=== PATIENT | female | born 1945 | race Caucasian/White ===

== ENCOUNTER 2019-12-20 17:26 | Emergency (ER) | payer MEDICARE, SELFPAY ==
[2019-12-20 17:35] VITALS: BP 153/95; PULSE 106; RESP 20; TEMP 37.2; O2SAT 97
--- NOTE | 2019-12-20 17:47 | ED.GENADULT ---
HPI - General Adult General Chief complaint: Urogenital-Female Stated complaint: POS UTI Time Seen by Provider: 12/20/19 17:47 Source: patient and RN notes reviewed Mode of arrival: ambulatory Limitations: no limitations History of Present Illness HPI narrative: 74-year-old female presents with urinary complaints for 1 day. Dysuria hematuria, consist of burning, frequency, and urgency.? No treatment.? Denies fever or chills. No significant pelvic pain. No vaginal discharge.? No concerns for STDs. Exacerbating factors urinating.? Alison says she inserted a q-tip in her vaginal area and blood was on it, no other vaginal bleeding (has a hyperion essbase developer appointment scheduled). Denies being , Hysterectomy in 1987.? No flank pain. Denies nausea, vomiting, and abdominal pain.? Tolerating liquids well.? Remains active. The patient reports she have not been diagnosed with COVID-19. The patient reports she is not waiting for the results of a COVID-19 lab test. The patient reports she do not have fever, chills, weakness, or fatigue. The patient reports she do not have a new or worsening cough or shortness of breath. Denies chest pain. The patient reports she do not have any rhinorrhea, congestion, sore throat, and diarrhea. Denies recent traveling. Denies concerns for COVID-19 or exposures been home with limited outdoor exposure except for essential household needs, work, and return home. At this time, patient is not suspected of having COVID-19. Some parts of this dictation were generated by voice recognition software and may contain typographical and/or grammatical inaccuracies. Related Data Home Medications Medication Instructions Recorded Confirmed aspirin [Adult Low Dose Aspirin] 81 mg PO DAILY 05/10/19 12/20/19 [id number]-ast 1 cap PO DAILY 05/10/19 12/20/19 [MegaRed [place]-3 Krill Oil] Allergies Allergy/AdvReac Type Severity Reaction Status Date / Time prednisone Allergy Intermediate increased Verified 04/29/19 10:58 heart rate amoxicillin Allergy Mild Nausea Verified 04/29/19 10:58 codeine Allergy Mild Vomiting Verified 04/29/19 10:58 Sulfa (Sulfonamide Allergy Mild Nausea and Verified 04/29/19 10:58 Antibiotics) Vomiting ibuprofen AdvReac Severe Other Verified 04/29/19 10:58 NSAIDS (Non-Steroidal AdvReac Severe Other Verified 04/29/19 10:58 Anti-Inflamma Review of Systems Review of Systems: Narrative: CONSTITUTIONAL: Denies fever, chills, sweats. EYES: Denies visual changes, redness, discharge. ENT: Denies rhinorrhea, congestion, sore throat, otalgia. CARDIOVASCULAR: Denies chest pain, palpitations, edema. RESPIRATORY: Denies dyspnea, wheezing, cough. GASTROINTESTINAL: Denies abdominal pain, nausea, vomiting, diarrhea. GENITOURINARY: Complains of dysuria (hematuria, burning, frequency, and urgency). Denies abnormal discharge. SKIN: Denies rash or itching. MUSCULOSKELETAL: Denies acute back pain, joint pain, or myalgia. NEUROLOGIC: Denies numbness or focal weakness. PSYCHIATRIC: Denies anxiety or depression. All systems reviewed & are unremarkable except as noted in HPI and below. [facility] Past Medical History Medical History (Updated 12/22/19 @ 00:00 by Background Dakisha) Anemia Asthma Bronchitis Diabetes mellitus Endometriosis Hyperlipidemia Hypertension Renal disease Surgical History Surgical History History of total hysterectomy with bilateral salpingo-oophorectomy (BSO) Family History Family History Mother Hypertension CHF (congestive heart failure) Father Patient's father is in good health Brain aneurysm Social History Social History Smoking status: Never smoker Second hand tobacco smoke exposure: No Alcohol intake: never Substance use: never Gender identity (if verbalized by the pat
== END 2019-12-20 18:02 | disposition home or self-care (01) ==
PROVIDERS: Emergency Provider Nurse Practitioner Family; PCP Physician Assistant
DX: R30.0 Dysuria (principal); R31.9 Hematuria, unspecified; E11.9 Type 2 diabetes mellitus without complications; E78.5 Hyperlipidemia, unspecified; I10 Essential (primary) hypertension; J45.909 Unspecified asthma, uncomplicated; N80.9 Endometriosis, unspecified
CPT/HCPCS: 81003; 87077; 87086; 87088; 87186; 99213; G0463

== ENCOUNTER 2020-01-26 16:50 | Emergency (ER) | payer MEDICARE, SELFPAY ==
--- NOTE | 2020-01-26 16:54 | ED.FEMALEGU ---
HPI - Female Genitourinary General Chief complaint: Urogenital-Female Stated complaint: pos uti Time Seen by Provider: 01/26/20 16:54 Source: patient and RN notes reviewed History of Present Illness HPI Narrative: Patient is a 74-year-old female who presents the urgent care with complaints of possible UTI. Patient was seen on December 19 for E. coli in the urine. Patient states that her symptoms started Thursday and she has been taking an old prescription of ciprofloxacin since then . Patient states that she has had urinary frequency and some suprapubic pressure. States that it has not changed since she has been on the ciprofloxacin. Denies of any blood in the urine, nausea, fever, back pain, abdominal pain. No other acute complaints. No acute distress noted. Patient read the plan of care. Some parts of this dictation were generated by voice recognition software and may contain typographical and/or grammatical inaccuracies. Related Data Home Medications Medication Instructions Recorded Confirmed aspirin [Adult Low Dose Aspirin] 81 mg PO DAILY 05/10/19 12/20/19 [id number]-apv-[id number]-gafvmel-ast 1 cap PO DAILY 05/10/19 12/20/19 [MegaRed [place]-3 Krill Oil] Allergies Allergy/AdvReac Type Severity Reaction Status Date / Time prednisone Allergy Intermediate increased Verified 01/26/20 16:59 heart rate amoxicillin Allergy Mild Nausea Verified 01/26/20 16:59 codeine Allergy Mild Vomiting Verified 01/26/20 16:59 Sulfa (Sulfonamide Allergy Mild Nausea and Verified 01/26/20 16:59 Antibiotics) Vomiting ibuprofen AdvReac Severe Other Verified 01/26/20 16:59 NSAIDS (Non-Steroidal AdvReac Severe Other Verified 01/26/20 16:59 Anti-Inflamma Review of Systems Review of Systems: Narrative: CONSTITUTIONAL: Denies fever, chills, or sweats. EYES: Denies visual changes, redness, or discharge. ENT: Denies rhinorrhea, congestion, sore throat, or otalgia. CARDIOVASCULAR: Denies chest pain, palpitations, or edema. RESPIRATORY: Denies cough or dyspnea. GASTROINTESTINAL: Denies abdominal pain, nausea, vomiting, or diarrhea. GENITOURINARY: Reports of suprapubic pressure and urinary frequency SKIN: Denies rash or itching. MUSCULOSKELETAL: Denies back pain, joint pain, or myalgia. NEUROLOGIC: Denies headache, numbness, or weakness. All other systems reviewed are negative, except as documented in HPI. [facility] Past Medical History Medical History (Updated 01/26/20 @ 17:15 by ADAL Waggoner) Anemia Asthma Bronchitis Diabetes mellitus Endometriosis Hyperlipidemia Hypertension Renal disease Surgical History Surgical History History of total hysterectomy with bilateral salpingo-oophorectomy (BSO) Social History Social History Smoking status: Never smoker Second hand tobacco smoke exposure: No Alcohol intake: never Substance use: never Gender identity (if verbalized by the patient): Female Agree to blood products: Yes Comments At the time of my signature, I reviewed and agree with the nursing past medical, surgical, social, and family history. There is no relevant family history pertinent to the patient complaint. Exam Narrative: Exam Narrative: GENERAL: This is a well-nourished, well-developed patient, in no apparent distress. HEAD: normocephalic, atraumatic. EYES: PERRL. Sclera clear/white. Vision is grossly intact. EARS: External ears normal NOSE: External nose normal with no obvious nasal discharge, nares without redness, no rhinorrhea. THROAT: Mucous membranes moist NECK: Neck supple GASTROINTESTINAL: Abdomen soft, non-tender, nondistended. Bowel sounds are active. SKIN: warm, intact with no suspicious lesions or rash, good texture and turgor. NEURO: awake, alert, and oriented to person, place and time. There were no obvious focal neurologic abnormalities. EXTREMITIES: No clubbing, cyano
[2020-01-26 17:01] VITALS: BP 160/83; PULSE 100; RESP 16; TEMP 36.6; O2SAT 98
== END 2020-01-26 17:18 | disposition home or self-care (01) ==
PROVIDERS: Emergency Provider Nurse Practitioner Family; PCP Physician Assistant
DX: R35.0 Frequency of micturition (principal); I10 Essential (primary) hypertension; E11.9 Type 2 diabetes mellitus without complications
CPT/HCPCS: 81003; 99212; G0463

== ENCOUNTER 2020-02-03 09:47 | Outpatient (CLI) | payer MEDICARE, SELFPAY ==
[2020-02-03 10:31] LABS: Add Urine Microscopic? NO; Appearance Urine Clear (Clear); Bilirubin Urine Negative (Negative); Blood Urine Negative (Negative); Color Urine Straw (Yellow); Glucose Urine UA Negative (Negative); Ketones Urine Negative (Negative); Leukocyte Esterase Ur Negative LEU/UL (NEGATIVE); Nitrate Urine Negative (Negative); Protein Urine Negative (Negative); Specific Grav Ur 1.011 (1.001-1.035); Urobilinogen Urine Negative mg/dL (<2.0)
== END 2020-02-03 09:48 | disposition home or self-care (01) ==
LOC: ANHLAB 09:49
PROVIDERS: PCP Physician Assistant; Visit Provider Physician Assistant
DX: R30.0 Dysuria (principal)
CPT/HCPCS: 81003; 87086

== ENCOUNTER 2020-02-15 04:17 | Emergency (ER) | payer MEDICARE, SELFPAY ==
--- NOTE | ~2020-02-15 | XR_ITS ---
XR chest 2V DATE: 02/15/2020 04:57 INDICATION: Chest tightness, shortness of breath TECHNIQUE: PA and lateral views COMPARISON: 05/10/2019 CT pulmonary scan 05/10/2019 2 view chest FINDINGS: Heart size is within normal range. Is mild aortic unfolding. No hilar or mediastinal enlarg ement. No pulmonary infiltrate or consolidation, pleural effusion or pulmonary vascular congestion or pneumo thorax. Diffuse osteopenia. IMPRESSION: No active cardiopulmonary disease Reviewed, dictated and finalized at location A.
[2020-02-15 04:20] VITALS: BP 165/84; PULSE 84; RESP 18; TEMP 36.6; O2SAT 97
[2020-02-15 04:24] VITALS: PULSE 84
--- NOTE | 2020-02-15 04:26 | ECG_ITS ---
Measurements Intervals [place] Rate: 85 P: 52 RI: 148 QRS: 12 QRSD: 94 T: 12 QT: 358 QTc: 426 Interpretive Statements SINUS RHYTHM BORDERLINE ST ABNORMALITY- ANT/INF LEADS BASELINE WANDER- I, II, III, AVF, V3 BORDERLINE ECG Electronically Signed On 02-15-2020 6:52:21 CDT by Cong Lanier D.O.
--- NOTE | 2020-02-15 04:34 | PC.NURSE ---
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
[2020-02-15 04:35] LABS: Basophils Absolute Auto 0.1 K/mm3 (0.0-0.1); Basophils Percent Auto 0.8 % (0.2-1.2); Eosinophils Absolute Auto 0.2 K/mm3 (0-0.3); Eosinophils Percent Auto 1.9 % (0-4.4); Hematocrit 39.9 % (37.0-47.0); Hemoglobin 12.7 g/dL (12.0-15.0); Immature Granulocyte Absolute 0.03 K/mm3 (0.00-0.031); Immature Granulocyte Percent A 0.3 % (0-0.5); Lymphocytes Absolute Auto 2.29 K/mm3 (0.9-3.2); Lymphocytes Percent Auto 21.7 % (18.3-44.2); Mean Corpuscular HGB Conc 31.8 g/dl (32-36); Mean Corpuscular Hemoglobin 26.5 pg (26-34); Mean Corpuscular Volume 83.1 fl (80-100); Monocytes Absolute Auto 0.7 K/mm3 (0.1-0.6); Monocytes Percent Auto 6.1 % (2.6-8.5); Neutrophils Absolute Auto 7.3 K/mm3 (1.3-6.7); Neutrophils Percent Auto 69.2 % (45.5-73.1); Platelet Count Result 266 k/mm3 (150-375); Red Cell Distribution Width 15.2 % (11.5-14.5); White Blood Count 10.6 K/mm3 (4.5-10.0)
[2020-02-15 04:47] LABS: Anion Gap 13 mmol/L (8-16); Blood Urea Nitrogen 22 mg/dL (7-17); Carbon Dioxide 25 mmol/L (22-30); Chloride 99 mmol/L (98-107); Estimated CRCL calculation 40 ml/min; Estimated Glomerular Filt Rate 54; Glucose 184 mg/dL (65-105); Potassium 3.5 mmol/L (3.4-5.0); Prothrombin Time 13.3 Seconds (11.1-14.7); Sodium 137 mmol/L (137-145)
[2020-02-15 04:48] LABS: Partial Thromboplastin Time 37.1 SECONDS (22.3-36.8)
[2020-02-15 04:58] LABS: Troponin I < 0.012 ng/mL (0.000-0.034)
[2020-02-15] MEDS: BELLADONNA ALK/PHENOB ELIX 10 ML, MAG HYDROX/ALUMINUM HYD/SIMETH 30 ML, LIDOCAINE HCL 2... PO (05:05)
[2020-02-15 05:26] VITALS: BP 136/74; PULSE 74; RESP 18; O2SAT 95
--- NOTE | 2020-02-15 05:40 | ED.CHESTPAIN ---
HPI - Chest Pain General Chief Complaint: Chest Pain Stated Complaint: sob Time Seen by Provider: 02/15/20 04:40 History of Present Illness HPI narrative: Patient is a 74-year-old female who presents ER with central chest pressure. Occurred last night as well as tonight. She is been unable to sleep due to this. She reports mild relief previously when using her inhaler but not this evening. No nausea/vomiting/shortness of breath. No exertional component. Unsure if it is related to eating or drinking. Related Data Home Medications Medication Instructions Recorded Confirmed aspirin [Adult Low Dose Aspirin] 81 mg PO DAILY 05/10/19 02/11/20 [id number]-eps-ezgpksx-ast 1 cap PO DAILY 05/10/19 02/11/20 [MegaRed [place]-3 Krill Oil] Allergies Allergy/AdvReac Type Severity Reaction Status Date / Time prednisone Allergy Intermediate increased Verified 02/15/20 04:24 heart rate amoxicillin Allergy Mild Nausea Verified 02/15/20 04:24 codeine Allergy Mild Vomiting Verified 02/15/20 04:24 Sulfa (Sulfonamide Allergy Mild Nausea and Verified 02/15/20 04:24 Antibiotics) Vomiting ibuprofen AdvReac Severe Other Verified 02/15/20 04:24 NSAIDS (Non-Steroidal AdvReac Severe Other Verified 02/15/20 04:24 Anti-Inflamma Review of Systems Review of Systems: All systems reviewed & are unremarkable except as noted in HPI and below Constitutional: Constitutional: Denies chills, Denies fever(s) and Denies weakness ENT: Denies nasal congestion and Denies sore throat Cardiovascular: Cardiovascular: Reports chest pain and Denies radiating jaw, neck or arm pain Respiratory: Respiratory: Denies cough and Denies dyspnea Gastrointestinal: Gastrointestinal: Denies abdominal pain, Denies nausea and Denies vomiting PMFSH Social History Social History Smoking status: Never smoker Second hand tobacco smoke exposure: No Alcohol intake: never Substance use: never Gender identity (if verbalized by the patient): Female Agree to blood products: Yes Exam Narrative: Exam Narrative: GENERAL: Well-appearing, well-nourished, and in no acute distress. HEAD: Normocephalic, atraumatic. ENT: Mucous membranes moist. CHEST: Clear to auscultation. No respiratory distress. HEART: Regular rate and rhythm. Normal peripheral pulses. ABDOMEN: Soft, nontender, nondistended. EXTREMITIES: Normal range of motion. No edema. SKIN: Warm, dry, no rash. NEURO: Alert and oriented x3. Course Course Emergency Course: Symptoms resolved with GI cocktail. D/c home. Vital Signs Vital signs: Vital Signs Temperature 97.8 F 02/15/20 04:20 Pulse Rate 84 02/15/20 04:20 Respiratory Rate 18 02/15/20 04:20 Blood Pressure 165/84 H 02/15/20 04:20 Pulse Oximetry 97 02/15/20 04:20 Temperature 97.8 F 02/15/20 04:20 Pulse Rate 74 02/15/20 05:26 Respiratory Rate 18 02/15/20 05:26 Blood Pressure 136/74 02/15/20 05:26 Pulse Oximetry 95 02/15/20 05:26 MDM - Chest Pain Lab Data Result diagrams: 02/15/20 04:27 02/15/20 04:27 Labs: Lab Results 02/15/20 02/15/20 02/15/20 Range/Units 04:27 04:27 04:27 WBC 10.6 H (4.5-10.0) K/mm3 RBC 4.80 (4.2-5.4) M/mm3 Hgb 12.7 (12.0-15.0) g/dL Hct 39.9 (37.0-47.0) % MCV 83.1 (80-100) fl MCH 26.5 (26-34) pg MCHC 31.8 L (32-36) g/dl RDW 15.2 H (11.5-14.5) % Plt Count 266 (150-375) k/mm3 MPV 10.0 (7.4-10.4) fl Immature Gran % (Auto) 0.3 (0-0.5) % Neut % (Auto) 69.2 (45.5-73.1) % Lymph % (Auto) 21.7 (18.3-44.2) % [place] % (Auto) 6.1 (2.6-8.5) % Eos % (Auto) 1.9 (0-4.4) % Baso % (Auto) 0.8 (0.2-1.2) % Lymph # (Auto) 2.29 (0.9-3.2) K/mm3 [place] # (Auto) 0.7 H (0.1-0.6) K/mm3 Eos # (Auto) 0.2 (0-0.3) K/mm3 Baso # (Auto) 0.1 (0.0-0.1) K/mm3 Abs Immat Gran (auto) 0.03 (0.00-0.031) K/mm3 Absolute
[2020-02-15 05:53] VITALS: BP 123/60; PULSE 69; RESP 17; O2SAT 93
== END 2020-02-15 05:54 | disposition home or self-care (01) ==
PROVIDERS: Emergency Provider Emergency Medicine; PCP Physician Assistant
DX: K21.9 Gastro-esophageal reflux disease without esophagitis (principal); Z79.82 Long term (current) use of aspirin
CPT/HCPCS: 36415; 71046; 80048; 84484; 85025; 85610; 85730; 93005; 99284; A9270

== ENCOUNTER 2020-03-01 19:59 | Emergency (ER) | payer MEDICARE, SELFPAY ==
--- NOTE | ~2020-03-01 | XR_ITS ---
EXAMINATION: XR chest 1V portable EXAM DATE: 03/01/2020 21:15 INDICATION: Cough, fever, chills, symptoms 5 days. History of hypertension and asthma. TECHNIQUE: Portable AP frontal chest x-ray was obtained. Comparison is made to prior examination from 02/15/2020. FINDINGS: The lungs are clear. There are no pleural effusions. Cardiac silhouette is prominent but magnified on this AP technique. There is no pneumothorax suspected. The bones and soft tissues are unremarkable. IMPRESSION: No acute cardiopulmonary findings. Reviewed, dictated and finalized at location A.
[2020-03-01 20:02] VITALS: BP 150/75; PULSE 98; RESP 16; TEMP 37.5; O2SAT 100
--- NOTE | 2020-03-01 20:04 | ECG_ITS ---
Measurements Intervals [place] Rate: 89 P: 50 [place]: 159 QRS: 19 QRSD: 92 T: 30 QT: 347 QTc: 423 Interpretive Statements SINUS RHYTHM BORDERLINE ST ABNORMALITY- ANTERIOR LEADS BASELINE WANDER- III, V6 BORDERLINE ECG Electronically Signed On 03-02-2020 7:04:02 CDT by Cong Lanier D.O.
[2020-03-01 20:18] LABS: Basophils Percent Auto 0.5 % (0.2-1.2); Eosinophils Percent Auto 0.6 % (0-4.4); Hematocrit 38.9 % (37.0-47.0); Hemoglobin 12.8 g/dL (12.0-15.0); Immature Granulocyte Absolute 0.02 K/mm3 (0.00-0.031); Immature Granulocyte Percent A 0.3 % (0-0.5); Lymphocytes Percent Auto 17.2 % (18.3-44.2); Mean Corpuscular HGB Conc 32.9 g/dl (32-36); Mean Corpuscular Hemoglobin 26.7 pg (26-34); Mean Platelet Volume 9.4 fl (7.4-10.4); Monocytes Absolute Auto 0.7 K/mm3 (0.1-0.6); Monocytes Percent Auto 10.6 % (2.6-8.5); Neutrophils Absolute Auto 4.5 K/mm3 (1.3-6.7); Neutrophils Percent Auto 70.8 % (45.5-73.1); Platelet Count Result 220 k/mm3 (150-375); Red Cell Distribution Width 14.9 % (11.5-14.5); White Blood Count 6.4 K/mm3 (4.5-10.0)
[2020-03-01 20:31] LABS: Anion Gap 12 mmol/L (8-16); Blood Urea Nitrogen 18 mg/dL (7-17); Carbon Dioxide 25 mmol/L (22-30); Chloride 99 mmol/L (98-107); Estimated CRCL calculation 36 ml/min; Estimated Glomerular Filt Rate 54; Glucose 115 mg/dL (65-105); Potassium 3.5 mmol/L (3.4-5.0); Sodium 136 mmol/L (137-145)
[2020-03-01 20:47] VITALS: RESP 20; O2SAT 95
--- NOTE | 2020-03-01 21:01 | ED.FEVER ---
HPI - Fever General Chief Complaint: Fever Stated Complaint: fever, chills, cough, short of breath Time Seen by Provider: 03/01/20 20:40 Source: patient Mode of arrival: ambulatory Limitations: no limitations History of Present Illness HPI Narrative: Patient is a 74-year-old female complaining of cough x4 days and a fever earlier this evening. Patient states that she not take anything for fever, afebrile upon arrival to the ER. Patient denies any shortness of breath, chest pain, abdominal pain, nausea or vomiting, diarrhea, or urinary symptoms. Related Data Home Medications Medication Instructions Recorded Confirmed aspirin [Adult Low Dose Aspirin] 81 mg PO DAILY 05/10/19 02/11/20 [id number]-1-kaj-izc-brvywro-ast 1 cap PO DAILY 05/10/19 02/11/20 [MegaRed [place]-3 Krill Oil] Allergies Allergy/AdvReac Type Severity Reaction Status Date / Time prednisone Allergy Intermediate increased Verified 03/01/20 20:48 heart rate amoxicillin Allergy Mild Nausea Verified 03/01/20 20:48 codeine Allergy Mild Vomiting Verified 03/01/20 20:48 Sulfa (Sulfonamide Allergy Mild Nausea and Verified 03/01/20 20:48 Antibiotics) Vomiting ibuprofen AdvReac Severe Other Verified 03/01/20 20:48 NSAIDS (Non-Steroidal AdvReac Severe Other Verified 03/01/20 20:48 Anti-Inflamma Review of Systems Review of Systems: All systems reviewed & are unremarkable except as noted in HPI and below Constitutional: Constitutional: Denies body ache(s), Denies chills, Denies excessive sweating, Denies fatigue, Denies headache(s), Denies lethargy, Denies malaise, Denies weakness and Denies weight loss Eyes: Eyes: Denies blurry vision, Denies change in vision and Denies loss of vision ENT: Denies dizziness, Denies ear discharge, Denies headache(s), Denies lip swelling, Denies epistaxis, Denies nasal congestion, Denies neck pain, Denies throat swelling and Denies tongue swelling Cardiovascular: Cardiovascular: Denies chest pain, Denies chest pain at rest, Denies chest pain with activity, Denies diaphoresis, Denies rapid heart rate, Denies edema, Denies irregular heart rhythm, Denies lightheadedness, Denies palpitations, Denies dyspnea and Denies dyspnea on exertion Respiratory: Respiratory: Denies chest congestion, Denies hemoptysis, Denies dyspnea and Denies dyspnea on exertion Gastrointestinal: Gastrointestinal: Denies abdominal pain, Denies melena, Denies hematochezia, Denies diarrhea, Denies nausea, Denies vomiting and Denies hematemesis Musculoskeletal: Musculoskeletal: Denies abnormal gait, Denies deformity, Denies joint swelling, Denies limited range of motion, Denies neck pain and Denies numbness Neurologic: Denies Abnormal speech present, Denies abnormal gait, Denies confusion, Denies dizziness, Denies headache(s), Denies focal weakness, Denies loss of vision, Denies numbness, Denies Other visual disturbances, Denies Sensory deficit (Neuro) and Denies weakness Psychiatric: Psychiatric: Denies confusion, Denies depression, Denies auditory hallucinations, Denies homicidal ideation and Denies suicidal ideation Endocrine: Endocrine: Denies cold intolerance, Denies excessive sweating, Denies fatigue, Denies heat intolerance and Denies palpitations Hematologic/Lymphatic: Hematologic/Lymphatic: Denies easy bleeding and Denies easy bruising Allergic/Immunologic: Allergic/Immunologic: Denies lip swelling, Denies throat swelling and Denies tongue swelling PMF Past Medical History Medical History (Updated 03/01/20 @ 23:13 by Amilcar Lopez MD) Anemia Asthma Bronchitis Diabetes mellitus Endometriosis Hyperlipidemia Hypertension Renal disease Surgical History Surgical History History of total hysterectomy with bilateral salpingo-oophorectomy (BSO) Family History Family History Mother Hypertension CHF (congestive heart failure) Fat
[2020-03-01 23:41] VITALS: BP 123/74; PULSE 80; RESP 16; TEMP 36.8; O2SAT 95
== END 2020-03-01 23:42 | disposition home or self-care (01) ==
PROVIDERS: Emergency Medicine; Emergency Provider Emergency Medicine; PCP Physician Assistant
DX: J06.9 Acute upper respiratory infection, unspecified (principal); J45.909 Unspecified asthma, uncomplicated; E11.9 Type 2 diabetes mellitus without complications; E78.5 Hyperlipidemia, unspecified; N80.9 Endometriosis, unspecified; I10 Essential (primary) hypertension; N28.9 Disorder of kidney and ureter, unspecified; Z86.2 Personal history of diseases of the blood and blood-forming organs and certain disorders involving the immune mechanism; Z79.84 Long term (current) use of oral hypoglycemic drugs; Z79.82 Long term (current) use of aspirin
CPT/HCPCS: 36415; 71045; 80048; 85025; 93005; 99284

== ENCOUNTER 2020-03-02 11:48 | Outpatient (CLI) | payer MEDICARE, SELFPAY ==
[2020-03-03 13:34] LABS: SARS-CoV-2 RNA PCR Negative
== END 2020-03-02 11:49 | disposition home or self-care (01) ==
LOC: CHSLAB 11:51
PROVIDERS: PCP Physician Assistant; Visit Provider Physician Assistant
DX: R68.89 Other general symptoms and signs (principal); Z20.828 Contact with and (suspected) exposure to other viral communicable diseases
CPT/HCPCS: 87635; C9803; U0003

== ENCOUNTER 2020-03-30 15:38 | Outpatient (CLI) | payer MEDICARE, SELFPAY ==
[2020-04-02 16:41] LABS: SARS-CoV-2 RNA PCR Negative
== END 2020-03-30 15:39 | disposition home or self-care (01) ==
LOC: CHSLAB 15:43
PROVIDERS: PCP Physician Assistant; Visit Provider Physician Assistant
DX: Z20.828 Contact with and (suspected) exposure to other viral communicable diseases (principal)
CPT/HCPCS: 87635; C9803; U0003

== ENCOUNTER 2020-07-03 01:25 | Emergency (ER) | payer MEDICARE, SELFPAY ==
--- NOTE | ~2020-07-03 | XR_ITS ---
EXAMINATION: XR chest 1V portable DATE: 07/03/2020 02:04 INDICATION: Chest tightness TECHNIQUE: frontal view of the chest was obtained. COMPARISON: Chest radiograph dated 03/01/[address] dated 05/10/2019 FINDINGS: Unchanged mild left basilar atelectasis/scarring. No new airspace opacities, pulmonary edema, pleural effusion or pneumothorax. The cardiomediastinal silhouette is normal. IMPRESSION: 1. No acute cardiopulmonary disease. Reviewed, dictated and finalized at location A. PLACEMENT SPECIALIST
[2020-07-03 01:27] VITALS: PULSE 76; RESP 20; O2SAT 99
[2020-07-03 01:30] VITALS: BP 124/65
--- NOTE | 2020-07-03 01:33 | ECG_ITS ---
Measurements Intervals [place] Rate: 74 P: 39 CO: 145 QRS: 21 QRSD: 85 T: 17 QT: 366 QTc: 406 Interpretive Statements SINUS RHYTHM NONSPECIFIC ST & T-WAVE ABNORMALITY- ANT/INF LEADS BASELINE ARTIFACT- I, II, AVR, V5 BORDERLINE ECG Electronically Signed On 07-03-2020 6:29:46 BRIM MOLDER by Cong Lanier D.O.
[2020-07-03 01:49] LABS: Basophils Percent Auto 0.4 % (0.2-1.2); Eosinophils Absolute Auto 0.2 K/mm3 (0-0.3); Eosinophils Percent Auto 2.2 % (0-4.4); Hematocrit 40.9 % (37.0-47.0); Hemoglobin 13.2 g/dL (12.0-15.0); Immature Granulocyte Absolute 0.03 K/mm3 (0.00-0.031); Immature Granulocyte Percent A 0.3 % (0-0.5); Lymphocytes Absolute Auto 2.11 K/mm3 (0.9-3.2); Lymphocytes Percent Auto 19.9 % (18.3-44.2); Mean Corpuscular HGB Conc 32.3 g/dl (32-36); Mean Corpuscular Hemoglobin 26.7 pg (26-34); Mean Corpuscular Volume 82.6 fl (80-100); Mean Platelet Volume 9.4 fl (7.4-10.4); Monocytes Absolute Auto 0.8 K/mm3 (0.1-0.6); Monocytes Percent Auto 7.2 % (2.6-8.5); Neutrophils Absolute Auto 7.4 K/mm3 (1.3-6.7); Platelet Count Result 239 k/mm3 (150-375); Red Blood Count 4.95 M/mm3 (4.2-5.4); Red Cell Distribution Width 14.8 % (11.5-14.5); White Blood Count 10.6 K/mm3 (4.5-10.0)
[2020-07-03 02:07] LABS: INR 0.9; Prothrombin Time 13.2 Seconds (11.1-14.7)
[2020-07-03 02:08] LABS: Alanine Aminotransferase 40 U/L (4-35); Albumin Level 4.7 g/dL (3.5-5.1); Alkaline Phosphatase 99 U/L (38-126); Anion Gap 10 mmol/L (8-16); Aspartate Amino Transferase 39 U/L (14-36); Bilirubin,Total 0.9 mg/dL (0.2-1.3); Blood Urea Nitrogen 27 mg/dL (7-17); Calcium 10.4 mg/dL (8.4-10.2); Carbon Dioxide 27 mmol/L (22-30); Chloride 101 mmol/L (98-107); Estimated CRCL calculation 36 ml/min; Estimated Glomerular Filt Rate 54; Glucose 126 mg/dL (65-105); Lipase 103 U/L (23-300); Partial Thromboplastin Time 37.8 SECONDS (22.3-36.8); Potassium 3.5 mmol/L (3.4-5.0); Sodium 138 mmol/L (137-145)
[2020-07-03] MEDS: BELLADONNA ALK/PHENOB ELIX 10 ML, MAG HYDROX/ALUMINUM HYD/SIMETH 30 ML, LIDOCAINE HCL 2... PO (02:15)
[2020-07-03] MEDS: ASPIRIN 81 MG CHEWABLE TABLET 324 MG PO (02:16)
[2020-07-03 02:20] LABS: NT Pro B Type Natriuretic Pept 37 PG/ML (5-100); Troponin I < 0.012 ng/mL (0.000-0.034)
--- NOTE | 2020-07-03 02:45 | ED.GENADULT ---
HPI - General Adult General Chief complaint: Chest Pain Stated complaint: chest tightness Time Seen by Provider: 07/03/20 01:31 History of Present Illness HPI narrative: Patient 74-year-old female presents the emergency department with chief complaint of chest pain. Patient reports that earlier this evening she started having discomfort in her chest. The patient states that the central chest reports is nonradiating reports that she felt a little short of breath whenever she was ambulating but denies diaphoresis denies radiation. Patient reports that she has had episodes like this before in the past that were either related to her asthma or related to reflux. Related Data Home Medications Medication Instructions Recorded Confirmed aspirin [Adult Low Dose Aspirin] 81 mg PO DAILY 05/10/19 02/11/20 [id number]-li-1-ifr-zbs-jfplgqt-ast 1 cap PO DAILY 05/10/19 02/11/20 [MegaRed [place]-3 Krill Oil] Allergies Allergy/AdvReac Type Severity Reaction Status Date / Time prednisone Allergy Intermediate increased Verified 07/03/20 01:32 heart rate codeine Allergy Mild Vomiting Verified 07/03/20 01:32 Sulfa (Sulfonamide Allergy Mild Nausea and Verified 07/03/20 01:32 Antibiotics) Vomiting ibuprofen AdvReac Severe Other Verified 07/03/20 01:32 NSAIDS (Non-Steroidal AdvReac Severe Other Verified 07/03/20 01:32 Anti-Inflamma Review of Systems Review of Systems: Narrative: A 10 system review of systems was completed on the patient and is negative except for what is stated in the HPI. Nursing and ancillary documentation was reviewed. [facility] Past Medical History Medical History (Updated 07/03/20 @ 04:21 by José Miguel Marie MD) Anemia Asthma Bronchitis Diabetes mellitus Endometriosis Hyperlipidemia Hypertension Renal disease Surgical History Surgical History History of total hysterectomy with bilateral salpingo-oophorectomy (BSO) Family History Family History Mother Hypertension CHF (congestive heart failure) Father Patient's father is in good health Brain aneurysm Social History Social History Smoking status: Never smoker Second hand tobacco smoke exposure: No Alcohol intake: never Substance use: never Gender identity (if verbalized by the patient): Female Agree to blood products: Yes Exam Narrative: Exam Narrative: GENERAL: Well-appearing, well-nourished, and in no acute distress. HEAD: Normocephalic, atraumatic. EYES: PERRLA and EOMI. ENT: Nares clear, no rhinorrhea or epistaxis. Mucous membranes moist. NECK: Supple. CHEST: Clear to auscultation. No respiratory distress. HEART: Regular rate and rhythm. No murmur heard. Normal peripheral pulses. ABDOMEN: Soft, nontender, nondistended, normal active bowel sounds. EXTREMITIES: Normal range of motion. No edema. SKIN: Warm, dry, no rash. NEURO: No focal deficits. Alert and oriented x3. PSYCH: Normal mood and affect. Course Course Emergency Course: EKG shows sinus rhythm rate of [address] elevation or ST depression Initial troponin is negative Vital Signs Vital signs: Vital Signs Pulse Rate 76 07/03/20 01:27 Respiratory Rate 20 07/03/20 01:27 Pulse Oximetry 99 07/03/20 01:27 Pulse Rate 69 07/03/20 05:00 Respiratory Rate 18 07/03/20 05:00 Blood Pressure 120/62 07/03/20 04:00 Pulse Oximetry 96 07/03/20 05:00 Medical Decision Making Vital Signs Vital Signs: Vital Signs Pulse Rate 76 07/03/20 01:27 Respiratory Rate 20 07/03/20 01:27 Pulse Oximetry 99 07/03/20 01:27 Pulse Rate 69 07/03/20 05:00 Respiratory Rate 18 07/03/20 05:00 Blood Pressure 120/62 07/03/20 04:00 Pulse Oximetry 96 07/03/20 05:00 Lab Data Result diagrams: 07/03/20 01:37 07/03/20 01:37
[2020-07-03 03:00] VITALS: BP 119/59; PULSE 63; RESP 17; O2SAT 94
[2020-07-03 04:00] VITALS: BP 120/62; PULSE 69; RESP 16; O2SAT 93
[2020-07-03 04:12] LABS: Add Urine Microscopic? YES; Appearance Urine Clear (Clear); Bilirubin Urine Negative (Negative); Blood Urine Negative (Negative); Color Urine Colorless (Yellow); Glucose Urine UA Negative (Negative); Ketones Urine Negative (Negative); Leukocyte Esterase Ur Trace LEU/UL (Negative); Nitrate Urine Negative (Negative); Protein Urine Negative (Negative); RBC Urine 0-2 /hpf (0-2); Specific Grav Ur 1.005 (1.001-1.035); Squamous Epithelial Cell Urine Rare /hpf (Few); Urobilinogen Urine Negative mg/dL (<2.0); WBC Urine 0-3 /hpf
[2020-07-03 05:00] VITALS: PULSE 69; RESP 18; O2SAT 96
[2020-07-03 05:29] LABS: Troponin I < 0.012 ng/mL (0.000-0.034)
[2020-07-03 05:30] VITALS: BP 117/64; PULSE 62; RESP 16; O2SAT 98
== END 2020-07-03 06:00 | disposition home or self-care (01) ==
PROVIDERS: Emergency Provider Emergency Medicine; PCP Physician Assistant
DX: R07.89 Other chest pain (principal); J45.909 Unspecified asthma, uncomplicated; E11.9 Type 2 diabetes mellitus without complications; E78.5 Hyperlipidemia, unspecified; I10 Essential (primary) hypertension; N28.9 Disorder of kidney and ureter, unspecified; Z79.82 Long term (current) use of aspirin; R06.02 Shortness of breath; R94.31 Abnormal electrocardiogram [ECG] [EKG]; Z79.84 Long term (current) use of oral hypoglycemic drugs
CPT/HCPCS: 36415; 71045; 80053; 81001; 83690; 83880; 84484; 85025; 85610; 85730; 93005; 99284; A9270

== ENCOUNTER 2020-07-14 12:49 | Emergency (ER) | payer MEDICARE, SELFPAY ==
--- NOTE | 2020-07-14 12:55 | ED.GENADULT ---
HPI - General Adult General Chief complaint: Urogenital-Female Stated complaint: POS UTI Time Seen by Provider: 07/14/20 12:56 Source: patient and RN notes reviewed Mode of arrival: ambulatory Limitations: no limitations History of Present Illness HPI narrative: 74-year-old female presents with urinary complaints for 1 day. Alison reports increase frequency and burning throughout the night. Dysuria consist of burning, frequency, and urgency.? No treatment.? Last antibiotics per Alison was 12/2019. History of E-coli in urine 12/20/2019. Denies fever or chills. No significant pelvic pain. No vaginal discharge.? No concerns for STDs. Denies being sexual active for over twenty years. Exacerbating factors urinating.? Denies hematuria or vaginal bleeding. Denies being , postmenopausal.? No flank pain. Denies nausea, vomiting, and abdominal pain.? Tolerating liquids well.? Remains active. The patient reports she have not been diagnosed with COVID-19. The patient reports she is not waiting for the results of a COVID-19 lab test. The patient reports she do not have chills, weakness, or fatigue. The patient reports she do not have a new or worsening cough or shortness of breath. Denies chest pain. The patient reports she do not have any rhinorrhea, congestion, sore throat, loss of taste or smell, or diarrhea. Denies recent traveling. Denies concerns for COVID-19 or exposures been home with limited outdoor exposure except for essential household needs, work, and return home. At this time, patient is not suspected of having COVID-19. Some parts of this dictation were generated by voice recognition software and may contain typographical and/or grammatical inaccuracies. Related Data Home Medications Medication Instructions Recorded Confirmed aspirin [Adult Low Dose Aspirin] 81 mg PO DAILY 05/10/19 02/11/20 [id number]-an-[id number]-rix-irwrafr-ast 1 cap PO DAILY 05/10/19 02/11/20 [MegaRed [place]-3 Krill Oil] Allergies Allergy/AdvReac Type Severity Reaction Status Date / Time prednisone Allergy Intermediate increased Verified 07/03/20 01:32 heart rate codeine Allergy Mild Vomiting Verified 07/03/20 01:32 Sulfa (Sulfonamide Allergy Mild Nausea and Verified 07/03/20 01:32 Antibiotics) Vomiting ibuprofen AdvReac Severe Other Verified 07/03/20 01:32 NSAIDS (Non-Steroidal AdvReac Severe Other Verified 07/03/20 01:32 Anti-Inflamma Review of Systems Review of Systems: Narrative: CONSTITUTIONAL: Denies fever, chills, sweats. EYES: Denies visual changes, redness, discharge. ENT: Denies rhinorrhea, congestion, sore throat, otalgia. CARDIOVASCULAR: Denies chest pain, palpitations, edema. RESPIRATORY: Denies dyspnea, wheezing, cough. GASTROINTESTINAL: Denies abdominal pain, nausea, vomiting, diarrhea. GENITOURINARY: Complains of dysuria (burning, frequency, and urgency). Denies hematuria, abnormal discharge. SKIN: Denies rash or itching. MUSCULOSKELETAL: Denies acute back pain, joint pain, or myalgia. NEUROLOGIC: Denies numbness or focal weakness. PSYCHIATRIC: Denies anxiety or depression. All systems reviewed & are unremarkable except as noted in HPI and below. [facility] Past Medical History Medical History Anemia Asthma Bronchitis Diabetes mellitus Endometriosis Hyperlipidemia Hypertension Renal disease Surgical History Surgical History History of total hysterectomy with bilateral salpingo-oophorectomy (BSO) Family History Family History Mother Hypertension CHF (congestive heart failure) Father Patient's father is in good health Brain aneurysm Social History Social History (Updated 07/14/20 @ 15:17 by ADAL Swanson) Smoking status: Never smoker Tobacco type: cigarettes Second hand tobacco smoke exposure: No Alcohol
[2020-07-14 12:57] VITALS: BP 148/79; PULSE 83; RESP 20; TEMP 36.6; O2SAT 99
== END 2020-07-14 13:43 | disposition home or self-care (01) ==
PROVIDERS: Emergency Provider Nurse Practitioner Family; PCP Physician Assistant
DX: R30.0 Dysuria (principal); J45.909 Unspecified asthma, uncomplicated; E00.9 Congenital iodine-deficiency syndrome, unspecified; N80.9 Endometriosis, unspecified; E78.5 Hyperlipidemia, unspecified; I10 Essential (primary) hypertension; N28.9 Disorder of kidney and ureter, unspecified
CPT/HCPCS: 81003; 87077; 87086; 87088; 87186; 99213; G0463

== ENCOUNTER 2020-07-20 09:46 | Outpatient (CLI) | payer MEDICARE, SELFPAY ==
[2020-07-20 10:21] LABS: Add Urine Microscopic? YES; Appearance Urine Cloudy (Clear); Bilirubin Urine Negative (Negative); Blood Urine Negative (Negative); Color Urine Yellow (Yellow); Glucose Urine UA Negative (Negative); Ketones Urine Negative (Negative); Leukocyte Esterase Ur Trace LEU/UL (NEGATIVE); Mucus Urine Rare /lpf; Nitrate Urine Negative (Negative); Protein Urine Negative (Negative); RBC Urine 0-2 /hpf (0-2); Specific Grav Ur 1.014 (1.001-1.035); Squamous Epithelial Cell Urine Occasional /hpf (Few); Urobilinogen Urine Negative mg/dL (<2.0)
== END 2020-07-20 09:47 | disposition home or self-care (01) ==
PROVIDERS: PCP Physician Assistant; Visit Provider Physician Assistant
DX: N39.0 Urinary tract infection, site not specified (principal)
CPT/HCPCS: 81001

== ENCOUNTER 2020-12-26 09:38 | Outpatient (CLI) | payer MEDICARE, SELFPAY ==
[2020-12-26 11:22] LABS: SARS-CoV-2 RNA PCR Negative (Negative)
== END 2020-12-26 09:39 | disposition home or self-care (01) ==
LOC: CHSLAB 09:40
PROVIDERS: PCP Physician Assistant; Visit Provider Physician Assistant
DX: R68.89 Other general symptoms and signs (principal); Z20.822 Contact with and (suspected) exposure to COVID-19
CPT/HCPCS: C9803; U0003; U0005

== ENCOUNTER 2021-01-23 16:49 | Emergency (ER) | payer MEDICARE, SELFPAY ==
[2021-01-23 16:58] VITALS: BP 159/86; PULSE 86; RESP 16; TEMP 36.2; O2SAT 98
--- NOTE | 2021-01-23 17:13 | ED.FEMALEGU ---
HPI - Female Genitourinary General Chief complaint: Urogenital-Female Stated complaint: FREQUENT URINATION Time Seen by Provider: 01/23/21 17:07 Source: patient, RN notes reviewed and old records reviewed Mode of arrival: ambulatory Limitations: no limitations History of Present Illness HPI Narrative: 75-year-old female who presents to [facility] with complaints of urinary frequency for one day duration. Patient states that she does not have any burning with urination or any urgency with urination. patient voices concern over recent development of urinary frequency because she has 6 hour dental appointment for dental implants. Patient states that she has had past urinary tract infections with last one about 7 months ago. Patient denies any fevers, chills or sweats or any abdominal discomfort or nausea. Related Data Home Medications Medication Instructions Recorded Confirmed aspirin [Adult Low Dose Aspirin] 81 mg PO DAILY 05/10/19 02/11/20 [id number]-[id number]-3-[id number]-mun-ltllxgf-ast 1 cap PO DAILY 05/10/19 12/21/20 [MegaRed [place]-3 Krill Oil] Allergies Allergy/AdvReac Type Severity Reaction Status Date / Time prednisone Allergy Intermediate increased Verified 12/21/20 09:07 heart rate codeine Allergy Mild Vomiting Verified 12/21/20 09:07 Sulfa (Sulfonamide Allergy Mild Nausea and Verified 12/21/20 09:07 Antibiotics) Vomiting ibuprofen AdvReac Severe Other Verified 12/21/20 09:07 NSAIDS (Non-Steroidal AdvReac Severe Other Verified 12/21/20 09:07 Anti-Inflamma Review of Systems Review of Systems: CONSTITUTIONAL: Denies fever, chills, or sweats. EYES: Denies visual changes, redness, or discharge. ENT: Denies rhinorrhea, congestion, sore throat, or otalgia. CARDIOVASCULAR: Denies chest pain, palpitations, or edema. RESPIRATORY: Denies cough or dyspnea. GASTROINTESTINAL: Denies abdominal pain, nausea, vomiting, or diarrhea. GENITOURINARY: Denies dysuria or hematuria, urinary frequency, no suprapubic pain or CVA tenderness SKIN: Denies rash or itching. MUSCULOSKELETAL: Denies back pain, joint pain, or myalgia. NEUROLOGIC: Denies headache, numbness, or weakness. PSYCHIATRIC: Denies anxiety or depression. All systems reviewed & are unremarkable except as noted in HPI and below PMFSH Past Medical History Medical History Acute respiratory failure with hypoxia Anemia Asthma Bronchitis Diabetes mellitus Endometriosis Hyperlipidemia Hypertension Renal disease Surgical History Surgical History History of total hysterectomy with bilateral salpingo-oophorectomy (BSO) Family History Family History Mother Hypertension CHF (congestive heart failure) Father Patient's father is in good health Brain aneurysm Social History Social History Smoking status: Never smoker Tobacco type: cigarettes Second hand tobacco smoke exposure: No Alcohol intake: never Substance use: never Additional occupation/education comments: 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 There is no relevant family history pertinent to the presenting complaint Exam Narrative: GENERAL: Well-appearing, well-nourished, and in no acute distress. HEAD: Normocephalic, atraumatic. EYES: PERRLA and EOMI. ENT: Nares clear, no rhinorrhea or epistaxis. Mucous membranes moist.TM's normal with good light reflex, throat pink with no lesions or exudates, no tonsil enlargement. NECK: Supple. no lymphadenopathy CHEST: Clear to auscul
== END 2021-01-23 17:25 | disposition home or self-care (01) ==
PROVIDERS: Emergency Provider Registered Nurse; PCP Physician Assistant
DX: N39.0 Urinary tract infection, site not specified (principal); I10 Essential (primary) hypertension; E11.9 Type 2 diabetes mellitus without complications; Z79.82 Long term (current) use of aspirin
CPT/HCPCS: 81003; 87086; 87088; 99213; G0463

== ENCOUNTER 2021-02-21 07:19 | Emergency (ER) | payer MEDICARE, SELFPAY ==
[2021-02-21 07:37] VITALS: BP 143/78; PULSE 69; RESP 16; TEMP 36.8; O2SAT 99
--- NOTE | 2021-02-21 08:24 | ED.BACK ---
HPI - Back Pain/Injury General Chief Complaint: Back Pain/Injury Stated Complaint: left back/buttock pain Time Seen by Provider: 02/21/21 08:06 Source: patient History of Present Illness HPI Narrative: Patient presents with low back pain. Reports a history of low back pain several years ago responded to steroid injections. This episode she has been having low back pain for the past few days getting progressively worse. She took Aleve at home without significant relief so she came to the ER for evaluation. She denies any bowel or bladder incontinence. She denies any numbness, tingling, weakness. Her pain is primarily on her left lower back achy, constant, worse with using her back resolved with laying and not moving. She denies recent spinal sedation she denies IV drug use. Related Data Home Medications Medication Instructions Recorded Confirmed aspirin [Adult Low Dose Aspirin] 81 mg PO DAILY 05/10/19 02/11/20 cxkjn-xi-7-poo-frg-hjpzfrx-ast 1 cap PO DAILY 05/10/19 12/21/20 [MegaRed [place]-3 Krill Oil] trazodone 50 mg PO HS 02/21/21 Allergies Allergy/AdvReac Type Severity Reaction Status Date / Time prednisone Allergy Intermediate increased Verified 02/21/21 07:47 heart rate codeine Allergy Mild Vomiting Verified 02/21/21 07:47 Sulfa (Sulfonamide Allergy Mild Nausea and Verified 02/21/21 07:47 Antibiotics) Vomiting ibuprofen AdvReac Severe Other Verified 02/21/21 07:47 NSAIDS (Non-Steroidal AdvReac Severe Other Verified 02/21/21 07:47 Anti-Inflamma Review of Systems Review of Systems: CONSTITUTIONAL: Denies fever, chills, or sweats. EYES: Denies visual changes, redness, or discharge. ENT: Denies rhinorrhea, congestion, sore throat, or otalgia. CARDIOVASCULAR: Denies chest pain, palpitations, or edema. RESPIRATORY: Denies cough or dyspnea. GASTROINTESTINAL: Denies abdominal pain, nausea, vomiting, or diarrhea. GENITOURINARY: Denies dysuria or hematuria. SKIN: Denies rash or itching. MUSCULOSKELETAL: Denies joint pain, or myalgia. NEUROLOGIC: Denies headache, numbness, dizziness, or weakness. PSYCHIATRIC: Denies anxiety or depression. All systems reviewed & are unremarkable except as noted in HPI and below PMFSH Past Medical History Medical History Acute respiratory failure with hypoxia Anemia Asthma Bronchitis Diabetes mellitus Endometriosis Hyperlipidemia Hypertension Renal disease Surgical History Surgical History History of total hysterectomy with bilateral salpingo-oophorectomy (BSO) Family History Family History Mother Hypertension CHF (congestive heart failure) Father Patient's father is in good health Brain aneurysm Social History Social History Smoking status: Never smoker Tobacco type: cigarettes Second hand tobacco smoke exposure: No Alcohol intake: never Substance use: never Additional occupation/education comments: 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 HEAD: Normocephalic, atraumatic. EYES: PERRLA and EOMI. ENT: Nares clear, no rhinorrhea or epistaxis. Mucous membranes moist. NECK: Supple. No masses. No JVD BACK: Back pain is not reproducible on exam no CVA tenderness no midline back pain. Patient has 5 out of 5 strength in bilateral lower extremities with sensation intact to light touch EXTREMITIES: Normal range of motion. No edema. SKIN: Warm, dry, no rash. NEURO: No focal deficits. Alert and oriented x3. PSYCH: Normal mood and affect. [place]
[2021-02-21] MEDS: CYCLOBENZAPRINE HCL 10 MG TABLET PO (08:35)
[2021-02-21 08:41] VITALS: BP 125/66; PULSE 65; RESP 17; O2SAT 97
== END 2021-02-21 08:42 | disposition home or self-care (01) ==
PROVIDERS: Emergency Provider Emergency Medicine; PCP Physician Assistant
DX: M54.42 Lumbago with sciatica, left side (principal); J45.909 Unspecified asthma, uncomplicated; E11.9 Type 2 diabetes mellitus without complications; E78.5 Hyperlipidemia, unspecified; I10 Essential (primary) hypertension; N28.9 Disorder of kidney and ureter, unspecified; N80.9 Endometriosis, unspecified; Z79.82 Long term (current) use of aspirin; Z79.84 Long term (current) use of oral hypoglycemic drugs
CPT/HCPCS: 99283; A9270

== ENCOUNTER 2021-03-26 12:40 | Outpatient (CLI) | payer MEDICARE, SELFPAY ==
[2021-03-26 13:33] LABS: SARS-CoV-2 RNA PCR Negative (Negative)
== END 2021-03-26 12:41 | disposition home or self-care (01) ==
LOC: CHSLAB 12:43
PROVIDERS: PCP Physician Assistant; Visit Provider Physician Assistant
DX: Z20.822 Contact with and (suspected) exposure to COVID-19 (principal)
CPT/HCPCS: C9803; U0003; U0005

== ENCOUNTER 2021-03-28 10:41 | Outpatient (CLI) | payer MEDICARE, SELFPAY ==
[2021-03-28 11:29] LABS: SARS-CoV-2 RNA PCR Negative (Negative)
== END 2021-03-28 10:42 | disposition home or self-care (01) ==
LOC: CHSLAB 10:46
PROVIDERS: PCP Physician Assistant; Visit Provider Physician Assistant
DX: R68.89 Other general symptoms and signs (principal); Z20.822 Contact with and (suspected) exposure to COVID-19
CPT/HCPCS: C9803; U0003; U0005

== ENCOUNTER 2021-04-04 07:45 | Emergency (ER) | payer MEDICARE, SELFPAY ==
--- NOTE | 2021-04-04 07:54 | ED.LOWEXIN ---
HPI - Extremity Injury (Lower) General Chief Complaint: Extremity Injury, Lower Stated Complaint: Pain in left leg Time Seen by Provider: 04/04/21 07:51 Source: patient History of Present Illness HPI Narrative: Patient presents with low back pain. Reports longstanding history of left low back pain. Pain is achy, constant, worse with not moving and alleviated with walking around, radiates down her leg. Sure she was seen before for this had muscle x-rays did not help. She followed with pain management and had a steroid injection and had a large amount of relief. She reports she was diagnosed with sacroiliitis. Her pain returned yesterday her pain management provider had no availability so she came to the ER for evaluation. She denies any focal numbness or weakness she denies any bowel or bladder incontinence she denies any fevers, IV drug use, major changes in weight. Related Data Home Medications Medication Instructions Recorded Confirmed aspirin [Adult Low Dose Aspirin] 81 mg PO DAILY 05/10/19 02/11/20 ievnz-od-1-psw-icm-xaleuvi-ast 1 cap PO DAILY 05/10/19 12/21/20 [MegaRed [place]-3 Krill Oil] trazodone 50 mg PO HS 02/21/21 Allergies Allergy/AdvReac Type Severity Reaction Status Date / Time prednisone Allergy Intermediate increased Verified 04/04/21 08:00 heart rate codeine Allergy Mild Vomiting Verified 04/04/21 08:00 Sulfa (Sulfonamide Allergy Mild Nausea and Verified 04/04/21 08:00 Antibiotics) Vomiting ibuprofen AdvReac Severe Other Verified 04/04/21 08:00 NSAIDS (Non-Steroidal AdvReac Severe Other Verified 04/04/21 08:00 Anti-Inflamma Review of Systems Review of Systems: CONSTITUTIONAL: Denies fever, chills, or sweats. EYES: Denies visual changes, redness, or discharge. ENT: Denies rhinorrhea, congestion, sore throat, or otalgia. CARDIOVASCULAR: Denies chest pain, palpitations, or edema. RESPIRATORY: Denies cough or dyspnea. GASTROINTESTINAL: Denies abdominal pain, nausea, vomiting, or diarrhea. GENITOURINARY: Denies dysuria or hematuria. SKIN: Denies rash or itching. MUSCULOSKELETAL: Denies joint pain, or myalgia. NEUROLOGIC: Denies headache, numbness, dizziness, or weakness. PSYCHIATRIC: Denies anxiety or depression. All systems reviewed & are unremarkable except as noted in HPI and below PMFSH Past Medical History Medical History Acute respiratory failure with hypoxia Anemia Asthma Bronchitis Diabetes mellitus Endometriosis Hyperlipidemia Hypertension Renal disease Surgical History Surgical History History of total hysterectomy with bilateral salpingo-oophorectomy (BSO) Family History Family History Mother Hypertension CHF (congestive heart failure) Father Patient's father is in good health Brain aneurysm Social History Social History Smoking status: Never smoker Tobacco type: cigarettes Second hand tobacco smoke exposure: No Alcohol intake: never Substance use: never Additional occupation/education comments: 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 HEAD: Normocephalic, atraumatic. EYES: PERRLA and EOMI. ENT: Nares clear, no rhinorrhea or epistaxis. Mucous membranes moist. NECK: Supple. No masses. No JVD EXTREMITIES: Normal range of motion. No edema. Patient ambulates without difficulty SKIN: Warm, dry, no rash. NEURO: No focal deficits. Alert and oriented x3. PSYCH: Normal mood and affect. Course Reevaluation(s) Reevaluation #1: Patient reports
[2021-04-04 07:56] VITALS: BP 143/80; PULSE 69; RESP 18; O2SAT 98
[2021-04-04] MEDS: KETOROLAC 30 MG/ML VIAL (*BKC) IM (08:01)
[2021-04-04 08:32] VITALS: TEMP 37.1
[2021-04-04] MEDS: DEXAMETHASONE 4 MG TABLET PO (08:32)
== END 2021-04-04 08:57 | disposition home or self-care (01) ==
LOC: ANHED 08:18
PROVIDERS: Emergency Provider Emergency Medicine; PCP Physician Assistant
DX: M54.50 Low back pain, unspecified (principal); J45.909 Unspecified asthma, uncomplicated; E11.9 Type 2 diabetes mellitus without complications; E78.5 Hyperlipidemia, unspecified; I10 Essential (primary) hypertension; N28.9 Disorder of kidney and ureter, unspecified; Z79.82 Long term (current) use of aspirin; Z79.84 Long term (current) use of oral hypoglycemic drugs
CPT/HCPCS: 96372; 99283; J1885; J8540

== ENCOUNTER 2021-04-22 16:27 | Emergency (ER) | payer MEDICARE, SELFPAY ==
--- NOTE | 2021-04-22 16:30 | ED.EYEPROB ---
HPI - Eye Problem General Chief complaint: Eye Problems Stated complaint: lt eye pain/rt foot big toe injury Time Seen by Provider: 04/22/21 16:30 Source: patient and RN notes reviewed History of Present Illness HPI Narrative: Patient is a 75-year-old female who presents the urgent care with complaints of left eye pain that started last night and then she noticed that there was increased redness to the inside of the left lower eyelid this morning. Patient denies of any vision changes or trauma to the eye. Patient has not done anything for the eye discomfort. Also reports that she has right great toe pain after stubbing it on the refrigerator door approximately 1 week ago. Patient states that she has not taken anything [id number] for her sore toe and has just tried to stay off of it . However patient did present to the urgent care and close toed heeled boots without any issues ambulating. No other acute complaints. No acute distress noted. Patient aware of the plan of care. Some parts of this dictation were generated by voice recognition software and may contain typographical and/or grammatical inaccuracies. Related Data Home Medications Medication Instructions Recorded Confirmed albuterol 90 mcg INHALATION PRN PRN 04/22/21 04/22/21 hydrocortisone [Proctosol HC] 2.5 ea RECTAL PRN PRN 04/22/21 04/22/21 Allergies Allergy/AdvReac Type Severity Reaction Status Date / Time prednisone Allergy Intermediate increased Verified 04/22/21 16:39 heart rate codeine Allergy Mild Vomiting Verified 04/22/21 16:39 Sulfa (Sulfonamide Allergy Mild Nausea and Verified 04/22/21 16:39 Antibiotics) Vomiting ibuprofen AdvReac Severe Other Verified 04/22/21 16:39 NSAIDS (Non-Steroidal AdvReac Severe Other Verified 04/22/21 16:39 Anti-Inflamma Review of Systems Review of Systems: CONSTITUTIONAL: Denies fever, chills, or sweats. EYES: Denies visual changes. Reports of redness and irritation to the inside of the left lower eyelid ENT: Denies rhinorrhea, congestion, sore throat, or otalgia. CARDIOVASCULAR: Denies chest pain, palpitations, or edema. RESPIRATORY: Denies cough or dyspnea. GASTROINTESTINAL: Denies abdominal pain, nausea, vomiting, or diarrhea. GENITOURINARY: Denies dysuria or hematuria. SKIN: Denies rash or itching. MUSCULOSKELETAL: Reports of right great toe pain NEUROLOGIC: Denies headache, numbness, or weakness. All other systems reviewed are negative, except as documented in HPI. [facility] Past Medical History Medical History Acute respiratory failure with hypoxia Anemia Asthma Bronchitis Diabetes mellitus Endometriosis Hyperlipidemia Hypertension Renal disease Surgical History Surgical History History of total hysterectomy with bilateral salpingo-oophorectomy (BSO) Family History Family History Mother Hypertension CHF (congestive heart failure) Father Patient's father is in good health Brain aneurysm Social History Social History Smoking status: Never smoker Tobacco type: cigarettes Second hand tobacco smoke exposure: No Alcohol intake: never Substance use: never Additional occupation/education comments: 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 There is no relevant family history pertinent to the patient complaint. Exam Narrative: GENERAL: This is a well-nourished, well-developed patient, in no apparent distress. HEAD: normocephalic, atrauma
[2021-04-22 16:34] VITALS: BP 145/80; PULSE 100; RESP 12; TEMP 36.9; O2SAT 98
[2021-04-22 16:45] VITALS: BP 145/80; PULSE 100; RESP 12; TEMP 36.9; O2SAT 98
== END 2021-04-22 16:50 | disposition home or self-care (01) ==
PROVIDERS: Emergency Provider Nurse Practitioner Family; PCP Physician Assistant
DX: H00.025 Hordeolum internum left lower eyelid (principal); E11.9 Type 2 diabetes mellitus without complications; E78.5 Hyperlipidemia, unspecified; I10 Essential (primary) hypertension
CPT/HCPCS: 99213; G0463

== ENCOUNTER 2021-06-05 09:45 | Outpatient (CLI) | payer MEDICARE, SELFPAY ==
[2021-06-05 12:28] LABS: SARS-CoV-2 RNA PCR Negative (Negative)
== END 2021-06-05 09:46 | disposition home or self-care (01) ==
LOC: CHSLAB 09:47
PROVIDERS: PCP Internal Medicine; Visit Provider Internal Medicine
DX: J02.9 Acute pharyngitis, unspecified (principal); Z20.822 Contact with and (suspected) exposure to COVID-19
CPT/HCPCS: C9803; U0003; U0005

== ENCOUNTER 2021-06-25 10:28 | Outpatient (CLI) | payer MEDICARE, SELFPAY ==
[2021-06-25 13:27] LABS: SARS-CoV-2 RNA PCR Negative (Negative)
== END 2021-06-25 10:29 | disposition home or self-care (01) ==
LOC: CHSLAB 10:30
PROVIDERS: PCP Physician Assistant; Visit Provider Physician Assistant
DX: R68.89 Other general symptoms and signs (principal); Z20.822 Contact with and (suspected) exposure to COVID-19
CPT/HCPCS: C9803; U0003; U0005

== ENCOUNTER 2021-06-26 14:29 | Emergency (ER) | payer MEDICARE, SELFPAY ==
[2021-06-26 14:35] VITALS: BP 133/85; PULSE 132; RESP 16; TEMP 36.8; O2SAT 98
--- NOTE | 2021-06-26 14:52 | ED.URI ---
HPI - URI/Sore Throat General Chief Complaint: Upper Respiratory Infection Stated Complaint: COUGH Time Seen by Provider: 06/26/21 14:45 Source: patient Mode of arrival: ambulatory Limitations: no limitations History of Present Illness HPI Narrative: Alison Cerna is a 75 yo female with a PMH of diabetes, hypertension, high cholesterol [facility] of a cough and sinus drainage fatigue and not wanting to eat for the last 2 days. She states she has been drinking fluids but just is not wanting to eat anything. She is tachycardic on presentation denies shortness of breath; had COVID vaccine and booster Related Data Home Medications Medication Instructions Recorded Confirmed albuterol 90 mcg INHALATION PRN PRN 04/22/21 04/22/21 hydrocortisone [Proctosol HC] 2.5 ea RECTAL PRN PRN 04/22/21 04/22/21 Allergies Allergy/AdvReac Type Severity Reaction Status Date / Time prednisone Allergy Intermediate increased Verified 04/22/21 16:39 heart rate codeine Allergy Mild Vomiting Verified 04/22/21 16:39 Sulfa (Sulfonamide Allergy Mild Nausea and Verified 04/22/21 16:39 Antibiotics) Vomiting ibuprofen AdvReac Severe Other Verified 04/22/21 16:39 NSAIDS (Non-Steroidal AdvReac Severe Other Verified 04/22/21 16:39 Anti-Inflamma Review of Systems Review of Systems: CONSTITUTIONAL: Denies fever, chills, sweats. Fatigue EYES: Denies visual changes, redness, discharge. ENT: Denies rhinorrhea, has congestion, sore throat, otalgia. CARDIOVASCULAR: Denies chest pain, palpitations, edema. RESPIRATORY: Denies dyspnea, wheezing, has dry cough GASTROINTESTINAL: Denies abdominal pain, nausea, vomiting, diarrhea. GENITOURINARY: Denies dysuria, hematuria, abnormal discharge SKIN: Denies rash or itching. NEUROLOGIC: Denies numbness, or focal weakness. PSYCHIATRIC: Denies anxiety or depression. [facility] Past Medical History Medical History Acute respiratory failure with hypoxia Anemia Asthma Bronchitis Diabetes mellitus Endometriosis Hyperlipidemia Hypertension Renal disease Surgical History Surgical History History of total hysterectomy with bilateral salpingo-oophorectomy (BSO) Family History Family History Mother Hypertension CHF (congestive heart failure) Father Patient's father is in good health Brain aneurysm Social History Social History Smoking status: Never smoker Tobacco type: cigarettes Second hand tobacco smoke exposure: No Alcohol intake: never Substance use: never Additional occupation/education comments: 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 There is no relevant family history pertinent to the presenting complaint. Exam Narrative: GENERAL: This is a well-nourished, well-developed patient, in mild distress. HEAD: normocephalic, atraumatic. EYES: Sclera clear/white. Vision is grossly intact. EARS: External ears normal, auditory canals clear and without drainage, TMs normal without perforation. Hearing grossly intact. NOSE: External nose normal with nasal discharge, nares without redness, no rhinorrhea. THROAT: Mucous membranes moist, posterior pharynx mild erythema, no exudate NECK: Neck supple, non-tender CARDIOVASCULAR: Tachycardic rate and rhythm without murmurs, gallops, or rubs. RESPIRATORY: Clear to auscultation. Breath sounds equal bilaterally. No wheezes, rales, or rhonchi. GASTROINTESTINAL: Abdomen soft, non-tender, SKIN:
== END 2021-06-26 15:26 | disposition home or self-care (01) ==
PROVIDERS: Emergency Provider Nurse Practitioner; PCP Physician Assistant
DX: J40 Bronchitis, not specified as acute or chronic (principal); Z20.822 Contact with and (suspected) exposure to COVID-19; E11.9 Type 2 diabetes mellitus without complications; N80.9 Endometriosis, unspecified; E78.5 Hyperlipidemia, unspecified; I10 Essential (primary) hypertension; N28.9 Disorder of kidney and ureter, unspecified; J45.909 Unspecified asthma, uncomplicated
CPT/HCPCS: 87426; 99213; C9803; G0463

== ENCOUNTER 2021-06-28 17:06 | Emergency (ER) | payer MEDICARE, SELFPAY ==
--- NOTE | ~2021-06-28 | XR_ITS ---
EXAMINATION: XR chest 2V EXAM DATE: 06/28/2021 19:04 INDICATION: Cough,Fever-2/14, bronchitis,Hx Htn,Diabetes,Asthma. TECHNIQUE: Frontal and lateral projections of the chest obtained and reviewed. Comparison is made to prior examination from 07/03/2019. FINDINGS: The lungs are clear. There are no pleural effusions. The cardiomediastinal silhouette is within normal limits. There is no pneumothorax suspected. The bones and soft tissues are unremarkab le. IMPRESSION: No acute cardiopulmonary findings. Reviewed, dictated and finalized at location G. [facility]
[2021-06-28 17:33] VITALS: BP 137/80; PULSE 107; RESP 18; TEMP 37.5; O2SAT 99
[2021-06-28 18:04] VITALS: O2SAT 99
--- NOTE | 2021-06-28 18:54 | ED.URI ---
HPI - URI/Sore Throat General Chief Complaint: Upper Respiratory Infection Stated Complaint: cough Time Seen by Provider: 06/28/21 18:45 History of Present Illness HPI Narrative: 75-year-old female presents to the emergency room with productive cough postnasal drip sinus congestion frequently clearing her throat. States symptoms started 4 days ago. Patient was seen in urgent care 2 days ago was started on a Z-Juancarlos and Tessalon Perles. Patient states that she has not had any resolution of symptoms with the medications. Has picked up [id number] Mucinex DM and Flonase and states has gotten some symptom relief with that. Denies fever. Patient states she has had x2 Covid tests this week and a flu test this week which were both negative. Patient states that she has had 2 Covid shots plus a booster and flu shot this season. Related Data Home Medications Medication Instructions Recorded Confirmed albuterol 90 mcg INHALATION PRN PRN 04/22/21 04/22/21 hydrocortisone [Proctosol HC] 2.5 ea RECTAL PRN PRN 04/22/21 04/22/21 montelukast 10 mg PO DAILY 06/28/21 Allergies Allergy/AdvReac Type Severity Reaction Status Date / Time prednisone Allergy Intermediate increased Verified 06/28/21 18:07 heart rate codeine Allergy Mild Vomiting Verified 06/28/21 18:07 Sulfa (Sulfonamide Allergy Mild Nausea and Verified 06/28/21 18:07 Antibiotics) Vomiting ibuprofen AdvReac Severe Other Verified 06/28/21 18:07 NSAIDS (Non-Steroidal AdvReac Severe Other Verified 06/28/21 18:07 Anti-Inflamma Review of Systems Review of Systems: CONSTITUTIONAL: Denies fever, chills, or sweats. EYES: Denies visual changes, redness, or discharge. ENT: Reports rhinorrhea, congestion. Denies sore throat, or otalgia. CARDIOVASCULAR: Denies chest pain, palpitations, or edema. RESPIRATORY: Reports productive cough. Denies dyspnea. GASTROINTESTINAL: Denies abdominal pain, nausea, vomiting, or diarrhea. GENITOURINARY: Denies dysuria or hematuria. SKIN: Denies rash or itching. MUSCULOSKELETAL: Denies back pain, joint pain, or myalgia. NEUROLOGIC: Denies headache, numbness, dizziness, or weakness. PSYCHIATRIC: Denies anxiety or depression. PMFSH Past Medical History Medical History Acute respiratory failure with hypoxia Anemia Asthma Bronchitis Diabetes mellitus Endometriosis Hyperlipidemia Hypertension Renal disease Surgical History Surgical History History of total hysterectomy with bilateral salpingo-oophorectomy (BSO) Family History Family History Mother Hypertension CHF (congestive heart failure) Father Patient's father is in good health Brain aneurysm Social History Social History Smoking status: Never smoker Tobacco type: cigarettes Second hand tobacco smoke exposure: No Alcohol intake: never Substance use: never Additional occupation/education comments: 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 Vital Signs Vital signs: Vital Signs Temperature 37.5 C 06/28/21 17:33 Pulse Rate 107 H 06/28/21 17:33 Respiratory Rate 18 06/28/21 17:33 Blood Pressure 137/80 06/28/21 17:33 Pulse Oximetry 99 06/28/21 17:33 Temperature 37.5 C 06/28/21 17:33 Pulse Rate 107 H 06/28/21 17:33 Respiratory Rate 18 06/28/21 17:33 Blood Pressure 137/80 06/28/21 17:33 Pulse Oximetry 99 06/28/21 18:04 MDM - URI/Sore Throat MDM Narrative Medical decision making narrative: Chest x-ray demonstrated no acute fin
[2021-06-28 19:53] VITALS: BP 129/79; PULSE 83; RESP 18; O2SAT 96
== END 2021-06-28 19:53 | disposition home or self-care (01) ==
PROVIDERS: Emergency Provider Nurse Practitioner Family; PCP Physician Assistant
DX: J00 Acute nasopharyngitis [common cold] (principal); J45.909 Unspecified asthma, uncomplicated; E11.9 Type 2 diabetes mellitus without complications; E78.5 Hyperlipidemia, unspecified; I10 Essential (primary) hypertension; Z86.2 Personal history of diseases of the blood and blood-forming organs and certain disorders involving the immune mechanism; N28.9 Disorder of kidney and ureter, unspecified; Z79.84 Long term (current) use of oral hypoglycemic drugs
CPT/HCPCS: 71046; 99283

== ENCOUNTER 2021-08-20 18:47 | Emergency (ER) | payer MEDICARE, SELFPAY ==
--- NOTE | 2021-08-20 18:49 | ED.SKABFB ---
HPI - Skin/Abscess/Foreign Bdy General Chief complaint: Skin/Abscess/Foreign Body Stated complaint: R HAND/FINGER REDNESS/ITCHING Time Seen by Provider: 08/20/21 18:49 Source: patient Mode of arrival: ambulatory Limitations: no limitations History of Present Illness HPI narrative: 76-year-old female presents with complaint of itching, redness around the proximal aspect of her right little finger. Reports that itching started yesterday. Has not tried any [id number] medications to treat symptoms. Denies use of any new cleaning products, moisturizers, or jewelry. Reports no contact with any type of plants. States she does not know why she is itching. All systems reviewed and negative except as noted above. Related Data Home Medications Medication Instructions Recorded Confirmed albuterol 90 mcg INHALATION PRN PRN 04/22/21 04/22/21 hydrocortisone [Proctosol HC] 2.5 ea RECTAL PRN PRN 04/22/21 04/22/21 Allergies Allergy/AdvReac Type Severity Reaction Status Date / Time prednisone Allergy Intermediate increased Verified 06/28/21 18:07 heart rate codeine Allergy Mild Vomiting Verified 06/28/21 18:07 Sulfa (Sulfonamide Allergy Mild Nausea and Verified 06/28/21 18:07 Antibiotics) Vomiting ibuprofen AdvReac Severe Other Verified 06/28/21 18:07 NSAIDS (Non-Steroidal AdvReac Severe Other Verified 06/28/21 18:07 Anti-Inflamma Review of Systems Review of Systems: CONSTITUTIONAL: Denies fever, chills, or sweats. EYES: Denies visual changes, redness, or discharge. ENT: Denies rhinorrhea, congestion, sore throat, or otalgia. CARDIOVASCULAR: Denies chest pain, palpitations, or edema. RESPIRATORY: Denies cough or dyspnea. GASTROINTESTINAL: Denies abdominal pain, nausea, vomiting, or diarrhea. GENITOURINARY: Denies dysuria or hematuria. SKIN: Reports itching to right little finger. MUSCULOSKELETAL: Denies back pain, joint pain, or myalgia. NEUROLOGIC: Denies headache, numbness, or weakness. PSYCHIATRIC: Denies anxiety or depression. All other systems reviewed are negative, except as documented in HPI. [facility] Past Medical History Medical History Acute respiratory failure with hypoxia Anemia Asthma Bronchitis Diabetes mellitus Endometriosis Hyperlipidemia Hypertension Renal disease Surgical History Surgical History History of total hysterectomy with bilateral salpingo-oophorectomy (BSO) Family History Family History Mother Hypertension CHF (congestive heart failure) Father Patient's father is in good health Brain aneurysm Social History Social History Smoking status: Never smoker Tobacco type: cigarettes Second hand tobacco smoke exposure: No Alcohol intake: never Substance use: never Additional occupation/education comments: 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 There is no relevant family history pertinent to the presenting complaint. Exam Narrative: GENERAL: This is a well-nourished, well-developed patient, in no apparent distress. HEAD: normocephalic, atraumatic. EYES: PERRL. Sclera clear/white. Vision is grossly intact. EARS: External ears normal NOSE: External nose normal NECK: Neck supple, non-tender without lymphadenopathy, masses or thyromegaly. CARDIOVASCULAR: Regular rate and rhythm without murmurs, gallops, or rubs. RESPIRATORY: Clear to auscultation. Breath sounds equal bilaterally. No wheezes, rales, or rhonchi. SKIN: warm, Dry, intact wi
[2021-08-20 18:50] VITALS: BP 140/81; PULSE 73; RESP 12; TEMP 36.9; O2SAT 99
== END 2021-08-20 19:02 | disposition home or self-care (01) ==
PROVIDERS: Emergency Provider Nurse Practitioner Family; PCP Physician Assistant
DX: L30.9 Dermatitis, unspecified (principal); J45.909 Unspecified asthma, uncomplicated; E11.9 Type 2 diabetes mellitus without complications; N80.9 Endometriosis, unspecified; E78.5 Hyperlipidemia, unspecified; I10 Essential (primary) hypertension; N28.9 Disorder of kidney and ureter, unspecified
CPT/HCPCS: 99213; G0463

== ENCOUNTER 2022-01-11 16:31 | Emergency (ER) | payer MEDICARE, SELFPAY ==
[2022-01-11 16:33] VITALS: BP 148/71; PULSE 88; RESP 16; TEMP 36.9; O2SAT 98
--- NOTE | 2022-01-11 17:55 | ED.BACK ---
HPI - Back Pain/Injury General Chief Complaint: Back Pain/Injury Stated Complaint: back pain Time Seen by Provider: 01/11/22 17:45 Source: patient and RN notes reviewed Mode of arrival: ambulatory Limitations: no limitations History of Present Illness HPI Narrative: 76 years old white female presented to the ED with pain at the right lower back radiating to her right buttock started started few days ago, worse with certain movement mainly when she tried to get up from sitting position, better if she remaining still. She denies any fever, chills, nausea, vomiting, urinary symptoms, abdominal pain or chest pain or bowel dysfunction, bladder dysfunction, altered sensation, focal weakness, or saddle numbness, History of chronic lower back pain and sciatica. Had similar symptoms in the past, got better on steroid Related Data Home Medications Medication Instructions Recorded Confirmed albuterol 90 mcg/actuation aerosol 90 mcg inhalation PRN PRN 04/22/21 04/22/21 inhaler Shortness Of Breath hydrocortisone 2.5 % rectal cream 2.5 ea RECTAL PRN PRN Hemorrhoids 04/22/21 04/22/21 with applicator Allergies Allergy/AdvReac Type Severity Reaction Status Date / Time prednisone Allergy Intermediate increased Verified 01/11/22 17:26 heart rate codeine Allergy Mild Vomiting Verified 01/11/22 17:26 Sulfa (Sulfonamide Allergy Mild Nausea and Verified 01/11/22 17:26 Antibiotics) Vomiting ibuprofen AdvReac Severe Other Verified 01/11/22 17:26 NSAIDS (Non-Steroidal AdvReac Severe Other Verified 01/11/22 17:26 Anti-Inflamma Review of Systems Review of Systems: All systems reviewed & are unremarkable except as noted in HPI and below PMFSH Past Medical History Medical History Acute respiratory failure with hypoxia Anemia Asthma Bronchitis Diabetes mellitus Endometriosis Hyperlipidemia Hypertension Renal disease Surgical History Surgical History History of total hysterectomy with bilateral salpingo-oophorectomy (BSO) Family History Family History Mother Hypertension CHF (congestive heart failure) Father Patient's father is in good health Brain aneurysm Social History Social History Smoking status: Never smoker Tobacco type: cigarettes Second hand tobacco smoke exposure: No Alcohol intake: never Substance use: never Additional occupation/education comments: 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 Gender identity (if verbalized by the patient): Female Sexual Orientation (if Verbalized by the Patient): Straight or Heterosexual Agree to blood products: Yes Exam Narrative: General appearance: Well-developed, well-nourished Skin: Normal color Head: Normocephalic, nontraumatic Eyes: Clear conjunctiva ENT: Oropharynx normal, ears normal, nose normal Neck: Supple, nontender Chest and respiratory: Airway patent, no respiratory distress, no accessory muscle use Heart: Regular rate/rhythm Abdomen: Soft, nontender, no organomegaly, quiet bowel sounds Vascular: Normal peripheral pulses, normal capillary refill. Musculoskeletal: Mild tenderness right buttock, no bruises, no swelling or rash, slight limited range of motion at the lumbar area. Neurologic: Alert and oriented ?3, FUNERAL COUNSELOR is normal as tested, no gross motor deficit, positive right leg raising test Course Vital Signs Vital signs: Vital Signs Temperature 36.9 C 01/11/22 16:33 Pulse Rate 88 01/11/22 16:33
== END 2022-01-11 19:00 | disposition home or self-care (01) ==
PROVIDERS: Emergency Provider Emergency Medicine; PCP Physician Assistant
DX: M54.41 Lumbago with sciatica, right side (principal); D64.9 Anemia, unspecified; J45.909 Unspecified asthma, uncomplicated; E11.9 Type 2 diabetes mellitus without complications; E78.5 Hyperlipidemia, unspecified; I10 Essential (primary) hypertension
CPT/HCPCS: 96372; 99283; J1100

== ENCOUNTER 2022-02-10 05:57 | Emergency (ER) | payer MEDICARE, SELFPAY ==
[2022-02-10] VITALS (8 sets, daily range): BP systolic 102–141; BP diastolic 41–74; PULSE 64–74; RESP 18–20; O2SAT 95–100
--- NOTE | ~2022-02-10 | XR_ITS ---
EXAMINATION: XR chest 2V DATE: 02/10/2022 07:45 INDICATION: Dyspnea TECHNIQUE: PA and lateral views of the chest were obtained. COMPARISON: Chest radiograph dated 06/28/2021 FINDINGS: The lungs are clear with no focal airspace opacities, pulmonary edema, pleural effusion or pneumothor ax. The cardiomediastinal silhouette is normal. Partially visualized likely dental implants at the ma ndible. Mild to moderate thoracic spondylosis. IMPRESSION: 1. No acute cardiopulmonary disease. Reviewed, dictated and finalized at location A.
--- NOTE | 2022-02-10 06:35 | ECG_ITS ---
Measurements Intervals [place] Rate: 72 P: 27 [place]: 156 QRS: 13 QRSD: 88 T: 4 QT: 373 QTc: 408 Interpretive Statements SINUS RHYTHM NORMAL ECG COMPARED TO ECG 07/03/2020 01:30:53 NO SIGNIFICANT CHANGES Electronically Signed On 02-10-2022 14:57:26 CDT by Bradley Doll M.D.
[2022-02-10] MEDS: ALBUTEROL SULFATE NEB 2.5 MG/3 ML INH 5 MG INHALATION (07:08)
[2022-02-10] MEDS: IPRATROPIUM BR 0.02% INH SOLN 0.5 MG/2.5 ML VIAL INHALATION (07:08)
--- NOTE | 2022-02-10 07:27 | ED.SOB ---
HPI - SOB/Dyspnea General Chief Complaint: Shortness of Breath/Dyspnea Stated Complaint: SOB Time Seen by Provider: 02/10/22 07:01 History of Present Illness HPI Narrative: Patient is a 76-year-old female who presents ER with shortness of breath. Patient began getting short of breath last night around 1 AM. No chest pain or chest pressure. No runny nose or sore throat or productive cough. Feels it may be related to the weather change. She she has history of asthma and she feels like she is having a flare. Related Data Home Medications Medication Instructions Recorded Confirmed albuterol 90 mcg/actuation aerosol 90 mcg inhalation PRN PRN 04/22/21 02/01/22 inhaler Shortness Of Breath hydrocortisone 2.5 % rectal cream 2.5 ea RECTAL PRN PRN Hemorrhoids 04/22/21 02/01/22 with applicator amoxicillin 500 mg capsule mg 02/10/22 metronidazole 250 mg tablet mg 02/10/22 02/10/22 Allergies Allergy/AdvReac Type Severity Reaction Status Date / Time prednisone Allergy Intermediate increased Verified 02/10/22 06:08 heart rate codeine Allergy Mild Vomiting Verified 02/10/22 06:08 Sulfa (Sulfonamide Allergy Mild Nausea and Verified 02/10/22 06:08 Antibiotics) Vomiting ibuprofen AdvReac Severe Other Verified 02/10/22 06:08 NSAIDS (Non-Steroidal AdvReac Severe Other Verified 02/10/22 06:08 Anti-Inflamma Review of Systems Review of Systems: All systems reviewed & are unremarkable except as noted in HPI and below Constitutional: Constitutional: Denies chills, Denies fatigue and Denies fever(s) ENT: Denies nasal congestion and Denies sore throat Cardiovascular: Cardiovascular: Denies chest pain, Denies radiating jaw, neck or arm pain and Denies slow heart rate Respiratory: Respiratory: Denies cough, Reports dyspnea and Denies wheezing Gastrointestinal: Gastrointestinal: Denies abdominal pain, Denies nausea and Denies vomiting [facility] Past Medical History Medical History Acute respiratory failure with hypoxia Anemia Asthma Bronchitis Diabetes mellitus Endometriosis Hyperlipidemia Hypertension Renal disease Surgical History Surgical History History of total hysterectomy with bilateral salpingo-oophorectomy (BSO) Family History Family History Mother Hypertension CHF (congestive heart failure) Father Patient's father is in good health Brain aneurysm Social History Social History Smoking status: Never smoker Tobacco type: cigarettes Second hand tobacco smoke exposure: No Alcohol intake: never Substance use: never Additional occupation/education comments: 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 HEAD: Normocephalic, atraumatic. EYES: PERRL and EOMI. ENT: Mucous membranes moist. CHEST: Clear to auscultation. No respiratory distress. HEART: Regular rate and rhythm. Normal peripheral pulses. EXTREMITIES: Normal range of motion. No edema. NEURO: Alert and oriented x3. PSYCH: Normal mood and affect. Course Course Emergency Course: Patient resting comfortably. Feels improved with nebulizer treatment. Discharge home. Vital Signs Vital signs: Vital Signs Pulse Rate 74 02/10/22 06:05 Respiratory Rate 18 02/10/22 06:05 Blood Pressure 141/74 H 02/10/22 06:05 Pulse Oximetry 100 02/10/22 06:05 Oxygen Delivery Room Air 02/10/22 06:05 Pulse Rate 73 02/10/22 07:55 Respiratory Rate 20 02/10/22 07:28 Blood Pressure 102/41 L 02/10/22 07:04 Pulse Oxim
== END 2022-02-10 09:17 | disposition home or self-care (01) ==
PROVIDERS: Emergency Provider Emergency Medicine; PCP Physician Assistant
DX: J45.901 Unspecified asthma with (acute) exacerbation (principal); E11.9 Type 2 diabetes mellitus without complications; E78.5 Hyperlipidemia, unspecified; I10 Essential (primary) hypertension; N28.9 Disorder of kidney and ureter, unspecified; Z90.722 Acquired absence of ovaries, bilateral; Z90.710 Acquired absence of both cervix and uterus; Z86.2 Personal history of diseases of the blood and blood-forming organs and certain disorders involving the immune mechanism
CPT/HCPCS: 71046; 93005; 94640; 99284

== ENCOUNTER 2022-02-18 19:52 | Emergency (ER) | payer MEDICARE, SELFPAY ==
[2022-02-18] VITALS (18 sets, daily range): BP systolic 97–101; BP diastolic 52–62; PULSE 67–94; RESP 16–28; TEMP 36.9–39.3; O2SAT 91–100
--- NOTE | ~2022-02-18 | XR_ITS ---
EXAMINATION: XR chest 2V Exam Date/Time: 02/18/2022 20:08 CDT HISTORY: shortness of breath Comparison: 02/10/2022. RESULT: Lines, tubes, and devices: None. Lungs and pleura: Increasing reticulonodular opacities, most evident in the right lower lung. Cardiomediastinal silhouette: Stable. Other: No acute osseous or upper abdominal finding. IMPRESSION: Bronchiolitis, possibly secondary to atypical infection. Reviewed, dictated and finalized at location K.
--- NOTE | 2022-02-18 19:54 | ECG_ITS ---
Measurements Intervals [place] Rate: 93 P: 48 [place]: 165 QRS: 26 QRSD: 94 T: 30 QT: 331 QTc: 412 Interpretive Statements SINUS RHYTHM NONSPECIFIC ST & T-WAVE ABNORMALITY COMPARED TO ECG 02/10/2022 06:50:16 NO SIGNIFICANT CHANGE Electronically Signed On 02-19-2022 14:52:31 CDT by Nicci Gallego M.D.
[2022-02-18 20:39] LABS: Basophils Percent Auto 0.3 % (0.2-1.2); Eosinophils Percent Auto 0.3 % (0-4.4); Hematocrit 36.4 % (37.0-47.0); Hemoglobin 11.8 g/dL (12.0-15.0); Immature Granulocyte Absolute 0.01 K/mm3 (0.00-0.031); Immature Granulocyte Percent A 0.2 % (0-0.5); Lymphocytes Absolute Auto 0.99 K/mm3 (0.9-3.2); Mean Corpuscular HGB Conc 32.4 g/dl (32-36); Mean Corpuscular Hemoglobin 27.3 pg (26-34); Mean Corpuscular Volume 84.1 fl (80-100); Mean Platelet Volume 9.5 fl (7.4-10.4); Monocytes Absolute Auto 0.8 K/mm3 (0.1-0.6); Monocytes Percent Auto 12.6 % (2.6-8.5); Neutrophils Absolute Auto 4.4 K/mm3 (1.3-6.7); Neutrophils Percent Auto 70.6 % (45.5-73.1); Platelet Count Result 207 k/mm3 (150-375); Red Blood Count 4.33 M/mm3 (4.2-5.4); Red Cell Distribution Width 15.7 % (11.5-14.5); White Blood Count 6.2 K/mm3 (4.5-10.0)
[2022-02-18 20:48] LABS: Alanine Aminotransferase 27 U/L (6-35); Albumin Level 4.6 g/dL (3.5-5.1); Alkaline Phosphatase 83 U/L (38-126); Anion Gap 15 mmol/L (8-16); Aspartate Amino Transferase 37 U/L (14-36); Bilirubin,Total 0.9 mg/dL (0.2-1.3); Blood Urea Nitrogen 19 mg/dL (7-17); Calcium 9.7 mg/dL (8.4-10.2); Carbon Dioxide 22 mmol/L (22-30); Chloride 98 mmol/L (98-107); Estimated CRCL calculation 34 ml/min; Estimated Glomerular Filt Rate 54; Glucose 125 mg/dL (65-110); Potassium 3.1 mmol/L (3.4-5.0); Sodium 135 mmol/L (137-145)
[2022-02-18] MEDS: ACETAMINOPHEN 500 MG TABLET 1000 MG PO (20:58)
[2022-02-18] MEDS: ONDANSETRON HCL ODT 4 MG TABLET PO (20:59)
[2022-02-18 21:15] LABS: Influenza A QL RT-PCR Negative (Negative); Influenza B QL RT-PCR Negative (Negative); SARS-CoV-2 RNA PCR Negative
--- NOTE | 2022-02-18 22:28 | ED.SOB ---
HPI - SOB/Dyspnea General Chief Complaint: Shortness of Breath/Dyspnea Stated Complaint: Shortness of breath, cough, fever Time Seen by Provider: 02/18/22 20:06 History of Present Illness HPI Narrative: Patient is a 76-year-old female who presents ER with shortness of breath. Reports its worse over the last 2 days. Associate with cough that is nonproductive. She is febrile here to 102.7 ?F. No recent COVID test. She was in the hospital 1 week ago for an asthma exacerbation and felt better after albuterol. She is recently been on Augmentin for a dental infection. No dental pain or difficulty swallowing. Related Data Home Medications Medication Instructions Recorded Confirmed albuterol 90 mcg/actuation aerosol 90 mcg inhalation PRN PRN 04/22/21 02/01/22 inhaler Shortness Of Breath hydrocortisone 2.5 % rectal cream 2.5 ea RECTAL PRN PRN Hemorrhoids 04/22/21 02/01/22 with applicator amoxicillin 500 mg capsule mg 02/10/22 metronidazole 250 mg tablet mg 02/10/22 02/10/22 Allergies Allergy/AdvReac Type Severity Reaction Status Date / Time prednisone Allergy Intermediate increased Verified 02/18/22 20:01 heart rate codeine Allergy Mild Vomiting Verified 02/18/22 20:01 Sulfa (Sulfonamide Allergy Mild Nausea and Verified 02/18/22 20:01 Antibiotics) Vomiting ibuprofen AdvReac Severe Other Verified 02/18/22 20:01 NSAIDS (Non-Steroidal AdvReac Severe Other Verified 02/18/22 20:01 Anti-Inflamma Review of Systems Review of Systems: All systems reviewed & are unremarkable except as noted in HPI and below Constitutional: Constitutional: Denies chills, Reports fatigue and Reports fever(s) ENT: Denies nasal congestion and Denies sore throat Cardiovascular: Cardiovascular: Denies chest pain, Denies rapid heart rate and Denies radiating jaw, neck or arm pain Respiratory: Respiratory: Reports cough, Reports dyspnea and Denies wheezing Gastrointestinal: Gastrointestinal: Denies abdominal pain, Denies nausea and Denies vomiting Genitourinary: Genitourinary: Denies nocturia, Denies dysuria and Denies flank pain PMFSH Past Medical History Medical History Acute respiratory failure with hypoxia Anemia Asthma Bronchitis Diabetes mellitus Endometriosis Hyperlipidemia Hypertension Renal disease Surgical History Surgical History History of total hysterectomy with bilateral salpingo-oophorectomy (BSO) Family History Family History Mother Hypertension CHF (congestive heart failure) Father Patient's father is in good health Brain aneurysm Social History Social History Smoking status: Never smoker Tobacco type: cigarettes Second hand tobacco smoke exposure: No Alcohol intake: never Substance use: never Additional occupation/education comments: 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 HEAD: Normocephalic, atraumatic. EYES: PERRL and EOMI. CHEST: Clear to auscultation. No respiratory distress. HEART: Regular rate and rhythm. Normal peripheral pulses. ABDOMEN: Soft, nontender, nondistended. EXTREMITIES: Normal range of motion. No edema. SKIN: Warm, dry, no rash. NEURO: Alert and oriented x3. PSYCH: Normal mood and affect. Course Course Emergency Course: Patient in no distress with a normal exam. Chest x-ray with bronchiolitis. Will start on doxycycline and recommend follow-up with PCP. Vital Signs Vital signs: Vital Signs Temperature 102.7 F H 02/18/22 20:02 Pulse R
== END 2022-02-18 22:58 | disposition home or self-care (01) ==
PROVIDERS: Emergency Provider Emergency Medicine; PCP Physician Assistant
DX: J18.9 Pneumonia, unspecified organism (principal); J21.9 Acute bronchiolitis, unspecified; Z20.822 Contact with and (suspected) exposure to COVID-19; J45.909 Unspecified asthma, uncomplicated; E11.9 Type 2 diabetes mellitus without complications; E78.5 Hyperlipidemia, unspecified; I10 Essential (primary) hypertension; N28.9 Disorder of kidney and ureter, unspecified; D64.9 Anemia, unspecified; Z90.710 Acquired absence of both cervix and uterus; Z90.722 Acquired absence of ovaries, bilateral; Z90.79 Acquired absence of other genital organ(s); Z79.84 Long term (current) use of oral hypoglycemic drugs
CPT/HCPCS: 36415; 71046; 80053; 85025; 87502; 93005; 99284; A9270; C9803; U0003; U0005

== ENCOUNTER 2022-05-28 10:01 | Emergency (ER) | payer MEDICARE, SELFPAY ==
--- NOTE | ~2022-05-28 | XR_ITS ---
EXAMINATION: XR chest 2V DATE: 05/28/2022 10:57 INDICATION: Chest pain. Right-sided chest pressure. TECHNIQUE: PA and lateral views of the chest were obtained. COMPARISON: Chest radiograph dated 02/18/2022 FINDINGS: The lungs are clear with no focal airspace opacities, pulmonary edema, pleural effusion or pneumothor ax. The cardiomediastinal silhouette is normal. Mild thoracic dextrocurvature with moderate spondylos is and chronic mild anterior wedging of a midthoracic vertebral body. IMPRESSION: 1. No acute cardiopulmonary disease. Reviewed, dictated and finalized at location A. PULLER
[2022-05-28 10:07] VITALS: BP 136/67; PULSE 82; RESP 14; TEMP 36.5; O2SAT 99
--- NOTE | 2022-05-28 10:08 | ECG_ITS ---
Measurements Intervals [place] Rate: 81 P: 42 [place]: 172 QRS: 7 QRSD: 84 T: 15 QT: 355 QTc: 413 Interpretive Statements SINUS RHYTHM LOW QRS VOLTAGE IN PRECORDIAL LEADS BORDERLINE T WAVE ABNORMALITY- INFERIOR LEADS BASELINE ARTIFACT- I, II, III, AVR, AVL BORDERLINE ECG COMPARED TO ECG 02/18/2022 19:58:56 NO SIGNIFICANT CHANGES Electronically Signed On 05-28-2022 10:36:25 COPY SUPERVISOR by Cong Lanier D.O.
[2022-05-28 10:36] LABS: Basophils Absolute Auto 0.1 K/mm3 (0.0-0.1); Basophils Percent Auto 0.6 % (0.2-1.2); Eosinophils Absolute Auto 0.1 K/mm3 (0-0.3); Eosinophils Percent Auto 1.3 % (0-4.4); Hematocrit 39.9 % (37.0-47.0); Hemoglobin 12.9 g/dL (12.0-15.0); Immature Granulocyte Absolute 0.04 K/mm3 (0.00-0.031); Immature Granulocyte Percent A 0.4 % (0-0.5); Lymphocytes Percent Auto 16.7 % (18.3-44.2); Mean Corpuscular HGB Conc 32.3 g/dl (32-36); Mean Corpuscular Hemoglobin 27.2 pg (26-34); Mean Platelet Volume 9.9 fl (7.4-10.4); Monocytes Absolute Auto 0.6 K/mm3 (0.1-0.6); Monocytes Percent Auto 6.3 % (2.6-8.5); Neutrophils Absolute Auto 7.6 K/mm3 (1.3-6.7); Neutrophils Percent Auto 74.7 % (45.5-73.1); Platelet Count Result 252 k/mm3 (150-375); Red Blood Count 4.75 M/mm3 (4.2-5.4); White Blood Count 10.2 K/mm3 (4.5-10.0)
[2022-05-28 10:44] LABS: Alanine Aminotransferase 54 U/L (6-35); Albumin Level 4.8 g/dL (3.5-5.1); Alkaline Phosphatase 115 U/L (38-126); Anion Gap 8 mmol/L (8-16); Aspartate Amino Transferase 61 U/L (14-36); Bilirubin,Total 1.1 mg/dL (0.2-1.3); Blood Urea Nitrogen 28 mg/dL (7-17); Calcium 10.1 mg/dL (8.4-10.2); Carbon Dioxide 28 mmol/L (22-30); Chloride 103 mmol/L (98-107); Estimated Glomerular Filt Rate 54; Glucose 195 mg/dL (65-110); INR 1.1; Lipase 83 U/L (23-300); Partial Thromboplastin Time 34.3 SECONDS (22.3-36.8); Potassium 3.8 mmol/L (3.4-5.0); Prothrombin Time 13.5 Seconds (11.1-14.7); Sodium 139 mmol/L (137-145)
[2022-05-28 10:54] LABS: Troponin I < 0.012 ng/mL (0.000-0.034)
[2022-05-28 11:10] VITALS: BP 152/72; PULSE 75; RESP 14; O2SAT 97
--- NOTE | 2022-05-28 12:59 | ED.CHESTPAIN ---
HPI - Chest Pain General Chief Complaint: Chest Pain Stated Complaint: chest pain Time Seen by Provider: 05/28/22 11:30 Source: patient Mode of arrival: ambulatory Limitations: no limitations History of Present Illness HPI narrative: 71-year-old asthma, hypertension, hyperlipidemia here with complaints of right-sided chest pain since yesterday. Patient states the pain is constant and continuous in nature hurts with the movement. She denies any fever or chills no history of cough or shortness of breath. She states that she lifted heavy objects on Thursday. MD complaint: chest pain Onset (ago): day(s) (1) Timing of current episode: constant and still present Prior episodes: Yes Pain location: right chest Pain radiation: none Severity: moderate Quality: aching Relieving factors: remaining still Exacerbating factors: palpation and movement Context: recent illness Treatment prior to arrival: none Risk Factors Coronary artery disease risk factors: hypertension Thoracic aortic dissection risk factors: none Related Data Home Medications Medication Instructions Recorded Confirmed albuterol 90 mcg/actuation aerosol 90 mcg inhalation PRN PRN 04/22/21 03/28/22 inhaler Shortness Of Breath hydrocortisone 2.5 % rectal cream 2.5 ea RECTAL PRN PRN Hemorrhoids 04/22/21 03/28/22 with applicator Allergies Allergy/AdvReac Type Severity Reaction Status Date / Time prednisone Allergy Intermediate increased Verified 03/28/22 08:49 heart rate codeine Allergy Mild Vomiting Verified 03/28/22 08:49 Sulfa (Sulfonamide Allergy Mild Nausea and Verified 03/28/22 08:49 Antibiotics) Vomiting ibuprofen AdvReac Severe Other Verified 03/28/22 08:49 NSAIDS (Non-Steroidal AdvReac Severe Other Verified 03/28/22 08:49 Anti-Inflamma Review of Systems Review of Systems: All systems reviewed & are unremarkable except as noted in HPI and below Constitutional: Constitutional: Reports no additional constitutional complaints Eyes: Eyes: Reports no additional eye complaints ENT: Reports system reviewed and no additional complaints, except as documented Cardiovascular: Cardiovascular: Reports as per HPI Respiratory: Respiratory: Reports no additional respiratory complaints Gastrointestinal: Gastrointestinal: Reports no additional gastrointestinal complaints Musculoskeletal: Musculoskeletal: Reports no additional musculoskeletal complaints Integumentary/Breasts: Skin/Breast: Reports system reviewed and no additional complaints, except as docu Neurologic: Reports system reviewed and no additional complaints, except as documented PMFSH Past Medical History Medical History Acute respiratory failure with hypoxia Anemia Asthma Bronchitis Diabetes mellitus Endometriosis Hyperlipidemia Hypertension Renal disease Surgical History Surgical History History of total hysterectomy with bilateral salpingo-oophorectomy (BSO) Family History Family History Mother Hypertension CHF (congestive heart failure) Father Patient's father is in good health Brain aneurysm Social History Social History Smoking status: Never smoker Tobacco type: cigarettes Second hand tobacco smoke exposure: No Alcohol intake: never Substance use: never Lack of Transportation: No Lack of Food: Never True Current Housing: I Have Housing Concerned About Future Housing: No Difficulty Paying Gas/Electric Bills: No Difficulty Paying for Meds: No Currently Unemployed: No Education: Bachelor's Degree Difficulty w/ Childcare or Family Care: No Additional occupation/education comments: 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
[2022-05-28 13:20] VITALS: BP 119/62; PULSE 74; RESP 20; O2SAT 96
== END 2022-05-28 13:20 | disposition home or self-care (01) ==
PROVIDERS: Emergency Provider Family Medicine; PCP Physician Assistant
DX: M94.0 Chondrocostal junction syndrome [Tietze] (principal); E11.9 Type 2 diabetes mellitus without complications; E78.5 Hyperlipidemia, unspecified; I10 Essential (primary) hypertension; J45.909 Unspecified asthma, uncomplicated
CPT/HCPCS: 36415; 71046; 80053; 83690; 84484; 85025; 85610; 85730; 93005; 99284

== ENCOUNTER 2022-06-28 18:18 | Emergency (ER) | payer MEDICARE, SELFPAY ==
[2022-06-28 18:19] VITALS: BP 162/84; PULSE 94; RESP 18; TEMP 36.7; O2SAT 98
[2022-06-28 19:05] VITALS: BP 135/73; PULSE 75
--- NOTE | 2022-06-28 20:06 | ED.GENADULT ---
HPI - General Adult General Chief complaint: Recheck/Abnormal Lab/Rx Stated complaint: HTN, tachycardia Time Seen by Provider: 06/28/22 19:07 History of Present Illness HPI narrative: this 76-year-old female presenting to ED with a chief complaint of tachycardia. Patient notes that she has had a stressful week due to losing her job. Today she was feeling anxious and she took her heart rate and was 118. Patient knows that she has intermittent tachycardia that is being treated with metoprolol. The patient had no other symptoms including chest pain difficulty breathing blurry vision or numbness when her take numbness weakness weakness or tingling to any extremity. She came into the hospital to be evaluated. While she is here she has no symptoms. Her blood pressure is 130/79 her heart rate is 76. She would like to go home. Related Data Home Medications Medication Instructions Recorded Confirmed albuterol 90 mcg/actuation aerosol 90 mcg inhalation PRN PRN 04/22/21 03/28/22 inhaler Shortness Of Breath hydrocortisone 2.5 % rectal cream 2.5 ea RECTAL PRN PRN Hemorrhoids 04/22/21 03/28/22 with applicator Allergies Allergy/AdvReac Type Severity Reaction Status Date / Time prednisone Allergy Intermediate increased Verified 03/28/22 08:49 heart rate codeine Allergy Mild Vomiting Verified 03/28/22 08:49 Sulfa (Sulfonamide Allergy Mild Nausea and Verified 03/28/22 08:49 Antibiotics) Vomiting ibuprofen AdvReac Severe Other Verified 03/28/22 08:49 NSAIDS (Non-Steroidal AdvReac Severe Other Verified 03/28/22 08:49 Anti-Inflamma PMFSH Past Medical History Medical History Acute respiratory failure with hypoxia Anemia Asthma Bronchitis Diabetes mellitus Endometriosis Hyperlipidemia Hypertension Renal disease Surgical History Surgical History History of total hysterectomy with bilateral salpingo-oophorectomy (BSO) Family History Family History Mother Hypertension CHF (congestive heart failure) Father Patient's father is in good health Brain aneurysm Social History Social History Smoking status: Never smoker Tobacco type: cigarettes Second hand tobacco smoke exposure: No Alcohol intake: never Substance use: never Lack of Transportation: No Lack of Food: Never True Current Housing: I Have Housing Concerned About Future Housing: No Difficulty Paying Gas/Electric Bills: No Difficulty Paying for Meds: No Currently Unemployed: No Education: Bachelor's Degree Difficulty w/ Childcare or Family Care: No Living arrangements: alone Occupation/Education: occupation Additional occupation/education comments: works for the [employer] Gender identity (if verbalized by the patient): Female Sexual Orientation (if Verbalized by the Patient): Straight or Heterosexual Agree to blood products: Yes Exam Narrative: APPEARANCE: Well-appearing female Head: atraumatic. EYES: EOMI, NOSE: Atraumatic NECK: Trachea midline RESPIRATORY: No increased rate of breathing CTAB CARDIOVASCULAR: RRR, no peripheral edema ABDOMINAL: Non-distended soft nontender no guarding or rebound MUSCULOSKELETAl: No obvious deformities NEURO: Alert. Cranial nerves 2-12 grossly intact. Sensation light touch, motor function cerebellar function intact for 4 extremities. Gait exam was normal. SKIN:: Warm, dry. Normal color PSYCHIATRIC: Normal affect Course Vital Signs Vital signs: Vital Signs Temperature 98.0 F 06/28/22 18:19 Pulse Rate 94 06/28/22 18:19 Respiratory Rate 18 06/28/22 18:19 Blood Pressure 162/84 H 06/28/22 18:19 Pulse Oximetry 98 06/28/22 18:19 Oxygen Delivery Room Air 06/28/22 18:19 Te
--- NOTE | 2022-06-28 20:09 | ECG_ITS ---
Measurements Intervals [place] Rate: 79 P: 42 TN: 158 QRS: 35 QRSD: 84 T: 36 QT: 360 QTc: 415 Interpretive Statements SINUS RHYTHM BASELINE ARTIFACT NORMAL ECG COMPARED TO ECG 05/28/2022 10:28:39 NO SIGNIFICANT CHANGES Electronically Signed On 06-29-2022 14:41:07 FILLER PICKER by Bradley Doll M.D.
[2022-06-28 20:31] VITALS: BP 142/84; PULSE 78; RESP 14; O2SAT 98
== END 2022-06-28 20:58 | disposition home or self-care (01) ==
PROVIDERS: Emergency Provider Emergency Medicine; PCP Physician Assistant
DX: R00.0 Tachycardia, unspecified (principal); J45.909 Unspecified asthma, uncomplicated; E11.9 Type 2 diabetes mellitus without complications; E78.5 Hyperlipidemia, unspecified; I10 Essential (primary) hypertension; N28.9 Disorder of kidney and ureter, unspecified; N80.9 Endometriosis, unspecified; Z86.2 Personal history of diseases of the blood and blood-forming organs and certain disorders involving the immune mechanism; Z90.710 Acquired absence of both cervix and uterus; Z90.722 Acquired absence of ovaries, bilateral; Z90.79 Acquired absence of other genital organ(s); Z79.84 Long term (current) use of oral hypoglycemic drugs
CPT/HCPCS: 93005; 99283

== ENCOUNTER 2022-07-18 15:17 | Emergency (ER) | payer MEDICARE, SELFPAY ==
--- NOTE | ~2022-07-18 | CT_ITS ---
EXAMINATION: CT abdomen pelvis w con DATE: 07/18/2022 18:48 INDICATION: Right upper quadrant abdominal pain. TECHNIQUE: Computed tomography (CT) of the abdomen and pelvis was performed with 100 mL Omnipaque-350 intravenous contrast. Automated exposure control and iterative reconstruction technique were employe d. The dose-length product was 476.28 mGy-cm. COMPARISON: None FINDINGS: Dependent atelectasis in the bilateral lower lobes. Heart size is normal. No pericardial or pleural e ffusion. Liver, gallbladder, pancreas and bilateral adrenal glands are normal. Bilateral renal cysts, the largest measuring 8.2 cm on the left and 3.5 cm at the right kidney. 10 mm low-attenuation lesio n in the central spleen most likely hemangioma. There are few scattered colonic diverticula without a djacent inflammatory stranding to suggest diverticulitis. Bowels are otherwise unremarkable. The appe ndix is not visualized. No pericecal inflammatory change to suggest acute appendicitis. Bladder is no rmal. The uterus is not identified and has likely been surgically resected. No free intraperitoneal g as or fluid. No pathologically enlarged abdominal or pelvic lymphadenopathy. Moderate to severe lower lumbar spondylosis with 4 mm anterolisthesis L4 on L5. Moderate bilateral sacroiliac osteoarthritis. Left acetabular bone island. IMPRESSION: 1. Normal gallbladder. No acute intra-abdominal/pelvic process. Reviewed, dictated and finalized at location A. C PROMOTER
[2022-07-18 15:34] VITALS: BP 140/81; PULSE 73; RESP 16; TEMP 36.3; O2SAT 98
[2022-07-18 15:56] LABS: Basophils Absolute Auto 0.1 K/mm3 (0.0-0.1); Basophils Percent Auto 0.5 % (0.2-1.2); Eosinophils Absolute Auto 0.1 K/mm3 (0-0.3); Eosinophils Percent Auto 0.8 % (0-4.4); Hematocrit 39.3 % (37.0-47.0); Hemoglobin 12.3 g/dL (12.0-15.0); Immature Granulocyte Absolute 0.03 K/mm3 (0.00-0.031); Immature Granulocyte Percent A 0.3 % (0-0.5); Lymphocytes Absolute Auto 1.85 K/mm3 (0.9-3.2); Lymphocytes Percent Auto 18.5 % (18.3-44.2); Mean Corpuscular HGB Conc 31.3 g/dl (32-36); Mean Corpuscular Hemoglobin 25.9 pg (26-34); Mean Corpuscular Volume 82.9 fl (80-100); Mean Platelet Volume 9.6 fl (7.4-10.4); Monocytes Absolute Auto 0.7 K/mm3 (0.1-0.6); Monocytes Percent Auto 7.2 % (2.6-8.5); Neutrophils Absolute Auto 7.3 K/mm3 (1.3-6.7); Neutrophils Percent Auto 72.7 % (45.5-73.1); Platelet Count Result 253 k/mm3 (150-375); Red Blood Count 4.74 M/mm3 (4.2-5.4); Red Cell Distribution Width 15.3 % (11.5-14.5)
[2022-07-18 16:17] LABS: Alanine Aminotransferase 62 U/L (6-35); Alkaline Phosphatase 120 U/L (38-126); Anion Gap 8 mmol/L (8-16); Aspartate Amino Transferase 76 U/L (14-36); Bilirubin,Total 1.4 mg/dL (0.2-1.3); Blood Urea Nitrogen 25 mg/dL (7-17); Calcium 10.6 mg/dL (8.4-10.2); Carbon Dioxide 27 mmol/L (22-30); Chloride 100 mmol/L (98-107); Estimated CRCL calculation 34 ml/min; Estimated Glomerular Filt Rate 54; Glucose 112 mg/dL (65-110); Lipase 81 U/L (23-300); Potassium 3.8 mmol/L (3.4-5.0); Sodium 135 mmol/L (137-145)
[2022-07-18 17:55] VITALS: BP 133/87; PULSE 82; RESP 21; O2SAT 97
[2022-07-18 18:00] VITALS: BP 133/77; PULSE 78; RESP 18; O2SAT 98
[2022-07-18 18:20] VITALS: BP 120/75; PULSE 72; RESP 16; O2SAT 96
--- NOTE | 2022-07-18 18:22 | ED.ABDPAIN ---
HPI - Abdominal Pain General Chief Complaint: Abdominal Pain Stated Complaint: right abd pain Time Seen by Provider: 07/18/22 17:30 History of Present Illness HPI narrative: Patient is a 76-year-old female with a history of diabetes, hyperlipidemia, hypertension presenting with right upper quadrant pain. Patient states that she has had intermittent right upper quadrant pain for the last several weeks that sometimes radiates into her flank and epigastrium. States that she had outpatient blood work and was told that her calcium was too high and her PCP was concerned about her gallbladder so she came in for evaluation. States that she has mild pain right now. No nausea or vomiting. States she had some loose stools earlier. No dysuria or hematuria. No chest pain or shortness of breath or cough or fevers. Related Data Home Medications Medication Instructions Recorded Confirmed albuterol 90 mcg/actuation aerosol 90 mcg inhalation PRN PRN 04/22/21 03/28/22 inhaler Shortness Of Breath hydrocortisone 2.5 % rectal cream 2.5 ea RECTAL PRN PRN Hemorrhoids 04/22/21 03/28/22 with applicator Allergies Allergy/AdvReac Type Severity Reaction Status Date / Time prednisone Allergy Intermediate increased Verified 07/18/22 18:41 heart rate codeine Allergy Mild Vomiting Verified 07/18/22 18:41 Sulfa (Sulfonamide Allergy Mild Nausea and Verified 07/18/22 18:41 Antibiotics) Vomiting ibuprofen AdvReac Severe Other Verified 07/18/22 18:41 NSAIDS (Non-Steroidal AdvReac Severe Other Verified 07/18/22 18:41 Anti-Inflamma Review of Systems Review of Systems: All systems reviewed & are unremarkable except as noted in HPI and below PMFSH Past Medical History Medical History Acute respiratory failure with hypoxia Anemia Asthma Bronchitis Diabetes mellitus Endometriosis Hyperlipidemia Hypertension Renal disease Surgical History Surgical History History of total hysterectomy with bilateral salpingo-oophorectomy (BSO) Family History Family History Mother Hypertension CHF (congestive heart failure) Father Patient's father is in good health Brain aneurysm Social History Social History Smoking status: Never smoker Tobacco type: cigarettes Second hand tobacco smoke exposure: No Alcohol intake: never Substance use: never Lack of Transportation: No Lack of Food: Never True Current Housing: I Have Housing Concerned About Future Housing: No Difficulty Paying Gas/Electric Bills: No Difficulty Paying for Meds: No Currently Unemployed: No Education: Bachelor's Degree Difficulty w/ Childcare or Family Care: No Living arrangements: alone Occupation/Education: occupation Additional occupation/education comments: 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 HEAD: Normocephalic, atraumatic. EYES: PERRLA and EOMI. ENT: Nares clear, no rhinorrhea or epistaxis. Mucous membranes moist. NECK: Supple. CHEST: Clear to auscultation. No respiratory distress. HEART: Regular rate and rhythm. Normal peripheral pulses. ABDOMEN: Soft, tender in right upper quadrant and epigastrium without guarding or rebound EXTREMITIES: Normal range of motion. No edema. SKIN: Warm, dry, no rash. NEURO: No focal deficits. Alert and oriented x3. PSYCH: Normal mood and affect. Course Vital Signs Vital signs: Vital Signs Temperature 97.3 F L 07/18/22 15:34 Pulse Rate 73 07/18/22 15:34 Respiratory Rate
[2022-07-18] MEDS: LACTATED RINGERS 1,000 ML 999 ML IV CONT (18:36)
--- NOTE | 2022-07-18 19:24 | PC.NURSE ---
Assumed pt care from Sweetie Pate RN
[2022-07-18 19:32] LABS: Appearance Urine Clear (Clear); Bacteria Urine None Seen /hpf; Bilirubin Urine Negative (Negative); Blood Urine Negative (Negative); Color Urine Yellow (Yellow); Glucose Urine UA Negative (Negative); Ketones Urine Negative (Negative); Leukocyte Esterase Ur Negative LEU/UL (Negative); Nitrate Urine Negative (Negative); Non Pathogenic Casts 0-2; Protein Urine Trace mg/dL (Negative); RBC Urine 0-2 /hpf (0-2); Specific Grav Ur 1.008 (1.001-1.035); Squamous Epithelial Cell Urine None seen /hpf (Few); Urobilinogen Urine 0.2 mg/dL (<2.0); WBC Urine 0-5 /hpf; pH Urine 5.5 (5.0-9.0)
[2022-07-18 19:39] LABS: Add Urine Microscopic? YES
[2022-07-18 20:35] VITALS: BP 132/67; PULSE 89; RESP 23; O2SAT 95
== END 2022-07-18 20:35 | disposition home or self-care (01) ==
PROVIDERS: Emergency Medicine; Emergency Provider Emergency Medicine; PCP Physician Assistant
DX: R10.9 Unspecified abdominal pain (principal); D64.9 Anemia, unspecified; J45.909 Unspecified asthma, uncomplicated; E11.9 Type 2 diabetes mellitus without complications; E78.5 Hyperlipidemia, unspecified; I10 Essential (primary) hypertension
CPT/HCPCS: 36415; 74177; 80053; 81001; 83690; 85025; 96361; 96374; 99284; J0131; J7120; Q9967

== ENCOUNTER 2023-02-09 05:36 | Emergency (ER) | payer MEDICARE, SELFPAY ==
--- NOTE | ~2023-02-09 | XR_ITS ---
EXAMINATION: XR chest 2V DATE: 02/09/2023 06:12 INDICATION: Sudden onset of chest pain and nausea. TECHNIQUE: Frontal and lateral views of the chest were obtained. COMPARISON: Chest 2 views 05/28/2022 FINDINGS: There is mild scarring at the lung apices. No pleural effusion or pneumothorax. The heart s ize is normal. IMPRESSION: 1. Stable mild scarring at the lung apices. Reviewed, dictated and finalized at location E.
--- NOTE | 2023-02-09 05:37 | ECG_ITS ---
Measurements Intervals [place] Rate: 68 P: 24 RI: 172 QRS: 9 QRSD: 83 T: 5 QT: 371 QTc: 396 Interpretive Statements SINUS RHYTHM LOW QRS VOLTAGE IN PRECORDIAL LEADS [QRS DEFLECTION < 1.0 mV IN CHEST LEADS] BORDERLINE ECG COMPARED TO ECG 06/28/2022 20:16:24 NO SIGNIFICANT CHANGES Electronically Signed On 02-09-2023 13:34:31 CDT by Alberto Guerrero M.D.
[2023-02-09 05:41] VITALS: BP 141/64; PULSE 67; RESP 19; TEMP 36.8; O2SAT 98
[2023-02-09 06:10] LABS: Basophils Percent Auto 0.5 % (0.2-1.2); Eosinophils Absolute Auto 0.2 K/mm3 (0-0.3); Eosinophils Percent Auto 2.7 % (0-4.4); Hematocrit 35.9 % (37.0-47.0); Hemoglobin 11.5 g/dL (12.0-15.0); Immature Granulocyte Absolute 0.02 K/mm3 (0.00-0.031); Immature Granulocyte Percent A 0.3 % (0-0.5); Lymphocytes Absolute Auto 1.48 K/mm3 (0.9-3.2); Lymphocytes Percent Auto 23.3 % (18.3-44.2); Mean Corpuscular Hemoglobin 27.4 pg (26-34); Mean Corpuscular Volume 85.7 fl (80-100); Mean Platelet Volume 9.8 fl (7.4-10.4); Monocytes Absolute Auto 0.5 K/mm3 (0.1-0.6); Neutrophils Absolute Auto 4.2 K/mm3 (1.3-6.7); Neutrophils Percent Auto 65.2 % (45.5-73.1); Platelet Count Result 206 k/mm3 (150-375); Red Blood Count 4.19 M/mm3 (4.2-5.4); Red Cell Distribution Width 15.8 % (11.5-14.5); White Blood Count 6.4 K/mm3 (4.5-10.0)
[2023-02-09 06:19] LABS: Alanine Aminotransferase 49 U/L (6-35); Albumin Level 4.4 g/dL (3.5-5.1); Alkaline Phosphatase 96 U/L (38-126); Anion Gap 9 mmol/L (8-16); Aspartate Amino Transferase 56 U/L (14-36); Bilirubin,Total 1.3 mg/dL (0.2-1.3); Blood Urea Nitrogen 23 mg/dL (7-17); Calcium 10.4 mg/dL (8.4-10.2); Carbon Dioxide 25 mmol/L (22-30); Chloride 104 mmol/L (98-107); Estimated CRCL calculation 185 ml/min; Estimated Glomerular Filt Rate 54; Glucose 136 mg/dL (65-110); Lipase 97 U/L (23-300); Potassium 3.4 mmol/L (3.4-5.0); Sodium 138 mmol/L (137-145)
[2023-02-09 06:25] LABS: Partial Thromboplastin Time 40.3 SECONDS (22.3-36.8)
[2023-02-09 06:31] LABS: Troponin I < 0.012 ng/mL (0.000-0.034)
[2023-02-09 07:18] VITALS: PULSE 58; RESP 16
[2023-02-09 07:40] VITALS: BP 129/90; PULSE 65; RESP 15; O2SAT 95
[2023-02-09 08:18] VITALS: BP 122/67; PULSE 64; RESP 21; O2SAT 96
--- NOTE | 2023-02-09 08:24 | ED.CHESTPAIN ---
HPI - Chest Pain General Chief Complaint: Chest Pain Stated Complaint: Chest pain, nausea Time Seen by Provider: 02/09/23 07:03 Source: patient and RN notes reviewed Mode of arrival: ambulatory Limitations: no limitations History of Present Illness HPI narrative: This is a 77 year old female with history of DM, hypertension and hyperlipidemia who presents for evaluation of chest pain. Patient states around 11 pm she developed nonradiating midsternal chest pain. She states she has difficulty describing. She had associated nausea but denies shortness of breath, fever, diaphoresis. She had similar pain in the past and she was diagnosed with costochondritis at that time. She states that she took 2 aspirin prior to arrival. Her pain has completely resolved at this time. She denies having and chest pain with exertion. She denies leg swelling. Related Data Home Medications Medication Instructions Recorded Confirmed albuterol 90 mcg/actuation aerosol 90 mcg inhalation PRN PRN 04/22/21 12/29/22 inhaler Shortness Of Breath hydrocortisone 2.5 % rectal cream 2.5 ea RECTAL PRN PRN Hemorrhoids 04/22/21 12/29/22 with applicator Allergies Allergy/AdvReac Type Severity Reaction Status Date / Time ibuprofen AdvReac Severe Other Verified 02/09/23 05:44 NSAIDS (Non-Steroidal AdvReac Severe Other Verified 02/09/23 05:44 Anti-Inflamma prednisone AdvReac Intermediate increased Verified 02/09/23 09:19 heart rate codeine AdvReac Mild Vomiting Verified 02/09/23 09:19 Sulfa (Sulfonamide AdvReac Mild Nausea and Verified 02/09/23 09:19 Antibiotics) Vomiting Review of Systems Review of Systems: All systems reviewed & are unremarkable except as noted in HPI and below Constitutional: Constitutional: Denies weakness Cardiovascular: Cardiovascular: Reports chest pain, Denies syncope, Denies rapid heart rate, Denies irregular heart rhythm, Denies leg edema and Denies dyspnea Respiratory: Respiratory: Denies chest congestion, Denies hemoptysis, Denies excessive phlegm production and Denies dyspnea Gastrointestinal: Gastrointestinal: Denies abdominal pain, Denies hematochezia, Denies diarrhea, Reports nausea and Denies vomiting Genitourinary: Genitourinary: Denies hematuria and Denies dysuria Musculoskeletal: Musculoskeletal: Denies joint swelling, Denies loss of height and Denies muscle weakness Neurologic: Denies syncope, Denies focal weakness and Denies weakness PMFSH Past Medical History Medical History Acute respiratory failure with hypoxia Anemia Asthma Bronchitis Diabetes mellitus Endometriosis Hyperlipidemia Hypertension Renal disease Surgical History Surgical History History of total hysterectomy with bilateral salpingo-oophorectomy (BSO) Family History Family History Mother Hypertension CHF (congestive heart failure) Father Patient's father is in good health Brain aneurysm Social History Social History Smoking status: Never smoker Tobacco type: cigarettes Second hand tobacco smoke exposure: No Alcohol intake: never Substance use: never Lack of Transportation: No Lack of Food: Never True Current Housing: I Have Housing Concerned About Future Housing: No Difficulty Paying Gas/Electric Bills: No Difficulty Paying for Meds: No Currently Unemployed: No Education: Bachelor's Degree Difficulty w/ Childcare or Family Care: No Living arrangements: alone Occupation/Education: occupation Additional occupation/education comments: 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
[2023-02-09 09:06] VITALS: BP 115/64; PULSE 61; RESP 17; O2SAT 96
[2023-02-09] MEDS: SODIUM CHLORIDE 0.9% IV 500 ML 999 ML IV CONT (09:23)
[2023-02-09 09:32] LABS: Troponin I < 0.012 ng/mL (0.000-0.034)
[2023-02-09 09:51] LABS: Glucose Point of Care 113 mg/dl (65-105)
[2023-02-09 10:15] VITALS: BP 141/64; PULSE 62; RESP 20; O2SAT 96
== END 2023-02-09 10:15 | disposition home or self-care (01) ==
PROVIDERS: Emergency Medicine; Emergency Provider General Practice; PCP Physician Assistant
DX: R07.89 Other chest pain (principal); D64.9 Anemia, unspecified; J45.909 Unspecified asthma, uncomplicated; E11.9 Type 2 diabetes mellitus without complications; I10 Essential (primary) hypertension; E78.5 Hyperlipidemia, unspecified
CPT/HCPCS: 36415; 71046; 80053; 82948; 83690; 84484; 85025; 85610; 85730; 93005; 96360; 96361; 99284; J7040

== ENCOUNTER 2023-07-24 05:05 | Emergency (ER) | payer MEDICARE, SELFPAY ==
--- NOTE | ~2023-07-24 | XR_ITS ---
NAME: Alison Camacho DATE OF : 43 EXAMINATION: Chest PA and Lat DATE: 07/24/2023 at 8:14 AM INDICATION: Shortness of breath. TECHNIQUE: Frontal and lateral views of the chest were obtained. COMPARISON: None. FINDINGS: There is mild atelectasis versus scarring in the lower lung zones. No pleural effusion or p neumothorax. The heart size is normal. IMPRESSION: 1. Mild atelectasis versus scarring in the lower lung zones. Reviewed, dictated and finalized at location A.
[2023-07-24 05:08] VITALS: BP 140/70; PULSE 83; RESP 15; TEMP 36.2; O2SAT 98
[2023-07-24 05:28] VITALS: BP 105/68; PULSE 74; RESP 16; O2SAT 95
[2023-07-24 06:37] VITALS: BP 108/57; PULSE 60; RESP 17; O2SAT 96
[2023-07-24 07:34] LABS: Influenza A QL RT-PCR Negative (Negative); Influenza B QL RT-PCR Negative (Negative); RSV RNA, RT-PCR Negative (Negative); SARS-CoV-2 RNA PCR Negative (Negative)
--- NOTE | 2023-07-24 10:11 | ED.URI ---
HPI - URI/Sore Throat General Chief Complaint: Upper Respiratory Infection Stated Complaint: cough, nausea Time Seen by Provider: 07/24/23 07:08 Source: patient Mode of arrival: ambulatory Limitations: no limitations History of Present Illness HPI Narrative: 77-year-old with a history of asthma hypertension diabetes, GERD here with complaints of cough for past 2 weeks on and off. Patient states that she has history of seasonal allergies. She has not recently used a inhaler stated no history of fever or chills. Denies chest pain MD elicited complaint: cough Onset (ago): week(s) (2) Consistency: intermittent Severity: mild Exacerbating factors: nothing Relieving factors: nothing Associated symptoms: denies other symptoms Related Data Home Medications Medication Instructions Recorded Confirmed albuterol 90 mcg/actuation aerosol 90 mcg inhalation PRN PRN 04/22/21 12/29/22 inhaler Shortness Of Breath hydrocortisone 2.5 % rectal cream 2.5 ea RECTAL PRN PRN Hemorrhoids 04/22/21 12/29/22 with applicator Allergies Allergy/AdvReac Type Severity Reaction Status Date / Time ibuprofen AdvReac Severe Other Verified 07/24/23 05:27 NSAIDS (Non-Steroidal AdvReac Severe Other Verified 07/24/23 05:27 Anti-Inflamma prednisone AdvReac Intermediate increased Verified 07/24/23 05:27 heart rate codeine AdvReac Mild Vomiting Verified 07/24/23 05:27 Sulfa (Sulfonamide AdvReac Mild Nausea and Verified 07/24/23 05:27 Antibiotics) Vomiting Review of Systems Review of Systems: All systems reviewed & are unremarkable except as noted in HPI and below Constitutional: Constitutional: Reports no additional constitutional complaints Eyes: Eyes: Reports no additional eye complaints Cardiovascular: Cardiovascular: Reports no additional cardiovascular complaints Respiratory: Respiratory: Reports as per HPI Gastrointestinal: Gastrointestinal: Reports no additional gastrointestinal complaints Musculoskeletal: Musculoskeletal: Reports no additional musculoskeletal complaints Neurologic: Reports system reviewed and no additional complaints, except as documented PMF Past Medical History Medical History Acute respiratory failure with hypoxia Anemia Asthma Bronchitis Diabetes mellitus Endometriosis Hyperlipidemia Hypertension Renal disease Surgical History Surgical History History of total hysterectomy with bilateral salpingo-oophorectomy (BSO) Family History Family History Mother Hypertension CHF (congestive heart failure) Father Patient's father is in good health Brain aneurysm Social History Social History Smoking status: Never smoker Tobacco type: cigarettes Second hand tobacco smoke exposure: No Alcohol intake: never Substance use: never Lack of Transportation: No Lack of Food: Never True Current Housing: I Have Housing Concerned About Future Housing: No Difficulty Paying Gas/Electric Bills: No Difficulty Paying for Meds: No Currently Unemployed: No Education: Bachelor's Degree Difficulty w/ Childcare or Family Care: No Living arrangements: alone Occupation/Education: occupation Additional occupation/education comments: 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 HEAD: Normocephalic, atraumatic. EYES: PERRLA and EOMI. ENT: Nares clear, no rhinorrhea . Mucous membranes moist. NECK: Supple. CHEST: Clear to auscultation. No respiratory distress. HEART: Regular rate and
[2023-07-24 10:36] VITALS: BP 112/65; PULSE 77; RESP 18; O2SAT 96
== END 2023-07-24 10:37 | disposition home or self-care (01) ==
PROVIDERS: Emergency Medicine; Emergency Provider Family Medicine; PCP Physician Assistant
DX: R05.9 Cough, unspecified (principal); Z20.822 Contact with and (suspected) exposure to COVID-19; J45.909 Unspecified asthma, uncomplicated; E11.9 Type 2 diabetes mellitus without complications; I10 Essential (primary) hypertension; E78.5 Hyperlipidemia, unspecified; N28.9 Disorder of kidney and ureter, unspecified; K21.9 Gastro-esophageal reflux disease without esophagitis; Z90.710 Acquired absence of both cervix and uterus; Z90.722 Acquired absence of ovaries, bilateral; Z90.79 Acquired absence of other genital organ(s)
CPT/HCPCS: 71046; 87637; 99283

== ENCOUNTER 2023-09-11 09:05 | Outpatient (RCR) | payer MEDICARE, SELFPAY ==
[2023-09-11 09:11] VITALS: BMI 28.2
== END 2023-12-07 09:30 | disposition home or self-care (01) ==
LOC: ANHDMC 09:05
PROVIDERS: PCP Physician Assistant; Visit Provider Internal Medicine
DX: E11.9 Type 2 diabetes mellitus without complications (principal); E66.3 Overweight; Z71.3 Dietary counseling and surveillance
CPT/HCPCS: 97802

== ENCOUNTER 2023-09-18 14:36 | Emergency (ER) | payer MEDICARE, SELFPAY ==
--- NOTE | ~2023-09-18 | XR_ITS ---
EXAMINATION: XR foot RT min 3V DATE: 09/18/2023 15:50 INDICATION: Right foot pain. TECHNIQUE: 2 views of right foot were obtained. COMPARISON: None. FINDINGS: There is a nondisplaced extra-articular transverse fracture of base of fifth metatarsal. Th ere is moderate hallux valgus. There is mild osteoarthritis of first metatarsophalangeal joint and so me of the interphalangeal joints. There is an enthesophyte at plantar aspect of calcaneal tuberosity. IMPRESSION: 1. Transverse fracture of base of fifth metatarsal. Reviewed, dictated and finalized at location A.
--- NOTE | ~2023-09-18 | XR_ITS ---
EXAMINATION: XR ankle RT min 3V DATE: 09/18/2023 15:50 INDICATION: Right ankle pain. TECHNIQUE: 3 views of right ankle were obtained. COMPARISON: None. FINDINGS: Bone alignment is normal. There is a nondisplaced extra-articular transverse fracture of ba se of fifth metatarsal. There is mild midfoot osteoarthritis. There is an enthesophyte at plantar asp ect of calcaneal tuberosity. IMPRESSION: 1. Nondisplaced extra-articular transverse fracture of base of fifth metatarsal. Reviewed, dictated and finalized at location A. IMPRESSION: 1. Nondisplaced extra-articular transverse fracture of base of fifth metatarsal .
[2023-09-18 14:50] VITALS: BP 141/88; PULSE 87; RESP 18; TEMP 36.6; O2SAT 97
[2023-09-18] MEDS: ACETAMINOPHEN 500 MG TABLET 1000 MG PO (15:36)
--- NOTE | 2023-09-18 16:05 | ED.LOWEXIN ---
HPI - Extremity Injury (Lower) General Chief Complaint: Extremity Injury, Lower Stated Complaint: right foot injury Time Seen by Provider: 09/18/23 15:27 History of Present Illness HPI Narrative: This is a 78-year-old female with history of hypertension and diabetes, presents emergency department complaining of right foot pain. Patient states she was walking down her steps this morning, when she misstepped, forcibly internally rotating the right foot. She felt a sharp/7/10 pain at the lateral aspect of the foot. She was initially able to bear weight though is now able to. Denies other injury and has no other complaints at this time Related Data Home Medications Medication Instructions Recorded Confirmed albuterol 90 mcg/actuation aerosol 90 mcg inhalation PRN PRN 04/22/21 08/13/23 inhaler Shortness Of Breath hydrocortisone 2.5 % rectal cream 2.5 ea RECTAL PRN PRN Hemorrhoids 04/22/21 08/13/23 with applicator Allergies Allergy/AdvReac Type Severity Reaction Status Date / Time ibuprofen AdvReac Severe Other Verified 08/13/23 08:13 NSAIDS (Non-Steroidal AdvReac Severe Other Verified 08/13/23 08:13 Anti-Inflamma prednisone AdvReac Intermediate increased Verified 08/13/23 08:13 heart rate codeine AdvReac Mild Vomiting Verified 08/13/23 08:13 Sulfa (Sulfonamide AdvReac Mild Nausea and Verified 08/13/23 08:13 Antibiotics) Vomiting Review of Systems Review of Systems: All systems reviewed & are unremarkable except as noted in HPI and below ([place]) PMFSH Past Medical History Medical History Acute respiratory failure with hypoxia Anemia Asthma Bronchitis Diabetes mellitus Endometriosis Hyperlipidemia Hypertension Renal disease Surgical History Surgical History History of total hysterectomy with bilateral salpingo-oophorectomy (BSO) Family History Family History Mother Hypertension CHF (congestive heart failure) Father Patient's father is in good health Brain aneurysm Social History Social History Smoking status: Never smoker Tobacco type: cigarettes Second hand tobacco smoke exposure: No Alcohol intake: never Substance use: never Lack of Transportation: No Lack of Food: Never True Current Housing: I Have Housing Concerned About Future Housing: No Difficulty Paying Gas/Electric Bills: No Difficulty Paying for Meds: No Currently Unemployed: No Education: Bachelor's Degree Difficulty w/ Childcare or Family Care: No Living arrangements: alone Occupation/Education: occupation Additional occupation/education comments: 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 HEAD: Normocephalic, atraumatic. EYES: PERRLA and EOMI. CHEST: Clear to auscultation. No respiratory distress. No wheezes rales or rhonchi HEART: Regular rate and rhythm. No murmur heard. Normal peripheral pulses. EXTREMITIES: Mild swelling and ecchymosis noted over the lateral aspect of the right foot. Tender to palpation at the base of the right 5th metatarsal. No malleolar tenderness. Normal range of motion. No edema. SKIN: Warm, dry, no rash. NEURO: Alert and oriented x3. No focal deficit. Moving all 4 limbs spontaneously PSYCH: Normal mood and affect. Course Course Emergency Course: 16:08 - X-ray demonstrates a right proximal 5th metatarsal fracture, consistent with Walker fracture. Will place in a posterior leg splint, provided crutches and discharged
== END 2023-09-18 17:18 | disposition home or self-care (01) ==
PROVIDERS: Emergency Provider Preventive Medicine Aerospace Medicine; PCP Physician Assistant
DX: S92.354A Nondisplaced fracture of fifth metatarsal bone, right foot, initial encounter for closed fracture (principal); I11.9 Hypertensive heart disease without heart failure; E11.9 Type 2 diabetes mellitus without complications; E78.5 Hyperlipidemia, unspecified; J45.909 Unspecified asthma, uncomplicated; Z86.2 Personal history of diseases of the blood and blood-forming organs and certain disorders involving the immune mechanism; Z90.710 Acquired absence of both cervix and uterus; Z90.722 Acquired absence of ovaries, bilateral; Z90.79 Acquired absence of other genital organ(s); Z79.84 Long term (current) use of oral hypoglycemic drugs; Z79.899 Other long term (current) drug therapy; X50.9XXA Other and unspecified overexertion or strenuous movements or postures, initial encounter
CPT/HCPCS: 29515; 73610; 73630; 99284; A9270

== ENCOUNTER 2023-12-12 10:38 | Emergency (ER) | payer MEDICARE, SELFPAY ==
--- NOTE | ~2023-12-12 | XR_ITS ---
EXAMINATION: XR foot LT min 3V DATE: 12/12/2023 11:10 INDICATION: Left foot pain. Injury. TECHNIQUE: 4 views of left foot were obtained. COMPARISON: Left foot radiographs 04/15/15 FINDINGS: There is lateral subluxation of second-fifth metatarsals with respect to the tarsals with w idening of the tarsometatarsal joints. There is a fracture of base of second metatarsal laterally wit h 2 mm step-off at the articular surface. There is an impacted fracture deformity of distal aspect of cuboid. There is chronic heterotopic ossification at the lateral aspect of first metatarsal. There i s mild osteoarthritis of first metatarsophalangeal joint. There are enthesophytes at the posterior an d plantar aspects of calcaneal tuberosity. There is soft tissue swelling of the foot. IMPRESSION: 1. Intra-articular fracture of base of second metatarsal with Lisfranc joint subluxation. Impacted fr acture deformity of distal aspect of cuboid. Reviewed, dictated and finalized at location A. IMPRESSION: 1. Intra-articular fracture of base of second metatarsal with Lisfranc joint butler bluxation. Impacted fracture deformity of distal aspect of cuboid.
[2023-12-12 10:46] VITALS: BP 116/61; PULSE 73; RESP 16; TEMP 36.6; O2SAT 97
--- NOTE | 2023-12-12 11:36 | ED.LOWEXIN ---
HPI - Extremity Injury (Lower) General Chief Complaint: Extremity Injury, Lower Stated Complaint: fall this morning-left foot injury Time Seen by Provider: 12/12/23 10:52 History of Present Illness HPI Narrative: 78-year-old female presenting with left foot pain. States that she was doing some gardening in her rock garden when she slipped and fell twisting her left foot. Had immediate swelling and pain. Did not strike her head or lose consciousness. No further injuries or complaints. Related Data Home Medications Medication Instructions Recorded Confirmed albuterol 90 mcg/actuation aerosol 90 mcg inhalation PRN PRN 04/22/21 08/13/23 inhaler Shortness Of Breath hydrocortisone 2.5 % rectal cream 2.5 ea RECTAL PRN PRN Hemorrhoids 04/22/21 08/13/23 with applicator Allergies Allergy/AdvReac Type Severity Reaction Status Date / Time ibuprofen AdvReac Severe Other Verified 12/12/23 10:39 NSAIDS (Non-Steroidal AdvReac Severe Other Verified 12/12/23 10:39 Anti-Inflamma prednisone AdvReac Intermediate increased Verified 12/12/23 10:39 heart rate codeine AdvReac Mild Vomiting Verified 12/12/23 10:39 Sulfa (Sulfonamide AdvReac Mild Nausea and Verified 12/12/23 10:39 Antibiotics) Vomiting Review of Systems Review of Systems: All systems reviewed & are unremarkable except as noted in HPI and below PMFSH Past Medical History Medical History Acute respiratory failure with hypoxia Anemia Asthma Bronchitis Diabetes mellitus Endometriosis Hyperlipidemia Hypertension Renal disease Surgical History Surgical History History of total hysterectomy with bilateral salpingo-oophorectomy (BSO) Family History Family History Mother Hypertension CHF (congestive heart failure) Father Patient's father is in good health Brain aneurysm Social History Social History Smoking status: Never smoker Tobacco type: cigarettes Second hand tobacco smoke exposure: No Alcohol intake: never Substance use: never Lack of Transportation: No Lack of Food: Never True Current Housing: I Have Housing Concerned About Future Housing: No Difficulty Paying Gas/Electric Bills: No Difficulty Paying for Meds: No Currently Unemployed: No Education: Bachelor's Degree Difficulty w/ Childcare or Family Care: No Living arrangements: alone Occupation/Education: occupation Additional occupation/education comments: 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 EYES: PERRLA and EOMI. ENT: Grossly unremarkable NECK: Supple. CHEST: No respiratory distress. HEART: Regular rate and rhythm EXTREMITIES: left foot with dorsal swelling/ecchymosis; tender w/palpation; PT pulse 2+; brisk cap refill; dorsum is diffusely tender; ankle ROM intact SKIN: Warm, dry, no lacerations/abrasions NEURO: Alert and oriented x3. PSYCH: Normal mood and affect. Course Vital Signs Vital signs: Vital Signs Temperature 97.9 F 12/12/23 10:46 Pulse Rate 73 12/12/23 10:46 Respiratory Rate 16 12/12/23 10:46 Blood Pressure 116/61 12/12/23 10:46 Pulse Oximetry 97 12/12/23 10:46 Oxygen Delivery Room Air 12/12/23 10:46 Temperature 97.6 F 12/12/23 12:34 Pulse Rate 67 12/12/23 12:34 Respiratory Rate 20 12/12/23 12:34 Blood Pressure 132/75 12/12/23 12:34 Pulse Oximetry 96 12/12/23 12:34 Oxygen Delivery Room Air
[2023-12-12] MEDS: ACETAMINOPHEN 500 MG TABLET 1000 MG PO (11:48)
[2023-12-12] MEDS: CYCLOBENZAPRINE HCL 10 MG TABLET PO (12:28)
[2023-12-12 12:34] VITALS: BP 132/75; PULSE 67; RESP 20; TEMP 36.4; O2SAT 96
== END 2023-12-12 12:57 | disposition home or self-care (01) ==
PROVIDERS: Emergency Provider Emergency Medicine; PCP Physician Assistant
DX: S92.322A Displaced fracture of second metatarsal bone, left foot, initial encounter for closed fracture (principal); J45.909 Unspecified asthma, uncomplicated; I10 Essential (primary) hypertension; E11.9 Type 2 diabetes mellitus without complications; E78.5 Hyperlipidemia, unspecified; N80.9 Endometriosis, unspecified; N28.9 Disorder of kidney and ureter, unspecified; Z86.2 Personal history of diseases of the blood and blood-forming organs and certain disorders involving the immune mechanism; Z90.710 Acquired absence of both cervix and uterus; Z90.79 Acquired absence of other genital organ(s); Z90.722 Acquired absence of ovaries, bilateral; Z79.899 Other long term (current) drug therapy; Z79.84 Long term (current) use of oral hypoglycemic drugs; W01.0XXA Fall on same level from slipping, tripping and stumbling without subsequent striking against object, initial encounter; Y93.H2 Activity, gardening and landscaping
CPT/HCPCS: 29515; 73630; 99284; A9270

== ENCOUNTER 2023-12-21 18:04 | Inpatient (IN) | payer MEDICARE, SELFPAY ==
--- NOTE | ~2023-12-21 | XR_ITS ---
EXAMINATION: XR foot LT min 3V DATE: 12/22/2023 00:12 INDICATION: Left foot swelling. TECHNIQUE: 4 views of left foot were obtained. COMPARISON: Left foot radiograph 12/12/2023 FINDINGS: There is lateral subluxation of second-fifth metatarsals with respect to the tarsals. There is a fracture of lateral base of second metatarsal with 2 mm displacement. There are impacted fractu re deformities of the distal aspects of intermediate cuneiform and cuboid. There is chronic heterotop ic ossification at the lateral aspect of first metatarsal. There is mild osteoarthritis of first meta tarsophalangeal joint. There are enthesophytes at the posterior and plantar aspects of calcaneal tube rosity. IMPRESSION: 1. Stable Lisfranc joint dislocation suggesting Lisfranc ligament tear. 2. Fractures of base of second metatarsal and distal intermediate cuneiform and cuboid again seen. Reviewed, dictated and finalized at location A.
[2023-12-21 18:25] VITALS: BP 121/80; PULSE 100; RESP 15; TEMP 37.2; O2SAT 96
[2023-12-21 23:51] VITALS: BP 130/81; PULSE 99; RESP 17; TEMP 37.1; O2SAT 97
[2023-12-22] VITALS (8 sets, daily range): BP systolic 100–116; BP diastolic 60–64; PULSE 81–118; RESP 12–16; TEMP 36.2–36.9; O2SAT 94–98; BMI 27.5
[2023-12-22 00:25] LABS: Anion Gap 15 mmol/L (4-12); Blood Urea Nitrogen 37 mg/dL (7-17); Calcium 11.7 mg/dL (8.4-10.2); Carbon Dioxide 27 mmol/L (22-30); Chloride 97 mmol/L (98-107); Estimated CRCL calculation 30 ml/min; Estimated Glomerular Filt Rate 48; Glucose 129 mg/dL (65-110); Potassium 3.7 mmol/L (3.4-5.0); Sodium 139 mmol/L (137-145)
[2023-12-22 00:29] LABS: Basophils Absolute Auto 0.1 K/mm3 (0.0-0.1); Basophils Percent Auto 0.6 % (0.2-1.2); Eosinophils Absolute Auto 0.2 K/mm3 (0-0.3); Eosinophils Percent Auto 2.1 % (0-4.4); Hematocrit 40.1 % (37.0-47.0); Immature Granulocyte Absolute 0.03 K/mm3 (0.00-0.031); Immature Granulocyte Percent A 0.3 % (0-0.5); Lymphocytes Absolute Auto 2.27 K/mm3 (0.9-3.2); Mean Corpuscular HGB Conc 32.4 g/dl (32-36); Mean Corpuscular Hemoglobin 27.1 pg (26-34); Mean Corpuscular Volume 83.7 fl (80-100); Mean Platelet Volume 10.1 fl (7.4-10.4); Monocytes Absolute Auto 0.9 K/mm3 (0.1-0.6); Neutrophils Absolute Auto 7.3 K/mm3 (1.3-6.7); Platelet Count Result 384 k/mm3 (150-375); Red Blood Count 4.79 M/mm3 (4.2-5.4); Red Cell Distribution Width 14.5 % (11.5-14.5); White Blood Count 10.8 K/mm3 (4.5-10.0)
[2023-12-22] MEDS: VANCOMYCIN 1,500 MG/NS 500 ML 1,500 MG/500 ML BAG 250 MG IVPB (01:04)
[2023-12-22] MEDS: methocarbamoL 500 MG TABLET PO ×3 (02:06→18:26)
[2023-12-22] MEDS: rOPINIRole HCL 1 MG TABLET PO ×2 (02:06→20:44)
--- NOTE | 2023-12-22 02:06 | ED.SKABFB ---
HPI - Skin/Abscess/Foreign Bdy General Chief complaint: Wound/Laceration Stated complaint: left wound Time Seen by Provider: 12/21/23 23:50 History of Present Illness HPI narrative: Patient broke her foot about 10 days ago, had a splint placed, followed up with the doctor a few days later, noticed a blood blister which the lanced, and a few days later patient noticed some redness to her foot, overall the pain is not worse, there are not any new blisters, her DrEtienne saw her and put her on antibiotics without much improvement and she was told to come in for IV antibiotics. No systemic symptoms Related Data Home Medications Medication Instructions Recorded Confirmed albuterol 90 mcg/actuation aerosol 90 mcg inhalation PRN PRN 04/22/21 08/13/23 inhaler Shortness Of Breath hydrocortisone 2.5 % rectal cream 2.5 ea RECTAL PRN PRN Hemorrhoids 04/22/21 08/13/23 with applicator Allergies Allergy/AdvReac Type Severity Reaction Status Date / Time ibuprofen AdvReac Severe Other Verified 12/12/23 10:39 NSAIDS (Non-Steroidal AdvReac Severe Other Verified 12/12/23 10:39 Anti-Inflamma prednisone AdvReac Intermediate increased Verified 12/12/23 10:39 heart rate codeine AdvReac Mild Vomiting Verified 12/12/23 10:39 Sulfa (Sulfonamide AdvReac Mild Nausea and Verified 12/12/23 10:39 Antibiotics) Vomiting Review of Systems Review of Systems: All systems reviewed & are unremarkable except as noted in HPI and below PMFSH Past Medical History Medical History Acute respiratory failure with hypoxia Anemia Asthma Bronchitis Diabetes mellitus Endometriosis Hyperlipidemia Hypertension Renal disease Surgical History Surgical History History of total hysterectomy with bilateral salpingo-oophorectomy (BSO) Family History Family History Mother Hypertension CHF (congestive heart failure) Father Patient's father is in good health Brain aneurysm Social History Social History Smoking status: Never smoker Tobacco type: cigarettes Second hand tobacco smoke exposure: No Alcohol intake: never Substance use: never Lack of Transportation: No Lack of Food: Never True Current Housing: I Have Housing Concerned About Future Housing: No Difficulty Paying Gas/Electric Bills: No Difficulty Paying for Meds: No Currently Unemployed: No Education: Bachelor's Degree Difficulty w/ Childcare or Family Care: No Living arrangements: alone Occupation/Education: occupation Additional occupation/education comments: 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 EYES: EOMI, conjunctiva normal ENT: Hearing grossly intact LUNGS: Nonlabored breathing. HEART: [Regular rate and rhythm]. Normal cap refill to left toes ABD: No distension EXT: Swelling and tenderness to the left foot SKIN: Bruising left foot; no fluctuance or obvious fluid collection NEURO: [Alert and oriented x 3. No gross focal sensory or strength deficits.] PSYCH: Normal affect Course Vital Signs Vital signs: Vital Signs Temperature 98.9 F 12/21/23 18:25 Pulse Rate 100 12/21/23 18:25 Respiratory Rate 15 12/21/23 18:25 Blood Pressure 121/80 12/21/23 18:25 Pulse Oximetry 96 12/21/23 18:25 Oxygen Delivery Room Air 12/21/23 18:25 Temperature 98.7 F 0
--- NOTE | 2023-12-22 03:07 | ADMGEN ---
This patient, Alison Cerna, was admitted to [facility] Surg Room 331-02. Patient/family oriented to hospital policies and general routines including ID bracelet, bed and alarms, visiting hours, pain management, procedures, bathroom and other care routines, personal items, smoking policy, room service/diet, and visiting hours. Information on how to activate the Rapid Response Team has been discussed. Patient/Family are encouraged to report perceived risks to care and to ask questions if they do not understand what they are told or what they should do.
[2023-12-22] MEDS: HYDROcodone/acetaminophen (*CRX) 5-325 MG TABLET 1 TAB PO (06:57)
[2023-12-22] MEDS: LOSARTAN POTASSIUM 50 MG TABLET BY MOUTH (09:21)
[2023-12-22] MEDS: METOPROLOL TARTRATE 50 MG TAB PO ×3 (09:21→22:11)
[2023-12-22] MEDS: FERROUS SULFATE 325 MG TABLET DR PO (09:21)
[2023-12-22] MEDS: hydroCHLOROthiazide 12.5 MG CAPSULE BY MOUTH (09:21)
[2023-12-22] MEDS: allopurinoL 100 MG TABLET BY MOUTH (09:21)
--- NOTE | 2023-12-22 09:34 | PM.IMHP ---
H&P: HPI History of Present Illness Date/Time: 12/22/23 09:34 Chief Complaint: Left foot pain Narrative: This is a 78-year-old female who presents to the ED with left foot pain. The patient states she broke her foot about 10 days ago, had a splint placed, followed up with the doctor a few days later, noticed a blood blister which the DrEtienne opened 8 and a few days later patient noticed some redness to her foot, overall the pain is not worse, there are not any new blisters, her Dr. saw her and put her on antibiotics without much improvement and she was told to come in for IV antibiotics. No systemic symptoms. She is not weight-bearing on her left foot since the fracture. Review of Systems Review of Systems: - CONSTITUTIONAL: Denies weight loss, fever and chills. - HEENT: Denies changes in vision and hearing - RESPIRATORY: Denies SOB and cough. - CV: Denies palpitations and CP. - GI: Denies abdominal pain, nausea, vomiting and diarrhea. - : Denies dysuria and urinary frequency. - MSK: Denies myalgia and joint pain. Left foot pain - SKIN: Denies rash and pruritus. - NEUROLOGICAL: Denies headache and syncope. - PSYCHIATRIC: Denies recent changes in mood. Denies anxiety and depression. [facility] Past Medical History Medical History Acute respiratory failure with hypoxia Anemia Asthma Bronchitis Diabetes mellitus Endometriosis Hyperlipidemia Hypertension Renal disease Surgical History Surgical History History of total hysterectomy with bilateral salpingo-oophorectomy (BSO) Family History Family History Mother Hypertension CHF (congestive heart failure) Father Patient's father is in good health Brain aneurysm Social History Social History Smoking status: Never smoker Tobacco type: cigarettes Second hand tobacco smoke exposure: No Alcohol intake: never Substance use: never Substance use type: does not use Do You Feel Safe in your Home?: Yes Lack of Transportation: No Lack of Food: Never True Current Housing: I Have Housing Concerned About Future Housing: No Difficulty Paying Gas/Electric Bills: No Difficulty Paying for Meds: No Currently Unemployed: No Education: Bachelor's Degree Difficulty w/ Childcare or Family Care: No Living arrangements: alone Occupation/Education: occupation Additional occupation/education comments: 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 Gender identity (if verbalized by the patient): Female Sexual Orientation (if Verbalized by the Patient): Straight or Heterosexual Spiritual care concerns: No Agree to blood products: Yes Meds Home Medications and Allergies Home Medications Medication Instructions Recorded Confirmed Type albuterol 90 mcg/actuation aerosol 90 mcg inhalation PRN PRN 04/22/21 12/22/23 History inhaler Shortness Of Breath hydrocortisone 2.5 % rectal cream 2.5 ea RECTAL PRN PRN Hemorrhoids 04/22/21 12/22/23 History with applicator albuterol sulfate 90 mcg/actuation 2 puff inhalation QID PRN 02/10/22 12/22/23 Rx aerosol inhaler shortness of breath or wheezing #8 grams allopurinol 100 mg tablet See Rx Instructions .Route 10/07/23 12/22/23 Rx .COMPLEX #90 tabs atorvastatin 40 mg tablet 40 mg PO HS #90 tabs 10/07/23 12/22/23 Rx hydrochlorothiazide 12.5 mg tablet See Rx Instructions .Route 10/07/23 12/22/23 Rx .COMPLEX #90 tabs losartan 50 mg tablet See Rx Instructions .Route 10/07/23 12/22/23 Rx .COMPLEX #90 tabs metoprolol tartrate 50 mg tablet 50 mg PO TID #270 tabs 10/07/23 12/22/23 Rx montelukast 10 mg tablet See Rx Instructions .Route 10/07/23 12/22/23 Rx .COMPLEX #90 tabs omeprazole 20 mg capsule,delay
--- NOTE | 2023-12-22 13:07 | PM.CNOR ---
Assessment and Plan Assessment and plan (1) Foot fracture: Qualifiers: Encounter type: initial encounter Fracture type: closed Laterality: left Qualified Code(s): S92.902A - Unspecified fracture of left foot, initial encounter for closed fracture <ADAL Hwang - Last Filed: 12/22/23 13:50> Code(s): S92.909A - Unspecified fracture of unspecified foot, initial encounter for closed fracture <ADAL Hwang - Last Filed: 12/22/23 13:50> Status: Acute <ADAL Hwang - Last Filed: 12/22/23 13:50> Assessment and Plan: Radiographs in the ED at [facility] revealed a stable Lisfranc joint dislocation with fractures of base of second metatarsal and distal intermediate cuneiform and cuboid, unchanged. The fracture type and injury as well as radiographs discussed with the patient and family. Operative and nonoperative treatment options reviewed. Recommended nonoperative treatment. Risk of nonunion, malunion or late displacement discussed. Stiffness, pain and possible dysfunction of the joint discussed. Fracture precautions and activity restrictions reviewed. The patient verbalizes understanding. Fracture blistering on the dorsum of the left foot which is now popped, previously by addiction therapist. No signs of necrotizing fasciiits at this time. Gentle AROM/PROM of the foot/toes without severe pain. Patient to be fit with fracture boot. NWB LLE. Begin daily dressing changes with Xeroform, 4x4 gauze, wrap loosely with Kerlex and tape in place. Pain control. Monitor NV status. Continue IV antibiotics for cellulitis. Dispo: Home with Home Health or Independently pending improvement. Follow up with podiatry at discharge. Will continue to follow while inpatient. <ADAL Hwang - Last Filed: 12/22/23 13:50> (2) Cellulitis: Qualifiers: Laterality: left Site of cellulitis: extremity Site of cellulitis of extremity: lower extremity Qualified Code(s): L03.116 - Cellulitis of left lower limb <ADAL Hwang - Last Filed: 12/22/23 13:50> Code(s): L03.90 - Cellulitis, unspecified <ADAL Hwang - Last Filed: 12/22/23 13:50> Status: Acute <ADAL Hwang - Last Filed: 12/22/23 13:50> Assessment and Plan: Continue IV antibiotics. <ADAL Hwang - Last Filed: 12/22/23 13:50> (3) Diabetes mellitus: Qualifiers: Diabetes mellitus complication status: without complication Diabetes mellitus oysterman insulin use: without oysterman use Diabetes mellitus type: type 2 Qualified Code(s): E11.9 - Type 2 diabetes mellitus without complications <ADAL Hwang - Last Filed: 12/22/23 13:50> Code(s): E11.9 - Type 2 diabetes mellitus without complications <ADAL Hwang - Last Filed: 12/22/23 13:50> Status: Acute <ADAL Hwang - Last Filed: 12/22/23 13:50> Assessment and Plan: Risk for poor wound healing due to DM. Begin daily dressing changes. Close glycemic control by medicine team. <ADAL Hwang - Last Filed: 12/22/23 13:50> Assessment and Plan: Dr. Bautista- patient seen and examined. Medical record, radiographs and lab values reviewed. 10 days status post left foot 2nd metatarsal fracture. Evidence of neuropathic changes of the left midfoot. Subsequent to the fracture she developed swelling and fracture blisters which were reportedly decompressed in the podiatry office. No signs of worsening condition at this time. Agree with IV antibiotics. Local wound care. Protected weight-bearing with fracture boot. Planned follow-up with Podiatry. <Wilder Bautista MD - Last Filed: 12/22/23 14:13> History of Present Illness HPI Consult date: 12/22/23 <ADAL Hwang - Last Filed: 12/22/23 13:50> 12/22/23 <Wilder Bautista MD - Last Filed: 12/22/23 14:13> Consult reason: joint pain and fracture <Sana Hwang
[2023-12-22] MEDS: SODIUM CHLORIDE 0.9% IV 1,000 ML 75 ML IV CONT (13:24)
[2023-12-22 14:15] LABS: Hemoglobin A1C 6.9 % (<5.7)
[2023-12-22 14:21] LABS: Parathyroid Intact 83.8 pg/mL (7.5-53.5)
[2023-12-22 14:49] LABS: Vitamin D 25 Hydroxy 59.4 ng/mL
[2023-12-22 16:45] LABS: Glucose Point of Care 113 mg/dl (65-105)
--- NOTE | 2023-12-22 18:39 | PC.NURSE ---
this nurse locked the pt home meds in the closet
[2023-12-22] MEDS: ATORVASTATIN 40 MG TABLET PO (20:44)
[2023-12-22] MEDS: MONTELUKAST SODIUM 10 MG TABLET BY MOUTH (20:44)
[2023-12-22 20:53] LABS: Glucose Point of Care 124 mg/dl (65-105)
[2023-12-23] MEDS: SODIUM CHLORIDE 0.9% IV 1,000 ML 75 ML IV CONT ×2 (03:39→20:53)
[2023-12-23 05:49] VITALS: PULSE 77
[2023-12-23] MEDS: METOPROLOL TARTRATE 50 MG TAB PO ×3 (05:49→20:57)
[2023-12-23 06:00] VITALS: BP 111/62; PULSE 77; RESP 12; TEMP 36.2; O2SAT 94
[2023-12-23 06:17] LABS: Basophils Percent Auto 0.4 % (0.2-1.2); Eosinophils Absolute Auto 0.2 K/mm3 (0-0.3); Eosinophils Percent Auto 3.5 % (0-4.4); Hematocrit 33.2 % (37.0-47.0); Hemoglobin 10.2 g/dL (12.0-15.0); Immature Granulocyte Absolute 0.02 K/mm3 (0.00-0.031); Immature Granulocyte Percent A 0.3 % (0-0.5); Lymphocytes Absolute Auto 2.04 K/mm3 (0.9-3.2); Mean Corpuscular HGB Conc 30.7 g/dl (32-36); Mean Corpuscular Hemoglobin 26.8 pg (26-34); Mean Corpuscular Volume 87.1 fl (80-100); Mean Platelet Volume 10.2 fl (7.4-10.4); Monocytes Absolute Auto 0.6 K/mm3 (0.1-0.6); Monocytes Percent Auto 8.4 % (2.6-8.5); Neutrophils Absolute Auto 3.9 K/mm3 (1.3-6.7); Neutrophils Percent Auto 57.4 % (45.5-73.1); Platelet Count Result 244 k/mm3 (150-375); Red Blood Count 3.81 M/mm3 (4.2-5.4); Red Cell Distribution Width 14.4 % (11.5-14.5); White Blood Count 6.8 K/mm3 (4.5-10.0)
[2023-12-23 06:30] LABS: Alanine Aminotransferase 26 U/L (6-35); Albumin Level 3.7 g/dL (3.5-5.1); Alkaline Phosphatase 139 U/L (38-126); Anion Gap 10 mmol/L (4-12); Aspartate Amino Transferase 38 U/L (14-36); Bilirubin,Total 1.4 mg/dL (0.2-1.3); Blood Urea Nitrogen 28 mg/dL (7-17); Calcium 10.5 mg/dL (8.4-10.2); Carbon Dioxide 23 mmol/L (22-30); Chloride 104 mmol/L (98-107); Estimated CRCL calculation 42 ml/min; Estimated Glomerular Filt Rate 60; Glucose 111 mg/dL (65-110); Magnesium 1.1 mg/dL (1.6-2.3); Potassium 3.3 mmol/L (3.4-5.0); Sodium 137 mmol/L (137-145)
[2023-12-23 07:45] LABS: Glucose Point of Care 104 mg/dl (65-105)
[2023-12-23] MEDS: VANCOMYCIN 1,250 MG/NS 250 ML 1,250 MG/250 ML BAG 166.67 MG IVPB (07:49)
[2023-12-23] MEDS: allopurinoL 100 MG TABLET BY MOUTH (08:17)
[2023-12-23] MEDS: LOSARTAN POTASSIUM 50 MG TABLET BY MOUTH (08:17)
[2023-12-23] MEDS: FERROUS SULFATE 325 MG TABLET DR PO (08:17)
[2023-12-23] MEDS: HYDROcodone/acetaminophen (*CRX) 5-325 MG TABLET 1 TAB PO (08:56)
[2023-12-23 11:59] LABS: Glucose Point of Care 109 mg/dl (65-105)
[2023-12-23] MEDS: POTASSIUM CHLORIDE 20 MEQ ER TABLET PO (13:16)
[2023-12-23 13:17] VITALS: PULSE 98
[2023-12-23] MEDS: MAGNESIUM SULF 4 GM/WATER100ML 4 GM/100 ML BAG IVPB (13:18)
[2023-12-23 14:00] VITALS: BP 113/61; PULSE 86; RESP 18; TEMP 36.2; O2SAT 94
--- NOTE | 2023-12-23 15:45 | PM.IMPN ---
Progress Note: A&P Assessment and Plan (1) Foot fracture: Qualifiers: Encounter type: initial encounter Fracture type: closed Laterality: left Qualified Code(s): S92.902A - Unspecified fracture of left foot, initial encounter for closed fracture Code(s): S92.909A - Unspecified fracture of unspecified foot, initial encounter for closed fracture Status: Acute (2) Cellulitis: Qualifiers: Laterality: left Site of cellulitis: extremity Site of cellulitis of extremity: lower extremity Qualified Code(s): L03.116 - Cellulitis of left lower limb Code(s): L03.90 - Cellulitis, unspecified Status: Acute (3) Hypercalcemia: Code(s): E83.52 - Hypercalcemia Status: Acute (4) Hypokalemia: Code(s): E87.6 - Hypokalemia Status: Acute (5) Hypomagnesemia: Code(s): E83.42 - Hypomagnesemia Status: Acute Plan Replace magnesium and potassium. Recheck in the morning. Planning to discharge patient to SNF for rehab. Continue IV vancomycin for now and follow up on blood cultures. Hopefully deescalate tomorrow if her swelling and erythema is better. Patient wishes to be DNR. No bleeding issues tomorrow start DVT prophylaxis. Will not use SCDs in the setting of her foot fracture. Subjective Date/time seen: 12/23/23 15:45 Interval history: No acute overnight events. Patient has had some throbbing pain at the foot however and is improved with narcotics. She denies fever/chills/vomiting/shortness of breath. She is very amenable to physical therapy in the care home setting. Review of Systems Review of Systems: All systems reviewed & are unremarkable except as noted in HPI and below (Subjective) Exam Const: General: comfortable and no acute distress Eyes: Pupils: Equal, round and reactive pupils present Neck: Neck: supple Resp: Effort & Inspection: normal respiratory effort Cardio: Rate: regular rate Rhythm: regular rhythm GI: GI Palp: Yes Soft to palpation and No Tenderness to palpation present (GI) Extrem: General: no edema Objective Data Vital Signs Vital Signs: Vital Signs - 24 hr 12/22/23 21:32 12/22/23 22:11 12/23/23 05:49 Temperature 98.0 F Pulse Rate 83 85 77 Respiratory Rate 13 Blood Pressure 116/64 Pulse Oximetry 94 Oxygen Delivery 12/23/23 06:00 12/23/23 09:51 12/23/23 13:17 Temperature 97.1 F L Pulse Rate 77 98 Respiratory Rate 12 Blood Pressure 111/62 Pulse Oximetry 94 Oxygen Delivery Room Air Intake/Output Intake/Output: Intake & Output 12/20/23 12/21/23 12/22/23 12/23/23 23:59 23:59 23:59 23:59 Intake Total 1250 1618 Balance 1250 1618 Meds/Results Medications: Active Medications Generic Name Dose Route Start Last Admin Trade Name Freq PRN Reason Stop Dose Admin Hydrocodone Bitart/Acetaminophen 1 tab 12/22/23 06:44 12/23/23 08:56 Hydrocodone/Acetaminophen (*Crx) 5-325 Mg Tablet PO 1 tab Q8H PRN Administration pain Albuterol 2 puff 12/22/23 06:44 Albuterol Sulfate (*Sp) Aerosol 1 Puff INHALATION QID PRN shortness of breath or wheezing Allopurinol 100 mg 12/22/23 09:00 12/23/23 08:17 Allopurinol 100 Mg Tablet BY MOUTH 100 mg QAM DEBRA Administration Atorvastatin Calcium 40 mg 12/22/23 21:00 12/22/23 20:44 Atorvastatin 40 Mg Tablet PO 40 mg HS DEBRA Administration Dextrose 12.5 gm 12/22/23 13:00 Dextrose 50% 25 Gm/50 Ml Syringe IV PUSH PRN PRN Hypoglycemia Protocol Ferrous Sulfate 325 mg 12/22/23 08:00 12/23/23 08:17 Ferrous Sulfate [address] PO 325 mg DAILY@0800 DEBRA Administration Glucagon 1 mg 12/22/23 13:00 Glucagon For Inj 1 Mg Vial IM PRN PRN Hypoglycemia Protocol Glucose 15 gm 12/22/23 13:00 Glucose Oral Gel 15 Gm Of Glucse In 37.5 Gm Tube PO PRN PRN Hypoglycemia Protocol Sodium Chloride 1,000 mls @ 75 mls/hr
--- NOTE | 2023-12-23 15:53 | PCPTNOTE ---
On 12/23/23, the student, [Cindy Ferreira], provided care and completed [facility] documentation on this patient. I have reviewed the student's documentation and agree with the findings.
[2023-12-23 16:57] LABS: Glucose Point of Care 144 mg/dl (65-105)
[2023-12-23] MEDS: ATORVASTATIN 40 MG TABLET PO (20:53)
[2023-12-23] MEDS: MONTELUKAST SODIUM 10 MG TABLET BY MOUTH (20:53)
[2023-12-23] MEDS: rOPINIRole HCL 1 MG TABLET PO (20:53)
[2023-12-23 20:54] LABS: Glucose Point of Care 128 mg/dl (65-105)
[2023-12-23 20:57] VITALS: PULSE 88
[2023-12-23 21:14] VITALS: BP 128/68; PULSE 79; RESP 18; TEMP 37.2; O2SAT 94
[2023-12-24 05:32] VITALS: PULSE 78
[2023-12-24] MEDS: METOPROLOL TARTRATE 50 MG TAB PO (05:32)
[2023-12-24] MEDS: methocarbamoL 500 MG TABLET PO (05:32)
[2023-12-24 05:56] VITALS: BP 127/70; PULSE 72; RESP 20; TEMP 36.8; O2SAT 94
[2023-12-24 07:06] LABS: Basophils Percent Auto 0.4 % (0.2-1.2); Eosinophils Absolute Auto 0.3 K/mm3 (0-0.3); Eosinophils Percent Auto 3.8 % (0-4.4); Hematocrit 30.8 % (37.0-47.0); Hemoglobin 9.7 g/dL (12.0-15.0); Immature Granulocyte Absolute 0.01 K/mm3 (0.00-0.031); Immature Granulocyte Percent A 0.1 % (0-0.5); Lymphocytes Absolute Auto 1.97 K/mm3 (0.9-3.2); Lymphocytes Percent Auto 27.8 % (18.3-44.2); Mean Corpuscular HGB Conc 31.5 g/dl (32-36); Mean Corpuscular Hemoglobin 26.6 pg (26-34); Mean Corpuscular Volume 84.4 fl (80-100); Mean Platelet Volume 9.8 fl (7.4-10.4); Monocytes Absolute Auto 0.6 K/mm3 (0.1-0.6); Monocytes Percent Auto 8.2 % (2.6-8.5); Neutrophils Absolute Auto 4.2 K/mm3 (1.3-6.7); Neutrophils Percent Auto 59.7 % (45.5-73.1); Platelet Count Result 241 k/mm3 (150-375); Red Blood Count 3.65 M/mm3 (4.2-5.4); Red Cell Distribution Width 14.2 % (11.5-14.5); White Blood Count 7.1 K/mm3 (4.5-10.0)
[2023-12-24 07:25] LABS: Alanine Aminotransferase 25 U/L (6-35); Albumin Level 3.9 g/dL (3.5-5.1); Alkaline Phosphatase 165 U/L (38-126); Anion Gap 9 mmol/L (4-12); Aspartate Amino Transferase 35 U/L (14-36); Bilirubin,Total 1.4 mg/dL (0.2-1.3); Blood Urea Nitrogen 19 mg/dL (7-17); Calcium 10.4 mg/dL (8.4-10.2); Carbon Dioxide 22 mmol/L (22-30); Chloride 106 mmol/L (98-107); Estimated CRCL calculation 47 ml/min; Estimated Glomerular Filt Rate > 60; Glucose 100 mg/dL (65-110); Magnesium 1.8 mg/dL (1.6-2.3); Potassium 3.5 mmol/L (3.4-5.0); Sodium 137 mmol/L (137-145)
[2023-12-24 07:29] LABS: Vancomycin Trough 9.6 ug/mL (10.0-20.0)
[2023-12-24 07:43] LABS: Glucose Point of Care 102 mg/dl (65-105)
[2023-12-24] MEDS: VANCOMYCIN 1,000 MG/NS 250 ML 1,000 MG/250 ML BAG 250 MG IVPB (07:56)
[2023-12-24] MEDS: allopurinoL 100 MG TABLET BY MOUTH (07:59)
[2023-12-24] MEDS: LOSARTAN POTASSIUM 50 MG TABLET BY MOUTH (07:59)
[2023-12-24] MEDS: FERROUS SULFATE 325 MG TABLET DR PO (07:59)
--- NOTE | 2023-12-24 10:17 | PM.DS ---
DS: Admitting Diagnosis Discharge Date December 24, 2023 Admitting Diagnosis Cellulitis DS: Discharge Diagnosis Discharge Diagnosis (1) Cellulitis: Qualifiers: Laterality: left Site of cellulitis: extremity Site of cellulitis of extremity: lower extremity Qualified Code(s): L03.116 - Cellulitis of left lower limb Code(s): L03.90 - Cellulitis, unspecified Status: Acute DS: Summary Hospital Course Hospital Course: H&P via Dr. Segovia on 12/22/23 This is a 78-year-old female who presents to the ED with left foot pain. The patient states she broke her foot about 10 days ago, had a splint placed, followed up with the doctor a few days later, noticed a blood blister which the DrEtienne opened 8 and a few days later patient noticed some redness to her foot, overall the pain is not worse, there are not any new blisters, her Dr. saw her and put her on antibiotics without much improvement and she was told to come in for IV antibiotics. No systemic symptoms. She is not weight-bearing on her left foot since the fracture. Patient evaluated by Dr. Bautista [facility]. Consultation below by family nurse practitioner Toya Buenrostro 78 year old female presents to the ER with complaints of left foot pain, swelling and blistering. Per the patient and medical records, she initially had an injury after falling in the [employer] on 12/11 for which she was seen in the ER here at [facility]. Radiographs at that time revealed an intra-articular fracture of base of second metatarsal with Lisfranc joint subluxation and an impacted fracture deformity of distal aspect of cuboid. Dr. Kim was contacted during the 12/11 hospitalization and recommended an OCL and follow up with the patient's established biostatistics manager, Dr. Rojas in [place], [place]. Per the patient, she initially followed up with Dr. Rojas and her splint was removed. At that time, she had a large blister on the dorsum of the forefoot that Dr. Rojas popped. Following this initial visit, she noticed erythema to the foot and returned to her biostatistics manager who put her on antibiotics. She reported very little improvement and was instructed by Dr. Rojas to go to the ER at [facility] where she is on staff. The patient reports having waited too long for treatment and she left the ER at [facility] and presented to [facility] for further evaluation. New radiographs in the ED at [facility] revealed a stable Lisfranc joint dislocation with fractures of base of second metatarsal and distal intermediate cuneiform and cuboid again seen. Due to the swelling/erythema, it was suspected by the ED physician that the patient could have necrotizing fasciitis. Dr. Kim was contacted from the ED and patient was admitted by the medicine team to begin IV antibiotics. Dr. Kim is now requesting consult by Dr. Bautista. Radiographs in the ED at [facility] revealed a stable Lisfranc joint dislocation with fractures of base of second metatarsal and distal intermediate cuneiform and cuboid, unchanged. The fracture type and injury as well as radiographs discussed with the patient and family. Operative and nonoperative treatment options reviewed. Recommended nonoperative treatment. Risk of nonunion, malunion or late displacement discussed. Stiffness, pain and possible dysfunction of the joint discussed. Fracture precautions and activity restrictions reviewed. The patient verbalizes understanding. Fracture blistering on the dorsum of the left foot which is now popped, previously by biostatistics manager. No signs of necrotizing fasciiits at this time. Gentle AROM/PROM of the foot/toes without severe pain. Patient to be fit with fracture boot. NWB LLE. Begin daily dressing changes with Xeroform, 4x4 gauze, wrap loosely with Kerlex and tape in place. Pain control. Monitor NV status. Continue IV antibiotics for cellulitis. Dispo: Home with Home Health or Independently pending improvement. Follow up with podiatry at discharge. Will contin
[2023-12-24 11:50] LABS: Glucose Point of Care 115 mg/dl (65-105)
--- NOTE | 2023-12-24 12:31 | PM.PNORT ---
Progress Note: A&P Assessment and Plan (1) Foot fracture: Qualifiers: Encounter type: initial encounter Fracture type: closed Laterality: left Qualified Code(s): S92.902A - Unspecified fracture of left foot, initial encounter for closed fracture Code(s): S92.909A - Unspecified fracture of unspecified foot, initial encounter for closed fracture Status: Acute Assessment and Plan: Radiographs in the ED at [facility] revealed a stable Lisfranc joint dislocation with fractures of base of second metatarsal and distal intermediate cuneiform and cuboid, unchanged. The fracture type and injury as well as radiographs discussed with the patient and family. Operative and nonoperative treatment options reviewed. Recommended nonoperative treatment. Risk of nonunion, malunion or late displacement discussed. Stiffness, pain and possible dysfunction of the joint discussed. Fracture precautions and activity restrictions reviewed. The patient verbalizes understanding. Fracture blistering on the dorsum of the left foot which is now popped, previously by thrill performer. Still with no signs of necrotizing fasciitis at this time. Gentle AROM/PROM of the foot/toes without severe pain. Patient fit with fracture boot. NWB LLE. Continue daily dressing changes with Xeroform, 4x4 gauze, wrap loosely with Kerlex and tape in place. Pain control. Monitor NV status. Continue IV antibiotics for cellulitis. Dispo: Home with Home Health or Independently pending improvement. Follow up with podiatry at discharge. (2) Cellulitis: Qualifiers: Laterality: left Site of cellulitis: extremity Site of cellulitis of extremity: lower extremity Qualified Code(s): L03.116 - Cellulitis of left lower limb Code(s): L03.90 - Cellulitis, unspecified Status: Acute Assessment and Plan: Continue IV antibiotics. 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 Begin daily dressing changes. Close glycemic control by medicine team. Subjective Subjective Date/Time Seen: 12/24/23 12:31 Interval history: Left foot fracture with fracture blistering and subsequent cellulitis. Patient showing improvement. No complaints of pain. Plans for d/c to rehab. Review of Systems Review of Systems: All systems reviewed & are unremarkable except as noted in HPI and below (Subjective) Exam Const: General: cooperative and average body habitus Nutritional Appearance: average body habitus Orientation/consciousness: patient oriented x3 Limitations: no limitations HENMT: Head: normal to inspection Ears: hearing grossly normal bilaterally Face/Nose/Sinus: Normal external nose present and normal facial exam Face and sinus: normal facial exam Mouth: Yes moist mucous membranes Teeth and gingiva: dentition normal Eyes: General: appearance normal, both eyes and all related structures Pupils: Equal, round and reactive pupils present EOM: EOMs intact bilaterally Neck: Neck: normal visual inspection Chest: Chest palpation & inspection: normal inspection of the chest Resp: Effort & Inspection: normal respiratory effort and able to speak in complete sentences Cardio: Jugular venous distension: no JVD Neuro: General: patient oriented x3 Cranial nerves: Yes Equal, round and reactive pupils present Extrem: Left lower extremity: hip/thigh Details: normal to inspection, knee Details: normal to inspection, lower leg Details: normal to inspection and no edema, ankle Details: pitting edema and normal ROM and foot Details: warmth (lateral ) Location: of the dorsal
[2023-12-31 23:39] LABS: Parathyroid Hormone Related Pr 5 pg/mL (11-20)
== END 2023-12-24 14:03 | DRG 603 ==
LOC: ANHED 12-22 02:16 → ANH3MEDSUR 12-22 02:18
PROVIDERS: Internal Medicine; Admitting Provider Internal Medicine; Emergency Provider Emergency Medicine; PCP Physician Assistant; Visit Provider General Practice
DX: L03.116 Cellulitis of left lower limb (principal); S92.322D Displaced fracture of second metatarsal bone, left foot, subsequent encounter for fracture with routine healing; W01.0XXD Fall on same level from slipping, tripping and stumbling without subsequent striking against object, subsequent encounter; E11.9 Type 2 diabetes mellitus without complications; E78.5 Hyperlipidemia, unspecified; I10 Essential (primary) hypertension; J45.909 Unspecified asthma, uncomplicated; Z66 Do not resuscitate; Z79.84 Long term (current) use of oral hypoglycemic drugs
CPT/HCPCS: 36415; 73630; 80048; 80053; 80202; 82306; 82948; 83036; 83519; 83735; 83970; 85025; 87040; 96374; 97161; 97165; 99285; A9270; J3370; J3475; J7030; L2116

== ENCOUNTER 2024-01-18 19:24 | Observation (INO) | payer MEDICARE, SELFPAY ==
--- NOTE | ~2024-01-18 | CT_ITS ---
CTA chest PE protocol Ordering provider: Carlota Willis PA-C History: 78 years Female with . rule out PE . Comparison: None. Technique: CT angiogram chest was performed following timed intravenous injection of contrast. Thin s lice axial images and reformatted coronal images were obtained. Three dimensional reformatted images of the chest were also obtained using a [employer] workstation. . Automated exposure control and iterati ve reconstruction technique were employed. The dose-length product was 309.47 mGy-cm. 100 mL Omnipaqu e 350 was given IV. Findings: PULMONARY ARTERIES: No pulmonary embolus. VISUALIZED THORACIC INLET: Normal. MEDIASTINUM: Aorta/coronary arteries: Mild atheromatous disease. Heart/other: The heart is not enlarged. Lymph nodes: No mediastinal or hilar adenopathy. LUNGS: Atelectatic changes seen in the lower lobes. Early. No pulmonary nodules or masses. No infiltrates or effusions. No pneumothorax. VISUALIZED UPPER ABDOMEN: Large left renal cyst measuring 7.6 x small cysts are seen in both kidneys. 6.6 cm. Otherwise, the visualized upper abdomen is normal. MUSCULOSKELETAL: Soft tissues: The superficial soft tissues are normal. Bones: Age appropriate degenerative changes of the spine. IMPRESSION: 1. No pulmonary embolism. 2. Atelectatic changes seen in both lung bases posteriorly otherwise, No acute cardiopulmonary patho logy. 3. Bilateral renal cysts with the largest on the left side. Reviewed, dictated and finalized at location A. IMPRESSION: 1. No pulmonary embolism. 2. Atelectatic changes seen in both lung bases posteriorly otherwise, No acute cardiopulmonary pathology. 3. Bilateral renal cysts with the largest on the left side.
--- NOTE | ~2024-01-18 | CT_ITS ---
EXAMINATION: CT knee LT wo con DATE: 01/20/2024 08:50 INDICATION: Left knee joint effusion TECHNIQUE: High resolution computed tomography (CT) of the left knee was performed without intravenou s contrast. Additional sagittal and coronal reconstructions were performed. Automated exposure contro l and iterative reconstruction technique were employed. The dose-length product was 524.06 mGy-cm. COMPARISON: Knee radiographs dated 01/28/2024 FINDINGS: No fracture. There is mild lateral patellar tilt. There is patellofemoral osteoarthritis with mild to moderate joint space narrowing at the lateral aspect of the patellofemoral compartment and cortical irregularity along the articular surface of the medial patellar facet and apical ridge consistent wit h likely overlying high-grade chondromalacia. There are also mild osteoarthritis with small marginal osteophytes in the medial and lateral compartments without evident joint space narrowing which could be underestimated on nonweightbearing imaging. There is chondrocalcinosis in the medial and lateral c ompartments. There is a moderate-sized left knee joint effusion small Moseley's cyst and small amount o f fluid at the popliteal recess. Soft tissues are otherwise unremarkable. IMPRESSION: 1. 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 2. Moderate-sized left knee joint effusion and small Moseley's cyst. Reviewed, dictated and finalized at location B. IMPRESSION: 1. 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 2. Moderate-sized left knee joint effusion and small Moseley's cyst.
--- NOTE | ~2024-01-18 | XR_ITS ---
EXAM: XR knee LT 3V DATE: 01/18/2024 20:14 HISTORY: pain posterior knee, muscle spasms, no inj . COMPARISON: None available. FINDINGS: Exam limited by positioning difficulties. Decreased mineralization. No fracture or disloca tion. No lytic or blastic lesion. Moderate tricompartmental osteoarthritis. Moderate knee joint effus ion. No erosion or periosteal change. Soft tissues within normal limits. IMPRESSION: No acute osseous finding in the left knee. Reviewed, dictated and finalized at location K.
--- NOTE | ~2024-01-18 | XR_ITS ---
Portable chest x-ray Comparison: 07/24/2023 Clinical History: Bronchitis Findings: There is probable left basilar atelectasis. Right lung clear. Cardiomediastinal silhouett e is stable. Bones and soft tissues are unremarkable. Impression: Probable left basilar atelectasis, less likely pneumonia. Correlate clinically. Reviewed, dictated and finalized at [facility]. Impression: Probable left basilar atelectasis, less likely pneumonia. Correlate clinically.
--- NOTE | ~2024-01-18 | US_ITS ---
EXAMINATION: US venous doppler [facility] DATE: 01/19/2024 08:37 INDICATION: Left lower limb pain. TECHNIQUE: Grayscale ultrasound images without and with compression and Doppler ultrasound images of the left lower extremity veins were obtained. COMPARISON: None. FINDINGS: The visualized portions of left common femoral vein, profunda (deep) femoral vein, femoral vein, popl iteal vein, peroneal veins, posterior tibial veins, gastrocnemius vein and greater saphenous vein out flow are patent. IMPRESSION: 1. No deep venous thrombosis in the left lower limb. Reviewed, dictated and finalized at location B.
[2024-01-18 19:26] VITALS: BP 144/75; PULSE 82; RESP 15; TEMP 37.5; O2SAT 95
[2024-01-19] VITALS (13 sets, daily range): BP systolic 127–145; BP diastolic 62–88; PULSE 72–103; RESP 16–20; TEMP 36.4–37.2; O2SAT 91–97; BMI 27.0
[2024-01-19] MEDS: MORPHINE SULFATE (*CRX) 4 MG/ML INJ IV PUSH (00:44)
--- NOTE | 2024-01-19 00:46 | ED.EXTPRO ---
HPI - Extremity Problem General Chief complaint: Extremity Problem,Nontraumatic Stated complaint: L POSTERIOR KNEE PAIN Time Seen by Provider: 01/18/24 23:56 History of Present Illness HPI Narrative: This is a 78-year-old female with a past medical history significant for asthma, COPD, diabetes, hypertension, hyperlipidemia and CKD. She was recently at this hospital several times for a left foot fracture. She was discharged to rehab facility and her pain is much more improved. She is no longer wearing her Cam boot. On review of the EMR she had a fracture of the 2nd metatarsal with a Lisfranc injury. Cuboid fracture as well. Did not undergo surgery during her hospital stay. Underwent rehabilitation. Today she presents to the ED with complaint of left posterior knee pain. This was atraumatic in nature and states that was sudden in onset. She was in bed and knows that severe throbbing sensation or posterior left knee. Somewhat tracks into the posterior thigh and described as a cramping sharp sensation. No history of blood clots but has noted that the left lower extremity is more swollen than the right. Denies any fever, chills, chest pain, shortness a breath. She is in a wheelchair at present evaluation. Related Data Home Medications Medication Instructions Recorded Confirmed hydrocortisone 2.5 % rectal cream 1 ea RECTAL PRN PRN Hemorrhoids 04/22/21 12/24/23 with applicator ferrous sulfate 325 mg (65 mg 325 mg PO DAILY 12/22/23 12/24/23 iron) tablet (Iron (ferrous sulfate)) metformin 500 mg tablet,extended 500 mg PO DAILY 12/22/23 12/25/23 release 24 hr allopurinol 100 mg tablet 100 mg PO DAILY 12/24/23 12/24/23 cyclobenzaprine 10 mg tablet 10 mg PO TID PRN Muscle Pain 12/24/23 12/24/23 montelukast 10 mg tablet 10 mg PO HS 12/24/23 12/24/23 omeprazole 20 mg capsule,delayed 20 mg PO DAILY 12/24/23 12/24/23 release Allergies Allergy/AdvReac Type Severity Reaction Status Date / Time prednisone AdvReac Intermediate increased Verified 12/12/23 10:39 heart rate codeine AdvReac Mild Vomiting Verified 12/12/23 10:39 Review of Systems Review of Systems: As reviewed above in HPI [facility] Past Medical History Medical History Acute respiratory failure with hypoxia Anemia Asthma Bronchitis Diabetes mellitus Endometriosis Hyperlipidemia Hypertension Renal disease Surgical History Surgical History History of total hysterectomy with bilateral salpingo-oophorectomy (BSO) Family History Family History Mother Hypertension CHF (congestive heart failure) Father Patient's father is in good health Brain aneurysm Social History Social History Smoking status: Never smoker Tobacco type: cigarettes Second hand tobacco smoke exposure: No Alcohol intake: never Substance use: never Substance use type: does not use Do You Feel Safe in your Home?: Yes Lack of Transportation: No Lack of Food: Never True Current Housing: I Have Housing Concerned About Future Housing: No Difficulty Paying Gas/Electric Bills: No Difficulty Paying for Meds: No Currently Unemployed: No Education: Bachelor's Degree Difficulty w/ Childcare or Family Care: No Living arrangements: alone Occupation/Education: occupation Additional occupation/education comments: 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
[2024-01-19 00:49] LABS: Basophils Percent Auto 0.3 % (0.2-1.2); Eosinophils Percent Auto 0.1 % (0-4.4); Hematocrit 37.8 % (37.0-47.0); Hemoglobin 11.9 g/dL (12.0-15.0); Immature Granulocyte Absolute 0.04 K/mm3 (0.00-0.031); Immature Granulocyte Percent A 0.4 % (0-0.5); Lymphocytes Absolute Auto 1.11 K/mm3 (0.9-3.2); Lymphocytes Percent Auto 9.8 % (18.3-44.2); Mean Corpuscular HGB Conc 31.5 g/dl (32-36); Mean Corpuscular Hemoglobin 26.8 pg (26-34); Mean Corpuscular Volume 85.1 fl (80-100); Mean Platelet Volume 10.3 fl (7.4-10.4); Monocytes Absolute Auto 0.8 K/mm3 (0.1-0.6); Monocytes Percent Auto 7.3 % (2.6-8.5); Neutrophils Absolute Auto 9.3 K/mm3 (1.3-6.7); Neutrophils Percent Auto 82.1 % (45.5-73.1); Platelet Count Result 236 k/mm3 (150-375); Red Blood Count 4.44 M/mm3 (4.2-5.4); Red Cell Distribution Width 16.2 % (11.5-14.5); White Blood Count 11.3 K/mm3 (4.5-10.0)
[2024-01-19 00:57] LABS: Anion Gap 11 mmol/L (4-12); Blood Urea Nitrogen 13 mg/dL (7-17); Carbon Dioxide 26 mmol/L (22-30); Chloride 100 mmol/L (98-107); Estimated CRCL calculation 41 ml/min; Estimated Glomerular Filt Rate > 60; Glucose 133 mg/dL (65-110); Potassium 3.5 mmol/L (3.4-5.0); Sodium 137 mmol/L (137-145)
[2024-01-19 01:03] LABS: INR 1.1; Prothrombin Time 15.2 Seconds (11.1-14.7)
[2024-01-19 01:04] LABS: Partial Thromboplastin Time 35.4 Seconds (22.3-36.8)
[2024-01-19 01:34] LABS: D Dimer 0.79 ug/mL (<0.48)
[2024-01-19] MEDS: ENOXAPARIN 80 MG/0.8 ML SYRINGE 65 MG SUB-Q (03:03)
--- NOTE | 2024-01-19 04:23 | ADMGEN ---
This patient, Alison Cerna, was admitted to [facility] Surg Room 311-01. Patient/family oriented to hospital policies and general routines including ID bracelet, bed and alarms, visiting hours, pain management, procedures, bathroom and other care routines, personal items, smoking policy, room service/diet, and visiting hours. Information on how to activate the Rapid Response Team has been discussed. Patient/Family are encouraged to report perceived risks to care and to ask questions if they do not understand what they are told or what they should do.
[2024-01-19 07:35] LABS: Basophils Percent Auto 0.3 % (0.2-1.2); Eosinophils Percent Auto 0.2 % (0-4.4); Hematocrit 34.7 % (37.0-47.0); Hemoglobin 10.8 g/dL (12.0-15.0); Immature Granulocyte Absolute 0.02 K/mm3 (0.00-0.031); Immature Granulocyte Percent A 0.2 % (0-0.5); Lymphocytes Absolute Auto 2.28 K/mm3 (0.9-3.2); Lymphocytes Percent Auto 25.5 % (18.3-44.2); Mean Corpuscular HGB Conc 31.1 g/dl (32-36); Mean Corpuscular Hemoglobin 26.7 pg (26-34); Mean Corpuscular Volume 85.9 fl (80-100); Mean Platelet Volume 10.8 fl (7.4-10.4); Monocytes Percent Auto 11.3 % (2.6-8.5); Neutrophils Absolute Auto 5.6 K/mm3 (1.3-6.7); Neutrophils Percent Auto 62.5 % (45.5-73.1); Platelet Count Result 221 k/mm3 (150-375); Red Blood Count 4.04 M/mm3 (4.2-5.4); Red Cell Distribution Width 16.4 % (11.5-14.5); White Blood Count 8.9 K/mm3 (4.5-10.0)
[2024-01-19] MEDS: ACETAMINOPHEN 500 MG TABLET 1000 MG PO (07:52)
[2024-01-19 08:05] LABS: Alanine Aminotransferase 16 U/L (6-35); Albumin Level 3.9 g/dL (3.5-5.1); Alkaline Phosphatase 102 U/L (38-126); Anion Gap 8 mmol/L (4-12); Aspartate Amino Transferase 34 U/L (14-36); Bilirubin,Total 1.5 mg/dL (0.2-1.3); Blood Urea Nitrogen 16 mg/dL (7-17); Calcium 10.3 mg/dL (8.4-10.2); Carbon Dioxide 30 mmol/L (22-30); Chloride 99 mmol/L (98-107); Estimated CRCL calculation 46 ml/min; Estimated Glomerular Filt Rate > 60; Glucose 101 mg/dL (65-110); Potassium 3.6 mmol/L (3.4-5.0); Sodium 137 mmol/L (137-145)
--- NOTE | 2024-01-19 08:09 | PM.IMHP ---
H&P: HPI History of Present Illness Date/Time: 01/19/24 08:09 Chief Complaint: Left posterior knee pain Narrative: 78 year old female with past medical history of asthma, diabetes, HLD, HTN, CKD and ovarian cancer s/p hysterectomy with bilateral salpingo-oophorectomy presents to the hospital for left knee pain and swelling. She is currently at [facility] for rehab after having a left foot fracture. She states that starting around 3 o clock yesterday she developed severe pain to the back of her left knee. She denies any trauma or change in activity. She states that it was a constant throbbing pain that would radiate to her medial thigh. The pain was made significantly worse with movement of the knee. She received Tylenol from the facility which did not relieve the pain. She denies history of blood clots. She does note that she has been a bit more immobile since this foot fracture but has been working well with therapy at the facility. Patient is not on any anticoagulation. During assessment patient is pleasant lying in bed. She continues to endorse pain to the knee that is worsened by active range of motion. The knee is notably more swollen than the right. She denies chest pain, shortness of breath, nausea/vomiting and changes in bowel/bladder. ED workup: CBC with leukocytosis 11.3 and mild anemia H/H 11.9/37.8. PT/INR 15.2/1.1. PTT 35.4. Chemistry unremarkable. Knee XR: No acute osseous finding in the left knee. Chest XR: Probable left basilar atelectasis, less likely pneumonia. Unable to obtain a doppler to rule out DVT while in the ED as US was unavailable. Patient was started on Lovenox 65 bid for empiric treated. Review of Systems Review of Systems: All systems reviewed & are unremarkable except as noted in HPI and below PMFSH Past Medical History Medical History (Updated 01/19/24 @ 15:25 by Carlota Willis PA-C) Anemia Asthma Bronchitis Diabetes mellitus Endometriosis Hyperlipidemia Hypertension Renal disease Surgical History Surgical History History of total hysterectomy with bilateral salpingo-oophorectomy (BSO) Family History Family History Mother Hypertension CHF (congestive heart failure) Father Patient's father is in good health Brain aneurysm Social History Social History (Updated 01/19/24 @ 15:26 by Carlota Willis PA-C) Social History: Patient lives alone but is currently at [facility] for therapy. 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 Female Sexual Orientation (if Verbalized by the Patient): Straight or Heterosexual Spiritual care concerns: No Agree to blood products: Yes Meds Home Medications and Allergies Home Medications Medication Instructions Recorded Confirmed Type albuterol sulfate 90 mcg/actuation 2 puff inhalation QID PRN 02/10/22 01/19/24 Rx aerosol inhaler shortness of breath or wheezing #8 grams atorvastatin 40 mg tablet 40 mg PO HS #90 tabs 10/07/23 01/19/24 Rx metoprolol tartrate 50 mg tablet 50 mg PO TID #270 tabs 10/07/23 01/19/24 Rx ropinirole 1 mg tablet 1 mg PO QHS #90 tabs 10/07/23 01/19/24 Rx ferrous s
[2024-01-19 08:52] LABS: Glucose Point of Care 98 mg/dl (65-105)
[2024-01-19] MEDS: PANTOPRAZOLE 40 MG TABLET PO (09:15)
[2024-01-19] MEDS: METOPROLOL TARTRATE 50 MG TAB PO ×3 (09:15→21:10)
[2024-01-19] MEDS: allopurinoL 100 MG TABLET PO (09:16)
[2024-01-19] MEDS: ENOXAPARIN 80 MG/0.8 ML SYRINGE 70 MG SUB-Q (10:47)
[2024-01-19 11:31] LABS: Glucose Point of Care 138 mg/dl (65-105)
[2024-01-19] MEDS: ACETAMINOPHEN 325 MG TABLET 650 MG PO ×2 (15:33→20:29)
[2024-01-19 16:35] LABS: Glucose Point of Care 108 mg/dl (65-105)
[2024-01-19] MEDS: MONTELUKAST SODIUM 10 MG TABLET PO (20:28)
[2024-01-19] MEDS: ATORVASTATIN 40 MG TABLET PO (20:28)
[2024-01-19] MEDS: rOPINIRole HCL 1 MG TABLET PO (20:28)
[2024-01-19 20:30] LABS: Glucose Point of Care 156 mg/dl (65-105)
[2024-01-20 05:17] VITALS: PULSE 67
[2024-01-20] MEDS: METOPROLOL TARTRATE 50 MG TAB PO ×2 (05:17→13:38)
[2024-01-20 05:35] VITALS: BP 138/76; PULSE 67; RESP 16; TEMP 36.7; O2SAT 94
[2024-01-20 06:32] LABS: Basophils Percent Auto 0.6 % (0.2-1.2); Eosinophils Absolute Auto 0.2 K/mm3 (0-0.3); Eosinophils Percent Auto 3.2 % (0-4.4); Hematocrit 33.6 % (37.0-47.0); Hemoglobin 10.5 g/dL (12.0-15.0); Immature Granulocyte Absolute 0.02 K/mm3 (0.00-0.031); Immature Granulocyte Percent A 0.3 % (0-0.5); Lymphocytes Percent Auto 25.9 % (18.3-44.2); Mean Corpuscular HGB Conc 31.3 g/dl (32-36); Mean Corpuscular Hemoglobin 27.1 pg (26-34); Mean Corpuscular Volume 86.8 fl (80-100); Mean Platelet Volume 10.6 fl (7.4-10.4); Monocytes Absolute Auto 0.7 K/mm3 (0.1-0.6); Monocytes Percent Auto 10.4 % (2.6-8.5); Neutrophils Absolute Auto 3.9 K/mm3 (1.3-6.7); Neutrophils Percent Auto 59.6 % (45.5-73.1); Platelet Count Result 211 k/mm3 (150-375); Red Blood Count 3.87 M/mm3 (4.2-5.4); Red Cell Distribution Width 16.3 % (11.5-14.5); White Blood Count 6.6 K/mm3 (4.5-10.0)
[2024-01-20 06:46] LABS: Alanine Aminotransferase 15 U/L (6-35); Albumin Level 3.6 g/dL (3.5-5.1); Alkaline Phosphatase 111 U/L (38-126); Anion Gap 7 mmol/L (4-12); Aspartate Amino Transferase 27 U/L (14-36); Bilirubin,Total 1.5 mg/dL (0.2-1.3); Blood Urea Nitrogen 19 mg/dL (7-17); Carbon Dioxide 27 mmol/L (22-30); Chloride 101 mmol/L (98-107); Estimated CRCL calculation 46 ml/min; Estimated Glomerular Filt Rate > 60; Glucose 98 mg/dL (65-110); Potassium 3.5 mmol/L (3.4-5.0); Sodium 135 mmol/L (137-145)
[2024-01-20 08:00] VITALS: PULSE 75; O2SAT 93
[2024-01-20 08:13] LABS: Glucose Point of Care 99 mg/dl (65-105)
[2024-01-20] MEDS: PANTOPRAZOLE 40 MG TABLET PO (08:21)
[2024-01-20] MEDS: allopurinoL 100 MG TABLET PO (08:21)
[2024-01-20] MEDS: ENOXAPARIN 40 MG/0.4 ML SYRINGE SUB-Q (08:21)
[2024-01-20] MEDS: ACETAMINOPHEN 325 MG TABLET 650 MG PO (08:26)
[2024-01-20 09:05] VITALS: O2SAT 92
[2024-01-20 11:51] LABS: Glucose Point of Care 103 mg/dl (65-105)
[2024-01-20 13:38] VITALS: PULSE 89
--- NOTE | 2024-01-20 14:31 | PM.CNOR ---
Assessment and Plan Assessment and plan (1) Strain of left calf muscle: Code(s): S86.812A - Strain of other muscle(s) and tendon(s) at lower leg level, left leg, initial encounter Status: Acute Assessment and Plan: New evaluation for chief complaint Left posterior knee pain. History, physical exam and radiographs reviewed with the patient. Appears to have strained the left calf with therapy at the care home. Appropriate concern for DVT ruled out with testing. Discussed the condition, nature, etiology and course of natural history with the patient. Treatment options including surgical and nonoperative treatment were reviewed. Risks and benefits of each as well as alternatives reviewed. The patient's questions were answered. Conservative treatment ice, compression and elevation. Okay for weight-bearing and ambulation as tolerated. Full weight-bearing for the knee. Protected weight-bearing with fracture boot for the foot. Recommend Kip wrap and ice. Okay to return to care home from orthopedic standpoint to continue with rehab. (2) Lisfranc fracture: Status: Acute Plan approximately 7 weeks out from injury. Her fracture blisters that were there previously of healed. No signs of infection. They are letting her weight bear with the fracture boot which appears to be appropriate at this point. She is following up with her physician in [place]. History of Present Illness HPI Consult date: 01/20/24 Requesting physician: José Miguel Gutierrez MD Chief complaint: Left lower extremity swelling, Concern for DVT Narrative: 78-year-old woman known to the orthopedic service for previous left foot injury to the Lisfranc joint, status post fracture blister release and cellulitis. Patient admitted to the hospital through the emergency room with severe posterior left knee pain yesterday. Concern for DVT. Her DVT workup has been negative. She does not report any prior problems with the knee. She has been in the fracture boot now for 6 weeks approximately. She is [facility] where they allowed weight-bearing and increased rehab for the left leg and left knee. She developed pain over the last 2 days which has been increasing. It is better now that she has been off of it. Pain is in the back of the knee, non radiating. She denies numbness or tingling. Denies systemic complaints, fever or chills. Review of Systems Constitutional: Constitutional: Denies fever(s) Eyes: Eyes: Denies blurry vision ENT: Reports Normal hearing present Cardiovascular: Cardiovascular: Denies chest pain and Denies dyspnea Respiratory: Respiratory: Denies dyspnea and Denies wheezing Gastrointestinal: Gastrointestinal: Denies abdominal pain Genitourinary: Genitourinary: Denies urinary urgency Musculoskeletal: Musculoskeletal: Reports as per HPI and Denies numbness Integumentary/Breasts: Skin/Breast: Denies changing lesions and Denies sores Neurologic: Reports Normal hearing present, Denies behavioral changes, Denies confusion, Denies numbness and Denies convulsions Psychiatric: Psychiatric: Denies behavioral changes, Denies confusion and Denies hallucinations Endocrine: Endocrine: Denies heat intolerance Hematologic/Lymphatic: Hematologic/Lymphatic: Denies easy bleeding Allergic/Immunologic: Allergic/Immunologic: Denies wheezing PMFSH Past Medical History Medical History (Updated 01/20/24 @ 14:36 by Wilder Bautista MD) Anemia Asthma Bronchitis Diabetes mellitus Endometriosis Hyperlipidemia Hypertension Renal disease Strain of left calf muscle Surgical History Surgical History History of total hysterectomy with bilateral salpingo-oophorectomy (BSO) Family History Family History Mother Hypertension CHF (congestive heart failure) Father Patient's father is in
--- NOTE | 2024-01-20 14:34 | PM.DS ---
DS: Admitting Diagnosis Discharge Date 01/20/24 Admitting Diagnosis Left leg swelling DS: Discharge Diagnosis Discharge Diagnosis (1) Left leg swelling: Code(s): M79.89 - Other specified soft tissue disorders Status: Acute (2) Lisfranc fracture: Status: Acute (3) Hypertension: Qualifiers: Hypertension type: essential hypertension Qualified Code(s): I10 - Essential (primary) hypertension Code(s): I10 - Essential (primary) hypertension Status: Acute (4) Hyperlipidemia: Code(s): E78.5 - Hyperlipidemia, unspecified Status: Acute (5) Diabetes mellitus: Qualifiers: Diabetes mellitus type: type 2 Diabetes mellitus 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 insulin use: without fci use Diabetes mellitus complication status: without complication Qualified Code(s): E11.9 - Type 2 diabetes mellitus without complications Code(s): E11.9 - Type 2 diabetes mellitus without complications Status: Acute (6) Acute respiratory failure with hypoxia: Code(s): J96.01 - Acute respiratory failure with hypoxia Status: Acute DS: Summary Hospital Course Reason for hospitalization: 78yo female with past medical history of asthma, diabetes, HLD, HTN, CKD, ovarian cancer s/p hysterectomy with BSO and recent left foot fracture who presents to the hospital for left knee pain and swelling. Please see H&P for details. Hospital Course: Patient is currently at [facility] for rehab after having a left foot fracture. She developed severe pain to the back of her left knee. She denies any trauma or change in activity. In the ED, her CBC with leukocytosis 11.3 and mild anemia H/H 11.9/37.8. PT/INR 15.2/1.1. PTT 35.4. Chemistry unremarkable. Left Knee XR showing No acute osseous finding in the left knee. Chest XR: Probable left basilar atelectasis, less likely pneumonia. Patient was started on Lovenox 65mg Q12h for empiric treatment of DVT. WBC normalized. Venous doppler US was negative for left LE DVT. CTA chest was negative for PE but showing atelectasis in the lung bases. CT left knee showing chondrocalcinosis with tricompartmental osteoarthritis at the left knee which is of at least mild to moderate severity at the patellofemoral compartment with high-grade patellar chondromalacia and moderate-sized left knee joint effusion and small Moseley's cyst. Ortho was consulted and that no intervention was needed. She did require oxygen for a short period of time and probably related to atelectasis. She was weaned off oxygen. She overall did well and was able to be discharged back to SNF on 01/20/24. Status at Discharge Cognitive/behavioral status at discharge: stable Time Spent with Patient Time attestation: Total time spent providing and/or coordinating discharge services: 35 minutes Time spent: Greater than 30 minutes Exam Narrative: AF98.1 138/76 89 16 92% ra Gen - NARD Chest - CTA bilaterally, nml RR CV - RRR S1/S2 Abd - Soft, NT/ND, Positive BS Ext - mild left knee edema2+ DP bilaterally. Psych - Nml mood and affect Skin - Warm and dry. dried eschars to the left foot noted DS: Data Data Completed and Pending Labs on day of discharge: Labs from last 24 hours 01/20/24 01/20/24 01/20/24 11:37 08:08 05:50 WBC 6.6 RBC 3.87 L Hgb 10.5 L Hct 33.6 L MCV 86.8 MCH 27.1 MCHC 31.3 L RDW 16.3 H Plt Count 211 MPV 10.6 H Immature Gran % (Auto) 0.3 Neut % (Auto) 59.6 Lymph % (Auto) 25.9 [place] % (Auto) 10.4 H Eos % (Auto) 3.2 Baso % (Auto) 0.6 Lymph # (Auto) 1.70 [place] # (Auto) 0.7 H Eos # (Auto) 0.2 Baso # (Auto) 0.0 Abs Immat Gran (auto) 0.02 Absolute Neuts (auto) 3.9 Absolute Nucleated RBC 0.000 Nucleated RBC % 0.0 Sodium 135 L Potassium 3.5 Chloride 101 Carbon Dioxide 27 Anion Gap 7 BUN 19 H Creatinine 0.80 Estim Creat Clear Calc 46 Estimated GFR > 60 Gl
== END 2024-01-20 15:45 ==
LOC: ANHED 01-19 03:04 → ANH3MEDSUR 01-19 04:25
PROVIDERS: Admitting Provider Internal Medicine; Emergency Provider Student in an Organized Health Care Education/Training Program; PCP Physician Assistant; Visit Provider Student in an Organized Health Care Education/Training Program
DX: S86.812A Strain of other muscle(s) and tendon(s) at lower leg level, left leg, initial encounter (principal); M79.89 Other specified soft tissue disorders; J96.01 Acute respiratory failure with hypoxia; X58.XXXA Exposure to other specified factors, initial encounter; S93.325D Dislocation of tarsometatarsal joint of left foot, subsequent encounter; W19.XXXD Unspecified fall, subsequent encounter; J44.9 Chronic obstructive pulmonary disease, unspecified; I12.9 Hypertensive chronic kidney disease with stage 1 through stage 4 chronic kidney disease, or unspecified chronic kidney disease; E11.22 Type 2 diabetes mellitus with diabetic chronic kidney disease; N18.9 Chronic kidney disease, unspecified; E78.5 Hyperlipidemia, unspecified; D64.9 Anemia, unspecified; Z79.84 Long term (current) use of oral hypoglycemic drugs; Z79.51 Long term (current) use of inhaled steroids
CPT/HCPCS: 36415; 71045; 71275; 73562; 73700; 80048; 80053; 82948; 85025; 85380; 85610; 85730; 93971; 96372; 96374; 99285; A9270; G0378; J1650; J2270; Q9967

== ENCOUNTER 2024-03-07 09:29 | Emergency (ER) | payer MEDICARE, SELFPAY ==
[2024-03-07] VITALS (9 sets, daily range): BP systolic 123–172; BP diastolic 62–91; PULSE 61–68; RESP 15–22; TEMP 36.8; O2SAT 17–99
--- NOTE | ~2024-03-07 | XR_ITS ---
EXAMINATION: XR chest 2V DATE: 03/07/2024 10:23 INDICATION: Chest pain. TECHNIQUE: Frontal and lateral views of the chest were obtained. COMPARISON: Chest single view 01/19/2024 FINDINGS: There is no pneumonia, pleural effusion, or pneumothorax. The heart size is normal. IMPRESSION: 1. No acute cardiopulmonary disease. Reviewed, dictated and finalized at location B.
--- NOTE | 2024-03-07 09:37 | ECG_ITS ---
Test Date: 2024-03-07 09:40:20 Measurements Intervals [place] Rate: 72 P: 24 MS: 143 QRS: 22 QRSD: 90 T: 24 QT: 358 QTc: 394 Interpretive Statements SINUS RHYTHM No previous ECG available for comparison Electronically Signed On 03-07-2024 11:01:56 CDT by Dangelo Almanza M.D.
[2024-03-07] MEDS: ASPIRIN 81 MG CHEWABLE TABLET 324 MG PO (09:48)
[2024-03-07 09:51] LABS: Basophils Percent Auto 0.4 % (0.2-1.2); Eosinophils Absolute Auto 0.1 K/mm3 (0-0.3); Eosinophils Percent Auto 0.5 % (0-4.4); Hematocrit 42.6 % (37.0-47.0); Hemoglobin 13.7 g/dL (12.0-15.0); Immature Granulocyte Absolute 0.03 K/mm3 (0.00-0.031); Immature Granulocyte Percent A 0.3 % (0-0.5); Lymphocytes Absolute Auto 1.91 K/mm3 (0.9-3.2); Lymphocytes Percent Auto 16.8 % (18.3-44.2); Mean Corpuscular HGB Conc 32.2 g/dl (32-36); Mean Corpuscular Hemoglobin 27.2 pg (26-34); Mean Corpuscular Volume 84.7 fl (80-100); Mean Platelet Volume 10.1 fl (7.4-10.4); Monocytes Absolute Auto 0.6 K/mm3 (0.1-0.6); Monocytes Percent Auto 5.2 % (2.6-8.5); Neutrophils Absolute Auto 8.8 K/mm3 (1.3-6.7); Neutrophils Percent Auto 76.8 % (45.5-73.1); Platelet Count Result 294 k/mm3 (150-375); Red Blood Count 5.03 M/mm3 (4.2-5.4); Red Cell Distribution Width 16.8 % (11.5-14.5); White Blood Count 11.4 K/mm3 (4.5-10.0)
--- NOTE | 2024-03-07 09:51 | ED_ITS ---
HPI - Chest Pain General Chief Complaint: Chest Pain Stated Complaint: cp Time Seen by Provider: 03/07/24 09:34 History of Present Illness HPI narrative: Patient is a 78-year-old female who presents to the ER with complaints of chest pain last night. She reports it started last night while she was sleeping. Patient cannot identify any precipitating factors that caused her chest pain. She reports the pain will was in her left upper chest and radiated slightly towards her L shoulder. Patient reports the pain was worse when she was laying down. Around midnight she took 2 baby aspirin, but the pain continued all night. She reports the pain has subsided this morning but she still wanted to come in for assessment. Patient reports she has a history of diabetes, blood pressure, asthma, and CKD. She reports she also broke her left lower extremity in December and ended up getting open wounds on her left foot that caused her to become septic. Patient denies any back pain, shortness a breath, or other signs/symptoms of illness. Related Data Home Medications Medication Instructions Recorded Confirmed ferrous sulfate 325 mg (65 mg 325 mg PO DAILY 12/22/23 01/19/24 iron) tablet (Iron (ferrous sulfate)) metformin 500 mg tablet,extended 500 mg PO DAILY 12/22/23 01/19/24 release 24 hr allopurinol 100 mg tablet 100 mg PO DAILY 12/24/23 01/19/24 cyclobenzaprine 10 mg tablet 10 mg PO TID PRN Muscle Pain 12/24/23 01/19/24 montelukast 10 mg tablet 10 mg PO HS 12/24/23 01/19/24 omeprazole 20 mg capsule,delayed 20 mg PO DAILY 12/24/23 01/19/24 release Allergies Allergy/AdvReac Type Severity Reaction Status Date / Time prednisone AdvReac Intermediate increased Verified 03/07/24 09:30 heart rate codeine AdvReac Mild Vomiting Verified 03/07/24 09:30 Review of Systems Review of Systems: All systems reviewed & are unremarkable except as noted in HPI and below PMFSH Past Medical History Medical History Anemia Asthma Bronchitis Diabetes mellitus Endometriosis Hyperlipidemia Hypertension Renal disease Strain of left calf muscle Surgical History Surgical History History of total hysterectomy with bilateral salpingo-oophorectomy (BSO) Family History Family History Mother Hypertension CHF (congestive heart failure) Father Patient's father is in good health Brain aneurysm Social History Social History Social History: Patient lives alone but is currently at [facility] for therapy. 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 HEAD: Normocephalic, atraumatic. NECK: Supple. No adenopathy, no masses. RESPIRATORY: Airway patent, respirations nonlabored. Clear to auscultation bilaterally, no rales, rhonchi, wheezing. CARDIOVASCULAR: Regular rate and rhythm without murmurs, rubs, or gallops. Peripheral pulses 2+ and equal bilaterally. ABDOMINAL: Soft, nontender, nondistended, no hepatosplenomegaly. Normoactive BS. MUSCULOSKELETAL: Moves all extremities. Strength/ROM intact. LLE continues to be swollen and covered in an TOD wrap d/t pt's recent foot wound. SKIN: Warm, dry, normal color. No rashes. NEURO: A&O X3. Speech clear. Cranial nerves II-XII grossly intact. No ataxic movements. PSYCHIATRIC: Appropriate mood and affect. Normal interaction. Course Vital Signs Vital signs: Vital Signs Pulse Rate 67 03/07/24 09:37 Temperature 36.8 C 03/07/24 09:39 Pulse Rate 65 03/07/24 11:10 Respiratory Rate 15 03/07/24 11:10 Blood Pressure 147/72 H 03/07/24 11:10 Pulse Oximetry 17 L 03/07/24 11:10 Oxygen Delivery Room Air 03/07/24 09:40 MDM - Chest Pain MDM Narrative Medical decision making narrative: Patient is a 78-year-old female who presents to the ER with complaints of chest pain last night. She reports it started last night while she was sleeping. Patient cannot identify any precipitating factors that caused her chest pain. She reports the pain will was in her left upper chest and radiated slightly towards her L shoulder. Patient reports the pain was worse when she was laying down. Around midnight she took 2 baby aspirin, but the pain continued all night. She reports the pain has subsided this morning but she still wanted to come in for assessment. Patient reports she has a history of diabetes, blood pressure, asthma, and CKD. She reports she also broke her left lower extremity in December and ended up getting open wounds on her left foot that caused her to become septic. Patient denies any back pain, shortness of breath, or other signs/symptoms of illness. Patient's CBC and CMP results were consistent with previous blood work results in the past. Her baseline and 3 hour troponins were both within normal limits. Patient's EKGs were both normal sinus rhythm. The rest of her blood work was all unremarkable. Her chest x-ray was also unremarkable. Results were relayed to patient. She continues to deny any chest pain during her ER visit. Upon explaining results to patient she reports she thinks her symptoms may be due to anxiety. She declines any anxiety medication during her visit. 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 She verbalizes understanding of plan. Differential Diagnosis Differential diagnosis: Likely atypical chest pain, costochondritis, chest pain and other (anxiety) Lab Data Attestation: I reviewed the patient's lab results. 03/07/24 09:43 03/07/24 09:43 Labs: Lab Results 03/07/24 03/07/24 Range/Units 09:43 12:36 WBC 11.4 H (4.5-10.0) K/mm3 RBC 5.03 (4.2-5.4) M/mm3 Hgb 13.7 D (12.0-15.0) g/dL Hct 42.6 (37.0-47.0) % MCV 84.7 (80-100) fl MCH 27.2 (26-34) pg MCHC 32.2 (32-36) g/dl RDW 16.8 H (11.5-14.5) % Plt Count 294 (150-375) k/mm3 MPV 10.1 (7.4-10.4) fl Immature Gran % (Auto) 0.3 (0-0.5) % Neut % (Auto) 76.8 H (45.5-73.1) % Lymph % (Auto) 16.8 L (18.3-44.2) % [place] % (Auto) 5.2 (2.6-8.5) % Eos % (Auto) 0.5 (0-4.4) % Baso % (Auto) 0.4 (0.2-1.2) % Lymph # (Auto) 1.91 (0.9-3.2) K/mm3 [place] # (Auto) 0.6 (0.1-0.6) K/mm3 Eos # (Auto) 0.1 (0-0.3) K/mm3 Baso # (Auto) 0.0 (0.0-0.1) K/mm3 Abs Immat Gran (auto) 0.03 (0.00-0.031) K/mm3 Absolute Neuts (auto) 8.8 H (1.3-6.7) K/mm3 Absolute Nucleated RBC 0.000 (0.0-0.012) K/mm3 Nucleated RBC % 0.0 (0.0-0.2) % PT 14.4 (11.1-14.7) Seconds INR 1.1 APTT 29.7 (22.3-36.8) Seconds D-Dimer 0.33 (<0.48) ug/mL Sodium 137 (137-145) mmol/L Potassium 4.2 (3.4-5.0) mmol/L Chloride 102 (98-107) mmol/L Carbon Dioxide 27 (22-30) mmol/L Anion Gap 8 (4-12) mmol/L BUN 28 H (7-17) mg/dL Creatinine 0.90 (0.7-1.0) mg/dL Estim Creat Clear Calc 37 ml/min Estimated GFR 60 (59 - ) Glucose 129 H (65-110) mg/dL Calcium 11.0 H (8.4-10.2) mg/dL Total Bilirubin 1.4 H (0.2-1.3) mg/dL AST 46 H (14-36) U/L ALT 46 H (6-35) U/L Alkaline Phosphatase 125 (38-126) U/L Troponin I < 0.012 < 0.012 (0.000-0.034) ng/mL Total Protein 9.0 H (6.3-8.2) g/dL Albumin 4.9 (3.5-5.1) g/dL Lipase 67 (23-300) U/L Imaging Data Attestation: I personally reviewed and interpreted this imaging study as follows: Radiologist's impression: Impressions Chest X-Ray 03/07/24 10:24 IMPRESSION: 1. No acute cardiopulmonary disease. ECG Data EKG #1: Attestation: I personally reviewed and interpreted this ECG as follows: ECG completion date: 03/07/24 ECG completion time: 09:40 Prior ECG tracings: available for review EKG Interpretation: normal rate, sinus rhythm and no ectopy Discharge Plan Discharge Clinical Impression: Chest pain due to psychological stress Patient Disposition: Home, Self-Care Condition: Stable Instructions: Antibiotic Form, Chest Pain (ED), Anxiety (ED) Additional Instructions: Please call your high school social science teacher and make an appointment for follow up as soon as possible. Please return to the ER if your symptoms worsen. Prescriptions: No Action albuterol sulfate 90 mcg/actuation HFA aerosol inhaler 2 puff INHALATION QID PRN (Reason: shortness of breath or wheezing) Qty: 8 0RF ferrous sulfate [Iron (ferrous sulfate)] 325 mg (65 mg iron) Tablet 325 mg PO DAILY metformin 500 mg tablet extended release 24 hr 500 mg PO DAILY atorvastatin 40 mg tablet 40 mg PO HS Qty: 90 3RF metoprolol tartrate 50 mg tablet 50 mg PO TID Qty: 270 1RF ropinirole 1 mg tablet 1 mg PO QHS Qty: 90 3RF allopurinol 100 mg tablet 100 mg PO DAILY omeprazole 20 mg capsule,delayed release(DR/EC) 20 mg PO DAILY montelukast 10 mg tablet 10 mg PO HS cyclobenzaprine 10 mg Tablet 10 mg PO TID PRN (Reason: Muscle Pain) Follow-up/Referrals: Maria L,KWABENA FinneyC [Primary Care Provider] - Nicci Gallego MD [Physician] - Time of Disposition: 13:50
[2024-03-07 10:00] LABS: Alanine Aminotransferase 46 U/L (6-35); Albumin Level 4.9 g/dL (3.5-5.1); Alkaline Phosphatase 125 U/L (38-126); Anion Gap 8 mmol/L (4-12); Aspartate Amino Transferase 46 U/L (14-36); Bilirubin,Total 1.4 mg/dL (0.2-1.3); Blood Urea Nitrogen 28 mg/dL (7-17); Carbon Dioxide 27 mmol/L (22-30); Chloride 102 mmol/L (98-107); Estimated CRCL calculation 37 ml/min; Estimated Glomerular Filt Rate 60; Glucose 129 mg/dL (65-110); Lipase 67 U/L (23-300); Potassium 4.2 mmol/L (3.4-5.0); Sodium 137 mmol/L (137-145)
[2024-03-07 10:05] LABS: INR 1.1; Partial Thromboplastin Time 29.7 Seconds (22.3-36.8); Prothrombin Time 14.4 Seconds (11.1-14.7)
[2024-03-07 10:12] LABS: Troponin I < 0.012 ng/mL (0.000-0.034)
[2024-03-07 11:11] LABS: D Dimer 0.33 ug/mL (<0.48)
--- NOTE | 2024-03-07 12:31 | ECG_ITS ---
Test Date: 2024-03-07 12:36:25 Measurements Intervals [place] Rate: 61 P: 57 IA: 177 QRS: 16 QRSD: 85 T: 12 QT: 366 QTc: 371 Interpretive Statements SINUS RHYTHM MINIMAL VOLTAGE CRITERIA FOR LVH, CONSIDER NORMAL VARIANT [MEETS CRITERIA IN ONE OF: R(aVL), S(V1), R(V5), R(V5/V6)+S(V1)] Compared to ECG 03/07/2024 09:40:20 No significant changes Electronically Signed On 03-07-2024 13:30:59 CDT by Dangelo Almanza M.D.
[2024-03-07 13:09] LABS: Troponin I < 0.012 ng/mL (0.000-0.034)
== END 2024-03-07 13:56 | disposition home or self-care (01) ==
PROVIDERS: Emergency Provider Registered Nurse; PCP Physician Assistant
DX: R07.89 Other chest pain (principal); F43.9 Reaction to severe stress, unspecified; D64.9 Anemia, unspecified; J45.909 Unspecified asthma, uncomplicated; E11.9 Type 2 diabetes mellitus without complications; E78.5 Hyperlipidemia, unspecified; I10 Essential (primary) hypertension; N28.9 Disorder of kidney and ureter, unspecified
CPT/HCPCS: 36415; 71046; 80053; 83690; 84484; 85025; 85380; 85610; 85730; 93005; 99284; A9270

== ENCOUNTER 2024-03-10 08:31 | Outpatient (CLI) | payer MEDICARE, SELFPAY ==
--- NOTE | ~2024-03-10 | CT_ITS ---
EXAMINATION: CT foot LT wo con DATE: 03/10/2024 09:19 INDICATION: Metatarsal fracture. TECHNIQUE: Computed tomography (CT) of the left foot was performed without intravenous contrast. Auto mated exposure control and iterative reconstruction technique were employed. The dose-length product was 513.62 mGy-cm. COMPARISON: Left foot radiographs 12/21/2023, 12/12/2023, 10/23/2010 FINDINGS: There is diffuse osteopenia. There is lateral subluxation of second-fifth metatarsals with respect to the tarsals. There are multiple fracture deformities of the bases of the metatarsals and d istal aspect of the tarsals, at least most of which are now healed. There are multiple small foci of heterotopic ossification about the Lisfranc joint. There is diffuse osteopenia. There is moderate ost eoarthritis of most of the tarsometatarsal joints. There is mild osteoarthritis of some of the interp halangeal joints. IMPRESSION: 1. Chronic Lisfranc joint fracture-subluxation. 2. Polyarticular osteoarthritis. Reviewed, dictated and finalized at location B.
== END 2024-03-10 08:32 | disposition home or self-care (01) ==
PROVIDERS: PCP Physician Assistant; Visit Provider Podiatrist Foot & Ankle Surgery
DX: S92.324D Nondisplaced fracture of second metatarsal bone, right foot, subsequent encounter for fracture with routine healing (principal); S93.622D Sprain of tarsometatarsal ligament of left foot, subsequent encounter; X58.XXXD Exposure to other specified factors, subsequent encounter; M19.072 Primary osteoarthritis, left ankle and foot
CPT/HCPCS: 73700

== ENCOUNTER 2024-05-02 10:09 | Emergency (ER) | payer MEDICARE, SELFPAY ==
[2024-05-02] MEDS: KETOROLAC 30 MG/ML VIAL (*BKC) IM (11:06)
[2024-05-02] MEDS: methocarbamoL 500 MG TABLET PO (11:06)
--- NOTE | 2024-05-02 11:08 | ED_ITS ---
HPI - Back Pain/Injury General Chief Complaint: Back Pain/Injury Stated Complaint: extreme back pain Time Seen by Provider: 05/02/24 10:25 History of Present Illness HPI Narrative: 78-year-old female with a past medical history including lumbago, osteoarthritis at the L4-L5 vertebrae, sciatica. Patient presents to the emergency room with a chief complaint of pain radiating down her very right low back near the buttock region down her right leg and down the side of her right leg. Pain is sharp and electrical in sensation. States she has previously gotten cortisone injections without any relief but has had relief with Toradol and other intramuscular injections. Feels very similar to her previous lumbago, no new injuries. No falls, injuries or trauma. Full range of motion of the bilateral lower extremities, no neurological complaints such as weakness, numbness, defecation or urination complaints, no loss of continence. Was otherwise in her normal state of health. No fever chills. Related Data Home Medications ?Medication ?Instructions ?Recorded ?Confirmed ?Last Taken ?Type ferrous sulfate 325 mg (65 mg 325 mg PO DAILY 12/22/23 01/19/24 01/18/24 History iron) tablet (Iron (ferrous sulfate)) metformin 500 mg tablet,extended 500 mg PO DAILY 12/22/23 01/19/24 01/18/24 History release 24 hr allopurinol 100 mg tablet 100 mg PO DAILY 12/24/23 01/19/24 01/18/24 History cyclobenzaprine 10 mg tablet 10 mg PO TID PRN Muscle Pain 12/24/23 01/19/24 Unknown History montelukast 10 mg tablet 10 mg PO HS 12/24/23 01/19/24 01/18/24 History omeprazole 20 mg capsule,delayed 20 mg PO DAILY 12/24/23 01/19/24 01/18/24 History release Allergies Allergy/AdvReac Type Severity Reaction Status Date / Time prednisone AdvReac Intermediate increased Verified 05/02/24 11:10 heart rate codeine AdvReac Mild Vomiting Verified 05/02/24 11:10 Review of Systems Review of Systems: As reviewed above in HPI [facility] Past Medical History Medical History Strain of left calf muscle Endometriosis Anemia Renal disease Bronchitis Asthma Hyperlipidemia Hypertension Diabetes mellitus Surgical History Surgical History History of total hysterectomy with bilateral salpingo-oophorectomy (BSO) Family History Family History Mother Hypertension CHF (congestive heart failure) Father Patient's father is in good health Brain aneurysm Social History Social History Social History: Patient lives alone but is [facility]. 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 Mucous membranes moist. NECK: Supple. CHEST: [Clear to auscultation. No respiratory distress.] HEART: [Regular rate and rhythm]. No murmur heard. [Normal peripheral pulses.] ABDOMEN: [Soft, nondistended], [nontender], [No rigidity or guarding] EXTREMITIES: Normal range of motion. [No edema.] Tenderness to palpation of the sacroiliac joint of the right lower extremity, reproducible tenderness with palpation percussion, no restricted range of motion, intact extensor mechanism, full flexion extension of the hip in flexion extension of the knee and EHL and FHL 5/5 strength bilaterally. SKIN: Warm, dry, no rash. NEURO: [No focal deficits]. Alert and oriented [x3.] PSYCH: [Normal mood and affect.] MDM - Back Pain/Injury MDM Narrative Medical decision making narrative: 78-year-old female presenting with acute on chronic lumbago and sciatica type symptoms with reproducible pain with palpation of her right sacroiliac joint. Pain radiates from the right SI joint down her right leg as electrical and sharp in sensation. No trauma, no recent injuries, states she feels very similar to her previous flare up. Usually responds to intramuscular medications according to the patient. Full neurological strength and sensation, no red flag symptoms of cauda equina or conus medullaris or any acute concerns for fracture defo rmity. Will treat conservatively with intramuscular Toradol and give her methocarbamol for symptom control. Patient tells me she had x-rays of this area done just a week ago at outside facility which were only showing osteoarthritis but no acute fractures or any other findings that were concerning. Patient otherwise appears well and has normal vital signs. Will be able to be discharged home after improvement. Medical Records Attestation: I reviewed the patient's medical records. Discharge Plan Discharge Clinical Impression: Sacro-iliac pain, Sciatica, Lumbago Patient Disposition: Home, Self-Care Condition: Stable Instructions: Antibiotic Form, Sciatica (ED), Acute Low Back Pain (ED), Sacroiliitis (ED), Lower Back Exercises (ED), Arthritis (ED) Additional Instructions: Follow-up with your regular doctor and primary care provision. We will send you home with some pain control medication regimens. Return with any new or worsening concerns at any time. Return to the ER if you have increased pain in your back, you develop lower extremity weakness/numbness/paralysis, you have numbness or tingling in your private parts, or you are unable to control your ability to urinate/stool. Patient Language: Turkish Prescriptions: New methocarbamol 750 mg tablet 750 mg PO TID PRN (Reason: pain) Qty: 20 0RF methylprednisolone [Medrol (Juancarlos)] 4 mg tablets,dose pack See Rx Instructions .ROUTE .COMPLEX Qty: 21 0RF Rx Instructions: orally per package directions No Action albuterol sulfate 90 mcg/actuation HFA aerosol inhaler 2 puff INHALATION QID PRN (Reason: shortness of breath or wheezing) Qty: 8 0RF ferrous sulfate [Iron (ferrous sulfate)] 325 mg (65 mg iron) Tablet 325 mg PO DAILY metformin 500 mg tablet extended release 24 hr 500 mg PO DAILY atorvastatin 40 mg tablet 40 mg PO HS Qty: 90 3RF metoprolol tartrate 50 mg tablet 50 mg PO TID Qty: 270 1RF ropinirole 1 mg tablet 1 mg PO QHS Qty: 90 3RF allopurinol 100 mg tablet 100 mg PO DAILY omeprazole 20 mg capsule,delayed release(DR/EC) 20 mg PO DAILY montelukast 10 mg tablet 10 mg PO HS cyclobenzaprine 10 mg Tablet 10 mg PO TID PRN (Reason: Muscle Pain) Follow-up/Referrals: Teo Magallanes APRN [Primary Care Provider] - Time of Disposition: 11:12
[2024-05-02 11:25] VITALS: BP 138/63; PULSE 59; RESP 17; TEMP 36.4; O2SAT 95
== END 2024-05-02 11:26 | disposition home or self-care (01) ==
LOC: ANHED 11:14
PROVIDERS: Emergency Provider Student in an Organized Health Care Education/Training Program; PCP Nurse Practitioner
DX: M53.3 Sacrococcygeal disorders, not elsewhere classified (principal); M54.40 Lumbago with sciatica, unspecified side; I10 Essential (primary) hypertension; E11.9 Type 2 diabetes mellitus without complications; E78.5 Hyperlipidemia, unspecified; Z79.84 Long term (current) use of oral hypoglycemic drugs
CPT/HCPCS: 96372; 99283; A9270; J1885

== ENCOUNTER 2024-08-08 23:27 | Emergency (ER) | payer MEDICARE, SELFPAY ==
--- NOTE | ~2024-08-08 | XR_ITS ---
Clinical Indication: Chest pain, cough PA and lateral views of the chest: Comparison: 03/07/2024 Findings: The lungs are clear, without evidence of focal consolidation or pleural effusion. Cardiome diastinal silhouette is within normal limits. Bones and soft tissues are unremarkable. Impression: Normal chest. Reviewed, dictated and finalized at location . Impression: Normal chest.
--- OUTSIDE RECORDS SUMMARY | 2024-08-08 23:29 | XMS_ITS | Data Portability ---
Author Organization [place] [facility] [place] [facility], Main Office Address [address] [place] [address] Care Team Providers Care Automobile And Property Underwriter Name Role Phone PINKY SEVERINO Primary Care Provider [phone] PINKY SEVERINO Referring Provider [phone] Assessment Encounter Date Assessment Date Assessment LastModified by Organization Details LastModified Time 02/25/2024 02/25/2024 Patient has mild to moderate primary osteoarthritis of left knee joint. This appears to be aggravated by her recent foot and ankle fractures where she was in a cam walker boot for awhile then was trying to do therapy for her other issues with her foot and ankle. X-rays were negative except for arthritic changes. We talked about treatment options today in detail I can not give her oral prednisone or nonsteroidal anti-inflammatory medications due to stomach upset and history of chronic kidney disease. Talked about a shot of cortisone she wanted proceed therefore under sterile conditions I injected the patient's left knee joint in the office with 4 cc of 0.5% bupivacaine and 20 mg of Kenalog. Patient tolerated the procedure well. We talked about therapy but she has been through a lot of therapy recently in rehab so she is going to continue to work on this on her own at home we talked about taking Tylenol extra strength for pain using heat prior to her exercises ice to finish she can also use [id number] ointments or creams for joint pain if necessary. I will see her back in 6 weeks for her next recheck she voiced understanding agrees above plan she will call for any further problems difficulties or questions. Not available 02/25/2024 14:43:23 04/15/2024 04/15/2024 The patient has pain in the right sacroiliac region, x-rays today show significant degenerative changes in the lumbar spine particularly at L5-S1. She also has spondylolisthesis of L4-5. Fortunately she does not have any radiculopathy. She states years ago she had a shot of cortisone at a pain management clinic which helped tremendously she would like to try that again today. Under sterile conditions at her request I injected the patient's right sacroiliac bursa in the office with 4 cc 0.5% bupivacaine and 20 mg of Kenalog. Patient tolerated procedure well. I will see her back in 6 weeks if necessary, I offered her formal physical therapy she declined today. Unfortunately she can not take prednisone or oral anti-inflammatory medication so she will stick with Tylenol extended relief and also a heating pad when necessary. If she wants to do therapy she can call us at any time. Certainly if her symptoms worsen or change suddenly she is instructed to call she voiced understanding and agreed with the above plan. Not available 04/15/2024 14:56:37 Plan of Treatment Reminders Order Date Submit Date Provider Last Modified By Organization Details Last Modified Time Details Appointments None recorded. Lab None recorded. Referral None recorded. Procedures injection/a spiration joint/bursa (PROC) 2023 024 [email or web address] In-Office Order, Internal Use Only DO Not Attach Compendium DO Not Attach Compendium, Do Not Delete/merge, 48866 14:11:23 injection/a spiration joint/bursa (PROC) 2023 024 [email or web address] In-Office Order, Internal Use Only DO Not Attach Compendium DO Not Attach Compendium, Do Not Delete/merge, 08655 14:30:38 Surgeries None recorded. Imaging XR, lumbar spine 2023 024 [email or web address] [facility] [place], [address], [place], [address], 14:59:07 XR, knee 2023 024 [email or web address] [facility] [place], [address], [place], [address], 10/17/202 4 16:10:17 Medication Orders bupivacaine HCl 0.5 % (5 mg/mL) injection solution [address] [facility] [place], [address], 4 14:18:40 Kenalog 10 mg/mL suspension for injection [address] [facility] [address] [place], [address], 4 14:18:40 bupivacaine HCl 0.5 % (5 mg/mL) injection solution [address] [facility] [address] [place], [address], 4 16:10:17 Kenalog 10 mg/mL suspension for injection [address] [facility] [address] [place], [address], 4 16:10:17 Patient TargetsNo targets recorded. Patient InstructionsNo instructions recorded. Reason for Referral None Reported. Results Created Date Observation Date Name Description Value Unit Range Abnormal Flag Note LastModifiedBy Organization Detail LastModifiedTime 02/22/20 24 02/18/2024 CT, knee, w/o contr ast No observ ation record ed. [email or web address] Not Available 02/08 12:08:45 02/25/20 24 XR, knee No observ ation record ed. [email or web address] [facility] [place] [address], [place], [address], 02/25/2024 14:44:29 04/15/20 24 XR, lumba r spine No observ ation record ed. [email or web address] [facility] [place] [address], [place], [address], 04/15/2024 14:59:06 Result Notes None recorded. Problems Name Problem SNOMED Code Status Onset Date Resolution Date Notes Provider Name and Address Organization Details Recorded Time Osteoarthr itis of knee 865551788 Active Not Available [facility] 3 12:46:18 Pain of left knee joint 9101405816438 07 Active 2023 Mirta Baker, [place] null, [place] [facility] 4 14:17:45 Osteoarthr itis of left knee joint 5452948188040 09 Active 2023 BRYCE Escobar [address], [place], [address] , [facility] 4 14:44:56 Low back pain 163504490 Active 2023 Mirta Samuel, [place] null, [place] [facility] 4 14:08:05 Pain in right sacroiliac joint 7480501351921 9107 Active 2023 Mirta Samuel, [place] null, [place] [facility] 4 14:08:14 Lumbar spondyloli sthesis 1465330045744 02 Active 2023 BRYCE Escobar [address], [address], [place], [address] , [facility] 4 14:57:09 Lumbar spondylosi s 122082366 Active 2023 BRYCE Escobar [address], [place], [address] , [facility] 4 14:57:15 Problem Notes None recorded. Procedures Surgical History None recorded. Imaging Results Imaging Date Name Status LastModified by [facility] Details LastModified Time 02/18/2024 CT, knee, w/o contrast completed [email or web address] Information not available 02/22/2024 12:08:45 02/25/2024 XR, knee completed [email or web address] [facility] [place] [address], [place], [address], 02/25/2024 14:44:29 04/15/2024 XR, lumbar spine completed [email or web address] [facility] [place] [address], [place], [address], 04/15/2024 14:59:06 Procedure Notes None recorded. Medical Equipment None Reported. Allergies Allergen ID Allergen Name Allergen Category Reaction Reaction Severity Criticality Documentation Date Start Date Code Code System Note Provider Name and Address Organization Details Recorded Time 13699 codeine medicatio n nausea Not available Not available 02/25/2024 2670 RxNorm Mirta Samuel, VAL[place] null, [facility] [employer] [facility] 13:58:55 67753 prednison e medicatio n nausea Not available Not available 02/25/2024 8640 RxNorm Mirta Samuel, [place] null, [facility] [employer] [facility] 13:59:19 Medications Name Sig Start Date Stop Date Status Note LastModified by Organization Details LastModified Time losartan 50 mg tablet TAKE 1 TABLET BY MOUTH ONCE DAILY active Not Available Not Available No t Available cyclobenza burt 10 mg tablet Take 1 tablet 3 times a day by oral route as needed. active Not Available Not Available No t Available atorvastat in 40 mg tablet TAKE 1 TABLET BY MOUTH AT BEDTIME active Not Available Not Available No t Available ropinirole 1 mg tablet TAKE 1 TABLET BY MOUTH EVERY DAY AT BEDTIME active Not Available Not Available No t Available metoprolol succinate ER 50 mg tablet,ext ended release 24 hr active Not Available Not Available Not Available hydrocodon e 5 mg-acetami nophen 325 mg tablet TAKE 1 TABLET BY MOUTH EVERY 4 TO 6 HOURS NEEDED FOR PAIN 02/24 completed Not Available Not Available Not Available Monodox 100 mg capsule TAKE ONE CAPSULE TWICE A DAY 02/24 completed Not Available Not Available Not Available ondansetro n HCl 8 mg tablet TAKE 1 TABLET BY MOUTH EVERY 8 HOURS NEEDED FOR NAUSEA AND VOMITING active Not Available Not Available No t Available ondansetro n HCl 4 mg tablet TAKE 1 TABLET BY MOUTH EVERY 8 HOURS NEEDED FOR NAUSEA AND VOMITING FOR 4 DAYS 02/24 completed Not Available Not Available Not Available bupivacain e HCl 0.5 % (5 mg/mL) injection solution Take 20 mg by injectio n route. 2023 active Not Available Not Available Not Avai lable alendronat e 70 mg tablet TAKE 1 TABLET BY MOUTH ONCE A WEEK 30 MINUTES BEFORE FIRST FOOD AND DRINK active Not Available Not Available No t Available prochlorpe razine maleate 10 mg tablet 02/24 completed Not Available Not Available Not Available allopurino l 100 mg tablet TAKE 1 TABLET BY MOUTH ONCE DAILY active Not Available Not Available No t Available sulfametho xazole 800 mg-trimeth oprim 160 mg tablet TAKE 1 TABLET BY MOUTH EVERY 12 HOURS FOR 5 DAYS 02/24 completed Not Available Not Available Not Available triamcinol one acetonide 0.1 % topical cream APPLY A THIN LAYER TO THE AFFECTED AREA(S) BY TOPICAL ROUTE 2 TIMES PER DAY active Not Available Not Available No t Available Kenalog 10 mg/mL suspension for injection Take 20 mg by injectio n route. 2023 active [facility]: [phone] Not Available Not Available Not Available Advair Diskus 250 mcg-50 mcg/dose powder for inhalation 02/24 completed Not Available Not Available Not Available metoprolol tartrate 50 mg tablet TAKE 1 TABLET BY MOUTH THREE TIMES DAILY active Not Available Not Available No t Available omeprazole 20 mg capsule,de layed release TAKE 1 CAPSULE BY MOUTH ONCE DAILY active Not Available Not Available No t Available montelukas t 10 mg tablet TAKE 1 TABLET BY MOUTH ONCE DAILY AT BEDTIME active Not Available Not Available No t Available albuterol 90 mcg/actuat ion aerosol inhaler Inhale 90 microgra ms by inhalati on route as needed. active Not Available Not Available No t Available colchicine 0.6 mg tablet TAKE 2 TABLETS BY MOUTH ONCE FOR FIRST DOSE AND TAKE 1 TABLET AN HOUR AFTER THE FIRST 2. WAIT 3 DAYS BEFORE TAKING AGAIN active Not Available Not Available No t Available metformin ER 500 mg tablet,ext ended release 24 hr TAKE 2 TABLETS BY MOUTH ONCE DAILY active Not Available Not Available No t Available mometasone 0.1 % topical cream 02/24 completed Not Available Not Available Not Available amoxicilli n 500 mg-potassi um clavulanat e 125 mg tablet TAKE 1 TABLET BY MOUTH THREE TIMES DAILY 02/24 completed Not Available Not Available Not Available Ventolin HFA 90 mcg/actuat ion aerosol inhaler 02/24 completed Not Available Not Available Not Available Benicar HCT 40 mg-25 mg tablet active Not Available Not Available Not Available Albuterol Sulfate HFA 90 mcg/Actuat ion aerosol inhaler Inhale 2 puffs every 4 hours by inhalati on route as needed. active Not Available Not Available No t Available hydrochlor othiazide 12.5 mg tablet TAKE 1 TABLET BY MOUTH ONCE DAILY active Not Available Not Available No t Available HPR Plus topical foam 02/24 completed Not Available Not Available Not Available Cordran 0.05 % topical cream 02/24 completed Not Available Not Available Not Available hydrocorti sone 2.5 % rectal cream with applicator Insert 2.5 g by rectal route as needed. active Not Available Not Available No t Available albuterol 90 mcg-budeso nide 80 mcg/actuat ion HFA aerosol inhaler Inhale 2 inhalati ons every day by inhalati on route. active may repeat up to 6 doses Not Available Not Available Not Available Vitals Date Recorded Body height Body mass index (BMI) Body weight Provider Name and Address Organization Details Last Updated DateTime 02/25/2024 160.02 cm 25.7 kg/m2 36780.89 g Mirta AlmarazCAITLYN banuelos [facility] 02/25/2024 13:58:19 Date Recorded Body height Body mass index (BMI) Body weight Provider Name and Address Organization Details Last Updated DateTime 04/15/2024 160.02 cm 24.8 kg/m2 99259.93 g Mirta SamuelCAITLYN banuelos [facility] 04/15/2024 14:07:26 Social History Question Answer Notes LastModified by Organizat ion Details LastModified Time Tobacco Smoking Status Never Smoker [facility] 02/25/2024 14:15:15 What Is Your Level Of Alcohol Consumption? None [email or web address] Information not available 02/25/2024 Sex: Unknown Functional Status None recorded. Mental Status None recorded. Family History Relationship Description Onset Age of this Age Resolved Age Notes LastModified by Organization Details LastModified Time Mother Hypertensive disorder [email or web address] Not available 2023 14:14:59 Mother Heart disease [email or web address] Not available 2023 14:15:06 Medical History Condition Response ARTHRITIS Y DIABETES, TYPE Y OSTEOPOROSIS Y HYPERTENSION Y Gynecological HistoryNo gynecological history recorded. Obstetrics History GPAL:G 0 P 0 0 0 0 Past Encounters Encounter ID Performer Location Encounter Start Date Encounter Closed Date Diagnosis/Indication Diagnosis SNOMED-CT Code Diagnosis ICD10 Code Diagnosis Note [id number] BRYCE Escobar [facility] [place] [address] [place] [address] 02/25/2024 13:40:54 02/25/2024 14:47:19 Pain of left knee joint 0441886472 47685 M25.562 Osteoarthr itis of left knee joint 2347320738 12979 M17.12 [id number] BRYCE Escobar [facility] [place] [address] [place] [address] 04/15/2024 14:05:06 04/15/2024 14:56:17 Low back pain 729911749 M54.50 Pain in ri ght sacroiliac joint 4932949329 1364545 M53.3 Lumbar spondylolisthesis 6064904856 46718 M43.16 Lumbar spondylosis 97873 0009 M47.896 Health Concerns Section Related Observation LastModified by Organization Detai ls LastModified Time None Recorded Concern Status LastModified by Organization Details LastModified Time None Recorded Advance Directives Directive None Recorded Payers Encounter Date Sequence Insurance Name Policy Number Policy Guo Covered Member ID Guo Member ID Guarantor Name 02/25/2024 1 [place] Alison Banuelos Doug [id number] Alison Banuelos [place] 02/25/2024 2 [place] [id number] Alison Banuelos [place] [id number] Alison S [place] 04/15/2024 1 [place] Alison Banuelos Doug [id number] Alison Banuelos [place] 04/15/2024 2 [place] [id number] Alison Banuelos Doug [id number] Alison Camacho Notes Date Note Type Note Provider Name and Address Organization Details Recorded Time 02/25/2024 text/html the patient is a 78-year-old female who suffered an injury to her left foot and ankle about 2-1/2 months ago. She had fracture of her foot and her ankle she was in a cam walker boot and then had other complications related to the fracture she had a fracture blister that got infected she had to be hospitalized was on IV antibiotics for awhile and also was in rehab recovering from the pain in her foot and ankle. The meantime she also developed left knee pain partially due to her injury partially due to the fact that she was in a cam walker boot which was throwing off her leg lengths while she is trying to ambulate. She was having a lot of knee pain posteriorly she had a venous duplex scan which was negative for DVT she also had follow-up CT scan of her left knee and an ultrasound. This showed chondrocalcinosis with tricompartmental osteoarthritis left knee mild to moderate in nature. She has a small Moseley cyst and had a moderate size knee joint effusion. She does not have the films available for our review today but she had the report with her. We got new x-rays today which confirm that she does have some mild to moderate primary osteoarthritis. She can not take oral anti-inflammatory medication due to the fact that she has chronic kidney disease stage 3. She also states she gets severe nausea and stomach upset from oral prednisone so she is unable to take anything for her knee pain in terms of prescription medication. The patient has a lot of aching pain in the left knee generalized in nature worse with activity she is able to bear full weight on it but uses a walker for support. She states that the foot and ankle fractures have healed in the infection in the dorsum of her left foot has resolved. She comes in today with pain about a 6 on a scale 1-10 in her left knee. The patient denies any erythema effusion or signs of infection in the left knee today. A new past medical history sheet was reviewed and signed on intake sheet of today's date drug allergies current medications family social history previous surgical history 10 point review of systems was reviewed and discussed in detail today with the patient. BRYCE Escobar [address] [facility], [place], [address], [place] [facility] 02/25/2024 14:45:25 04/15/2024 text/html patient returns complaining of low back pain right sacroiliac region that radiates into the buttock. She denies any specific trauma or injury. She has had some chronic issues with her back several years ago she had a shot of cortisone elsewhere for the same issue. She has pain that comes and goes lately it is about about an 8 on a scale of 1-10 she can not take oral anti-inflammatories or prednisone due to other multiple medical issues including stomach upset and a history of chronic kidney disease. I have seen her for her knee previously she has osteoarthritis we did a shot of cortisone earlier this year and that worked well for her she is wondering if that might help her back to. She denies any bowel or bladder symptoms no weakness no numbness or tingling or radicular pain down the leg the pain is localized to the right sacroiliac region that goes into the buttock. She has tried a heating pad and Tylenol Arthritis extended relief which typically had helped previously but lately it has been bothering her more keeping her awake at night occasionally. She comes in today for initial evaluation treatment of her low back pain in the right in the sacroiliac region as described. The patient's previous medical history was reviewed with her today in detail she denies any significant changes. BRYCE Escobar [address], [facility] [address], [place], [address], [facility] 04/15/2024 14:59:38 OBGyn Episode No OBEpisode recorded.
--- OUTSIDE RECORDS SUMMARY | 2024-08-08 23:29 | XMS_ITS ---
Author Name Lian Stewart [facility] Address [address] [place] [address] Phone [phone] [facility] Address [address] [place] [address] Phone [phone] Care Team Providers Care Political Theory Professor Name Role Phone Lian Stewart Unavailable Krystal Young Unavailable Harshil Bowman Unavailable [phone] Functional Status Mental Status Allergies and Intolerances Encounters Immunizations Medications Problems Vital Signs Reason for Referral
--- OUTSIDE RECORDS SUMMARY | 2024-08-08 23:29 | XMS_ITS | Data Portability ---
Author Organization [place] - [facility] OFFICE Address [address] [place] [address] Care Team Providers Care Secondary Set Up Man Name Role Phone CASSI MAC Primary Care Provider [phone] Assessment No assessment recorded. Plan of Treatment Reminders Order Date Submit Date Provider Last Modified By Organization Details Last Modified Time Details Appointments None recorded. Lab None recorded. Referral None recorded. Procedures None recorded. Surgeries None recorded. Imaging None recorded. Medication Orders Vascepa 1 gram capsule [address] [facility] [place], [address], 9 16:34:55 Patient TargetsNo targets recorded. Patient Instructions Encounter Date Encounter Id Patient Instructions Last Modified By Organization Details Last Modified Time 06/11/2018 [id number] Weight loss 20 pounds Exercise advised Low cholesterol diet advised Low sodium diet advised. Not available 06/11/2018 11:16:45 Patient was seen and evaluated by {{Raulito Ruff SCRAP IRON CUTTER-C*}}. Plan of care was discussed with collaborating physician. Note cosigned by {{Raulito Irwin MD*}}. Not available 06/11/2018 11:16:34 07/13/2018 [id number] Exercise advised Low cholesterol diet advised Low sodium diet advised. [email or web address] Not available 07/13/2018 12:13:39 Reason for Referral None Reported. Results Created Date Observation Date Name Description Value Unit Range Abnormal Flag Note LastModifiedBy Organization Detail LastModifiedTime 02/07/28 1805/25/2018 edward can cardi olite stres s test (PROC ) No observ ation record ed. [email or web address] Not Available 06/14 16:24:26 06/13/19 19 06/09/2018 taylor ludwig am No observ ation record ed. [email or web address] Not Available 06/14 16:26:02 07/04/19 19 06/28/2018 US, echoc ardio gram No observ ation record ed. [facility] [address], [place], [address], 07/05/2018 05:08:19 Result Notes None recorded. Problems Name Problem SNOMED Code Status Onset Date Resolution Date Notes Provider Name and Address Organization Details Recorded Time Atypical chest pain 599985266 Active 2018 Shante oneil [facility] 9 11:02:31 Essential hypertension 83896099 Active 2018 Shante noeil [facility] 9 11:02:36 Hypertriglycer idemia 551457853 [facility] 9 11:03:05 Diabetes mellitus 67614019 Active 2018 Shante oneil [facility] 9 11:14:19 Dyspnea on exertion 71613058 [facility] 9 11:23:54 Anxiety 53859963 [facility] 9 10:07:51 Problem Notes None recorded. Procedures Surgical History None recorded. Imaging Results Imaging Date Name Status LastModified by Organization Details LastModified Time 05/25/2018 lexiscan cardiolite stress test (PROC) completed Information not available 06/14/2018 16:24:26 06/09/2018 electrocardiogram completed Informa tion not available 06/14/2018 16:26:02 06/28/2018 US, echocardiogram completed [facility] [address], [place], [address], 07/05/2018 05:08:19 Procedure Notes None recorded. Medical Equipment None Reported. Allergies Allergen ID Allergen Name Allergen Category Reaction Reaction Severity Criticality Documentation Date Start Date Code Code System Note Provider Name and Address Organization Details Recorded Time 7630 codeine medicatio n nausea mild Not available 06/11/2018 2670 RxNorm MOHAMMAD ABDULFATA H [facility], [facility] 9 10:47:04 7631 prednison e medicatio n irregular heart rate moderate Not available 06/11/2018 8640 RxNorm MOHAMMAD ABDULFATA H [facility], [facility] 9 10:47:50 7632 amoxicill in medicatio n Not available Not available Not available 06/11/2018 723 RxNorm Marnie Reynosoehr [facility], [facility] 9 10:52:37 Medications Name Sig Start Date Stop Date Status Note LastModified by Organization Details LastModified Time atorvastati n 40 mg tablet Take 1 tablet every day by oral route as directed. active Not Available Not Available No t Available metformin 500 mg tablet Take 1 tablet 4 times a day by oral route as directed. active Not Available Not Available No t Available trazodone 50 mg tablet Take 1 tablet every day by oral route as directed. active Not Available Not Available No t Available hydrocodone 5 mg-acetamin ophen 325 mg tablet 06/11 completed Not Available Not Available Not Available Aspir-Low 81 mg tablet,jarad yed release Take 1 tablet every day by oral route. active Not Available Not Available No t Available allopurinol 100 mg tablet Take 1 tablet every day by oral route as directed. active Not Available Not Available No t Available ferrous sulfate 325 mg (65 mg iron) tablet Take 1 tablet twice a day by oral route as directed. active Not Available Not Available No t Available ropinirole 0.5 mg tablet Take 1 tablet every day by oral route at bedtime. active Not Available Not Available No t Available metoprolol tartrate 50 mg tablet Take 1 tablet 3 times a day by oral route as directed. active Not Available Not Available No t Available omeprazole 20 mg capsule,del ayed release Take 1 capsule every day by oral route as directed. active Not Available Not Available No t Available montelukast 10 mg tablet Take 1 tablet every day by oral route at bedtime. active Not Available Not Available No t Available mupirocin 2 % topical ointment active Not Available Not Available Not Available losartan 50 mg-hydrochl orothiazide 12.5 mg tablet Take 1 tablet every day by oral route as directed. active Not Available Not Available No t Available ondansetron 4 mg disintegrat ing tablet 07/13 completed Not Available Not Available Not Available Vascepa 1 gram capsule Take 2 capsules twice a day by oral route. 06/23 completed Not Available Not Available Not Available Proctosol HC 2.5 % topical cream perineal applicator APPLY A THIN LAYER TO THE AFFECTED AREA(S) BY TOPICAL ROUTE 2-4 TIMESDAIL Y 07/13 completed Not Available Not Available Not Available Fish Oil 1,000 mg (120 mg-180 mg) capsule Take 1 capsule every day by oral route. 07/13 completed Not sivakumar dennis. Not Available Not Available Not Available Vitals Date Recorded Body weight Body mass index (BMI) Body height Oxygen saturation Oxygen saturation in Arterial blood by Pulse oximetry Heart rate Systolic blood pressure Diastolic blood pressure Provider Name and Address Organization Details Last Updated DateTime 9 50881.7 4 g 29.2 kg/m2 160.02 cm 94 % 94 % 72 /min 138 mm[Hg] 88 mm[Hg] TIM Jauregui [facility] 9 10:38:13 Date Recorded Body height Body mass index (BMI) Body weight Oxygen saturation Oxygen saturation in Arterial blood by Pulse oximetry Heart rate Systolic blood pressure Diastolic blood pressure Provider Name and Address Organization Details Last Updated DateTime 9 160.02 cm 26.9 kg/m2 88344.0 4 g 96 % 96 % 76 /min 136 mm[Hg] 82 mm[Hg] SEAN LOCKE [facility] 9 11:33:11 Social History None recorded. Functional Status None recorded. Mental Status None recorded. Family History Nothing Reported. Medical History Condition Response Diabetes Y Hyperlipidemia Y Hypertension Y Gynecological HistoryNo gynecological history recorded. Obstetrics History GPAL:G 0 P 0 0 0 0 Past Encounters Encounter ID Performer Location Encounter Start Date Encounter Closed Date Diagnosis/Indication Diagnosis SNOMED-CT Code Diagnosis ICD10 Code Diagnosis Note [id number] Joe Irwin MD [facility] OFFICE [address] [place] [address] 06/11/2018 10:08:34 06/26/2018 20:14:06 Atypical chest pain 414078198 R07.89 She underwent a lexiscan nuclear stress testing that was negative for ischemia with normal LV systolic function. EF > 70%. Continue maximal medical treatment and risk factor modificati on. On 81 ASA daily. Consider cardiac CTA. He/She has high Avis Risk score. He/she would benefit from CT to look for any coronary artery disease. Essential hypertension 33936075 I10 Now well controlled . Hypertriglyceridemia 302 545122 E78.1 05/25/18: TC 134, Tri 459. LDL 64Continue atorvastat in. Will add Vascepa. Diabetes mellitus 292051 09 E11.9 Treatment and evaluation by primary care doctor. Discussed importance of adequate glycemic control to minimize cardiovasc ular disease progressio n. A1C goal of < 7% for type 2 DM Dyspnea on exertion 6084 5006 R06.09 Mild. Stable.Gaurav l get echo to look for any structural heart disease [id number] Joe Irwin MD [facility] OFFICE [address] [place] [address] 07/13/2018 11:01:43 07/13/2018 12:14:19 Atypical chest pain 720920510 R07.89 She underwent a lexiscan nuclear stress testing that was negative for ischemia with normal LV systolic function. EF > 70%. Continue maximal medical treatment and risk factor modificati on. On 81 ASA daily. Consider cardiac CTA. He/She has high Avis Risk score. He/she would benefit from CT to look for any coronary artery disease. Dyspnea on exertion 6084 5006 R06.09 Mild. Stable.ECH O on 06/28/18 showed normal global systolic function , EF 65-70% , grade I diastolic dysfunctio n Essential hypertension 93335540 I10 Now well controlled . Hypertriglyceridemia 302 350537 E78.1 05/25/18: TC 134, Tri 459. LDL 64Continue atorvastat in. Will add Vascepa. Diabetes mellitus 591994 09 E11.9 Treatment and evaluation by primary care doctor. Discussed importance of adequate glycemic control to minimize cardiovasc ular disease progressio n. A1C goal of < 7% for type 2 DM Health Concerns Section Related Observation LastModified by Organization Detai ls LastModified Time None Recorded Concern Status LastModified by Organization Details LastModified Time None Recorded Advance Directives Directive None Recorded Payers Encounter Date Sequence Insurance Name Policy Number Policy Guo Covered Member ID Guo Member ID Guarantor Name 06/11/2018 1 [place] Alison Camacho [id number] 3 Alison Camacho 06/11/2018 2 [place] (MEDICARE SUPPLEMENT) Alison Hansen'Leland [id number] Alison Camacho 07/13/2018 1 [place] Alison Camacho [id number] 3 Alisno Camacho 07/13/2018 2 [place] (MEDICARE SUPPLE[place]) Alison Reyes O'Leland [id number] Alison Camacho Notes Date Note Type Note Provider Name and Address Organization Details Recorded Time 06/11/2018 text/html 06/11/18 CC:Chest pain follow-up 72 year-old woman with a past medical history of hypertension, diabets mellitus, GERD, anxiety, ovarian cancer, presents for cardiac consultation with a chief complaint of chest pain hospital follow-up. Patient was recently seen and evaluated by us at [facility] on 05/24/18 with a chief complaint of chest pain. Her home BP was apparently high that day at 165/95 and tachycardic with a HR of 106. She underwent a lexiscan nuclear stress testing that was negative for ischemia with normal LV systolic function. EF > 70%. She also had a frequent, productive cough and was prescribed a z-pac. apparently had bronchitis s recently. No other symptoms were reported. Was taking Robitussin DM at that time as well. After d/c, On thursday she went back to [facility] due to right-sided chest pain. cardiac enzymes were negative. She was dx with costochondritis and was prescribed hydrocodone however she does NOT want to take so she has been taking Ibuprone with relief. She checks her BP at home. Recent readings have been running ok. No new complaints, feeling well overall. Has been active but not exercising. Had No known history of coronary artery disease, previous myocardial infarction, heart failure, valvular heart disease, arrhythmia or stroke reported. She is a non-smoker. No family hx of heart disease. Denies any further chest pain. Denies shortness of breath at rest. Denies dyspnea on exertion. No orthopnea. No PNDs. Denies heart palpitations. Denies dizziness. Denies syncope or near syncope. No ankle or leg edema. No major bleeding events. No reported side effects from medications. Taking medications as prescribed with no missed doses. Denies snoring, daytime somnolence and AM headache. use to be on valsartan however due to the drug recall, she is currently taking Losartan Results from this visit, or from the past: EK06/09/18 Sinus rhythm. Voltage criteria for LVH. Borderline T wave abnormality-inferior leads. Borderline ECG. Joe Irwin MD [address] [place], [address], [facility] 06/26/2018 20:14:05 07/13/2018 text/html 07/13/18 CC: dyspnea on exertion 72 year old patient who had been in [facility] in May of this year for elevated BP and heart rate, was in for a 24 observation. Nuclear stress test was done which was negative with EF >70%. Triglycerides were also high on lab work done nonfasting. Patient could not tolerate fish oil. Patient denies any chest pain, shortness of breath or dizziness or syncope. She denies any nausea or diaphoresis. Sleeps on two pillows at night. Patient tolerates her medications without difficulty except for the diarrhea she experienced with fish oil, currently not taking. Patient has a history of HTN, dyslipidemia, DM, asthma, gout. Mother (alive at 101 y/o) has HTN, h/o [place]. ECHO on 06/28/18 showed normal global systolic function , EF 65-70% , grade I diastolic dysfunction . Results from this visit, or from the past: EK06/09/18 Sinus rhythm. Voltage criteria for LVH. Borderline T wave abnormality-inferior leads. Borderline ECG. 06/28/18 ECHO: LV chamber size is normal. There is normal global systolic function and contractility. The estimated left ventricle ejection fraction is Joe Irwin MD [address] [place], [address], [place] [facility] 07/13/2018 12:14:17 OBGyn Episode No OBEpisode recorded.
--- OUTSIDE RECORDS SUMMARY | 2024-08-08 23:29 | XMS_ITS | Clinical Summary ---
Author Organization [facility] [address] Address [address] [place] [address] Care Team Providers Care Tactical Air Defense Controller Name Role Phone Unavailable Primary Care Provider Unavailabl e Encounters Date Type Department Care Team Description 06/29/2024 External Device Data [facility] ABSTRACTION Provider, Abstract 06/08/2024 External Device Data [facility] Provider, Abstract 06/02/2024 External Device Data [facility]CTION Provider, Abstract 05/24/[address] [address] Daquan Lisa PA-C Question from Last 3 Months Social History Tobacco Use Types Packs/Day Years Used Date Smoking Tobacco: Never Assessed Comments Unknown Sex and Gender Information Value Date Recorded Sex Assigned at Not on file Legal Sex Female 2:53 PM CDT Gender Identity Not on file Sexual Orientation Not on file Plan of Treatment Health Maintenance Due Date Last Done Comments DTAP/TDAP/TD VACCINES (1 - Tdap) 08/09/1963 PNEUMOCOCCAL VACCINE 50+ YEARS (1 of 1 - PCV) 08/08/18 95 ZOSTER VACCINE (1 of 2) 1994 OSTEOPOROSIS SCREENING 2009 RSV VACCINE (60+ or ) (1 - 1-dose 75+ series) 08/09/2019 INFLUENZA VACCINE (#1) 2023
[2024-08-08 23:31] VITALS: BP 179/79; PULSE 68; RESP 15; TEMP 36.8; O2SAT 98
--- OUTSIDE RECORDS SUMMARY | 2024-08-09 00:13 | XMS_ITS | Clinical Summary ---
Author Organization [facility] [address] Address [address] [place] [address] Care Team Providers Care Connie Scratcher Name Role Phone Unavailable Primary Care Provider Unavailabl e Encounters Date Type Department Care Team Description 06/29/2024 External Device Data [facility] ABSTRACTION Provider, Abstract 06/08/2024 External Device Data [facility] AB[facility] Provider, Abstract 06/02/2024 External Device Data [facility] ABSTRA[facility] Provider, Abstract 05/24/[address] [address] Daquan Lisa PA-C Question from [...]
--- OUTSIDE RECORDS SUMMARY | 2024-08-09 00:14 | XMS_ITS ---
Author Name Lian Stewart Address [address] [place] [address] Phone [phone] [employer] [facility] Address [address] [place] [address] Phone [phone] Care Team Providers Care Probation And Parole Officer Name Role Phone Lian Stewart Unavailable [phone] Krystal Young Unavailable [phone] Harshil Bowman Unavailable [phone] Functional Status No Results Mental Status No Results Allergies and Intolerances Name Onset Date Reaction Severity codeine (Allergy) ThuJan 02 15:27:00 EDT 2023 prednisone (Allergy) ThuJan 02 15:25:00 EDT Encounters Program Name Primary Diagnosis Admission Date/Time Dis charge Date/Time [facility] ThuJan 02 08:00:00 EDT 2023Jan 31 06:30:00 EDT 2023 Immunizations Name Dates Status TST-PPD intradermal ThuJan 03 01:00:00 EDT 2023 Completed TST-PPD intradermal ThuJan 10 01:00:00 EDT 2023 Completed TST-PPD intradermal ThuJan 05 01:00:00 EDT 2023 Completed TST-PPD intradermal Wed Jan 12 01:00:00 EDT 2023 Completed Medications Medication Directions Start Date End Date Eucerin topical cream 1 applcation CREAM (GRAM) Topical 2 Times Daily Indication: Apply lotion to dry skin to BLE Sun Sep 15 21:00:00 EDT 2023 Mon Jan 31 01:00:00 EDT 2023 Fosamax 70 mg tablet 1 tablet TABLET Ora l 1 Time Weekly Indication: Osteoporosis Tue Sep 17:00:00 EDT 2023Jan 31 01:00:00 EDT 2023 lidocaine 4 % topical patch as directed ADHESIVE PATCH, MEDICATED Topical Every 12 Hours Indication: apply to the affected area on for 12 hrs off for 12 hrs ThuJan 14 09:00:00 EDT 2023Jan 31 01:00:00 EDT 2023 white petrolatum topical jelly 1 application JELLY (GRAM) Topical 1 Time Daily Indication: Apply vaseline to top of left foot. ThuJan 12 17:37:00 EDT 2023Jan 31 01:00:00 EDT 2023 acetaminophen 325 mg tablet 2 TABLETS TA BLET Oral PRN Every 6 Hours for 10 Days Indication: pain Thu Sep 01:00:00 EDT 2023 Fri Sep 13 00:59:00 EDT 2023 traMADoL 50 mg tablet 1 tablet TABLET Or al PRN Every 8 Hours for 14 Days Indication: Pain e Sep 18:00:00 EDT 2023 Tue Sep 17 17:59:00 EDT 2023 TubersoL 5 tub. unit/0.1 mL intradermal injection solution Read Results VIAL (ML) Other 1 Time Weekly for 2 Weeks Indication: . Read results between 48-72 hours after 1st and 2nd (1 week apart). If positive do chest x-ray. ThuJan 05 09:00:00 EDT 2023Jan 19 08:59:00 EDT 2023 TubersoL 5 tub. unit/0.1 mL intradermal injection solution 0.1 ml VIAL (ML) Intradermal 1 Time Weekly for 2 Weeks Indication: . 1st injection on admission, then one week after. Read between 48 and 72 hours ThuJan 03 09:00:00 ED2023Jan 17 08:59:00 EDT 2023 FeroSuL 325 mg (65 mg iron) tablet 1 TAB TABLET Oral 1 Time Daily Indication: anemia *GIVE WITH FOOD* ThuJan 03 16:30:00 2023Jan 31 01:00:00 EDT 2023 hydrocortisone 2.5 % topical cream with perineal applicator 1 APPLICATION CREAM WITH PERINEAL APPLICATOR Rectal PRN (Max 3 Doses) Indication: HEMORRHOIDS ThuJan 02 16:30:00 EDT 2023Jan 31 01:00:00 EDT 2023 albuterol sulfate HFA 90 mcg/actuation aerosol inhaler 2 PUFFS HFA AEROSOL WITH ADAPTER (GRAM) Inhalation PRN 4 Times Daily Indication: SHORTNESS OF BREATH/ WHEEZING ThuJan 02 16:30:00 EDT 2023Jan 31 01:00:00 EDT 2023 atorvastatin 40 mg tablet 1 TAB TABLET O ral 1 Time Daily Indication: hyperlipedemia ThuJan 02 16:30:00 EDT 2023Jan 31 01:00:00 EDT 2023 metoprolol tartrate 50 mg tablet 1 TAB TABLET Oral 3 Times Daily Indication: a fib ThuJan 02 16:30:00 EDT 2023 [facility] Jan 31 01:00:00 EDT 2023 rOPINIRole 1 mg tablet 1 TAB TABLET Oral 1 Time Daily Indication: rls ThuJan 02 16:30:00 EDT 2023 [facility] Jan 31 01:00:00 EDT 2023 FeroSuL 325 mg (65 mg iron) tablet 1 TAB TABLET Oral 1 Time Daily Indication: anemia ThuJan 02 16:30:00 EDT 2023Jan 03 16:33:00 EDT 2023 metFORMIN ER 500 mg tablet,extended release 24 hr 1 TAB TABLET, EXTENDED RELEASE 24 HR Oral 1 Time Daily Indication: dm ThuJan 02 16:30:00 EDT 2023 [facility] Jan 31 01:00:00 EDT 2023 cyclobenzaprine 10 mg tablet 1 TAB TABLET Oral PRN 3 Times Daily Indication: MUSCLE PAIN ThuJan 02 16:30:00 EDT 2023Jan 31 01:00:00 EDT 2023 allopurinoL 100 mg tablet 100MG TABLET O ral 1 Time Daily Indication: gout ThuJan 02 16:30:00 EDT 2023Jan 31 01:00:00 EDT 2023 omeprazole 20 mg capsule,delayed release 1 CAP CAPSULE,DELAYED RELEASE (ENTERIC COATED) Oral 1 Time Daily Indication: gerd ThuJan 02 16:30:00 EDT 2023 [facility] Jan 31 01:00:00 EDT 2023 montelukast 10 mg tablet 1 TAB TABLET Or al Hour Of Sleep Indication: allergies ThuJan 02 16:30:00 EDT 2023 [facility] Jan 31 01:00:00 EDT 2023 Problems Active Concerns * Unspecified asthma, uncomplicated* Code: * Start Date: ThuJan 02 00:00:00 EDT 2023 * End Date: * Text: * Bronchitis, not specified as acute or chronic* Code: * Start Date: ThuJan 02 00:00:00 EDT 2023 * End Date: * Text: * Hyperlipidemia, unspecified* Code: * Start Date: ThuJan 02 00:00:00 EDT 2023 * End Date: * Text: * Acquired absence of both cervix and uterus* Code: * Start Date: ThuJan 02 00:00:00 EDT 2023 * End Date: * Text: * Subluxation of tarsometatarsal joint of left foot, subsequent encounter* Code: * Start Date: ThuJan 02 00:00:00 EDT 2023 * End Date: * Text: * Cellulitis of left lower limb* Code: * Start Date: ThuJan 02 00:00:00 EDT 2023 * End Date: * Text: * Type 2 diabetes mellitus with hyperglycemia* Code: * Start Date: ThuJan 02 00:00:00 EDT 2023 * End Date: * Text: * Type 2 diabetes mellitus with diabetic chronic kidney disease* Code: * Start Date: ThuJan 02 00:00:00 EDT 2023 * End Date: * Text: * Hypertensive chronic kidney disease with stage 1 through stage 4 chronic kidney disease, or unspecified chronic kidney disease* Code: * Start Date: ThuJan 02 00:00:00 EDT 2023 * End Date: * Text: * Chronic kidney disease, unspecified* Code: * Start Date: ThuJan 02 00:00:00 EDT 2023 * End Date: * Text: * Allergic rhinitis, unspecified* Code: * Start Date: ThuJan 02 00:00:00 EDT 2023 * End Date: * Text: * Gout, unspecified* Code: * Start Date: ThuJan 02 00:00:00 EDT 2023 * End Date: * Text: * Gastro-esophageal reflux disease without esophagitis* Code: * Start Date: ThuJan 02 00:00:00 EDT 2023 * End Date: * Text: * 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* Code: * Start Date: ThuJan 02 00:00:00 EDT 2023 * End Date: * Text: * Fracture of unspecified tarsal bone(s) of left foot, subsequent encounter for fracture with routinehealing* Code: * Start Date: ThuJan 02 00:00:00 EDT 2023 * End Date: * Text: * Blister (nonthermal), left foot, subsequent encounter* Code: * Start Date: ThuJan 02 00:00:00 EDT 2023 * End Date: * Text: * Restless legs syndrome* Code: * Start Date: ThuJan 02 00:00:00 EDT 2023 * End Date: * Text: * Other symptoms and signs involving the musculoskeletal system* Code: * Start Date: ThuJan 18 00:00:00 EDT 2023 * End Date: * Text: * Other specified soft tissue disorders* Code: * Start Date: ThuJan 19 00:00:00 EDT 2023 * End Date: * Text: * Strain of other muscle(s) and tendon(s) at lower leg level, left leg, subsequent encounter* Code: * Start Date: ThuJan 19 00:00:00 EDT 2023 * End Date: * Text: * Anemia, unspecified* Code: * Start Date: ThuJan 02 00:00:00 EDT 2023 * End Date: * Text: * LSSSusanSocial Alexandrea Rosas's wishes will be followed (Advanced Directive/Code Status).* Code: * Start Date: ThuJan 04 00:00:00 EDT 2023 * End Date: * Text: MISSusanSocial ServicesTonie Rosas's wishes will be followed (Advanced Directive/Code Status). * MISSusanSocial ServicesTonie Rosas will be involved in goal development to the best of his or her ability.* Code: * Start Date: ThuJan 04 00:00:00 EDT 2023 * End Date: * Text: LSS_Social ServicesTonie Rosas will be involved in goal development to the best of his or her ability. * MISSusanSocial ServicesTonie Rosas has family/friends who are supportive.* Code: * Start Date: ThuJan 04 00:00:00 EDT 2023 * End Date: * Text: MISSusanSocial ServicesTonie Rosas has family/friends who are supportive. * MISSusanSocial ServicesTonie Rosas's mobility level is different than prior level due to current medicalcondition.* Code: * Start Date: ThuJan 04 00:00:00 EDT 2023 * End Date: * Text: MISSusanSocial ServicesTonie Joes mobility level is different than prior level due to current medical condition. * LSS_Social ServicesTonie Rosas will be involved in discharge planning.* Code: * Start Date: ThuJan 04 00:00:00 EDT 2023 * End Date: * Text: KWESISocial Alexandrea Rosas will be involved in discharge planning. Vital Signs Vital Sign Measurement Date Systolic Blood Pressure 147.00 mm[Hg] [facility] 23 10:09:28 EDT 2023 Diastolic Blood Pressure 79.00 mm[Hg] [facility] 23 10:09:28 EDT 2023 Heart Rate 76.00 /min [facility] 10:09 :28 EDT 2023 Body temperature 98.60 [degF] [facility] 23 10:0 9:28 EDT 2023 Respiratory rate 18.00 /min [facility] 23 10:0 9:28 EDT 2023 Systolic Blood Pressure 147.00 mm[Hg] [facility] 23 09:41:03 EDT 2023 Diastolic Blood Pressure 79.00 mm[Hg] [facility] 23 09:41:03 EDT 2023 Systolic Blood Pressure 145.00 mm[Hg] [facility] 22 23:48:37 EDT 2023 Diastolic Blood Pressure 80.00 mm[Hg] [facility] 22 23:48:37 EDT 2023 Heart Rate 69.00 /min [facility] 22 23:48 :37 EDT 2023 Body temperature 98.60 [degF] [facility] 22 23:4 8:37 EDT 2023 Respiratory rate 20.00 /min [facility] 22 23:4 8:37 EDT 2023 Systolic Blood Pressure 145.00 mm[Hg] [place] Sep 22 22:12:28 EDT 2023 Diastolic Blood Pressure 80.00 mm[Hg] [place] Sep 22 22:12:28 EDT 2023 Systolic Blood Pressure 142.00 mm[Hg] [place] Sep 22 14:11:00 EDT 2023 Diastolic Blood Pressure 64.00 mm[Hg] [place] Sep 22 14:11:00 EDT 2023 Body weight 150.60 [lb_av] [place] Sep 22 11:08 :30 EDT 2023 Systolic Blood Pressure 130.00 mm[Hg] Sun Sep 22 08:58:21 EDT 2023 Diastolic Blood Pressure 66.00 mm[Hg] Sun Sep 22 08:58:21 EDT 2023 Systolic Blood Pressure 130.00 mm[Hg] Sun Sep 22 08:57:22 EDT 2023 Diastolic Blood Pressure 66.00 mm[Hg] [facility] 22 08:57:22 EDT 2023 Heart Rate 65.00 /min Sun Sep 22 08:57 :22 EDT 2023 Body temperature 98.00 [degF] Sun Sep 22 08:5 7:22 EDT 2023 Respiratory rate 20.00 /min Sun Sep 22 08:5 7:22 EDT 2023 Systolic Blood Pressure 150.00 mm[Hg] Sun Sep 22 00:41:18 EDT 2023 Diastolic Blood Pressure 74.00 mm[Hg] Sun Sep 22 00:41:18 EDT 2023 Heart Rate 71.00 /min Sun Sep 00:41 :18 EDT 2023 Body temperature 97.30 [degF] Sun Sep 22 00:4 1:18 EDT 2023 Respiratory rate 22.00 /min Sun Sep 00:4 1:18 EDT 2023 Systolic Blood Pressure 150.00 mm[Hg] Sat Sep 21 23:08:18 EDT 2023 Diastolic Blood Pressure 74.00 mm[Hg] Sat Sep 21 23:08:18 EDT 2023 Systolic Blood Pressure 134.00 mm[Hg] Sat Sep 21 16:06:19 EDT 2023 Diastolic Blood Pressure 62.00 mm[Hg] Sat Sep 21 16:06:19 EDT 2023 Body weight 151.60 [lb_av] Sat Sep 21 15:09 :07 EDT 2023 Systolic Blood Pressure 142.00 mm[Hg] Sat Sep 21 09:22:34 EDT 2023 Diastolic Blood Pressure 89.00 mm[Hg] Sat Sep 21 09:22:34 EDT 2023 Systolic Blood Pressure 142.00 mm[Hg] Sat Sep 21 09:22:34 EDT 2023 Diastolic Blood Pressure 89.00 mm[Hg] Sat Sep 21 09:22:34 EDT 2023 Heart Rate 67.00 /min Sat Sep 21 09:22 :34 EDT 2023 Body temperature 98.30 [degF] Sat Sep 21 09:2 2:34 EDT 2023 Respiratory rate 18.00 /min Sat Sep 21 09:2 2:34 EDT 2023 Systolic Blood Pressure 159.00 mm[Hg] Fri Sep 20 22:07:33 EDT 2023 Diastolic Blood Pressure 86.00 mm[Hg] Fri Sep 20 22:07:33 EDT 2023 Systolic Blood Pressure 159.00 mm[Hg] Fri Sep 20 20:16:09 EDT 2023 Diastolic Blood Pressure 86.00 mm[Hg] Fri Sep 20 20:16:09 EDT 2023 Heart Rate 68.00 /min Fri Sep 20 20:16 :09 EDT 2023 Body temperature 98.20 [degF] Fri Sep 20 20:1 6:09 EDT 2023 Respiratory rate 18.00 /min Fri Sep 20 20:1 6:09 EDT 2023 Systolic Blood Pressure 138.00 mm[Hg] Fri Sep 20 15:56:14 EDT 2023 Diastolic Blood Pressure 65.00 mm[Hg] Fri Sep 20 15:56:14 EDT 2023 Body weight 151.40 [lb_av] Fri Sep 20 15:56 :14 EDT 2023 Systolic Blood Pressure 144.00 mm[Hg] Fri Sep 20 08:56:37 EDT 2023 Diastolic Blood Pressure 78.00 mm[Hg] Fri Sep 20 08:56:37 EDT 2023 Systolic Blood Pressure 144.00 mm[Hg] Fri Sep 20 08:56:37 EDT 2023 Diastolic Blood Pressure 78.00 mm[Hg] Fri Sep 20 08:56:37 EDT 2023 Heart Rate 64.00 /min Fri Sep 20 08:56 :37 EDT 2023 Body temperature 97.70 [degF] Fri Sep 20 08:5 6:37 EDT 2023 Respiratory rate 18.00 /min Fri Sep 20 08:5 6:37 EDT 2023 Systolic Blood Pressure 149.00 mm[Hg] [place] Sep 19 23:26:22 EDT 2023 Diastolic Blood Pressure 73.00 mm[Hg] [facility] Sep 19 23:26:22 EDT 2023 Heart Rate 72.00 /min [facility] Sep 19 23:26 :22 EDT 2023 Body temperature 98.50 [degF] [facility] Sep 19 23:2 6:22 EDT 2023 Respiratory rate 18.00 /min [facility] Sep 19 23:2 6:22 EDT 2023 Systolic Blood Pressure 155.00 mm[Hg] [facility] Sep 19 22:27:17 EDT 2023 Diastolic Blood Pressure 81.00 mm[Hg] [facility] Sep 19 22:27:17 EDT 2023 Body weight 150.20 [lb_av] [facility] Sep 19 17:43 :40 EDT 2023 Systolic Blood Pressure 151.00 mm[Hg] [facility] Sep 19 15:46:34 EDT 2023 Diastolic Blood Pressure 75.00 mm[Hg] [facility] Sep 19 15:46:34 EDT 2023 Systolic Blood Pressure 133.00 mm[Hg] [facility] Sep 19 10:14:20 EDT 2023 Diastolic Blood Pressure 65.00 mm[Hg] [facility] Sep 19 10:14:20 EDT 2023 Heart Rate 61.00 /min [facility] Sep 19 10:14 :20 EDT 2023 Body temperature 98.00 [degF] [facility] Sep 19 10:1 4:20 EDT 2023 Respiratory rate 18.00 /min [facility] Sep 19 10:1 4:20 EDT 2023 Systolic Blood Pressure 133.00 mm[Hg] [facility] Sep 19 09:44:44 EDT 2023 Diastolic Blood Pressure 65.00 mm[Hg] [facility] Sep 19 09:44:44 EDT 2023 Systolic Blood Pressure 128.00 mm[Hg] Wed Sep 18 22:01:12 EDT 2023 Diastolic Blood Pressure 70.00 mm[Hg] Wed Sep 18 22:01:12 EDT 2023 Systolic Blood Pressure 138.00 mm[Hg] Wed Sep 18 19:54:21 EDT 2023 Diastolic Blood Pressure 69.00 mm[Hg] Wed Sep 18 19:54:21 EDT 2023 Heart Rate 65.00 /min Wed Sep 18 19:54 :21 EDT 2023 Body temperature 98.30 [degF] Wed Sep 18 19:5 4:21 EDT 2023 Respiratory rate 18.00 /min Wed Sep 18 19:5 4:21 EDT 2023 Systolic Blood Pressure 136.00 mm[Hg] Wed Sep 18 15:35:37 EDT 2023 Diastolic Blood Pressure 70.00 mm[Hg] Wed Sep 18 15:35:37 EDT 2023 Body weight 152.80 [lb_av] Wed Sep 18 12:24 :00 EDT 2023 Body weight 152.80 [lb_av] Wed Sep 18 09:18 :38 EDT 2023 Systolic Blood Pressure 147.00 mm[Hg] Wed Sep 18 09:18:24 EDT 2023 Diastolic Blood Pressure 81.00 mm[Hg] Wed Sep 18 09:18:24 EDT 2023 Systolic Blood Pressure 147.00 mm[Hg] Wed Sep 18 08:37:48 EDT 2023 Diastolic Blood Pressure 81.00 mm[Hg] Wed Sep 18 08:37:48 EDT 4 Heart Rate 71.00 /min Wed Sep 18 08:37 :48 EDT 4 Body temperature 98.30 [degF] Wed Sep 18 08:3 7:48 EDT 4 Respiratory rate 18.00 /min Wed Sep 18 08:3 7:48 EDT 4 Systolic Blood Pressure 143.00 mm[Hg] Tue Sep 17 22:26:17 EDT 2023 Diastolic Blood Pressure 82.00 mm[Hg] Tue Sep 17 22:26:17 EDT 2023 Systolic Blood Pressure 143.00 mm[Hg] Tue Sep 17 22:26:17 EDT 2023 Diastolic Blood Pressure 82.00 mm[Hg] Tue Sep 17 22:26:17 EDT 2023 Heart Rate 64.00 /min Tue Sep 17 22:26 :17 EDT 2023 Body temperature 98.20 [degF] Tue Sep 17 22:2 6:17 EDT 2023 Respiratory rate 20.00 /min Tue Sep 17 22:2 6:17 EDT 2023 Systolic Blood Pressure 135.00 mm[Hg] Tue Sep 17 14:07:41 EDT 2023 Diastolic Blood Pressure 81.00 mm[Hg] Tue Sep 17 14:07:41 EDT 4 Systolic Blood Pressure 128.00 mm[Hg] Tue Sep 17 08:55:19 EDT 2023 Diastolic Blood Pressure 79.00 mm[Hg] Tue Sep 17 08:55:19 EDT 4 Systolic Blood Pressure 128.00 mm[Hg] Tue Sep 17 08:55:19 EDT 4 Diastolic Blood Pressure 79.00 mm[Hg] Tue Sep 17 08:55:19 EDT 2023 Heart Rate 77.00 /min Tue Sep 17 08:55 :19 EDT 2023 Body temperature 98.00 [degF] Tue Sep 17 08:5 5:19 EDT 2023 Respiratory rate 18.00 /min Tue Sep 17 08:5 5:19 EDT 2023 Systolic Blood Pressure 144.00 mm[Hg] Mon Sep 16 23:49:48 EDT 2023 Diastolic Blood Pressure 77.00 mm[Hg] Mon Sep 16 23:49:48 EDT 2023 Heart Rate 66.00 /min Mon Sep 16 23:49 :48 EDT 2023 Body temperature 98.30 [degF] Mon Sep 16 23:4 9:48 EDT 4 Respiratory rate 18.00 /min Mon Sep 16 23:4 9:48 EDT 4 Systolic Blood Pressure 144.00 mm[Hg] Mon Sep 16 22:29:59 EDT 2023 Diastolic Blood Pressure 77.00 mm[Hg] Mon Sep 16 22:29:59 EDT 2023 Systolic Blood Pressure 169.00 mm[Hg] [facility] Sep 16 17:49:13 EDT 2023 Diastolic Blood Pressure 87.00 mm[Hg] [facility] Sep 16 17:49:13 EDT 2023 Body weight 152.60 [lb_av] Mon Sep 16 09:14 :06 EDT 2023 Systolic Blood Pressure 140.00 mm[Hg] [facility] Sep 16 09:13:40 EDT 2023 Diastolic Blood Pressure 72.00 mm[Hg] [facility] Sep 16 09:13:40 EDT 2023 Systolic Blood Pressure 140.00 mm[Hg] [facility] Sep 16 09:13:40 EDT 2023 Diastolic Blood Pressure 72.00 mm[Hg] [facility] 16 09:13:40 EDT 2023 Heart Rate 61.00 /min [facility] Sep 16 09:13 :40 EDT 2023 Body temperature 98.20 [degF] [facility] Sep 16 09:1 3:40 EDT 2023 Respiratory rate 18.00 /min [facility] Sep 16 09:1 3:40 EDT 2023 Systolic Blood Pressure 146.00 mm[Hg] [place] Sep 15 23:31:26 EDT 2023 Diastolic Blood Pressure 78.00 mm[Hg] Sun Sep 15 23:31:26 EDT 2023 Heart Rate 71.00 /min Sun Sep 15 23:31 :26 EDT 2023 Body temperature 98.00 [degF] Sun Sep 15 23:3 1:26 EDT 2023 Respiratory rate 18.00 /min Sun Sep 15 23:3 1:26 EDT 2023 Systolic Blood Pressure 146.00 mm[Hg] Sun Sep 15 22:02:03 EDT 2023 Diastolic Blood Pressure 78.00 mm[Hg] Sun Sep 15 22:02:03 EDT 2023 Systolic Blood Pressure 116.00 mm[Hg] Sun Sep 15 15:11:44 EDT 2023 Diastolic Blood Pressure 68.00 mm[Hg] Sun Sep 15 15:11:44 EDT 2023 Body weight 150.00 [lb_av] Sun Sep 15 10:22 :34 EDT 2024 Systolic Blood Pressure 136.00 mm[Hg] Sun Sep 15 10:14:20 EDT 2023 Diastolic Blood Pressure 74.00 mm[Hg] Sun Sep 15 10:14:20 EDT 2023 Heart Rate 60.00 /min Sun Sep 15 10:14 :20 EDT 2023 Body temperature 98.00 [degF] Sun Sep 15 10:1 4:20 EDT 2023 Respiratory rate 18.00 /min Sun Sep 15 10:1 4:20 EDT 2023 Systolic Blood Pressure 136.00 mm[Hg] Sun Sep 15 08:50:31 EDT 2023 Diastolic Blood Pressure 74.00 mm[Hg] Sun Sep 15 08:50:31 EDT 2023 Systolic Blood Pressure 121.00 mm[Hg] Sat Sep 14 22:29:24 EDT 2023 Diastolic Blood Pressure 80.00 mm[Hg] Sat Sep 14 22:29:24 EDT 2023 Systolic Blood Pressure 118.00 mm[Hg] Sat Sep 14 18:01:01 EDT 2023 Diastolic Blood Pressure 79.00 mm[Hg] Sat Sep 14 18:01:01 EDT 2023 Heart Rate 70.00 /min Sat Sep 14 18:01 :01 EDT 2023 Body temperature 98.30 [degF] Sat Sep 14 18:0 1:01 EDT 2023 Respiratory rate 18.00 /min Sat Sep 14 18:0 1:01 ED2023 Systolic Blood Pressure 137.00 mm[Hg] Sat Sep 14 15:07:01 EDT 2023 Diastolic Blood Pressure 71.00 mm[Hg] Sat Sep 14 15:07:01 EDT 2023 Body weight 151.40 [lb_av] Sat Sep 14 15:07 :01 EDT 2023 Systolic Blood Pressure 142.00 mm[Hg] Sat Sep 14 08:50:20 EDT 2023 Diastolic Blood Pressure 70.00 mm[Hg] Sat Sep 14 08:50:20 EDT 2023 Systolic Blood Pressure 142.00 mm[Hg] Sat Sep 14 08:50:20 EDT 2023 Diastolic Blood Pressure 70.00 mm[Hg] Sat Sep 14 08:50:20 EDT 2023 Heart Rate 64.00 /min Sat Sep 14 08:50 :20 EDT 2023 Body temperature 97.80 [degF] Sat Sep 14 08:5 0:20 EDT 2023 Respiratory rate 18.00 /min Sat Sep 14 08:5 0:20 EDT 2023 Systolic Blood Pressure 134.00 mm[Hg] Sat Sep 14 00:32:20 EDT 2023 Diastolic Blood Pressure 77.00 mm[Hg] Sat Sep 14 00:32:20 EDT 2023 Heart Rate 66.00 /min Sat Sep 14 00:32 :20 EDT 2023 Body temperature 97.30 [degF] Sat Sep 14 00:3 2:20 EDT 2023 Respiratory rate 20.00 /min Sat Sep 14 00:3 2:20 EDT 2023 Systolic Blood Pressure 134.00 mm[Hg] Fri Sep 13 22:34:09 EDT 2023 Diastolic Blood Pressure 77.00 mm[Hg] Fri Sep 13 22:34:09 EDT 2023 Systolic Blood Pressure 134.00 mm[Hg] Fri Sep 13 18:08:04 EDT 2023 Diastolic Blood Pressure 77.00 mm[Hg] Fri Sep 13 18:08:04 EDT 2023 Body weight 153.20 [lb_av] Fri Sep 13 11:26 :33 EDT 2023 Systolic Blood Pressure 136.00 mm[Hg] Fri Sep 13 09:20:22 EDT 2023 Diastolic Blood Pressure 70.00 mm[Hg] Fri Sep 13 09:20:22 EDT 2023 Systolic Blood Pressure 136.00 mm[Hg] Fri Sep 13 09:20:22 EDT 2023 Diastolic Blood Pressure 70.00 mm[Hg] Fri Sep 13 09:20:22 EDT 2023 Heart Rate 62.00 /min Fri Sep 13 09:20 :22 EDT 2023 Body temperature 98.10 [degF] Fri Sep 13 09:2 0:22 EDT 2023 Respiratory rate 20.00 /min Fri Sep 13 09:2 0:22 EDT 2023 Systolic Blood Pressure 119.00 mm[Hg] [facility] Sep 12 23:13:43 EDT 2023 Diastolic Blood Pressure 70.00 mm[Hg] [facility] Sep 12 23:13:43 EDT 2023 Respiratory rate 18.00 /min [facility] Sep 12 23:1 3:43 EDT 2023 Heart Rate 66.00 /min [facility] Sep 12 23:13 :43 EDT 2023 Body temperature 98.30 [degF] [facility] Sep 12 23:1 3:43 EDT 2023 Systolic Blood Pressure 119.00 mm[Hg] [facility] Sep 12 22:57:59 EDT 2023 Diastolic Blood Pressure 70.00 mm[Hg] [facility] Sep 12 22:57:59 EDT 2023 Systolic Blood Pressure 141.00 mm[Hg] [facility] Sep 12 14:25:50 EDT 2023 Diastolic Blood Pressure 77.00 mm[Hg] [facility] Sep 12 14:25:50 EDT 2023 Body weight 153.00 [lb_av] [facility] Sep 12 09:37 :15 EDT 2023 Systolic Blood Pressure 132.00 mm[Hg] [facility] Sep 12 09:18:20 EDT 2023 Diastolic Blood Pressure 72.00 mm[Hg] [place] Sep 12 09:18:20 EDT 2023 Systolic Blood Pressure 132.00 mm[Hg] [place] Sep 12 09:18:20 EDT 2023 Diastolic Blood Pressure 72.00 mm[Hg] [place] Sep 12 09:18:20 EDT 2023 Body temperature 98.20 [degF] [facility] Sep 12 09:1 8:20 EDT 2023 Heart Rate 73.00 /min [facility] Sep 12 09:18 :20 EDT 2023 Respiratory rate 18.00 /min [facility] Sep 12 09:1 8:20 EDT 2023 Systolic Blood Pressure 130.00 mm[Hg] Wed Sep 11 22:51:33 EDT 2023 Diastolic Blood Pressure 68.00 mm[Hg] Wed Sep 11 22:51:33 EDT 2023 Systolic Blood Pressure 120.00 mm[Hg] Wed Sep 11 19:54:45 EDT 2023 Diastolic Blood Pressure 66.00 mm[Hg] Wed Sep 11 19:54:45 EDT 2023 Heart Rate 78.00 /min Wed Sep 11 19:54 :45 EDT 2023 Body temperature 98.70 [degF] Wed Sep 11 19:5 4:45 EDT 2023 Respiratory rate 18.00 /min Wed Sep 11 19:5 4:45 EDT 2023 Systolic Blood Pressure 142.00 mm[Hg] Wed Sep 11 18:36:00 EDT 2023 Diastolic Blood Pressure 51.00 mm[Hg] Wed Sep 11 18:36:00 EDT 2023 Heart Rate 75.00 /min Wed Sep 11 18:36 :00 EDT 2023 Body temperature 98.20 [degF] Wed Sep 11 18:3 6:00 EDT 2023 Respiratory rate 18.00 /min [facility] 11 18:3 6:00 EDT 2023 Pulse Oximetry 92.00 % [facility] 11 18:36 :00 EDT 2023 Body Height 63.00 [in_i] [facility] 11 18:36 :00 EDT 2023 Systolic Blood Pressure 145.00 mm[Hg] [facility] 09 23:47:07 EDT 2023 Diastolic Blood Pressure 73.00 mm[Hg] [facility] 09 23:47:07 EDT 2023 Heart Rate 68.00 /min [facility] 23:47 :07 EDT 2023 Body temperature 98.50 [degF] [facility] 09 23:4 7:07 EDT 2023 Respiratory rate 18.00 /min [facility] 23:4 7:07 EDT 2023 Systolic Blood Pressure 151.00 mm[Hg] [facility] 09 14:37:27 EDT 2023 Diastolic Blood Pressure 79.00 mm[Hg] [facility] 09 14:37:27 EDT 2023 Systolic Blood Pressure 139.00 mm[Hg] [facility] 09 08:53:12 EDT 2023 Diastolic Blood Pressure 80.00 mm[Hg] [facility] 09 08:53:12 EDT 2023 Systolic Blood Pressure 139.00 mm[Hg] [facility] 09 08:53:12 EDT 2023 Diastolic Blood Pressure 80.00 mm[Hg] [facility] 09 08:53:12 EDT 2023 Heart Rate 72.00 /min [facility] 08:53 :12 EDT 2023 Body temperature 98.00 [degF] [facility] 09 08:5 3:12 EDT 2023 Respiratory rate 18.00 /min [facility] 09 08:5 3:12 EDT 2023 Systolic Blood Pressure 124.00 mm[Hg] [place] Sep 08 23:27:06 EDT 2023 Diastolic Blood Pressure 62.00 mm[Hg] [place] Sep 08 23:27:06 EDT 2023 Heart Rate 65.00 /min Sun Sep 08 23:27 :06 EDT 2023 Body temperature 98.50 [degF] Sun Sep 08 23:2 7:06 EDT 2023 Respiratory rate 18.00 /min Sun Sep 08 23:2 7:06 EDT 2023 Systolic Blood Pressure 124.00 mm[Hg] Sun Sep 08 22:30:20 EDT 2023 Diastolic Blood Pressure 62.00 mm[Hg] Sun Sep 08 22:30:20 EDT 2024 Body weight 155.40 [lb_av] Sun Sep 08 18:58 :12 EDT 2023 Systolic Blood Pressure 120.00 mm[Hg] Sun Sep 08 14:03:14 EDT 2023 Diastolic Blood Pressure 57.00 mm[Hg] Sun Sep 08 14:03:14 EDT 2023 Systolic Blood Pressure 141.00 mm[Hg] Sun Sep 08 09:11:49 EDT 2023 Diastolic Blood Pressure 63.00 mm[Hg] Sun Sep 08 09:11:49 EDT 2023 Systolic Blood Pressure 141.00 mm[Hg] Sun Sep 08 09:11:49 EDT 2023 Diastolic Blood Pressure 63.00 mm[Hg] Sun Sep 08 09:11:49 EDT 2023 Heart Rate 60.00 /min Sun Sep 08 09:11 :49 EDT 2023 Body temperature 97.80 [degF] Sun Sep 08 09:1 1:49 EDT 4 Respiratory rate 18.00 /min Sun Sep 08 09:1 1:49 EDT 2023 Systolic Blood Pressure 138.00 mm[Hg] Sat Sep 07 22:04:23 EDT 2023 Diastolic Blood Pressure 64.00 mm[Hg] Sat Sep 07 22:04:23 EDT 4 Systolic Blood Pressure 136.00 mm[Hg] Sat Sep 07 16:35:07 EDT 2023 Diastolic Blood Pressure 82.00 mm[Hg] Sat Sep 07 16:35:07 EDT 4 Heart Rate 75.00 /min Sat Sep 07 16:35 :07 EDT 2023 Body temperature 97.50 [degF] Sat Sep 07 16:3 5:07 EDT 2023 Respiratory rate 18.00 /min Sat Sep 07 16:3 5:07 EDT 2023 Systolic Blood Pressure 131.00 mm[Hg] Sat Sep 07 15:49:20 EDT 2023 Diastolic Blood Pressure 57.00 mm[Hg] Sat Sep 07 15:49:20 EDT 2023 Body weight 155.40 [lb_av] Sat Sep 07 10:26 :10 EDT 2023 Systolic Blood Pressure 140.00 mm[Hg] Sat Sep 07 10:25:45 EDT 4 Diastolic Blood Pressure 78.00 mm[Hg] Sat Sep 07 10:25:45 EDT 2023 Heart Rate 62.00 /min Sat Sep 07 10:25 :45 EDT 2023 Body temperature 98.10 [degF] Sat Sep 07 10:2 5:45 EDT 2023 Respiratory rate 18.00 /min Sat Sep 07 10:2 5:45 EDT 2023 Systolic Blood Pressure 140.00 mm[Hg] Sat Sep 07 10:23:34 EDT 2023 Diastolic Blood Pressure 78.00 mm[Hg] Sat Sep 07 10:23:34 EDT 2023 Systolic Blood Pressure 118.00 mm[Hg] Sat Sep 07 00:11:13 EDT 2023 Diastolic Blood Pressure 59.00 mm[Hg] Sat Sep 07 00:11:13 EDT 2023 Heart Rate 74.00 /min Sat Sep 07 00:11 :13 EDT 2023 Body temperature 98.00 [degF] Sat Sep 07 00:1 1:13 EDT 2023 Respiratory rate 18.00 /min Sat Sep 07 00:1 1:13 EDT 2023 Systolic Blood Pressure 124.00 mm[Hg] Fri Sep 06 22:00:44 EDT 2023 Diastolic Blood Pressure 63.00 mm[Hg] Fri Sep 06 22:00:44 EDT 2023 Systolic Blood Pressure 106.00 mm[Hg] Fri Sep 06 14:22:44 EDT 2023 Diastolic Blood Pressure 58.00 mm[Hg] Fri Sep 06 14:22:44 EDT 2023 Body weight 156.00 [lb_av] Fri Sep 06 12:09 :38 EDT 2023 Systolic Blood Pressure 135.00 mm[Hg] Fri Sep 06 11:22:11 EDT 2023 Diastolic Blood Pressure 83.00 mm[Hg] Fri Sep 06 11:22:11 EDT 2023 Systolic Blood Pressure 135.00 mm[Hg] Fri Sep 06 11:22:11 EDT 2023 Diastolic Blood Pressure 83.00 mm[Hg] Fri Sep 06 11:22:11 EDT 2023 Heart Rate 68.00 /min Fri Sep 06 11:22 :11 EDT 2023 Body temperature 98.20 [degF] Fri Sep 06 11:2 2:11 EDT 2023 Respiratory rate 18.00 /min Fri Sep 06 11:2 2:11 EDT 2023 Systolic Blood Pressure 126.00 mm[Hg] [facility] Sep 05 22:55:26 EDT 2023 Diastolic Blood Pressure 70.00 mm[Hg] [facility] Sep 05 22:55:26 EDT 2023 Systolic Blood Pressure 126.00 mm[Hg] [facility] Sep 05 20:05:56 EDT 2023 Diastolic Blood Pressure 68.00 mm[Hg] [facility] Sep 05 20:05:56 EDT 2023 Heart Rate 66.00 /min [facility] Sep 05 20:05 :56 EDT 2023 Body temperature 97.80 [degF] [facility] Sep 05 20:0 5:56 EDT 2023 Respiratory rate 18.00 /min [facility] Sep 05 20:0 5:56 EDT 2023 Systolic Blood Pressure 103.00 mm[Hg] [facility] Sep 05 16:17:44 EDT 2023 Diastolic Blood Pressure 68.00 mm[Hg] [facility] Sep 05 16:17:44 EDT 2023 Body weight 156.60 [lb_av] [facility] Sep 05 13:43 :53 EDT 2023 Systolic Blood Pressure 135.00 mm[Hg] [facility] Sep 05 09:22:20 EDT 2023 Diastolic Blood Pressure 91.00 mm[Hg] [facility] Sep 05 09:22:20 EDT 2023 Systolic Blood Pressure 135.00 mm[Hg] [facility] Sep 05 09:22:20 EDT 2023 Diastolic Blood Pressure 91.00 mm[Hg] [facility] Sep 05 09:22:20 EDT 2023 Heart Rate 72.00 /min [facility] Sep 05 09:22 :20 EDT 2023 Body temperature 98.60 [degF] [facility] Sep 05 09:2 2:20 EDT 2023 Respiratory rate 18.00 /min [facility] Sep 05 09:2 2:20 EDT 2023 Systolic Blood Pressure 114.00 mm[Hg] Wed Sep 04 22:23:56 EDT 2023 Diastolic Blood Pressure 61.00 mm[Hg] Wed Sep 04 22:23:56 EDT 2023 Systolic Blood Pressure 112.00 mm[Hg] Wed Sep 04 17:50:51 EDT 2023 Diastolic Blood Pressure 68.00 mm[Hg] Wed Sep 04 17:50:51 EDT 2023 Heart Rate 74.00 /min Wed Sep 04 17:50 :51 EDT 2023 Body temperature 96.90 [degF] Wed Sep 04 17:5 0:51 EDT 2023 Respiratory rate 18.00 /min Wed Sep 04 17:5 0:51 EDT 2023 Body weight 153.60 [lb_av] Wed Sep 04 17:25 :38 EDT 2024 Systolic Blood Pressure 115.00 mm[Hg] Wed Sep 04 15:07:29 EDT 4 Diastolic Blood Pressure 68.00 mm[Hg] Wed Sep 04 15:07:29 EDT 4 Systolic Blood Pressure 126.00 mm[Hg] Wed Sep 04 09:53:41 EDT 4 Diastolic Blood Pressure 63.00 mm[Hg] Wed Sep 04 09:53:41 EDT 4 Systolic Blood Pressure 126.00 mm[Hg] Wed Sep 04 09:53:41 EDT 2023 Diastolic Blood Pressure 63.00 mm[Hg] Wed Sep 04 09:53:41 EDT 4 Heart Rate 63.00 /min Wed Sep 04 09:53 :41 EDT 2023 Body temperature 97.80 [degF] Wed Sep 04 09:5 3:41 EDT 4 Respiratory rate 16.00 /min Wed Sep 04 09:5 3:41 EDT 4 Systolic Blood Pressure 126.00 mm[Hg] Wed Sep 04 08:26:49 EDT 4 Diastolic Blood Pressure 63.00 mm[Hg] Wed Sep 04 08:26:49 EDT 4 Heart Rate 63.00 /min Wed Sep 04 08:26 :49 EDT 2023 Body temperature 97.80 [degF] Wed Sep 04 08:2 6:49 EDT 4 Respiratory rate 16.00 /min Wed Sep 04 08:2 6:49 EDT 4 Pulse Oximetry 93.00 % Wed Sep 04 08:26 :49 EDT 4 Systolic Blood Pressure 133.00 mm[Hg] e Sep 22:56:43 EDT 4 Diastolic Blood Pressure 78.00 mm[Hg] e Sep 22:56:43 EDT 4 Heart Rate 77.00 /min e Sep 22:56 :43 EDT 4 Body temperature 98.50 [degF] e Sep 22:5 6:43 EDT 4 Respiratory rate 17.00 /min e Sep 22:5 6:43 EDT 2023 Systolic Blood Pressure 133.00 mm[Hg] e Sep 22:19:14 EDT 2023 Diastolic Blood Pressure 78.00 mm[Hg] e Sep 22:19:14 EDT 4 Body weight 155.60 [lb_av] e Sep 11:00 :27 EDT 2023 Systolic Blood Pressure 112.00 mm[Hg] e Sep 03 09:55:56 EDT 2023 Diastolic Blood Pressure 64.00 mm[Hg] e Sep 03 09:55:56 EDT 2023 Systolic Blood Pressure 112.00 mm[Hg] e Sep 03 09:55:41 EDT 2023 Diastolic Blood Pressure 64.00 mm[Hg] e Sep 03 09:55:41 EDT 2023 Heart Rate 73.00 /min e Sep 03 09:55 :41 EDT 2023 Body temperature 98.10 [degF] e Sep 03 09:5 5:41 EDT 2023 Respiratory rate 18.00 /min e Sep 03 09:5 5:41 EDT 2023 Systolic Blood Pressure 132.00 mm[Hg] Mon Sep 02 22:42:57 EDT 2023 Diastolic Blood Pressure 61.00 mm[Hg] [facility] Sep 02 22:42:57 EDT 2023 Heart Rate 72.00 /min [facility] Sep 02 22:42 :57 EDT 2023 Body temperature 98.30 [degF] [facility] Sep 02 22:4 2:57 EDT 2023 Respiratory rate 18.00 /min [facility] Sep 02 22:4 2:57 EDT 2023 Systolic Blood Pressure 132.00 mm[Hg] Mon Sep 02 22:26:43 EDT 4 Diastolic Blood Pressure 61.00 mm[Hg] Mon Sep 02 22:26:43 EDT 2023 Systolic Blood Pressure 133.00 mm[Hg] Mon Sep 02 16:59:40 EDT 2023 Diastolic Blood Pressure 68.00 mm[Hg] Mon Sep 02 16:59:40 EDT 2023 Systolic Blood Pressure 113.00 mm[Hg] Mon Sep 02 08:47:22 EDT 2023 Diastolic Blood Pressure 63.00 mm[Hg] Mon Sep 02 08:47:22 EDT 4 Systolic Blood Pressure 113.00 mm[Hg] Mon Sep 02 08:47:05 EDT 2023 Diastolic Blood Pressure 63.00 mm[Hg] Mon Sep 02 08:47:05 EDT 2023 Body weight 153.60 [lb_av] Mon Sep 02 08:47 :05 EDT 2023 Heart Rate 64.00 /min Mon Sep 02 08:47 :05 EDT 2023 Body temperature 98.00 [degF] Mon Sep 02 08:4 7:05 EDT 2023 Respiratory rate 18.00 /min Mon Sep 02 08:4 7:05 EDT 2023 Systolic Blood Pressure 116.00 mm[Hg] Sun Sep 01 23:15:09 EDT 2023 Diastolic Blood Pressure 63.00 mm[Hg] Sun Sep 23:15:09 EDT 2023 Heart Rate 73.00 /min Sun Sep 23:15 :09 EDT 2023 Body temperature 98.30 [degF] Sun Sep 23:1 5:09 EDT 2023 Respiratory rate 20.00 /min Sun Sep 23:1 5:09 EDT 2023 Systolic Blood Pressure 116.00 mm[Hg] Sun Sep 22:33:15 EDT 2023 Diastolic Blood Pressure 63.00 mm[Hg] Sun Sep 22:33:15 EDT 2023 Systolic Blood Pressure 133.00 mm[Hg] Sun Sep 14:46:03 EDT 2023 Diastolic Blood Pressure 69.00 mm[Hg] Sun Sep 14:46:03 EDT 2023 Body weight 154.80 [lb_av] Sun Sep 09:43 :21 EDT 2023 Systolic Blood Pressure 118.00 mm[Hg] Sun Sep 09:08:13 EDT 2023 Diastolic Blood Pressure 63.00 mm[Hg] Sun Sep 09:08:13 EDT 2023 Systolic Blood Pressure 118.00 mm[Hg] Sun Sep 09:08:13 EDT 2023 Diastolic Blood Pressure 63.00 mm[Hg] Sun Sep 09:08:13 EDT 2023 Heart Rate 67.00 /min Sun Sep 09:08 :13 EDT 2023 Body temperature 98.20 [degF] Sun Sep 09:0 8:13 EDT 2023 Respiratory rate 18.00 /min Sun Sep 09:0 8:13 EDT 2023 Systolic Blood Pressure 128.00 mm[Hg] [facility] Jan 08 22:57:43 EDT 2023 Diastolic Blood Pressure 69.00 mm[Hg] [facility] Jan 08 22:57:43 EDT 2023 Heart Rate 70.00 /min ThuJan 08 22:57 :43 EDT 2023 Body temperature 98.20 [degF] [facility] Jan 08 22:5 7:43 EDT 2023 Respiratory rate 18.00 /min ThuJan 08 22:5 7:43 EDT 2023 Systolic Blood Pressure 128.00 mm[Hg] [facility] Jan 08 22:20:58 EDT 2023 Diastolic Blood Pressure 69.00 mm[Hg] [facility] Jan 08 22:20:58 EDT 2023 Systolic Blood Pressure 119.00 mm[Hg] [facility] Jan 08 14:57:00 EDT 2023 Diastolic Blood Pressure 69.00 mm[Hg] [facility] Jan 08 14:57:00 EDT 2023 Body weight 153.80 [lb_av] [facility] Jan 08 14:08 :25 EDT 2023 Systolic Blood Pressure 121.00 mm[Hg] [facility] Jan 08 10:20:33 EDT 2023 Diastolic Blood Pressure 65.00 mm[Hg] [facility] Jan 08 10:20:33 EDT 2023 Systolic Blood Pressure 121.00 mm[Hg] [facility] Jan 08 10:20:33 EDT 2023 Diastolic Blood Pressure 65.00 mm[Hg] [facility] Jan 08 10:20:33 EDT 2023 Heart Rate 94.00 /min [facility] Jan 08 10:20 :33 EDT 2023 Body temperature 98.00 [degF] [facility] Jan 08 10:2 0:33 EDT 2023 Respiratory rate 18.00 /min [facility] Jan 08 10:2 0:33 EDT 2023 Systolic Blood Pressure 134.00 mm[Hg] [facility] Jan 08 01:02:55 EDT 2023 Diastolic Blood Pressure 82.00 mm[Hg] [facility] Jan 08 01:02:55 EDT 2023 Heart Rate 74.00 /min [facility] Jan 08 01:02 :55 EDT 2023 Body temperature 98.50 [degF] [facility] Jan 08 01:0 2:55 EDT 2023 Respiratory rate 20.00 /min [facility] Jan 08 01:0 2:55 EDT 2023 Systolic Blood Pressure 134.00 mm[Hg] ThuJan 07 22:39:56 EDT 2023 Diastolic Blood Pressure 82.00 mm[Hg] ThuJan 07 22:39:56 EDT 2023 Systolic Blood Pressure 141.00 mm[Hg] ThuJan 07 16:03:45 EDT 2023 Diastolic Blood Pressure 84.00 mm[Hg] ThuJan 07 16:03:45 EDT 2023 Body weight 151.90 [lb_av] ThuJan 07 13:01 :29 EDT 2023 Systolic Blood Pressure 123.00 mm[Hg] ThuJan 07 10:08:02 EDT 2023 Diastolic Blood Pressure 79.00 mm[Hg] ThuJan 07 10:08:02 EDT 2023 Systolic Blood Pressure 123.00 mm[Hg] ThuJan 07 10:08:02 EDT 2023 Diastolic Blood Pressure 79.00 mm[Hg] ThuJan 07 10:08:02 EDT 2023 Heart Rate 78.00 /min ThuJan 07 10:08 :02 EDT 2023 Body temperature 97.80 [degF] ThuJan 07 10:0 8:02 EDT 2023 Respiratory rate 18.00 /min ThuJan 07 10:0 8:02 EDT 2023 Systolic Blood Pressure 118.00 mm[Hg] ThuJan 06 22:00:42 EDT 2023 Diastolic Blood Pressure 75.00 mm[Hg] ThuJan 06 22:00:42 EDT 2023 Systolic Blood Pressure 118.00 mm[Hg] ThuJan 06 19:43:10 EDT 2023 Diastolic Blood Pressure 75.00 mm[Hg] ThuJan 06 19:43:10 EDT 2023 Heart Rate 107.00 /min ThuJan 06 19:43 :10 EDT 2023 Body temperature 98.00 [degF] ThuJan 06 19:4 3:10 EDT 2023 Respiratory rate 20.00 /min ThuJan 06 19:4 3:10 EDT 2023 Body weight 150.40 [lb_av] ThuJan 06 18:26 :17 EDT 2023 Systolic Blood Pressure 118.00 mm[Hg] ThuJan 06 17:49:33 EDT 2023 Diastolic Blood Pressure 62.00 mm[Hg] ThuJan 06 17:49:33 EDT 2023 Systolic Blood Pressure 125.00 mm[Hg] ThuJan 06 09:16:09 EDT 2023 Diastolic Blood Pressure 70.00 mm[Hg] ThuJan 06 09:16:09 EDT 2023 Systolic Blood Pressure 125.00 mm[Hg] ThuJan 06 09:16:09 EDT 2023 Diastolic Blood Pressure 70.00 mm[Hg] ThuJan 06 09:16:09 EDT 2023 Heart Rate 76.00 /min ThuJan 06 09:16 :09 EDT 2023 Body temperature 97.90 [degF] ThuJan 06 09:1 6:09 EDT 2023 Respiratory rate 18.00 /min ThuJan 06 09:1 6:09 EDT 2023 Systolic Blood Pressure 138.00 mm[Hg] ThuJan 05 22:46:47 EDT 2023 Diastolic Blood Pressure 76.00 mm[Hg] ThuJan 05 22:46:47 EDT 2023 Systolic Blood Pressure 138.00 mm[Hg] ThuJan 05 20:38:51 EDT 2023 Diastolic Blood Pressure 76.00 mm[Hg] ThuJan 05 20:38:51 EDT 2023 Heart Rate 76.00 /min ThuJan 05 20:38 :51 EDT 2023 Body temperature 98.70 [degF] ThuJan 05 20:3 8:51 EDT 2023 Respiratory rate 18.00 /min ThuJan 05 20:3 8:51 EDT 2023 Systolic Blood Pressure 113.00 mm[Hg] ThuJan 05 14:58:34 EDT 2023 Diastolic Blood Pressure 70.00 mm[Hg] ThuJan 05 14:58:34 EDT 2023 Systolic Blood Pressure 126.00 mm[Hg] ThuJan 05 08:56:47 EDT 2023 Diastolic Blood Pressure 75.00 mm[Hg] ThuJan 05 08:56:47 EDT 2023 Systolic Blood Pressure 126.00 mm[Hg] ThuJan 05 08:56:47 EDT 2023 Diastolic Blood Pressure 75.00 mm[Hg] ThuJan 05 08:56:47 EDT 2023 Body weight 150.80 [lb_av] ThuJan 05 08:56 :47 EDT 2023 Heart Rate 76.00 /min ThuJan 05 08:56 :47 EDT 2023 Body temperature 97.70 [degF] ThuJan 05 08:5 6:47 EDT 2023 Respiratory rate 18.00 /min ThuJan 05 08:5 6:47 EDT 2023 Systolic Blood Pressure 120.00 mm[Hg] ThuJan 05 00:02:48 EDT 2023 Diastolic Blood Pressure 63.00 mm[Hg] ThuJan 05 00:02:48 EDT 2023 Heart Rate 76.00 /min ThuJan 05 00:02 :48 EDT 2023 Body temperature 98.50 [degF] ThuJan 05 00:0 2:48 EDT 2023 Respiratory rate 20.00 /min ThuJan 05 00:0 2:48 EDT 2023 Systolic Blood Pressure 120.00 mm[Hg] ThuJan 04 22:21:22 EDT 2023 Diastolic Blood Pressure 63.00 mm[Hg] ThuJan 04 22:21:22 EDT 2023 Systolic Blood Pressure 127.00 mm[Hg] ThuJan 04 14:24:06 EDT 2023 Diastolic Blood Pressure 72.00 mm[Hg] ThuJan 04 14:24:06 EDT 2023 Body Height 63.00 [in_i] ThuJan 04 13:01 :54 EDT 2023 Body weight 151.40 [lb_av] ThuJan 04 10:25 :07 EDT 2023 Systolic Blood Pressure 128.00 mm[Hg] ThuJan 04 08:50:09 EDT 2023 Diastolic Blood Pressure 75.00 mm[Hg] ThuJan 04 08:50:09 EDT 2023 Systolic Blood Pressure 128.00 mm[Hg] ThuJan 04 08:49:44 EDT 2023 Diastolic Blood Pressure 75.00 mm[Hg] ThuJan 04 08:49:44 EDT 2023 Heart Rate 93.00 /min ThuJan 04 08:49 :44 EDT 2023 Body temperature 97.80 [degF] ThuJan 04 08:4 9:44 EDT 2023 Respiratory rate 18.00 /min ThuJan 04 08:4 9:44 EDT 2023 Systolic Blood Pressure 124.00 mm[Hg] ThuJan 04 00:58:33 EDT 2023 Diastolic Blood Pressure 82.00 mm[Hg] ThuJan 04 00:58:33 EDT 2023 Heart Rate 72.00 /min ThuJan 04 00:58 :33 EDT 2023 Body temperature 98.50 [degF] ThuJan 04 00:5 8:33 EDT 2023 Respiratory rate 18.00 /min ThuJan 04 00:5 8:33 EDT 2023 Systolic Blood Pressure 124.00 mm[Hg] ThuJan 03 22:58:28 EDT 2023 Diastolic Blood Pressure 82.00 mm[Hg] ThuJan 03 22:58:28 EDT 2023 Body weight 63.00 [lb_av] ThuJan 03 15:48 :46 EDT 2023 Systolic Blood Pressure 123.00 mm[Hg] ThuJan 03 14:52:34 EDT 2023 Diastolic Blood Pressure 80.00 mm[Hg] ThuJan 03 14:52:34 EDT 2023 Systolic Blood Pressure 115.00 mm[Hg] ThuJan 03 09:01:10 EDT 2023 Diastolic Blood Pressure 76.00 mm[Hg] ThuJan 03 09:01:10 EDT 2023 Systolic Blood Pressure 115.00 mm[Hg] ThuJan 03 09:01:10 EDT 2023 Diastolic Blood Pressure 76.00 mm[Hg] ThuJan 03 09:01:10 EDT 2023 Body weight 150.80 [lb_av] ThuJan 03 09:01 :10 EDT 2023 Heart Rate 79.00 /min ThuJan 03 09:01 :10 EDT 2023 Body temperature 98.20 [degF] ThuJan 03 09:0 1:10 EDT 2023 Respiratory rate 20.00 /min ThuJan 03 09:0 1:10 EDT 2023 Systolic Blood Pressure 142.00 mm[Hg] ThuJan 03 00:07:05 EDT 2023 Diastolic Blood Pressure 81.00 mm[Hg] ThuJan 03 00:07:05 EDT 2023 Heart Rate 79.00 /min ThuJan 03 00:07 :05 EDT 2023 Body temperature 98.30 [degF] ThuJan 03 00:0 7:05 EDT 2023 Respiratory rate 20.00 /min ThuJan 03 00:0 7:05 EDT 2023 Systolic Blood Pressure 142.00 mm[Hg] [place] Jan 02 23:58:26 EDT 2023 Diastolic Blood Pressure 81.00 mm[Hg] [place] Jan 02 23:58:26 EDT 2023 Systolic Blood Pressure 142.00 mm[Hg] [place] Jan 02 15:29:00 EDT 2023 Diastolic Blood Pressure 81.00 mm[Hg] [place] Jan 02 15:29:00 EDT 2023 Heart Rate 79.00 /min [place] Jan 02 15:29 :00 EDT 2023 Pulse Oximetry 98.00 % [place] Jan 02 15:29 :00 EDT 2023 Body weight 152.00 [lb_av] [place] Jan 02 15:29 :00 EDT 2023 Body temperature 98.30 [degF] [place] Jan 02 15:2 9:00 EDT 2023 Respiratory rate 20.00 /min [place] Jan 02 15:2 9:00 EDT 2023 Reason for Referral
--- OUTSIDE RECORDS SUMMARY | 2024-08-09 00:14 | XMS_ITS ---
Author Name Lian Stewart [place] Address [address] [place] [address] Phone [phone] [facility] Address [address] [place] [address] Phone [phone] Care Team Providers Care Pipeman Name Role Phone Lian Stewart Unavailable [phone] Krystal Young Unavailable Harshil Bowman Unavailable [phone] Functional Status Mental Status Allergies and Intolerances Encounters Immunizations Medications Problems Vital Signs Reason for Referral
--- NOTE | 2024-08-09 00:42 | ECG_ITS ---
Test Date: 2024-08-09 00:58:33 Measurements Intervals [place] Rate: 67 P: 52 NM: 184 QRS: 28 QRSD: 85 T: 21 QT: 369 QTc: 390 Interpretive Statements SINUS RHYTHM EARLY PRECORDIAL R/S TRANSITION VOLTAGE CRITERIA FOR LVH BORDERLINE ECG Compared to ECG 03/07/2024 12:36:25 No significant changes Electronically Signed On 08-09-2024 06:11:30 CDT by Cong Lanier D.O.
--- NOTE | 2024-08-09 00:46 | ED.URI ---
HPI - URI/Sore Throat General Chief Complaint: Upper Respiratory Infection Stated Complaint: coughing Time Seen by Provider: 08/09/24 00:14 Source: patient Mode of arrival: ambulatory Limitations: no limitations History of Present Illness HPI Narrative: This is an 79-year-old female that presents to the emergency department for cold symptoms. Reports cough chest tightness. Reports history of asthma and she is out of her albuterol inhaler. Related Data Home Medications ?Medication ?Instructions ?Recorded ?Confirmed ?Last Taken ?Type ferrous sulfate 325 mg (65 mg 325 mg PO DAILY 12/22/23 01/19/24 01/18/24 History iron) tablet (Iron (ferrous sulfate)) metformin 500 mg tablet,extended 500 mg PO DAILY 12/22/23 01/19/24 01/18/24 History release 24 hr allopurinol 100 mg tablet 100 mg PO DAILY 12/24/23 01/19/24 01/18/24 History cyclobenzaprine 10 mg tablet 10 mg PO TID PRN Muscle Pain 12/24/23 01/19/24 Unknown History montelukast 10 mg tablet 10 mg PO HS 12/24/23 01/19/24 01/18/24 History omeprazole 20 mg capsule,delayed 20 mg PO DAILY 12/24/23 01/19/24 01/18/24 History release Allergies Allergy/AdvReac Type Severity Reaction Status Date / Time prednisone AdvReac Intermediate increased Verified 05/02/24 11:10 heart rate codeine AdvReac Mild Vomiting Verified 05/02/24 11:10 Review of Systems Review of Systems: CONSTITUTIONAL: Denies fever ENT: Reports congestion CARDIOVASCULAR: Denies chest pain RESPIRATORY: Reports cough and dyspnea. All systems reviewed & are unremarkable except as noted in HPI and below PMFSH Past Medical History Medical History Strain of left calf muscle Endometriosis Anemia Renal disease Bronchitis Asthma Hyperlipidemia Hypertension Diabetes mellitus Surgical History Surgical History History of total hysterectomy with bilateral salpingo-oophorectomy (BSO) Family History Family History Mother Hypertension CHF (congestive heart failure) Father Patient's father is in good health Brain aneurysm Social History Social History Social History: Patient lives alone but is currently at [facility] for therapy. 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 HEAD: Normocephalic, atraumatic. EYES: EOMI. ENT: Nares clear, no rhinorrhea or epistaxis. Mucous membranes moist. Oropharynx without tonsillar hypertrophy exudate or other lesions. Bilateral TMs pearly robertson non-bulging NECK: Supple. No adenopathy or masses. CHEST: Clear to auscultation. No respiratory distress. No wheezes rales or rhonchi HEART: Regular rate and rhythm. No murmur heard. Normal peripheral pulses. EXTREMITIES: Normal range of motion. No edema. SKIN: Warm, dry, no rash. NEURO: No focal deficits. Alert and oriented x3. PSYCH: Normal mood and affect Course Course Emergency Course: Patient updated on her workup. Reports improvement after nebulizer treatment Vital Signs Vital signs: Vital Signs Temperature 98.3 F 08/08/24 23:31 Pulse Rate 68 08/08/24 23:31 Respiratory Rate 15 08/08/24 23:31 Blood Pressure 179/79 H 08/08/24 23:31 Pulse Oximetry 98 08/08/24 23:31 Oxygen Delivery Room Air 08/08/24 23:31 Temperature 98.3 F 08/08/24 23:31 Pulse Rate 62 08/09/24 01:04 Respiratory Rate 18 08/09/24 01:04 Blood Pressure 179/79 H 08/08/24 23:31 Pulse Oximetry 98 08/08/24 23:31 Oxygen Delivery Room Air 08/08/24 23:31 MDM - URI/Sore Throat MDM Narrative Medical decision making narrative: Patient presents to the emergency department for cold symptoms. She is afebrile and nontoxic appearing. Oxygen saturation is normal on room air. Cbc without leukocytosis. Metabolic panel without concerning findings. Chest x-ray without acute cardiopulmonary abnormality. EKG without concerning changes in baseline troponin is negative. Patient updated on her workup. Reports improvement after nebulizer treatment. Instructed on continued care of viral infection. She is to follow up with primary provider. She was given warnings to return to the ER Differential Diagnosis Differential diagnosis: Likely upper respiratory infection, viral infection, bronchitis, influenza and other (Pneumonia) Lab Data Attestation: I reviewed the patient's lab results. 08/09/24 00:49 08/09/24 00:49 Labs: Lab Results 08/09/24 08/09/24 Range/Units 00:23 00:49 WBC 8.3 (4.5-10.0) K/mm3 RBC 4.40 (4.2-5.4) M/mm3 Hgb 12.0 (12.0-15.0) g/dL Hct 37.8 (37.0-47.0) % MCV 85.9 (80-100) fl MCH 27.3 (26-34) pg MCHC 31.7 L (32-36) g/dl RDW 14.6 H (11.5-14.5) % Plt Count 194 (150-375) k/mm3 MPV 9.7 (7.4-10.4) fl Immature Gran % (Auto) 0.2 (0-0.5) % Neut % (Auto) 69.2 (45.5-73.1) % Lymph % (Auto) 20.3 (18.3-44.2) % Cobb % (Auto) 7.6 (2.6-8.5) % Eos % (Auto) 2.2 (0-4.4) % Baso % (Auto) 0.5 (0.2-1.2) % Lymph # (Auto) 1.68 (0.9-3.2) K/mm3 Cobb # (Auto) 0.6 (0.1-0.6) K/mm3 Eos # (Auto) 0.2 (0-0.3) K/mm3 Baso # (Auto) 0.0 (0.0-0.1) K/mm3 Abs Immat Gran (auto) 0.02 (0.00-0.031) K/mm3 Absolute Neuts (auto) 5.7 (1.3-6.7) K/mm3 Absolute Nucleated RBC 0.000 (0.0-0.012) K/mm3 Nucleated RBC % 0.0 (0.0-0.2) % Sodium 137 (137-145) mmol/L Potassium 3.9 (3.4-5.0) mmol/L Chloride 100 (98-107) mmol/L Carbon Dioxide 24 (22-30) mmol/L Anion Gap 13 H (4-12) mmol/L BUN 22 H (7-17) mg/dL Creatinine 0.89 (0.7-1.0) mg/dL Estim Creat Clear Calc 37 ml/min Estimated GFR > 60 (59 - ) Glucose 124 H (65-110) mg/dL Calcium 10.9 H (8.4-10.2) mg/dL Troponin I < 0.012 (0.000-0.034) ng/mL Influenza A (RT-PCR) Negative (Negative) Influenza B (RT-PCR) Negative (Negative) RSV (RT-PCR) Negative (Negative) SARS-CoV-2 RNA (RT-PCR) Negative (Negative) Imaging Data Radiologist's impression: Chest x-ray: No consolidation, pneumothorax or significant pleural effusion. The cardiac silhouette is within normal limits ECG Data EKG #1: ECG completion date: 08/09/24 EKG Interpretation: normal rate, sinus rhythm, no ST changes and normal QT Critical Care Time Critical Care Time Critical Care Time: No Discharge Plan Discharge Clinical Impression: Upper respiratory infection Qualifiers: URI type: unspecified viral URI Qualified Code(s): J06.9 - Acute upper respiratory infection, unspecified Patient Disposition: Home, Self-Care Condition: Stable Instructions: Upper Respiratory Infection (ED) Additional Instructions: Return to the emergency department for worsening symptoms, or any other concerns Remain well-hydrated, get plenty of rest. Take Tylenol or Motrin [id number] for pain as needed. Flonase for nasal congestion. Zyrtec for runny nose. Lozenges or Chloraseptic spray for sore throat. Albuterol 2 puffs every 4-6 hours as needed Follow up with primary care doctor Patient Language: Zambian Prescriptions: New albuterol sulfate [Ventolin HFA] 90 mcg/actuation HFA aerosol inhaler 2 puff inhalation QID PRN (Reason: shortness of breath or wheezing) Qty: 8.5 0RF No Action albuterol sulfate 90 mcg/actuation HFA aerosol inhaler 2 puff INHALATION QID PRN (Reason: shortness of breath or wheezing) Qty: 8 0RF ferrous sulfate [Iron (ferrous sulfate)] 325 mg (65 mg iron) Tablet 325 mg PO DAILY metformin 500 mg tablet extended release 24 hr 500 mg PO DAILY methocarbamol 750 mg tablet 750 mg PO TID PRN (Reason: pain) Qty: 20 0RF methylprednisolone [Medrol (Juancarlos)] 4 mg tablets,dose pack See Rx Instructions .ROUTE .COMPLEX Qty: 21 0RF Rx Instructions: orally per package directions atorvastatin 40 mg tablet 40 mg PO HS Qty: 90 3RF metoprolol tartrate 50 mg tablet 50 mg PO TID Qty: 270 1RF ropinirole 1 mg tablet 1 mg PO QHS Qty: 90 3RF allopurinol 100 mg tablet 100 mg PO DAILY omeprazole 20 mg capsule,delayed release(DR/EC) 20 mg PO DAILY montelukast 10 mg tablet 10 mg PO HS cyclobenzaprine 10 mg Tablet 10 mg PO TID PRN (Reason: Muscle Pain) Follow-up/Referrals: Maria L,Daquan Lilly PATonieC [Primary Care Provider] -
[2024-08-09] MEDS: IPRATROPIUM 0.5 MG/ALBUTEROL SULFATE 2.5 MG AMPUL.NEB 3 ML INHALATION (00:55)
[2024-08-09 00:56] VITALS: PULSE 70; RESP 18
[2024-08-09 00:58] LABS: Basophils Percent Auto 0.5 % (0.2-1.2); Eosinophils Absolute Auto 0.2 K/mm3 (0-0.3); Eosinophils Percent Auto 2.2 % (0-4.4); Hematocrit 37.8 % (37.0-47.0); Immature Granulocyte Absolute 0.02 K/mm3 (0.00-0.031); Immature Granulocyte Percent A 0.2 % (0-0.5); Lymphocytes Absolute Auto 1.68 K/mm3 (0.9-3.2); Lymphocytes Percent Auto 20.3 % (18.3-44.2); Mean Corpuscular HGB Conc 31.7 g/dl (32-36); Mean Corpuscular Hemoglobin 27.3 pg (26-34); Mean Corpuscular Volume 85.9 fl (80-100); Mean Platelet Volume 9.7 fl (7.4-10.4); Monocytes Absolute Auto 0.6 K/mm3 (0.1-0.6); Monocytes Percent Auto 7.6 % (2.6-8.5); Neutrophils Absolute Auto 5.7 K/mm3 (1.3-6.7); Neutrophils Percent Auto 69.2 % (45.5-73.1); Platelet Count Result 194 k/mm3 (150-375); Red Cell Distribution Width 14.6 % (11.5-14.5); White Blood Count 8.3 K/mm3 (4.5-10.0)
[2024-08-09 01:04] VITALS: PULSE 62; RESP 18
[2024-08-09 01:04] LABS: Influenza A QL RT-PCR Negative (Negative); Influenza B QL RT-PCR Negative (Negative); RSV RNA, RT-PCR Negative (Negative); SARS-CoV-2 RNA PCR Negative (Negative)
[2024-08-09 01:09] LABS: Anion Gap 13 mmol/L (4-12); Blood Urea Nitrogen 22 mg/dL (7-17); Calcium 10.9 mg/dL (8.4-10.2); Carbon Dioxide 24 mmol/L (22-30); Chloride 100 mmol/L (98-107); Estimated CRCL calculation 37 ml/min; Estimated Glomerular Filt Rate > 60; Glucose 124 mg/dL (65-110); Potassium 3.9 mmol/L (3.4-5.0); Sodium 137 mmol/L (137-145)
[2024-08-09 01:21] LABS: Troponin I < 0.012 ng/mL (0.000-0.034)
[2024-08-09 03:00] VITALS: BP 138/66; PULSE 88; RESP 15; O2SAT 100
== END 2024-08-09 03:01 | disposition home or self-care (01) ==
PROVIDERS: Emergency Provider Physician Assistant; PCP Physician Assistant
DX: J06.9 Acute upper respiratory infection, unspecified (principal); Z20.822 Contact with and (suspected) exposure to COVID-19; I10 Essential (primary) hypertension; E78.5 Hyperlipidemia, unspecified; E11.9 Type 2 diabetes mellitus without complications; J45.909 Unspecified asthma, uncomplicated; Z86.2 Personal history of diseases of the blood and blood-forming organs and certain disorders involving the immune mechanism; Z90.710 Acquired absence of both cervix and uterus; Z79.899 Other long term (current) drug therapy; Z79.84 Long term (current) use of oral hypoglycemic drugs; R94.31 Abnormal electrocardiogram [ECG] [EKG]
CPT/HCPCS: 36415; 71046; 80048; 84484; 85025; 87637; 93005; 94640; 99284

== ENCOUNTER 2024-08-26 06:41 | Outpatient (CLI) | payer MEDICARE, SELFPAY ==
--- NOTE | ~2024-08-26 | MR_ITS ---
MRI of the lumbar spine Clinical History: Radiculopathy Technique: Axial T2-weighted images, and sagittal T1-weighted, T2-weighted, and T2 fat-sat images wer e acquired. Findings: There is no fracture of the lumbar spine. There is 6 mm anterolisthesis of L4 over L5. No s uspicious bone marrow signal abnormality seen. At L1-L2, there is minimal disc bulge and mild to moderate facet arthropathy. No central canal stenos is or neural foraminal narrowing. At L2-L3, there is mild disc bulge with moderate facet arthropathy. No central canal stenosis. There is probable minimal right neural foraminal narrowing. Left neural foramen preserved. L3-L4, there is minimal disc bulge and moderate facet arthropathy. No central canal stenosis or neura l foraminal narrowing. At L4-L5, there is diffuse disc bulge/uncovering with severe facet arthropathy. There is moderate to severe spinal canal stenosis/thecal sac compression. There is moderate to advanced bilateral neural f oraminal narrowing. At L5-S1, there is advanced degenerative disc diameter diffuse disc bulge and moderate facet arthropa thy. No central canal stenosis. There is moderate bilateral neural foraminal narrowing. Paravertebral soft tissues are unremarkable. Impression: 6 mm anterolisthesis of L4 over L5. Severe degenerative spondylosis at L4-L5, as detailed above. Moderate degenerative spondylosis at L5-S1. Reviewed, dictated and finalized at [facility]. Impression: 6 mm anterolisthesis of L4 over L5. Severe degenerative spondylosis at L4-L5, as detailed above. Moderate degenerative spondylosis at L5-S1.
--- OUTSIDE RECORDS SUMMARY | 2024-08-26 06:44 | XMS_ITS | Clinical Summary ---
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 Name Role Phone Unavailable Primary Care Provider Unavailabl e Encounters Date Type Department Care Team Description 08/16/2024 External Device Data ST[facility] ABSTRACTION Provider, Abstract 08/16/2024 External Device Data [facility] ABSTRACTION Provider, Abstract 08/16/2024 External Device Data ST[facility] ABSTRACTION Provider, Abstract 06/29/2024 External Device Data ST[facility] ABSTRACTION Provider, Abstract 06/08/2024 External Device Data STL ABSTRACTION Provider, Abstract 06/02/2024 External Device Data STL ABSTRACTION Provider, Abstract from Last 3 Months Social History Tobacco Use Types Packs/Day Years Used Date Smoking Tobacco: Never Assessed Comments Unknown Sex and Gender Information Value Date Recorded Sex Assigned at Not on file Legal Sex Female 2:52 PM CDT Gender Identity Not on file Sexual Orientation Not on file Plan of Treatment Upcoming Encounters Date Type Department Care Team (Late st Contact Info) Description 09/07/2024 12:40 PM CDT Office Visit [facility] Primary Care [facility] [address] [place] [id number] Daquan Lisa PA-C [address] [place] [phone] Health Maintenance Due Date Last Done Comments DTAP/TDAP/TD VACCINES (1 - Tdap) 08/09/1963 PNEUMOCOCCAL VACCINE 50+ YEARS (1 of 1 - PCV) 08/08/18 95 ZOSTER VACCINE (1 of 2) 1994 OSTEOPOROSIS SCREENING 2009 RSV VACCINE (60+ or ) (1 - 1-dose 75+ series) 08/09/2019 INFLUENZA VACCINE (#1) 2023 Insurance MEDICARE PART A AND B [facility]
--- OUTSIDE RECORDS SUMMARY | 2024-08-26 06:44 | XMS_ITS | Data Portability ---
Author Organization [place] - [facility] OFFICE Address [address] [place] [phone] Care Team Providers Care Bus Washer Name Role Phone CASSI MAC Primary Care Provider [phone] Assessment No assessment recorded. Plan of Treatment Reminders Order Date Submit Date Provider Last Modified By Organization Details Last Modified Time Details Appointments None recorded. Lab None recorded. Referral None recorded. Procedures None recorded. Surgeries None recorded. Imaging None recorded. Medication Orders Vascepa 1 gram capsule [id number] [facility] [place], [address], 9 16:34:55 Patient TargetsNo targets recorded. Patient Instructions Encounter Date Encounter Id Patient Instructions Last Modified By Organization Details Last Modified Time 06/11/2018 [id number] Weight loss 20 pounds Exercise advised Low cholesterol diet advised Low sodium diet advised. Not available 06/11/2018 11:16:45 Patient was seen and evaluated by {{Raulito Ruff ROD PULLER AND COILER-C*}}. Plan of care was discussed with collaborating physician. Note cosigned by {{Raulito Irwin MD*}}. Not available 06/11/2018 11:16:34 07/13/2018 [id number] Exercise advised Low cholesterol diet advised Low sodium diet advised. [email or web address] Not available 07/13/2018 12:13:39 Reason for Referral None Reported. Results Created Date Observation Date Name Description Value Unit Range Abnormal Flag Note LastModifiedBy Organization Detail LastModifiedTime 02/07/28 1805/25/2018 edward can cardi olite stres s test (PROC ) No observ ation record ed. [email or web address] Not Available 06/14 16:24:26 06/13/19 19 06/09/2018 taylor ludwig am No observ ation record ed. [email or web address] Not Available 06/14 16:26:02 07/04/19 19 06/28/2018 US, echoc ardio gram No observ ation record ed. formerly [facility] [address], [place], [address], 07/05/2018 05:08:19 Result Notes None recorded. Problems Name Problem SNOMED Code Status Onset Date Resolution Date Notes Provider Name and Address Organization Details Recorded Time Atypical chest pain 392836516 Active 2018 Shante oneil [facility] 9 11:02:31 Essential hypertension 39774340 Active 2018 Shante oneil [facility] 9 11:02:36 Hypertriglycer idemia 878308020 [facility] 9 11:03:05 Diabetes mellitus 92829312 Active 2018 Shante oneil [facility] 9 11:14:19 Dyspnea on exertion 78642277 [facility] 9 11:23:54 Anxiety 42514515 Active [facility] 9 10:07:51 Problem Notes None recorded. Procedures Surgical History None recorded. Imaging Results Imaging Date Name Status LastModified by Organization Details LastModified Time 05/25/2018 lexiscan cardiolite stress test (PROC) completed Information not available 06/14/2018 16:24:26 06/09/2018 electrocardiogram completed Informa tion not available 06/14/2018 16:26:02 06/28/2018 US, echocardiogram completed [facility] [address], [place], [address], 07/05/2018 05:08:19 Procedure Notes None recorded. Medical Equipment None Reported. Allergies Allergen ID Allergen Name Allergen Category Reaction Reaction Severity Criticality Documentation Date Start Date Code Code System Note Provider Name and Address Organization Details Recorded Time 7630 codeine medicatio n nausea mild Not available 06/11/2018 2670 Rx[address] [facility], [facility] 9 10:47:04 7631 prednison e medicatio n irregular heart rate moderate Not available 06/11/2018 86[address] [facility], [facility] 9 10:47:50 7632 amoxicill in medicatio n Not available Not available Not available 06/11/2018 [address] [facility], [facility] 9 10:52:37 Medications Name Sig Start Date [...] Address Organization Details Last Updated DateTime 9 98136.7 4 g 29.2 kg/m2 160.02 cm 94 % 94 % 72 /min 138 mm[Hg] 88 mm[Hg] TIM Jauregui [facility] 9 10:38:13 Date Recorded Body height Body mass index (BMI) Body weight Oxygen saturation Oxygen saturation in Arterial blood by Pulse oximetry Heart rate Systolic blood pressure Diastolic blood pressure Provider Name and Address Organization Details Last Updated DateTime 9 160.02 cm 26.9 kg/m2 92689.0 4 g 96 % 96 % 76 /min 136 mm[Hg] 82 mm[Hg] SEAN LOCKE [facility] 9 11:33:11 Social History None recorded. Functional Status None recorded. Mental Status None recorded. Family History Nothing Reported. Medical History Condition Response Diabetes Y Hyperlipidemia Y Hypertension Y Gynecological HistoryNo gynecological history recorded. Obstetrics History GPAL:G 0 P 0 0 0 0 Past Encounters Encounter ID Performer Location Encounter Start Date Encounter Closed Date Diagnosis/Indication Diagnosis SNOMED-CT Code Diagnosis ICD10 Code Diagnosis Note [id number] Joe Irwin MD [place] OFFICE [address] [place] [address] 06/11/2018 10:08:34 06/26/2018 20:14:06 Atypical chest pain 327888242 R07.89 She underwent a lexiscan nuclear stress testing that was negative for ischemia with normal LV systolic function. EF > 70%. Continue maximal medical treatment and risk factor modificati on. On 81 ASA daily. Consider cardiac CTA. He/She has high [place] Risk score. He/she would benefit from CT to look for any coronary artery disease. Essential hypertension 30049156 I10 Now well controlled . Hypertriglyceridemia 302 807483 E78.1 05/25/18: TC 134, Tri 459. LDL 64Continue atorvastat in. Will add Vascepa. Diabetes mellitus 331675 09 E11.9 Treatment and evaluation by primary care doctor. Discussed importance of adequate glycemic control to minimize cardiovasc ular disease progressio n. A1C goal of < 7% for type 2 DM Dyspnea on exertion 6084 5006 R06.09 Mild. Stable.Gaurav l get echo to look for any structural heart disease [id number] Joe Irwin MD [place] [facility] [address] [place] [address] 07/13/2018 11:01:43 07/13/2018 12:14:19 Atypical chest pain 309155317 R07.89 She underwent a lexiscan nuclear stress testing that was negative for ischemia with normal LV systolic function. EF > 70%. Continue maximal medical treatment and risk factor modificati on. On 81 ASA daily. Consider cardiac CTA. He/She has high [place] Risk score. He/she would benefit from CT to look for any coronary artery disease. Dyspnea on exertion 6084 5006 R06.09 Mild. Stable.ECH O on 06/28/18 showed normal global systolic function , EF 65-70% , grade I diastolic dysfunctio n Essential hypertension 29273053 I10 Now well controlled . Hypertriglyceridemia 302 698178 E78.1 05/25/18: TC 134, Tri 459. LDL 64Continue atorvastat in. Will add Vascepa. Diabetes mellitus 945844 09 E11.9 Treatment and evaluation by primary [...] Name 06/11/2018 1 [place] Alison Camacho [id number] Alison Camacho 06/11/2018 2 Lift (MEDICARE SUPPLEMENT) Alison [place] [id number] Alison Camacho 07/13/2018 1 [place] Alison Camacho [id number] Alison Camacho 07/13/2018 2 Lift (MEDICARE SUPPLEMENT) Alison Reyes [place] [id number] Alison Camacho Notes Date Note Type Note Provider Name and Address Organization Details Recorded Time 06/11/2018 text/html 06/11/18 CC:Chest pain follow-up 72 year-old woman with a past medical history of hypertension, diabets mellitus, GERD, anxiety, ovarian cancer, presents for cardiac consultation with a chief complaint of chest pain hospital follow-up. Patient was recently seen and evaluated by us at [facility] on 05/24/18 with a chief complaint [...] d/c, On thursday she went back to [facility] due to right-sided chest pain. cardiac [...] Borderline ECG. Joe Irwin MD [address] [place], [address], [facility] 06/26/2018 20:14:05 07/13/2018 text/html 07/13/18 CC: dyspnea on exertion 72 year old patient who had been in [facility] in May of this year for elevated [...] (alive at 89 y/o) has HTN, h/o ID. ECHO on 06/28/18 showed normal global systolic [...] fraction is Joe Irwin MD [address] [place], [address], [place] [facility] 07/13/2018 12:14:17 OBGyn Episode No OBEpisode recorded.
--- OUTSIDE RECORDS SUMMARY | 2024-08-26 06:44 | XMS_ITS ---
Author Name Lian Stewart Address [address] [place] [address] Phone [phone] [facility] Address [address] [place] [address] Phone [phone] Care Team Providers Care Gas Appliance Installer Name Role Phone Lian Stewart Unavailable Krystal Young Unavailable Harshil Bowman Unavailable [phone] Functional Status No Results Mental Status No Results Allergies and Intolerances Name Onset Date Reaction Severity codeine (Allergy) ThuJan 02 15:27:00 EDT 2023 prednisone (Allergy) ThuJan 02 15:25:00 EDT Encounters Program Name Primary Diagnosis Admission Date/Time Dis charge Date/Time [facility] ThuJan 02 08:00:00 EDT [...] Sun Sep 15 21:00:00 EDT 2023 Mon Sep 01:00:00 EDT 2023 Fosamax 70 mg tablet [...] fib ThuJan 02 16:30:00 EDT 2023 [facility] Jan 31 01:00:00 EDT 2023 rOPINIRole 1 mg tablet 1 TAB TABLET Oral 1 Time Daily Indication: rls ThuJan 02 16:30:00 EDT 2023 [facility] Jan 31 01:00:00 EDT 2023 FeroSuL 325 mg (65 mg iron) tablet 1 TAB TABLET Oral 1 Time Daily Indication: anemia ThuJan 02 16:30:00 EDT 2023Jan 03 16:33:00 EDT 2023 metFORMIN ER 500 mg tablet,extended release 24 hr 1 TAB TABLET, EXTENDED RELEASE 24 HR Oral 1 Time Daily Indication: dm ThuJan 02 16:30:00 EDT 2023 [facility] Jan 31 01:00:00 EDT 2023 cyclobenzaprine 10 [...] gerd ThuJan 02 16:30:00 EDT 2023 [facility] Jan 31 01:00:00 EDT 2023 montelukast 10 mg tablet 1 TAB TABLET Or al Hour Of Sleep Indication: allergies ThuJan 02 16:30:00 EDT 2023 [facility] Jan 31 01:00:00 EDT 2023 Problems Active [...] 2023 * End Date: * 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 * MISSusanSocial ServicesTonie Rosas's mobility level is different than prior level due to current medicalcondition.* Code: * Start Date: ThuJan 04 00:00:00 EDT 2023 * End Date: * Text: MIS_Social ServicesTonie Rosas's mobility level is different than prior level due to current medical condition. * KWESISocial Alexandrea Rosas has family/friends who are supportive.* Code: * Start Date: ThuJan 04 00:00:00 EDT 2023 * End Date: * Text: MIS_Social ServicesTonie Rosas has family/friends who are supportive. * MIS_Social ServicesTonie Rosas will be involved in goal development to the best of his or her ability.* Code: * Start Date: ThuJan 04 00:00:00 EDT 2023 * End Date: * Text: ODILIA_Social ServicesTonie Rosas will be involved in goal development to the best of his or her ability. * KWESISocial ServicesTonie Rosas's wishes will be followed (Advanced Directive/Code Status).* Code: * Start Date: ThuJan 04 00:00:00 EDT 2023 * End Date: * Text: S_Social Services- Alison's wishes will be followed (Advanced Directive/Code Status). Vital Signs Vital Sign Measurement Date Systolic Blood Pressure 147.00 mm[Hg] [facility] 23 10:09:28 EDT 2023 Diastolic Blood Pressure 79.00 mm[Hg] [facility] 10:09:28 EDT 2023 Heart Rate 76.00 /min [facility] 10:09 :28 EDT 2023 Body temperature 98.60 [degF] [facility] 10:0 9:28 EDT 2023 Respiratory rate 18.00 /min [facility] 10:0 9:28 EDT 2023 Systolic Blood Pressure 147.00 mm[Hg] [facility] 09:41:03 EDT 2023 Diastolic Blood Pressure 79.00 mm[Hg] [facility] 09:41:03 EDT 2023 Systolic Blood Pressure 145.00 mm[Hg] [facility] 22 23:48:37 EDT 2023 Diastolic Blood Pressure 80.00 mm[Hg] [facility] 22 23:48:37 EDT 2023 Heart Rate 69.00 /min [facility] 22 23:48 :37 EDT 2023 Body temperature 98.60 [degF] [facility] 22 23:4 8:37 EDT 2023 Respiratory rate 20.00 /min [facility] 22 23:4 8:37 EDT 2023 Systolic Blood Pressure 145.00 mm[Hg] [facility] 22 22:12:28 EDT 2023 Diastolic Blood Pressure 80.00 mm[Hg] [facility] 22 22:12:28 EDT 2023 Systolic Blood Pressure 142.00 mm[Hg] [facility] 22 14:11:00 EDT 2023 Diastolic Blood Pressure 64.00 mm[Hg] [facility] 22 14:11:00 EDT 2023 Body weight 150.60 [lb_av] [facility] 22 11:08 :30 EDT 2023 Systolic Blood Pressure 130.00 mm[Hg] [facility] Sep 22 08:58:21 EDT 2023 Diastolic Blood Pressure 66.00 mm[Hg] [facility] Sep 22 08:58:21 EDT 2023 Systolic Blood Pressure 130.00 mm[Hg] [facility] Sep 22 08:57:22 EDT 2023 Diastolic Blood Pressure 66.00 mm[Hg] [facility] 22 08:57:22 EDT 2023 Heart Rate 65.00 [...] 23:26:22 EDT 2023 Heart Rate 72.00 /min [facility] Sep 19 23:26 :22 EDT 2023 Body [...] 2023 Systolic Blood Pressure 169.00 mm[Hg] [facility] Sep 16 17:49:13 EDT 2023 Diastolic Blood Pressure 87.00 mm[Hg] [facility] Sep 16 17:49:13 EDT 2023 Body weight 152.60 [lb_av] Mon Sep 16 09:14 :06 EDT 2023 Systolic Blood Pressure 140.00 mm[Hg] [facility] Sep 16 09:13:40 EDT 2023 Diastolic Blood Pressure 72.00 mm[Hg] [facility] Sep 16 09:13:40 EDT 2023 Systolic Blood Pressure 140.00 mm[Hg] [facility] Sep 16 09:13:40 EDT 2023 Diastolic Blood Pressure 72.00 mm[Hg] [facility] 16 09:13:40 EDT 2023 Heart Rate 61.00 /min [facility] Sep 16 09:13 :40 EDT 2023 Body temperature 98.20 [degF] [facility] Sep 16 09:1 3:40 EDT 2023 Respiratory rate 18.00 /min [facility] Sep 16 09:1 3:40 EDT 2023 Systolic Blood Pressure 146.00 mm[Hg] [facility] Sep 15 23:31:26 EDT 2023 Diastolic Blood [...] mm[Hg] [facility] 12 23:13:43 EDT 2023 Heart Rate 66.00 /min [facility] Sep 12 23:13 :43 EDT 2023 Body temperature 98.30 [degF] [facility] 12 23:1 3:43 EDT 2023 Respiratory rate 18.00 /min [facility] [...] EDT 2023 Diastolic Blood Pressure 72.00 mm[Hg] [facility] Sep 12 09:18:20 EDT 2023 Heart Rate 73.00 /min [facility] Sep 12 09:18 :20 EDT 2023 Body temperature 98.20 [degF] [facility] Sep 12 09:1 8:20 EDT 2023 Respiratory rate 18.00 /min [facility] Sep 12 09:1 8:20 EDT 2023 [...] 6:00 EDT 2023 Respiratory rate 18.00 /min [facility] 11 18:3 6:00 EDT 2023 Pulse Oximetry 92.00 % [facility] 11 18:36 :00 EDT 2023 Body Height 63.00 [in_i] [facility] 11 18:36 :00 EDT 2023 Systolic Blood Pressure 145.00 mm[Hg] [facility] 09 23:47:07 EDT 2023 Diastolic Blood Pressure 73.00 mm[Hg] [facility] 09 23:47:07 EDT 2023 Heart Rate 68.00 /min [facility] 23:47 :07 EDT 2023 Body temperature 98.50 [degF] [facility] 09 23:4 7:07 EDT 2023 Respiratory rate 18.00 /min [facility] 23:4 7:07 EDT 2023 Systolic Blood Pressure 151.00 mm[Hg] [facility] 09 14:37:27 EDT 2023 Diastolic Blood Pressure 79.00 mm[Hg] [facility] 09 14:37:27 EDT 2023 Systolic Blood Pressure 139.00 mm[Hg] [facility] 09 08:53:12 EDT 2023 Diastolic Blood Pressure 80.00 mm[Hg] [facility] 09 08:53:12 EDT 2023 Systolic Blood Pressure 139.00 mm[Hg] [facility] 09 08:53:12 EDT 2023 Diastolic Blood Pressure 80.00 mm[Hg] [facility] 09 08:53:12 EDT 2023 Heart Rate 72.00 /min [facility] 08:53 :12 EDT 2023 Body temperature 98.00 [degF] [facility] 09 08:5 3:12 EDT 2023 Respiratory rate 18.00 /min [facility] 09 08:5 3:12 EDT 2023 Systolic Blood Pressure 124.00 mm[Hg] [facility] Sep 08 23:27:06 EDT 2023 Diastolic Blood Pressure 62.00 mm[Hg] [facility] Sep 08 23:27:06 EDT 2023 Heart Rate [...] EDT 2023 Diastolic Blood Pressure 68.00 mm[Hg] [facility] Sep 05 16:17:44 EDT 2023 Body weight [...] 2023 Diastolic Blood Pressure 61.00 mm[Hg] [facility] Sep 02 22:42:57 EDT 2023 Heart Rate 72.00 /min [facility] Sep 02 22:42 :57 EDT 2023 Body temperature 98.30 [degF] [facility] Sep 02 22:4 2:57 EDT 2023 Respiratory rate 18.00 /min [facility] Sep 02 22:4 2:57 EDT 2023 Systolic [...] EDT 2023 Systolic Blood Pressure 128.00 mm[Hg] [facility] Jan 08 22:57:43 EDT 2023 Diastolic Blood Pressure 69.00 mm[Hg] [facility] Jan 08 22:57:43 EDT 2023 Heart Rate 70.00 /min ThuJan 08 22:57 :43 EDT 2023 Body temperature 98.20 [degF] [facility] Jan 08 22:5 7:43 EDT 2023 Respiratory rate 18.00 /min ThuJan 08 22:5 7:43 EDT 2023 Systolic Blood Pressure 128.00 mm[Hg] [facility] Jan 08 22:20:58 EDT 2023 Diastolic Blood Pressure 69.00 mm[Hg] [facility] Jan 08 22:20:58 EDT 2023 Systolic Blood Pressure 119.00 mm[Hg] [facility] Jan 08 14:57:00 EDT 2023 Diastolic Blood Pressure 69.00 mm[Hg] [facility] Jan 08 14:57:00 EDT 2023 Body weight 153.80 [lb_av] [facility] Jan 08 14:08 :25 EDT 2023 Systolic Blood Pressure 121.00 mm[Hg] [facility] Jan 08 10:20:33 EDT 2023 Diastolic Blood Pressure 65.00 mm[Hg] [facility] Jan 08 10:20:33 EDT 2023 Systolic Blood Pressure 121.00 mm[Hg] [facility] Jan 08 10:20:33 EDT 2023 Diastolic Blood Pressure 65.00 mm[Hg] [facility] Jan 08 10:20:33 EDT 2023 Heart Rate 94.00 /min [facility] Jan 08 10:20 :33 EDT 2023 Body temperature 98.00 [degF] [facility] Jan 08 10:2 0:33 EDT 2023 Respiratory rate 18.00 /min [facility] Jan 08 10:2 0:33 EDT 2023 Systolic Blood Pressure 134.00 mm[Hg] [facility] Jan 08 01:02:55 EDT 2023 Diastolic Blood Pressure 82.00 mm[Hg] [facility] Jan 08 01:02:55 EDT 2023 Heart Rate 74.00 /min [facility] Jan 08 01:02 :55 EDT 2023 Body temperature 98.50 [degF] [facility] Jan 08 01:0 2:55 EDT 2023 Respiratory rate 20.00 /min [facility] Jan 08 01:0 2:55 EDT 2023 Systolic [...] EDT 2023 Systolic Blood Pressure 142.00 mm[Hg] [facility] Jan 02 23:58:26 EDT 2023 Diastolic Blood Pressure 81.00 mm[Hg] [facility] Jan 02 23:58:26 EDT 2023 Systolic Blood Pressure 142.00 mm[Hg] [facility] Jan 02 15:29:00 EDT 2023 Diastolic Blood Pressure 81.00 mm[Hg] [facility] Jan 02 15:29:00 EDT 2023 Heart Rate 79.00 /min [facility] Jan 02 15:29 :00 EDT 2023 Body weight 152.00 [lb_av] [facility] Jan 02 15:29 :00 EDT 2023 Body temperature 98.30 [degF] [facility] Jan 02 15:2 9:00 EDT 2023 Respiratory rate 20.00 /min [facility] Jan 02 15:2 9:00 EDT 2023 Pulse Oximetry 98.00 % [place] Jan 02 15:29 :00 EDT 2023 Reason for Referral
--- OUTSIDE RECORDS SUMMARY | 2024-08-26 06:45 | XMS_ITS | Data Portability ---
Author Organization [place] [facility] [employer], Main Office Address [address] [place] [address] Care Team Providers Care Machine Wiper Name Role Phone PINKY SEVERINO Primary Care Provider [phone] PINKY SEVERINO Referring Provider [phone] Assessment Encounter Date Assessment Date Assessment LastModified [...] ice to finish she can also use [id number]-[id number] ointments or creams for joint pain if [...] DO Not Attach Compendium, Do Not Delete/merge, 34018 14:11:23 injection/a spiration joint/bursa (PROC) 2023 024 [email or web address] In-Office Order, Internal Use Only DO Not Attach Compendium DO Not Attach Compendium, Do Not Delete/merge, 95208 14:30:38 Surgeries None recorded. Imaging XR, lumbar spine 2023 024 [email or web address] [facility] [place], [address], [place], [address], 14:59:07 XR, knee 2023 024 [email or web address] [facility] [place], [address], [place], [address], 10/17/202 4 16:10:17 Medication Orders bupivacaine HCl 0.5 % (5 mg/mL) injection solution [address] [facility] [place], [address], 4 14:18:40 Kenalog 10 mg/mL suspension for injection [address] [facility] [place], [address], 4 14:18:40 bupivacaine HCl 0.5 % (5 mg/mL) injection solution [address] [facility] [place], [address], 4 16:10:17 Kenalog 10 mg/mL suspension for injection [address] [facility] [place], [address], 4 16:10:17 Patient TargetsNo targets recorded. Patient InstructionsNo instructions recorded. Reason for Referral None Reported. Results Created Date Observation Date Name Description Value Unit Range Abnormal Flag Note LastModifiedBy Organization Detail LastModifiedTime 02/22/20 24 02/18/2024 CT, knee, w/o contr ast No observ ation record ed. [email or web address] Not Available 02/08 12:08:45 02/25/20 24 XR, knee No observ ation record ed. [email or web address] [facility] [place] [address], [place], [address], 02/25/2024 14:44:29 04/15/20 24 XR, lumba r spine No observ ation record ed. [email or web address] [facility] [place] [address], [place], [address], 04/15/2024 14:59:06 Result Notes None recorded. Problems Name Problem SNOMED Code Status Onset Date Resolution Date Notes Provider Name and Address Organization Details Recorded Time Osteoarthr itis of knee 870713478 Active Not Available [employer] 3 12:46:18 Pain of left knee joint 1051334074143 07 Active 2023 Mrita Baker, CARTON MACHINE OPERATOR null, [facility] 4 14:17:45 Osteoarthr itis of left knee joint 0590725726069 09 Active 2023 BRYCE Escobar [address], [place], [address] , [facility] 4 14:44:56 Low back pain 684887914 Active 2023 Mirta Samuel, CARTON MACHINE OPERATOR null, [facility] 4 14:08:05 Pain in right sacroiliac joint 7827374999234 9107 Active 2023 Mirta Samuel, CARTON MACHINE OPERATOR null, [facility] 4 14:08:14 Lumbar spondyloli sthesis 2728643494245 02 Active 2023 BRYCE Escobar [address], [address], [place], [address] , [facility] 4 14:57:09 Lumbar spondylosi s 349015289 Active 2023 BRYCE Escobar [address], [place], [address] , [facility] 4 14:57:15 Problem Notes None recorded. Procedures Surgical History None recorded. Imaging Results Imaging Date Name Status LastModified by [facility] Details LastModified Time 02/18/2024 CT, knee, w/o contrast completed [email or web address] Information not available 02/22/2024 12:08:45 02/25/2024 XR, knee completed [email or web address] [facility] [place] [address], [place], [address], 02/25/2024 14:44:29 04/15/2024 XR, lumbar spine completed [email or web address] [facility] [place] [address], [place], [address], 04/15/2024 14:59:06 Procedure Notes None recorded. Medical Equipment None Reported. Allergies Allergen ID Allergen Name Allergen Category Reaction Reaction Severity Criticality Documentation Date Start Date Code Code System Note Provider Name and Address Organization Details Recorded Time 32422 codeine medicatio n nausea Not available Not available 02/25/2024 2670 RxNorm Mirta Samuel, CARTON MACHINE OPERATOR null, [facility] [employer] [facility] [employer] 13:58:55 40655 prednison e medicatio n nausea Not available Not available 02/25/2024 8640 RxNorm Mirta Samuel, CARTON MACHINE OPERATOR null, [facility] [employer] [facility] [employer] 13:59:19 Medications Name Sig Start Date Stop [...] mg by injectio n route. 2023 active [facility]: [phone] Not Available Not Available Not [...] Updated DateTime 02/25/2024 160.02 cm 25.7 kg/m2 93502.89 g Mirta AlmarazCAITLYN banuelos [employer] 02/25/2024 13:58:19 Date Recorded Body height Body mass index (BMI) Body weight Provider Name and Address Organization Details Last Updated DateTime 04/15/2024 160.02 cm 24.8 kg/m2 06047.93 g Mirta SamuelCAITLYN banuelos [employer] 04/15/2024 14:07:26 Social History Question Answer Notes LastModified by Organizat ion Details LastModified Time Tobacco Smoking Status Never Smoker [facility]ITLYN [facility] 02/25/2024 14:15:15 What Is Your Level Of [...] SNOMED-CT Code Diagnosis ICD10 Code Diagnosis Note [id number] BRYCE Escobar [facility] [place] [address] [place] [address] 02/25/2024 13:40:54 02/25/2024 14:47:19 Pain of left knee joint 2316445911 40810 M25.562 Osteoarthr itis of left knee joint 3723161113 63559 M17.12 [id number] BRYCE Escobar [facility] [place] [address] [place] [address] 04/15/2024 14:05:06 04/15/2024 14:56:17 Low back pain 320269737 M54.50 Pain in ri ght sacroiliac joint 3895529186 8763802 M53.3 Lumbar spondylolisthesis 8819917098 67768 M43.16 Lumbar spondylosis 14979 0009 M47.896 Health Concerns Section Related Observation LastModified by Organization Detai ls LastModified Time None Recorded Concern Status LastModified by Organization Details LastModified Time None Recorded Advance Directives Directive None Recorded Payers Encounter Date Sequence Insurance Name Policy Number Policy Guo Covered Member ID Guo Member ID Guarantor Name 02/25/2024 1 [place] Alison Banuelos Doug [id number] Alison Banuelos [place] 02/25/2024 2 [place] [id number] Alison Banuelos [place] [id number] Alison S [place] 04/15/2024 1 [place] Alison Banuelos Doug [id number] Alison Banuelos Doug 04/15/2024 2 [place] [id number] Alison Banuelos Doug [id number] Alison Camacho Notes Date Note Type [...] today with the patient. BRYCE Escobar [address] [facility], [address], [place], [address], [place] [employer] 02/25/2024 14:45:25 04/15/2024 text/html patient returns complaining [...] denies any significant changes. BRYCE Escobar [address], [facility] [address], [place], [address], [employer] 04/15/2024 14:59:38 OBGyn Episode No OBEpisode recorded.
--- OUTSIDE RECORDS SUMMARY | 2024-08-26 06:45 | XMS_ITS ---
Author Name Lian Stewart Address [address] [place] [address] Phone [phone] [employer] [facility] Address [address] [place] [address] Phone [phone] Care Team Providers Care Carpenter Maintenance Name Role Phone Lian Stewart Unavailable Krystal Young Unavailable [phone] Harshil Bowman Unavailable [phone] Functional Status No Results Mental Status No Results Allergies and Intolerances Name Onset Date Reaction Severity codeine (Allergy) ThuJan 02 15:27:00 EDT 2023 prednisone (Allergy) ThuJan 02 15:25:00 EDT Encounters Program Name Primary Diagnosis Admission Date/Time Dis charge Date/Time [facility] ThuJan 02 08:00:00 EDT [...] ThuJan 02 16:30:00 EDT 2023 [facility] Jan 31 01:00:00 EDT 2023 rOPINIRole 1 mg tablet 1 TAB TABLET Oral 1 Time Daily Indication: rls ThuJan 02 16:30:00 EDT 2023 [facility] Jan 31 01:00:00 EDT 2023 FeroSuL 325 mg (65 mg iron) tablet 1 TAB TABLET Oral 1 Time Daily Indication: anemia ThuJan 02 16:30:00 EDT 2023Jan 03 16:33:00 EDT 2023 metFORMIN ER 500 mg tablet,extended release 24 hr 1 TAB TABLET, EXTENDED RELEASE 24 HR Oral 1 Time Daily Indication: dm ThuJan 02 16:30:00 EDT 2023 [facility] Jan 31 01:00:00 EDT 2023 cyclobenzaprine 10 [...] ThuJan 02 16:30:00 EDT 2023 [facility] Jan 31 01:00:00 EDT 2023 montelukast 10 mg tablet 1 TAB TABLET Or al Hour Of Sleep Indication: allergies ThuJan 02 16:30:00 EDT 2023 [facility] Jan 31 01:00:00 EDT 2023 Problems Active [...] 2023 * End Date: * 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* Code: [...] Measurement Date Systolic Blood Pressure 147.00 mm[Hg] [facility] 23 10:09:28 EDT 2023 Diastolic Blood Pressure 79.00 mm[Hg] [facility] 23 10:09:28 EDT 2023 Heart Rate 76.00 /min [facility] 10:09 :28 EDT 2023 Body temperature 98.60 [degF] [facility] 23 10:0 9:28 EDT 2023 Respiratory rate 18.00 /min [facility] 23 10:0 9:28 EDT 2023 Systolic Blood Pressure 147.00 mm[Hg] [facility] 23 09:41:03 EDT 2023 Diastolic Blood Pressure 79.00 mm[Hg] [facility] 23 09:41:03 EDT 2023 Systolic Blood Pressure 145.00 mm[Hg] [facility] 22 23:48:37 EDT 2023 Diastolic Blood Pressure 80.00 mm[Hg] [facility] 22 23:48:37 EDT 2023 Heart Rate 69.00 /min [facility] 22 23:48 :37 EDT 2023 Body temperature 98.60 [degF] [facility] 22 23:4 8:37 EDT 2023 Respiratory rate 20.00 /min [facility] 22 23:4 8:37 EDT 2023 Systolic Blood Pressure 145.00 mm[Hg] [facility] 22 22:12:28 EDT 2023 Diastolic Blood Pressure 80.00 mm[Hg] [facility] 22 22:12:28 EDT 2023 Systolic Blood Pressure 142.00 mm[Hg] [facility] 22 14:11:00 EDT 2023 Diastolic Blood Pressure 64.00 mm[Hg] [facility] Sep 22 14:11:00 EDT 2023 Body weight 150.60 [lb_av] [facility] Sep 22 11:08 :30 EDT 2023 Systolic Blood Pressure 130.00 mm[Hg] Sun Sep 22 08:58:21 EDT 2023 Diastolic Blood Pressure 66.00 mm[Hg] Sun Sep 22 08:58:21 EDT 2023 Systolic Blood Pressure 130.00 mm[Hg] Sun Sep 22 08:57:22 EDT 2023 Diastolic Blood Pressure 66.00 mm[Hg] [facility] 22 08:57:22 EDT 2023 Heart Rate [...] Systolic Blood Pressure 169.00 mm[Hg] [facility] Sep 16 17:49:13 EDT 2023 Diastolic Blood Pressure 87.00 mm[Hg] [facility] Sep 16 17:49:13 EDT 2023 Body weight 152.60 [lb_av] Mon Sep 16 09:14 :06 EDT 2023 Systolic Blood Pressure 140.00 mm[Hg] [facility] Sep 16 09:13:40 EDT 2023 Diastolic Blood Pressure 72.00 mm[Hg] [facility] Sep 16 09:13:40 EDT 2023 Systolic Blood Pressure 140.00 mm[Hg] [facility] Sep 16 09:13:40 EDT 2023 Diastolic Blood Pressure 72.00 mm[Hg] [facility] 16 09:13:40 EDT 2023 Heart Rate 61.00 /min [facility] Sep 16 09:13 :40 EDT 2023 Body temperature 98.20 [degF] [facility] Sep 16 09:1 3:40 EDT 2023 Respiratory rate 18.00 /min [facility] Sep 16 09:1 3:40 EDT 2023 Systolic Blood Pressure 146.00 mm[Hg] [facility] Sep 15 23:31:26 EDT 2023 Diastolic Blood [...] EDT 2023 Diastolic Blood Pressure 72.00 mm[Hg] [facility] Sep 12 09:18:20 EDT 2023 Heart Rate 73.00 /min [facility] Sep 12 09:18 :20 EDT 2023 Body temperature 98.20 [degF] [facility] Sep 12 09:1 8:20 EDT 2023 Respiratory rate 18.00 /min [facility] Sep 12 09:1 8:20 EDT 2023 [...] 6:00 EDT 2023 Respiratory rate 18.00 /min [facility] 11 18:3 6:00 EDT 2023 Pulse Oximetry 92.00 % [facility] 11 18:36 :00 EDT 2023 Body Height 63.00 [in_i] [facility] 11 18:36 :00 EDT 2023 Systolic Blood Pressure 145.00 mm[Hg] [facility] 09 23:47:07 EDT 2023 Diastolic Blood Pressure 73.00 mm[Hg] [facility] 09 23:47:07 EDT 2023 Heart Rate 68.00 /min [facility] 23:47 :07 EDT 2023 Body temperature 98.50 [degF] [facility] 09 23:4 7:07 EDT 2023 Respiratory rate 18.00 /min [facility] 23:4 7:07 EDT 2023 Systolic Blood Pressure 151.00 mm[Hg] [facility] 09 14:37:27 EDT 2023 Diastolic Blood Pressure 79.00 mm[Hg] [facility] 09 14:37:27 EDT 2023 Systolic Blood Pressure 139.00 mm[Hg] [facility] 09 08:53:12 EDT 2023 Diastolic Blood Pressure 80.00 mm[Hg] [facility] 09 08:53:12 EDT 2023 Systolic Blood Pressure 139.00 mm[Hg] [facility] 09 08:53:12 EDT 2023 Diastolic Blood Pressure 80.00 mm[Hg] [facility] 09 08:53:12 EDT 2023 Heart Rate 72.00 /min [facility] 08:53 :12 EDT 2023 Body temperature 98.00 [degF] [facility] 09 08:5 3:12 EDT 2023 Respiratory rate 18.00 /min [facility] 09 08:5 3:12 EDT 2023 Systolic Blood Pressure 124.00 mm[Hg] [facility] Sep 08 23:27:06 EDT 2023 Diastolic Blood Pressure 62.00 mm[Hg] [facility] Sep 08 23:27:06 EDT 2023 Heart Rate [...] Diastolic Blood Pressure 61.00 mm[Hg] [facility] Sep 02 22:42:57 EDT 2023 Heart Rate 72.00 /min [facility] Sep 02 22:42 :57 EDT 2023 Body temperature 98.30 [degF] [facility] Sep 02 22:4 2:57 EDT 2023 Respiratory rate 18.00 /min [facility] Sep 02 22:4 2:57 EDT 2023 Systolic [...] EDT 2023 Systolic Blood Pressure 128.00 mm[Hg] [facility] Jan 08 22:57:43 EDT 2023 Diastolic Blood Pressure 69.00 mm[Hg] [facility] Jan 08 22:57:43 EDT 2023 Heart Rate 70.00 /min ThuJan 08 22:57 :43 EDT 2023 Body temperature 98.20 [degF] [facility] Jan 08 22:5 7:43 EDT 2023 Respiratory rate 18.00 /min ThuJan 08 22:5 7:43 EDT 2023 Systolic Blood Pressure 128.00 mm[Hg] [facility] Jan 08 22:20:58 EDT 2023 Diastolic Blood Pressure 69.00 mm[Hg] [facility] Jan 08 22:20:58 EDT 2023 Systolic Blood Pressure 119.00 mm[Hg] [facility] Jan 08 14:57:00 EDT 2023 Diastolic Blood Pressure 69.00 mm[Hg] [facility] Jan 08 14:57:00 EDT 2023 Body weight 153.80 [lb_av] [facility] Jan 08 14:08 :25 EDT 2023 Systolic Blood Pressure 121.00 mm[Hg] [facility] Jan 08 10:20:33 EDT 2023 Diastolic Blood Pressure 65.00 mm[Hg] [facility] Jan 08 10:20:33 EDT 2023 Systolic Blood Pressure 121.00 mm[Hg] [facility] Jan 08 10:20:33 EDT 2023 Diastolic Blood Pressure 65.00 mm[Hg] [facility] Jan 08 10:20:33 EDT 2023 Heart Rate 94.00 /min [facility] Jan 08 10:20 :33 EDT 2023 Body temperature 98.00 [degF] [facility] Jan 08 10:2 0:33 EDT 2023 Respiratory rate 18.00 /min [facility] Jan 08 10:2 0:33 EDT 2023 Systolic Blood Pressure 134.00 mm[Hg] [facility] Jan 08 01:02:55 EDT 2023 Diastolic Blood Pressure 82.00 mm[Hg] [facility] Jan 08 01:02:55 EDT 2023 Heart Rate 74.00 /min [facility] Jan 08 01:02 :55 EDT 2023 Body temperature 98.50 [degF] [facility] Jan 08 01:0 2:55 EDT 2023 Respiratory rate 20.00 /min [facility] Jan 08 01:0 2:55 EDT 2023 [...] EDT 2023 Systolic Blood Pressure 142.00 mm[Hg] [facility] Jan 02 23:58:26 EDT 2023 Diastolic Blood Pressure 81.00 mm[Hg] [facility] Jan 02 23:58:26 EDT 2023 Systolic Blood Pressure 142.00 mm[Hg] [facility] Jan 02 15:29:00 EDT 2023 Diastolic Blood Pressure 81.00 mm[Hg] [facility] Jan 02 15:29:00 EDT 2023 Heart Rate 79.00 /min [facility] Jan 02 15:29 :00 EDT 2023 Body weight 152.00 [lb_av] [facility] Jan 02 15:29 :00 EDT 2023 Body temperature 98.30 [degF] [facility] Jan 02 15:2 9:00 EDT 2023 Respiratory rate 20.00 /min [facility] Jan 02 15:2 9:00 EDT 2023 Pulse Oximetry 98.00 % [facility] Jan 02 15:29 :00 EDT 2023 Reason for Referral
== END 2024-08-26 06:42 | disposition home or self-care (01) ==
PROVIDERS: PCP Physician Assistant; Visit Provider Chiropractor
DX: M48.061 Spinal stenosis, lumbar region without neurogenic claudication (principal); M43.16 Spondylolisthesis, lumbar region; M47.896 Other spondylosis, lumbar region; M47.897 Other spondylosis, lumbosacral region
CPT/HCPCS: 72148

== ENCOUNTER 2024-09-08 16:47 | Emergency (ER) | payer MEDICARE, SELFPAY ==
[2024-09-08 17:00] VITALS: BP 140/82; PULSE 73; RESP 16; TEMP 36.7; O2SAT 96
--- NOTE | 2024-09-08 17:01 | ED.EXTPRO ---
HPI - Extremity Problem General Chief complaint: Extremity Problem,Nontraumatic Stated complaint: Left Toe Pain Time Seen by Provider: 09/08/24 17:01 Source: patient, RN notes reviewed and old records reviewed Mode of arrival: ambulatory Limitations: no limitations History of Present Illness HPI Narrative: 79-year-old female presents to the [facility] with left great toe pain to the plantar aspect. States that she is a diabetic can concern for her feet. Related Data Home Medications ?Medication ?Instructions ?Recorded ?Confirmed ?Last Taken ?Type metformin 500 mg tablet,extended 500 mg PO DAILY 12/22/23 09/08/24 01/18/24 History release 24 hr allopurinol 100 mg tablet 100 mg PO DAILY 12/24/23 01/19/24 01/18/24 History cyclobenzaprine 10 mg tablet 10 mg PO TID PRN Muscle Pain 12/24/23 01/19/24 Unknown History montelukast 10 mg tablet 10 mg PO HS 12/24/23 09/08/24 01/18/24 History omeprazole 20 mg capsule,delayed 20 mg PO DAILY 12/24/23 09/08/24 01/18/24 History release alendronate 70 mg tablet mg PO 09/08/24 Unknown History hydrochlorothiazide 12.5 mg tablet mg 09/08/24 Unknown History losartan 50 mg tablet mg 09/08/24 Unknown History Allergies Allergy/AdvReac Type Severity Reaction Status Date / Time prednisone AdvReac Intermediate increased Verified 09/08/24 16:57 heart rate codeine AdvReac Mild Vomiting Verified 09/08/24 16:57 Review of Systems Review of Systems: All systems reviewed & are unremarkable except as noted in HPI and below Constitutional: Constitutional: Reports no additional constitutional complaints ENT: Reports system reviewed and no additional complaints, except as documented Cardiovascular: Cardiovascular: Reports no additional cardiovascular complaints, Denies chest pain and Denies dyspnea Respiratory: Respiratory: Reports no additional respiratory complaints, Denies chest congestion, Denies cough and Denies dyspnea Musculoskeletal: Musculoskeletal: Reports as per HPI Integumentary/Breasts: Skin/Breast: Reports as per HPI PMFSH Past Medical History Medical History Strain of left calf muscle Endometriosis Anemia Renal disease Bronchitis Asthma Hyperlipidemia Hypertension Diabetes mellitus Surgical History Surgical History History of total hysterectomy with bilateral salpingo-oophorectomy (BSO) Family History Family History Mother Hypertension CHF (congestive heart failure) Father Patient's father is in good health Brain aneurysm Social History Social History Social History: Patient lives alone but is currently at [facility] for therapy. 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 There is no relevant family history pertinent to the patient complaint. Exam Const: General: cooperative, healthy appearing, comfortable, no acute distress, well developed, alert and well nourished Nutritional Appearance: well nourished Orientation/consciousness: patient oriented x3 Limitations: no limitations HENMT: Head: normal to inspection Eyes: General: appearance normal, both eyes and all related structures Alignment and Position: alignment normal Neck: Neck: normal visual inspection, full ROM, no lymphadenopathy and no meningeal signs Chest: Chest palpation & inspection: normal inspection of the chest Resp: Effort & Inspection: normal respiratory effort and able to speak in complete sentences Cardio: Rate: regular rate Skin: General skin exam: normal color and no rashes or lesions noted Lesions: lesion noted (Plantar aspect great toe. Callus, no erythema.) Neuro: General: patient oriented x3, gait normal, moves all extremities and no meningeal signs Cognition (Neuro): normal cognition Speech: normal speech Gait exam (Neuro): Normal gait present Extrem: General: normal to inspection, full ROM, capillary refill normal and normal gait Ankle/foot/toe images:  1. 1 cm callus without fluctuance, drainage, erythema, swelling. No other wounds noted Psych: Appearance: grossly normal and well kempt Mental Status: mental status grossly normal Speech and movement: Normal speech and movement present and Clear speech present Affect: normal affect Attitude: cooperative Course Course Level of Care: Express Care Visit Vital Signs Vital signs: Vital Signs Temperature 98.1 F 09/08/24 17:00 Pulse Rate 73 09/08/24 17:00 Respiratory Rate 16 09/08/24 17:00 Blood Pressure 140/82 09/08/24 17:00 Pulse Oximetry 96 09/08/24 17:00 Temperature 98.1 F 09/08/24 17:00 Pulse Rate 73 09/08/24 17:00 Respiratory Rate 16 09/08/24 17:00 Blood Pressure 140/82 09/08/24 17:00 Pulse Oximetry 96 09/08/24 17:00 Reviewed MDM - Extremity (Nontraumatic) MDM Narrative Medical decision making narrative: Patient sitting in exam room. Patient is nontoxic, vitals stable. Patient presents with plantar aspect left great toe discomfort. A 1 cm callus is noted. Discussed [id number] treatments Patient appropriate for outpatient treatment with close follow-up with her established domestic travel consultant Discharge instructions reviewed with patient, as well as provided in writing per nursing staff. The instructions also include specific and strict return/GO TO THE ER as well as f/u information. All questions have been answered, and the patient deny any further questions with discharge and discharge plan. Some parts of this dictation were generated by voice recognition software and may contain typographical and/or grammatical inaccuracies. Differential Diagnosis Differential diagnosis: Likely cellulitis and other (Callus, wart, diabetic wound) Critical Care Time Critical Care Time Critical Care Time: No Discharge Plan Discharge Clinical Impression: Callus of toe Patient Disposition: Home Condition: Stable Instructions: Foot Care for People with Diabetes (DC) Additional Instructions: Follow-up with your domestic travel consultant You can purchase callus pads or corn pads an apply to the toe. This should help with discomfort Follow-up with primary care provider Patient Language: Belarusian Prescriptions: No Action losartan 50 mg tablet alendronate 70 mg tablet PO hydrochlorothiazide 12.5 mg tablet albuterol sulfate 90 mcg/actuation HFA aerosol inhaler 2 puff INHALATION QID PRN (Reason: shortness of breath or wheezing) Qty: 8 0RF metformin 500 mg tablet extended release 24 hr 500 mg PO DAILY albuterol sulfate [Ventolin HFA] 90 mcg/actuation HFA aerosol inhaler 2 puff inhalation QID PRN (Reason: shortness of breath or wheezing) Qty: 8.5 0RF atorvastatin 40 mg tablet 40 mg PO HS Qty: 90 3RF metoprolol tartrate 50 mg tablet 50 mg PO TID Qty: 270 1RF ropinirole 1 mg tablet 1 mg PO QHS Qty: 90 3RF allopurinol 100 mg tablet 100 mg PO DAILY omeprazole 20 mg capsule,delayed release(DR/EC) 20 mg PO DAILY montelukast 10 mg tablet 10 mg PO HS cyclobenzaprine 10 mg Tablet 10 mg PO TID PRN (Reason: Muscle Pain) Follow-up/Referrals: PHYSICIAN,FINISHING RANGE SUPERVISOR [Primary Care Provider] - Time of Disposition: 17:09
== END 2024-09-08 17:15 | disposition home or self-care (01) ==
PROVIDERS: Emergency Provider Nurse Practitioner
DX: L84 Corns and callosities (principal); E11.9 Type 2 diabetes mellitus without complications; Z79.84 Long term (current) use of oral hypoglycemic drugs; I10 Essential (primary) hypertension; E78.5 Hyperlipidemia, unspecified; J45.909 Unspecified asthma, uncomplicated; N80.9 Endometriosis, unspecified
CPT/HCPCS: 99212; G0463

== ENCOUNTER 2024-11-12 08:18 | Emergency (ER) | payer MEDICARE, SELFPAY ==
--- OUTSIDE RECORDS SUMMARY | 2024-11-12 08:20 | XMS_ITS | Data Portability ---
Author Organization [place] - [facility], Main Office Address [address] [place] [address] Care Team Providers Care Certified Nurse Aide Name Role Phone PINKY SEVERINO Primary Care Provider [phone] PINKY SEVERINO Referring Provider [phone] Assessment Encounter Date Assessment Date Assessment LastModified [...] ice to finish she can also use [id number] ointments or creams for joint pain if [...] DO Not Attach Compendium, Do Not Delete/merge, 10261 14:11:23 injection/a spiration joint/bursa (PROC) 2023 024 [email or web address] In-Office Order, Internal Use Only DO Not Attach Compendium DO Not Attach Compendium, Do Not Delete/merge, 39764 14:30:38 Surgeries None recorded. Imaging XR, lumbar spine 2023 024 [email or web address] [facility] [place], [address], [place], [address], 14:59:07 XR, knee 2023 024 [email or web address] [facility] [place], [address], [place], [address], 4 16:10:17 Medication Orders bupivacaine HCl 0.5 % (5 mg/mL) injection solution [address] [facility] [place], [address], 4 14:18:40 Kenalog 10 mg/mL suspension for injection [address] [facility] [address] [place], [address], 14:18:40 bupivacaine HCl 0.5 % (5 mg/mL) injection solution [address] [facility] [address] [place], [address], 16:10:17 Kenalog 10 mg/mL suspension for injection [address] [facility] [address] [place], [address], 4 16:10:17 Patient TargetsNo targets recorded. Patient InstructionsNo instructions recorded. Reason for Referral None Reported. Results Created Date Observation Date Name Description Value Unit Range Abnormal Flag Note LastModifiedBy Organization Detail LastModifiedTime 02/22/20 24 02/18/2024 CT, knee, w/o contr ast No observ ation record ed. [email or web address] Not Available 02/08 12:08:45 02/25/20 24 XR, knee No observ ation record ed. [email or web address] [facility] [place] [address], [place], [address], 02/25/2024 14:44:29 04/15/20 24 XR, lumba r spine No observ ation record ed. [email or web address] [facility] [place] [address], [place], [address], 04/15/2024 14:59:06 Result Notes None recorded. Problems Name Problem SNOMED Code Status Onset Date Resolution Date Notes Provider Name and Address Organization Details Recorded Time Osteoarthr itis of knee 478201056 Active Not Available [facility] 3 12:46:18 Pain of left knee joint 4006002932310 07 Active 2023 Mirta Samuel, UNIT TECHNICIAN null, [place] [facility] 4 14:17:45 Osteoarthr itis of left knee joint 1023232607363 09 Active 2023 BRYCE Escobar [address], [place], [address] , [facility] 4 14:44:56 Low back pain 064894384 Active 2023 Mirta Samuel, UNIT TECHNICIAN null, [place] [facility] 4 14:08:05 Pain in right sacroiliac joint 8744018320773 9107 Active 2023 Mirta Samuel, UNIT TECHNICIAN null, [place] [facility] [facility] 4 14:08:14 Lumbar spondyloli sthesis 3999501014386 02 Active 2023 BRYCE Escobar [address], [place], [address] , [facility] 4 14:57:09 Lumbar spondylosi s 000677458 Active 2023 BRYCE Escobar [address], [employer], [place], [address] , [facility] 4 14:57:15 Problem Notes None recorded. Medical Equipment None Reported. Allergies Allergen ID Allergen Name Allergen Category Reaction Reaction Severity Criticality Documentation Date Start Date Code Code System Note Provider Name and Address Organization Details Recorded Time 36134 codeine medicatio n nausea Not available Not available 02/25/2024 2670 RxNorm Mirta Samuel, UNIT TECHNICIAN null, [place] [facility] 4 13:58:55 34789 prednison e medicatio n nausea Not available Not available 02/25/2024 8640 RxNorm Mirta BakerCAITLYN null, [place] [facility] 4 13:59:19 Medications Name Sig Start Date Stop [...] mg by injectio n route. 2023 active [facility]: 0003-04 94-20 Not Available Not Available Not [...] Updated DateTime 02/25/2024 160.02 cm 25.7 kg/m2 52423.89 g [employer], UNIT TECHNICIAN [employer] 02/25/2024 13:58:19 Date Recorded Body height Body mass index (BMI) Body weight Provider Name and Address Organization Details Last Updated DateTime 04/15/2024 160.02 cm 24.8 kg/m2 25658.93 g [employer] 04/15/2024 14:07:26 Social History None recorded. Functional Status Question Answer Note LastModified by Organization D etails LastModified Time What is your level of alcohol consumption? None [email or web address] Information not available 02/25/2024 Mental Status None recorded. Family History Relationship [...] SNOMED-CT Code Diagnosis ICD10 Code Diagnosis Note [id number] Teo Mcginnis MD [facility] [place] [address] [place] [address] 02/25/2024 13:40:54 02/25/2024 14:47:19 Pain of left knee joint 1910649418 58803 M25.562 Osteoarthr itis of left knee joint 1730099568 45714 M17.12 [id number] Teo Mcginnis MD [facility] [place] [address] [place] [address] 04/15/2024 14:05:06 04/15/2024 14:56:17 Low back pain 499319477 M54.50 Pain in ri ght sacroiliac joint 6783309765 7396129 M53.3 Lumbar spondylolisthesis 1530431443 04275 M43.16 Lumbar spondylosis 65180 0009 M47.896 Health Concerns Section Related Observation LastModified by Organization Detai ls LastModified Time None Recorded Concern Status LastModified by Organization Details LastModified Time None Recorded Advance Directives Directive None Recorded Payers Insurance Date Sequence Insurance Name Policy Number Policy Guo Covered Member ID Guo Member ID Guarantor Name 12/30/2023 2 UNSPECIFIED REMIT PAYOR Alison Eric Camacho 09/07/2024 2 [place] [id number] Alison Camacho [id number] Alison Camacho 08/16/2024 3 [place] [id number] Alison Camacho [id number] Alison Camacho 08/16/2024 1 [place] Alison Camacho [id number] Alison Camacho 02/25/2024 2 [employer] (MEDICARE SUPPLEMENT) Alison Camacho [id number] Alison Camacho 08/16/2024 [facility] Alison Camacho BCBS BCBS Alison Camacho Notes Date Note Type Note [...] detail today with the patient. BRYCE Escobar [address] [place] [address], [place], [address], [place] [facility] 02/25/2024 14:45:25 04/15/2024 text/html patient returns complaining [...] denies any significant changes. BRYCE Escobar [address] [facility], [facility] [address], [place], [address], [place] [facility] 04/15/2024 14:59:38 OBGyn Episode No OBEpisode recorded.
--- OUTSIDE RECORDS SUMMARY | 2024-11-12 08:20 | XMS_ITS | Data Portability ---
Author Organization [place] - [facility] OFFICE Address [address] [place] [address] Care Team Providers Care Fishing Vessel Mate Name Role Phone CASSI MAC Primary Care Provider [phone] Assessment No assessment recorded. Plan of Treatment Reminders Order Date Submit Date Provider Last Modified By Organization Details Last Modified Time Details Appointments None recorded. Lab None recorded. Referral None recorded. Procedures None recorded. Surgeries None recorded. Imaging None recorded. Medication Orders Vascepa 1 gram capsule [address] [facility] [address] [place], [address], 9 16:34:55 Patient TargetsNo targets recorded. Patient Instructions Encounter Date Encounter Id Patient Instructions Last Modified By Organization Details Last Modified Time 06/11/2018 [id number] Weight loss 20 pounds Exercise advised Low cholesterol diet advised Low sodium diet advised. [email or web address] Not available 06/11/2018 11:16:45 Patient was seen and evaluated by Shante GALEAS-C. Plan of care was discussed with collaborating physician. Note cosigned by Joe Irwin MD. [email or web address] Not available 06/11/2018 11:16:34 07/13/2018 [id number] Exercise advised Low cholesterol diet advised Low sodium diet advised. [email or web address] Not available 07/13/2018 12:13:39 Reason for Referral None Reported. Results Created Date Observation Date Name Description Value Unit Range Abnormal Flag Note LastModifiedBy Organization Detail LastModifiedTime 06/13/1905/25/2018 edward can cardi olite stres s test (PROC ) No observ ation record ed. [email or web address] Not Available 06/14 16:24:26 06/13/19 19 06/09/2018 elect jacqueline chenggr am No observ ation record ed. [email or web address] Not Available 06/14 16:26:02 07/04/19 19 06/28/2018 , echo arprosper gram No observ ation record ed. [facility] [address], [place], [address], 07/05/2018 05:08:19 Result Notes None recorded. Problems Name Problem SNOMED Code Status Onset Date Resolution Date Notes Provider Name and Address Organization Details Recorded Time Atypical chest pain 048950497 Active 2018 Shante oneil, [place] - [facility] 9 11:02:31 Essential hypertension 16019666 Active 2018 Shante oneil, [place] [facility] 9 11:02:36 Hypertriglycer idemia 131146195 Active 2018 Shante oneil, [place] [facility] 9 11:03:05 Diabetes mellitus 16233373 Active 2018 Shante oneil, [place] [facility] 9 11:14:19 Dyspnea on exertion 42747672 Active 2018 Shante oneil, [place] - [facility] 9 11:23:54 Anxiety 74477413 Active 2018 Patrick oneil, [place] - [facility] 9 10:07:51 Problem Notes None recorded. Medical Equipment None Reported. Allergies Allergen ID Allergen Name Allergen Category Reaction Reaction Severity Criticality Documentation Date Start Date Code Code System Note Provider Name and Address Organization Details Recorded Time 7630 codeine medicatio n nausea mild Not available 06/11/2018 2670 RxNorm MOHAMMAD ABDULFATA H null, [place] - [facility] 9 10:47:04 7631 prednison e medicatio n irregular heart rate moderate Not available 06/11/2018 8640 RxNorm MOHAMMAD ABDULFATA H null, [place] [facility] 9 10:47:50 7632 amoxicill in medicatio n Not available Not available Not available 06/11/2018 723 RxNorm Marnie Mathew null, [place] - [facility] 9 10:52:37 Medications Name Sig Start Date [...] every day by oral route. 07/13 completed Sourav dennis. Not Available Not Available Not Available Vitals Date Recorded Body weight Body mass index (BMI) Body height Oxygen saturation Oxygen saturation in Arterial blood by Pulse oximetry Heart rate Systolic And Diastolic Provider Name and Address Organization Details Last Updated DateTime 9 97539.7 4 g 29.2 kg/m2 160.02 cm 94 % 94 % 72 /min 138/88 mm[Hg] CHILOMILAGRO NICOLASAGAETANO [facility] 9 10:38:13 Date Recorded Body height Body mass index (BMI) Body weight Oxygen saturation Oxygen saturation in Arterial blood by Pulse oximetry Heart rate Systolic And Diastolic Provider Name and Address Organization Details Last Updated DateTime 9 160.02 cm 26.9 kg/m2 06498.0 4 g 96 % 96 % 76 /min 136/82 mm[Hg] SEAN CHUCKY [facility] 9 11:33:11 Social History None recorded. Functional Status None recorded. Mental Status None recorded. Family History Nothing Reported. Medical History Condition Response Diabetes Y Hyperlipidemia Y Hypertension Y Gynecological HistoryNo gynecological history recorded. Obstetrics History GPAL:G 0 P 0 0 0 0 Past Encounters Encounter ID Performer Location Encounter Start Date Encounter Closed Date Diagnosis/Indication Diagnosis SNOMED-CT Code Diagnosis ICD10 Code Diagnosis Note [id number] Joe Irwin MD [facility] [address] [place] [address] 06/11/2018 10:08:34 06/26/2018 20:14:06 Atypical chest pain 926950230 R07.89 She underwent a lexiscan nuclear stress testing that was negative for ischemia with normal LV systolic function. EF > 70%. Continue maximal medical treatment and risk factor modificati on. On 81 ASA daily. Consider cardiac CTA. He/She has high [place] Risk score. He/she would benefit from CT to look for any coronary artery disease. Essential hypertension 72176442 I10 Now well controlled . Hypertriglyceridemia 302 001361 E78.1 05/25/18: TC 134, Tri 459. LDL 64Continue atorvastat in. Will add Vascepa. Diabetes mellitus 182864 09 E11.9 Treatment and evaluation by primary care doctor. Discussed importance of adequate glycemic control to minimize cardiovasc ular disease progressio n. A1C goal of < 7% for type 2 DM Dyspnea on exertion 6084 5006 R06.09 Mild. Stable.Gaurav l get echo to look for any structural heart disease [id number] Joe Irwin MD [address] [place] [address] 07/13/2018 11:01:43 07/13/2018 12:14:19 Atypical chest pain 751076218 R07.89 She underwent a lexiscan nuclear stress testing that was negative for ischemia with normal LV systolic function. EF > 70%. Continue maximal medical treatment and risk factor modificati on. On 81 ASA daily. Consider cardiac CTA. He/She has high [place] Risk score. He/she would benefit from CT to look for any coronary artery disease. Dyspnea on exertion 6084 5006 R06.09 Mild. Stable.ECH O on 06/28/18 showed normal global systolic function , EF 65-70% , grade I diastolic dysfunctio n Essential hypertension 20856383 I10 Now well controlled . Hypertriglyceridemia 302 606602 E78.1 05/25/18: TC 134, Tri 459. LDL 64Continue atorvastat in. Will add Vascepa. Diabetes mellitus 225923 09 E11.9 Treatment and evaluation by primary [...] Member ID Guo Member ID Guarantor Name 07/10/2018 1 [place] Alison Camacho [id number] Alison Camacho 07/10/2018 2 [employer] (MEDICARE SUPPLEMENT) Alison Madrigal [id number] Alison Camacho Notes Date Note Type Note Provider Name and Address Organization Details Recorded Time 06/11/2018 text/html 06/11/18 CC:Chest pain follow-up 72 year-old woman with a past medical history of hypertension, diabets mellitus, GERD, anxiety, ovarian cancer, presents for cardiac consultation with a chief complaint of chest pain hospital follow-up. Patient was recently seen and evaluated by us at [facility] on 05/24/18 with a chief complaint of [...] d/c, On thursday she went back to [facility] due to right-sided chest pain. cardiac enzymes [...] abnormality-inferior leads. Borderline ECG. Joe Irwin MD [address] [place], [address], [facility] 06/26/2018 20:14:05 07/13/2018 text/html 07/13/18 CC: dyspnea on exertion 72 year old patient who had been in [facility] in May of this year for elevated [...] (alive at 89 y/o) has HTN, h/o [place]. ECHO on 06/28/18 showed normal global systolic [...] ventricle ejection fraction is Joe Irwin MD [address] [place], [address], [facility] - [facility] 07/13/2018 12:14:17 OBGyn Episode No OBEpisode recorded.
--- OUTSIDE RECORDS SUMMARY | 2024-11-12 08:20 | XMS_ITS ---
Author Name Auto Generated, Auto Generated Organization [facility] ice Address [address] [place] [address] Phone [phone] Care Team Providers Care Public Finance Specialist Name Role Phone Pat, Lian Corbin Unavailable Krystal Young Unavailable Harshil Bowman Unavailable [phone] Functional Status Mental Status Allergies and Intolerances Encounters Immunizations Medications Problems Vital Signs Reason for Referral
--- OUTSIDE RECORDS SUMMARY | 2024-11-12 08:20 | XMS_ITS ---
Author Name Auto Generated, Auto Generated Organization [facility] ices Address [address] [place] [address] Phone [phone] Care Team Providers Care Software Team Leader Name Role Phone Lian Stewart Unavailable [place], Krystal Noe Unavailable Harshil Bowman Unavailable [phone] Functional Status No Results Mental Status No Results Allergies and Intolerances Name Onset Date Reaction Severity codeine (Allergy) ThuJan 02 15:27:00 EDT 2023 prednisone (Allergy) ThuJan 02 15:25:00 EDT Encounters Program Name Primary Diagnosis Admission Date/Time Dis charge Date/[facility] ThuJan 02 08:00:00 EDT [...] Sep 15 21:00:00 EDT 2023 Mon Sep 23 01:00:00 EDT 2023 Fosamax 70 mg tablet 1 tablet TABLET Ora l 1 Time Weekly Indication: Osteoporosis Tue Sep 10 17:00:00 EDT 2023 Mon Sep 23 01:00:00 EDT 2023 lidocaine 4 % topical [...] 6 Hours for 10 Days Indication: pain e Sep 03 01:00:00 EDT 2023 Fri Sep 13 00:59:00 EDT 2023 traMADoL 50 mg tablet 1 tablet TABLET Or al PRN Every 8 Hours for 14 Days Indication: Pain Tue Sep 03 18:00:00 EDT 2023 Tue Sep 17 17:59:00 EDT 2023 TubersoL 5 tub. unit/0.1 mL intradermal injection solution Read Results VIAL (ML) Other 1 Time Weekly for 2 Weeks Indication: . Read results between 48-72 hours after 1st and 2nd (1 week apart). If positive do chest x-ray. ThuJan 05 09:00:00 EDT 2023 [facility] Jan 19 08:59:00 EDT 2023 TubersoL 5 tub. unit/0.1 mL intradermal injection solution 0.1 ml VIAL (ML) Intradermal 1 Time Weekly for 2 Weeks Indication: . 1st injection on admission, then one week after. Read between 48 and 72 hours ThuJan 03 09:00:00 EDT 2023Jan 17 08:59:00 EDT 2023 FeroSuL 325 mg (65 mg iron) tablet 1 TAB TABLET Oral 1 Time Daily Indication: anemia *GIVE WITH FOOD* ThuJan 03 16:30:00 EDT 2023Jan 31 01:00:00 EDT 2023 hydrocortisone 2.5 [...] Daily Indication: hyperlipedemia ThuJan 02 16:30:00 EDT 2023 [facility] Jan 31 01:00:00 EDT 2023 metoprolol tartrate 50 mg tablet 1 TAB TABLET Oral 3 Times Daily Indication: a fib ThuJan 02 16:30:00 EDT 2023 [facility] 01:00:00 EDT 2023 rOPINIRole 1 mg tablet 1 TAB TABLET Oral 1 Time Daily Indication: rls ThuJan 02 16:30:00 EDT 2023 [facility] Jan 31 01:00:00 EDT 2023 FeroSuL 325 mg (65 mg iron) tablet 1 TAB TABLET Oral 1 Time Daily Indication: anemia ThuJan 02 16:30:00 EDT 2023Jan 03 16:33:00 EDT 2023 metFORMIN ER 500 mg tablet,extended release 24 hr 1 TAB TABLET, EXTENDED RELEASE 24 HR Oral 1 Time Daily Indication: dm ThuJan 02 16:30:00 EDT 2023 [facility] Jan 31 01:00:00 EDT 2023 cyclobenzaprine 10 mg tablet 1 TAB TABLET Oral PRN 3 Times Daily Indication: MUSCLE PAIN ThuJan 02 16:30:00 EDT 2023 [facility] Jan 31 01:00:00 EDT 2023 allopurinoL 100 mg tablet 100MG TABLET O ral 1 Time Daily Indication: gout ThuJan 02 16:30:00 EDT 2023 [facility] 01:00:00 EDT 2023 omeprazole 20 mg capsule,delayed release 1 CAP CAPSULE,DELAYED RELEASE (ENTERIC COATED) Oral 1 Time Daily Indication: gerd ThuJan 02 16:30:00 EDT 2023 [facility] Jan 31 01:00:00 EDT 2023 montelukast 10 mg tablet 1 TAB TABLET Or al Hour Of Sleep Indication: allergies ThuJan 02 16:30:00 EDT 2023 [facility] Jan 31 01:00:00 EDT 2023 Problems Active [...] 2023 * End Date: * Text: * longterm (current) use of oral hypoglycemic drugs* Code: [...] End Date: * Text: * LSSSusanSocial Alexandrea Rosas will be involved in discharge planning.* Code: * Start Date: ThuJan 04 00:00:00 EDT 2023 * End Date: * Text: MISSsuanSocial Alexandrea Rosas will be involved in discharge planning. * KWESISocial Alexandrea Rosas's mobility level is different than prior level due to current medicalcondition.* Code: * Start Date: ThuJan 04 00:00:00 EDT 2023 * End Date: * Text: MISSusanSocial Alexandrea Joes mobility level is different than prior level due to current medical condition. * KWESISocial Alexandrea Rosas has family/friends who are supportive.* Code: * Start Date: ThuJan 04 00:00:00 EDT 2023 * End Date: * Text: MISSusanSocial Alexandrea Rosas has family/friends who are supportive. * MISSusanSocial ServicesTonie Rosas will be involved in goal development to the best of his or her ability.* Code: * Start Date: ThuJan 04 00:00:00 EDT 2023 * End Date: * Text: MISSusanSocial ServicesTonie Rosas will be involved in goal development to the best of his or her ability. * KWESISocial ServicesTonie Rosas's wishes will be followed (Advanced Directive/Code Status).* Code: * Start Date: ThuJan 04 00:00:00 EDT 2024 * End Date: * Text: LSS_Social Services- Alison's wishes will be followed (Advanced Directive/Code Status). Vital Signs Vital Sign Measurement Date Systolic Blood Pressure 147.00 mm[Hg] [facility] 10:09:28 EDT 2023 Diastolic Blood Pressure 79.00 mm[Hg] [facility] 10:09:28 EDT 2023 Heart Rate 76.00 /min [facility] 10:09 :28 EDT 2023 Body temperature 98.60 [degF] [facility] 10:0 9:28 EDT 2023 Respiratory rate 18.00 /min [facility] 10:0 9:28 EDT 2023 Systolic Blood Pressure 147.00 mm[Hg] [facility] 09:41:03 EDT 2023 Diastolic Blood Pressure 79.00 mm[Hg] [facility] 09:41:03 EDT 2023 Systolic Blood Pressure 145.00 mm[Hg] [facility] Sep 22 23:48:37 EDT 2023 Diastolic Blood Pressure 80.00 mm[Hg] [facility] Sep 22 23:48:37 EDT 2023 Heart Rate 69.00 /min [facility] Sep 22 23:48 :37 EDT 2023 Body temperature 98.60 [degF] [facility] Sep 22 23:4 8:37 EDT 2023 Respiratory rate 20.00 /min [facility] Sep 22 23:4 8:37 EDT 2023 Systolic Blood Pressure 145.00 mm[Hg] Sun Sep 22 22:12:28 EDT 2023 Diastolic Blood Pressure 80.00 mm[Hg] [facility] Sep 22 22:12:28 EDT 2023 Systolic Blood Pressure 142.00 mm[Hg] Sun Sep 22 14:11:00 EDT 2023 Diastolic Blood Pressure 64.00 mm[Hg] Sun Sep 22 14:11:00 EDT 2023 Body weight 150.60 [lb_av] Sun Sep 22 11:08 :30 EDT 2023 Systolic Blood Pressure 130.00 mm[Hg] Sun Sep 22 08:58:21 EDT 2023 Diastolic Blood Pressure 66.00 mm[Hg] Sun Sep 22 08:58:21 EDT 2023 Systolic Blood Pressure 130.00 mm[Hg] Sun Sep 22 08:57:22 EDT 2023 Diastolic Blood Pressure 66.00 mm[Hg] Sun Sep 22 08:57:22 EDT 2023 Heart Rate 65.00 [...] 2023 Heart Rate 71.00 /min Sun Sep 22 00:41 :18 EDT 2023 Body temperature 97.30 [degF] Sun Sep 22 00:4 1:18 EDT 2023 Respiratory rate 22.00 /min Sun Sep 22 00:4 1:18 EDT 2023 Systolic Blood Pressure [...] /min Sat Sep 21 09:2 2:34 EDT 4 Systolic Blood Pressure 159.00 mm[Hg] Fri Sep [...] :37 EDT 2023 Body temperature 97.70 [degF] [facility] Sep 20 08:5 6:37 EDT 2023 Respiratory rate 18.00 /min Fri Sep 20 08:5 6:37 EDT 2023 Systolic Blood Pressure 149.00 mm[Hg] [facility] Sep 19 23:26:22 EDT 2023 Diastolic Blood Pressure 73.00 mm[Hg] [facility] Sep 19 23:26:22 EDT 2023 Heart Rate 72.00 /min [facility] Sep 19 23:26 :22 EDT 2023 Body temperature 98.50 [degF] [facility] Sep 19 23:2 6:22 EDT 2023 Respiratory rate 18.00 /min [facility] Sep 19 23:2 6:22 EDT 2023 Systolic Blood Pressure 155.00 mm[Hg] [facility] Sep 19 22:27:17 EDT 2023 Diastolic Blood Pressure 81.00 mm[Hg] [facility] Sep 19 22:27:17 EDT 2023 Body weight 150.20 [lb_av] [facility] Sep 19 17:43 :40 EDT 2023 Systolic Blood Pressure 151.00 mm[Hg] [facility] Sep 19 15:46:34 EDT 2023 Diastolic Blood Pressure 75.00 mm[Hg] [facility] Sep 19 15:46:34 EDT 2023 Systolic Blood [...] 81.00 mm[Hg] Wed Sep 18 08:37:48 EDT 2023 Heart Rate 71.00 /min Wed Sep 18 08:37 :48 EDT 2023 Body temperature 98.30 [degF] Wed Sep 18 08:3 7:48 EDT 2023 Respiratory rate 18.00 /min Wed Sep 18 08:3 7:48 EDT 2023 Systolic Blood Pressure 143.00 mm[Hg] [...] 81.00 mm[Hg] Tue Sep 17 14:07:41 EDT 2023 Systolic Blood Pressure 128.00 mm[Hg] Tue Sep 17 08:55:19 EDT 2023 Diastolic Blood Pressure 79.00 mm[Hg] Tue Sep 17 08:55:19 EDT 2023 Systolic Blood Pressure 128.00 mm[Hg] Tue Sep 17 08:55:19 EDT 2023 Diastolic Blood Pressure 79.00 mm[Hg] Tue Sep 17 08:55:19 EDT 2023 Heart Rate 77.00 /min Tue Sep 17 08:55 :19 EDT 2023 Body temperature 98.00 [degF] Tue Sep 17 08:5 5:19 EDT 2023 Respiratory rate 18.00 /min Tue Sep 17 08:5 5:19 EDT 4 Systolic Blood Pressure 144.00 mm[Hg] Mon Sep 16 23:49:48 EDT 2023 Diastolic Blood Pressure 77.00 mm[Hg] Mon Sep 16 23:49:48 EDT 2023 Heart Rate 66.00 /min Mon Sep 16 23:49 :48 EDT 2023 Body temperature 98.30 [degF] Mon Sep 16 23:4 9:48 EDT 2023 Respiratory rate 18.00 /min Mon Sep 16 23:4 9:48 EDT 2024 Systolic Blood Pressure 144.00 mm[Hg] Mon Sep 16 22:29:59 EDT 4 Diastolic Blood Pressure 77.00 mm[Hg] Mon Sep 16 22:29:59 EDT 2023 Systolic Blood Pressure 169.00 mm[Hg] Mon Sep 16 17:49:13 EDT 2023 Diastolic Blood Pressure 87.00 mm[Hg] Mon Sep 16 17:49:13 EDT 2023 Body weight 152.60 [lb_av] [facility] Sep 16 09:14 :06 EDT 2023 Systolic Blood Pressure 140.00 mm[Hg] Mon Sep 16 09:13:40 EDT 2023 Diastolic Blood Pressure 72.00 mm[Hg] [facility] Sep 16 09:13:40 EDT 2023 Systolic Blood Pressure 140.00 mm[Hg] [facility] Sep 16 09:13:40 EDT 2023 Diastolic Blood Pressure 72.00 mm[Hg] [facility] Sep 16 09:13:40 EDT 2023 Heart Rate 61.00 /min [facility] Sep 16 09:13 :40 EDT 2023 Body temperature 98.20 [degF] [facility] Sep 16 09:1 3:40 EDT 4 Respiratory rate 18.00 /min [facility] Sep 16 09:1 3:40 EDT 4 Systolic Blood Pressure 146.00 mm[Hg] Sun Sep 15 23:31:26 EDT 2023 Diastolic Blood [...] [lb_av] Sun Sep 15 10:22 :34 EDT 2023 Systolic Blood Pressure 136.00 mm[Hg] [...] 18.00 /min Sat Sep 14 18:0 1:01 EDT 2023 Systolic Blood Pressure 137.00 mm[Hg] Sat Sep [...] EDT 2023 Systolic Blood Pressure 141.00 mm[Hg] [facility] Sep 12 14:25:50 EDT 2023 Diastolic Blood Pressure 77.00 mm[Hg] [facility] Sep 12 14:25:50 EDT 2023 Body weight 153.00 [lb_av] [facility] Sep 12 09:37 :15 EDT 2023 Systolic Blood Pressure 132.00 mm[Hg] [facility] Sep 12 09:18:20 EDT 2023 Diastolic Blood Pressure 72.00 mm[Hg] [facility] Sep 12 09:18:20 EDT 2023 Systolic Blood Pressure 132.00 mm[Hg] [facility] Sep 12 09:18:20 EDT 2023 Diastolic Blood Pressure 72.00 mm[Hg] [facility] Sep 12 09:18:20 EDT 2023 Heart Rate 73.00 /min [facility] Sep 12 09:18 :20 EDT 2023 Body temperature 98.20 [degF] [facility] Sep 12 09:1 8:20 EDT 2023 Respiratory rate 18.00 /min [facility] Sep 12 09:1 8:20 EDT 2023 Systolic Blood Pressure 130.00 mm[Hg] [facility] Sep 11 22:51:33 EDT 2023 Diastolic Blood Pressure 68.00 mm[Hg] [facility] Sep 11 22:51:33 EDT 2023 Systolic Blood Pressure 120.00 mm[Hg] [facility] Sep 11 19:54:45 EDT 2023 Diastolic Blood Pressure 66.00 mm[Hg] [facility] Sep 11 19:54:45 EDT 2023 Heart Rate 78.00 /min [facility] Sep 11 19:54 :45 EDT 2023 Body temperature 98.70 [degF] [facility] Sep 11 19:5 4:45 EDT 2023 Respiratory rate 18.00 /min [facility] Sep 11 19:5 4:45 EDT 2023 Systolic Blood Pressure 142.00 mm[Hg] [facility] Sep 11 18:36:00 EDT 2023 Diastolic Blood Pressure 51.00 mm[Hg] [facility] Sep 11 18:36:00 EDT 2023 Pulse Oximetry 92.00 % [facility] 11 18:36 :00 EDT 2023 Heart Rate 75.00 /min [facility] Sep 11 18:36 :00 EDT 2023 Body temperature 98.20 [degF] [facility] Sep 11 18:3 6:00 EDT 2023 Respiratory rate 18.00 /min [facility] Sep 11 18:3 6:00 EDT 2023 Body Height 63.00 [in_i] [facility] Sep 11 18:36 :00 EDT 2023 Systolic Blood Pressure 145.00 mm[Hg] [facility] Sep 09 23:47:07 EDT 2023 Diastolic Blood Pressure 73.00 mm[Hg] [facility] 23:47:07 EDT 2023 Heart Rate 68.00 /min [facility] 23:47 :07 EDT 2023 Body temperature 98.50 [degF] [facility] 09 23:4 7:07 EDT 2023 Respiratory rate 18.00 /min [facility] 23:4 7:07 EDT 2023 Systolic Blood Pressure 151.00 mm[Hg] [facility] Sep 09 14:37:27 EDT 2023 Diastolic Blood Pressure 79.00 mm[Hg] [facility] 09 14:37:27 EDT 2023 Systolic Blood Pressure 139.00 mm[Hg] [facility] 09 08:53:12 EDT 2023 Diastolic Blood Pressure 80.00 mm[Hg] [facility] 09 08:53:12 EDT 2023 Systolic Blood Pressure 139.00 mm[Hg] [facility] 09 08:53:12 EDT 2023 Diastolic Blood Pressure 80.00 mm[Hg] [facility] 09 08:53:12 EDT 2023 Heart Rate 72.00 /min [facility] 09 08:53 :12 EDT 2023 Body temperature 98.00 [degF] [facility] 09 08:5 3:12 EDT 2023 Respiratory rate 18.00 /min [facility] 09 08:5 3:12 EDT 2023 Systolic Blood Pressure 124.00 mm[Hg] [facility] Sep 08 23:27:06 EDT 2023 Diastolic Blood Pressure 62.00 mm[Hg] [facility] Sep 08 23:27:06 EDT 2023 Heart Rate 65.00 /min Sun Sep 08 23:27 :06 EDT 2023 Body temperature 98.50 [degF] Sun Sep 08 23:2 7:06 EDT 2023 Respiratory rate 18.00 /min Sun Sep 08 23:2 7:06 EDT 2023 Systolic Blood Pressure 124.00 mm[Hg] Sun Sep 08 22:30:20 EDT 2023 Diastolic Blood Pressure 62.00 mm[Hg] Sun Sep 08 22:30:20 EDT 2023 Body weight 155.40 [lb_av] [facility] Sep 08 18:58 :12 EDT 2023 Systolic Blood Pressure 120.00 mm[Hg] Sun Sep 08 14:03:14 EDT 4 Diastolic Blood Pressure 57.00 mm[Hg] Sun Sep 08 14:03:14 EDT 4 Systolic Blood Pressure 141.00 mm[Hg] Sun Sep 08 09:11:49 EDT 4 Diastolic Blood Pressure 63.00 mm[Hg] Sun Sep 08 09:11:49 EDT 4 Systolic Blood Pressure 141.00 mm[Hg] Sun Sep 08 09:11:49 EDT 4 Diastolic Blood Pressure 63.00 mm[Hg] Sun Sep 08 09:11:49 EDT 4 Heart Rate 60.00 /min Sun Sep 08 09:11 :49 EDT 2023 Body temperature 97.80 [degF] Sun Sep 08 09:1 1:49 EDT 2023 Respiratory rate 18.00 /min Sun Sep 08 09:1 1:49 EDT 4 Systolic Blood Pressure 138.00 mm[Hg] Sat Sep 07 22:04:23 EDT 4 Diastolic Blood Pressure 64.00 mm[Hg] Sat Sep 07 22:04:23 EDT 4 Systolic Blood Pressure 136.00 mm[Hg] Sat Sep 07 16:35:07 EDT 4 Diastolic Blood Pressure 82.00 mm[Hg] Sat Sep 07 16:35:07 EDT 4 Heart Rate 75.00 /min Sat Sep 07 16:35 :07 EDT 4 Body temperature 97.50 [degF] Sat Sep 07 16:3 5:07 EDT 4 Respiratory rate 18.00 /min Sat Sep 07 16:3 5:07 EDT 2023 Systolic Blood Pressure 131.00 mm[Hg] Sat Sep 07 15:49:20 EDT 4 Diastolic Blood Pressure 57.00 mm[Hg] Sat Sep 07 15:49:20 EDT 4 Body weight 155.40 [lb_av] Sat Sep 07 10:26 :10 EDT 4 Systolic Blood Pressure 140.00 mm[Hg] Sat Sep 07 10:25:45 EDT 2023 Diastolic Blood Pressure 78.00 mm[Hg] Sat Sep 07 10:25:45 EDT 4 Heart Rate 62.00 /min Sat Sep 07 10:25 :45 EDT 2023 Body temperature 98.10 [degF] Sat Sep 07 10:2 5:45 EDT 4 Respiratory rate 18.00 /min Sat Sep 07 [...] 16:17:44 EDT 2023 Body weight 156.60 [lb_av] [facility] Sep 05 13:43 :53 EDT 2023 Systolic Blood Pressure 135.00 mm[Hg] [facility] Sep 05 09:22:20 EDT 2023 Diastolic Blood Pressure 91.00 mm[Hg] [facility] Sep 05 09:22:20 EDT 2023 Systolic Blood Pressure 135.00 mm[Hg] [facility] Sep 05 09:22:20 EDT 2023 Diastolic Blood Pressure 91.00 mm[Hg] [facility] Sep 05 09:22:20 EDT 2023 Heart Rate 72.00 /min [facility] Sep 05 09:22 :20 EDT 2023 Body temperature 98.60 [degF] [facility] Sep 05 09:2 2:20 EDT 2023 Respiratory rate 18.00 /min [facility] Sep 05 09:2 2:20 EDT 2023 Systolic Blood Pressure 114.00 mm[Hg] Wed Sep 04 22:23:56 EDT 2023 Diastolic Blood Pressure 61.00 mm[Hg] Wed Sep 04 22:23:56 EDT 2023 Systolic Blood Pressure 112.00 mm[Hg] Wed Sep 04 17:50:51 EDT 2023 Diastolic Blood Pressure 68.00 mm[Hg] Wed Sep 04 17:50:51 EDT 4 Heart Rate 74.00 /min Wed Sep 04 17:50 :51 EDT 2023 Body temperature 96.90 [degF] Wed Sep 04 17:5 0:51 EDT 2023 Respiratory rate 18.00 /min Wed Sep 04 17:5 0:51 EDT 2023 Body weight 153.60 [lb_av] Wed Sep 04 17:25 :38 EDT 2023 Systolic Blood Pressure 115.00 mm[Hg] Wed Sep 04 15:07:29 EDT 2023 Diastolic Blood Pressure 68.00 mm[Hg] [...] /min Wed Sep 04 09:53 :41 EDT 4 Body temperature 97.80 [degF] Wed Sep 04 09:5 3:41 EDT 4 Respiratory rate 16.00 /min Wed Sep 04 09:5 3:41 EDT 2023 Systolic Blood Pressure 126.00 mm[Hg] Wed Sep 04 08:26:49 EDT 2023 Diastolic Blood Pressure 63.00 mm[Hg] Wed Sep 04 08:26:49 EDT 2023 Pulse Oximetry 93.00 % Wed Sep 04 08:26 :49 EDT 4 Heart Rate 63.00 /min Wed Sep 04 08:26 :49 EDT 4 Body temperature 97.80 [degF] Wed Sep 04 08:2 6:49 EDT 4 Respiratory rate 16.00 /min Wed Sep 04 08:2 6:49 EDT 4 Systolic Blood Pressure 133.00 mm[Hg] e Sep 03 22:56:43 EDT 2023 Diastolic Blood Pressure 78.00 mm[Hg] e Sep 03 22:56:43 EDT 4 Heart Rate 77.00 /min e Sep 03 22:56 :43 EDT 2023 Body temperature 98.50 [degF] e Sep 03 22:5 6:43 EDT 2023 Respiratory rate 17.00 /min e Sep 03 22:5 6:43 EDT 4 Systolic Blood Pressure 133.00 mm[Hg] e Sep 03 22:19:14 EDT 2023 Diastolic Blood Pressure 78.00 mm[Hg] e Sep 03 22:19:14 EDT 2023 Body weight 155.60 [lb_av] e Sep 03 11:00 :27 EDT 2023 Systolic Blood Pressure 112.00 mm[Hg] Tue Sep 03 09:55:56 EDT 2023 Diastolic Blood Pressure 64.00 mm[Hg] e Sep 03 09:55:56 EDT 4 Systolic Blood Pressure 112.00 mm[Hg] Tue Sep 03 09:55:41 EDT 4 Diastolic Blood Pressure 64.00 mm[Hg] e Sep 03 09:55:41 EDT 4 Heart Rate 73.00 /min e Sep 03 09:55 :41 EDT 4 Body temperature 98.10 [degF] e Sep 03 09:5 5:41 EDT 2023 Respiratory rate 18.00 /min e Sep 03 09:5 5:41 EDT 2023 Systolic Blood Pressure 132.00 mm[Hg] Mon Sep 02 22:42:57 EDT 2023 Diastolic Blood Pressure 61.00 mm[Hg] Mon Sep 02 22:42:57 EDT 2023 Heart Rate 72.00 /min Mon Sep 02 22:42 :57 EDT 2023 Body temperature 98.30 [degF] Mon Sep 02 22:4 2:57 EDT 2023 Respiratory rate 18.00 /min Mon Sep 02 22:4 2:57 EDT 2023 Systolic Blood Pressure 132.00 mm[Hg] Mon Sep 02 22:26:43 EDT 2023 Diastolic Blood Pressure 61.00 mm[Hg] Mon Sep 02 22:26:43 EDT 4 Systolic Blood Pressure 133.00 mm[Hg] Mon Sep 02 16:59:40 EDT 2023 Diastolic Blood Pressure 68.00 mm[Hg] Mon Sep 02 16:59:40 EDT 4 Systolic Blood Pressure 113.00 mm[Hg] Mon Sep 02 08:47:22 EDT 2023 Diastolic Blood Pressure 63.00 mm[Hg] Mon Sep 02 08:47:22 EDT 4 Systolic Blood Pressure 113.00 mm[Hg] Mon Sep 02 08:47:05 EDT 4 Diastolic Blood Pressure 63.00 mm[Hg] Mon Sep [...] 116.00 mm[Hg] Sun Sep 01 23:15:09 EDT 4 Diastolic Blood Pressure 63.00 mm[Hg] Sun Sep 01 23:15:09 EDT 4 Heart Rate 73.00 /min Sun Sep 23:15 :09 EDT 2023 Body temperature 98.30 [degF] Sun Sep 23:1 5:09 EDT 2023 Respiratory rate 20.00 /min Sun Sep 23:1 5:09 EDT 2023 Systolic Blood Pressure 116.00 mm[Hg] Sun Sep 01 22:33:15 EDT 2023 Diastolic Blood Pressure 63.00 [...] EDT 2023 Systolic Blood Pressure 128.00 mm[Hg] [facility] Jan 08 22:57:43 EDT 2023 Diastolic Blood Pressure 69.00 mm[Hg] Sat Jan 08 22:57:43 EDT 2023 Heart Rate 70.00 /min [facility] Jan 08 22:57 :43 EDT 2023 Body temperature 98.20 [degF] [facility] Jan 08 22:5 7:43 EDT 2023 Respiratory rate 18.00 /min ThuJan 08 22:5 7:43 EDT 2023 Systolic Blood Pressure 128.00 mm[Hg] Sat Jan 08 22:20:58 EDT 2023 Diastolic Blood Pressure 69.00 mm[Hg] Sat Jan 08 22:20:58 EDT 2023 Systolic Blood Pressure 119.00 mm[Hg] [facility] Jan 08 14:57:00 EDT 2023 Diastolic Blood Pressure 69.00 mm[Hg] [facility] Jan 08 14:57:00 EDT 2023 Body weight 153.80 [lb_av] [facility] Jan 08 14:08 :25 EDT 2023 Systolic Blood Pressure 121.00 mm[Hg] [facility] Jan 08 10:20:33 EDT 2023 Diastolic Blood Pressure 65.00 mm[Hg] [facility] Jan 08 10:20:33 EDT 2023 Systolic Blood Pressure 121.00 mm[Hg] [facility] Jan 08 10:20:33 EDT 2023 Diastolic Blood Pressure 65.00 mm[Hg] [facility] Jan 08 10:20:33 EDT 2023 Heart Rate 94.00 /min [facility] Jan 08 10:20 :33 EDT 2023 Body temperature 98.00 [degF] [facility] Jan 08 10:2 0:33 EDT 2023 Respiratory rate 18.00 /min [facility] Jan 08 10:2 0:33 EDT 2023 Systolic Blood Pressure 134.00 mm[Hg] [facility] Jan 08 01:02:55 EDT 2023 Diastolic Blood Pressure 82.00 mm[Hg] [facility] Jan 08 01:02:55 EDT 2023 Heart Rate 74.00 /min [facility] Jan 08 01:02 :55 EDT 2023 Body temperature 98.50 [degF] [facility] Jan 08 01:0 2:55 EDT 2023 Respiratory rate 20.00 /min [facility] Jan 08 01:0 2:55 EDT 2023 Systolic [...] EDT 2023 Systolic Blood Pressure 142.00 mm[Hg] [facility] Jan 02 23:58:26 EDT 2023 Diastolic Blood Pressure 81.00 mm[Hg] [facility] Jan 02 23:58:26 EDT 2023 Systolic Blood Pressure 142.00 mm[Hg] [facility] Jan 02 15:29:00 EDT 2023 Diastolic Blood Pressure 81.00 mm[Hg] [facility] Jan 02 15:29:00 EDT 2023 Pulse Oximetry 98.00 % [facility] Jan 02 15:29 :00 EDT 2023 Heart Rate 79.00 /min [facility] Jan 02 15:29 :00 EDT 2023 Body weight 152.00 [lb_av] [facility] Jan 02 15:29 :00 EDT 2023 Body temperature 98.30 [degF] [facility] Jan 02 15:2 9:00 EDT 2023 Respiratory rate 20.00 /min [facility] Jan 02 15:2 9:00 EDT 2023 Reason for Referral
--- OUTSIDE RECORDS SUMMARY | 2024-11-12 08:20 | XMS_ITS | Clinical Summary ---
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 100 Tablet 3 5 Active metFORMIN (GLUCOPHAGE XR) 500 mg Extended Release 24 hour tabletIndications: Type 2 diabetes mellitus without complication, without long-term current use of insulin ([facility]) Take 1 Tablet (500 mg) by mouth daily. 100 Tablet 3 5 Active omeprazole (PriLOSEC) 20 mg Capsule, Delayed Release(E.C.)Indic ations:Gastroesoph ageal reflux disease without esophagitis Take 1 Capsule (20 mg) by mouth daily. 100 Capsule 3 5 Active montelukast (SINGULAIR) 10 mg tabletIndications: Seasonal allergic rhinitis, unspecified trigger Take 1 Tablet (10 mg) by mouth daily at bedtime. 100 Tablet 3 5 Active metoprolol tartrate (LOPRESSOR) 50 mg tabletIndications: Primary hypertension Take 1 Tablet (50 mg) by mouth 3 times daily. 270 Tablet 3 5 Active losartan (COZAAR) 50 mg tabletIndications: Primary hypertension Take 1 Tablet (50 mg) by mouth daily. 100 Tablet 3 5 Active hydroCHLOROthiazid e 12.5 mg tabletIndications: Primary hypertension Take 1 Tablet (12.5 mg) by mouth daily. 100 Tablet 3 5 Active atorvastatin (LIPITOR) 40 mg tabletIndications: Hyperlipidemia, unspecified hyperlipidemia type Take 1 Tablet (40 mg) by mouth daily at bedtime. 100 Tablet 3 5 Active allopurinoL (ZYLOPRIM) 100 mg tabletIndications: Hyperuricemia Take 1 Tablet (100 mg) by mouth daily. 100 Tablet 3 5 Active montelukast (SINGULAIR) 10 mg tablet Take 10 mg by mouth daily at bedtime. 10/28/19 25 Discontin ued(Reord er) metoprolol tartrate (LOPRESSOR) 50 mg tablet Take 50 mg by mouth 3 times daily. 10/28/19 25 Discontin ued(Reord er) atorvastatin (LIPITOR) 40 mg tablet Take 40 mg by mouth daily at bedtime. 10/28/19 25 Discontin ued(Reord er) metFORMIN (GLUCOPHAGE XR) 500 mg Extended Release 24 hour tablet Take 500 mg by mouth daily. 10/28/19 25 Discontin ued(Reord er) losartan (COZAAR) 50 mg tablet Take 50 mg by mouth daily. 10/28/19 25 Discontin ued(Reord er) hydroCHLOROthiazid e 12.5 mg tablet Take 12.5 mg by mouth daily. 10/28/19 25 Discontin ued(Reord er) rOPINIRole (REQUIP) 1 mg tablet TAKE 1 TABLET BY MOUTH EVERY DAY AT BEDTIME 10/28/19 25 Discontin ued(Reord er) allopurinoL (ZYLOPRIM) 100 mg tablet Take 100 mg by mouth daily. 10/28/19 25 Discontin ued(Reord er) omeprazole (PriLOSEC) 20 mg Capsule, Delayed Release(E.C.) Take 1 Capsule by mouth daily. 5 10/28/19 25 Discontin ued(Reord er) Active Problems No known active problems Encounters Date Type Department Care Team Description 10/27/2024 1:00 PM CDT Office Visit [facility] ([facility] Primary Care [facility] [address] [facility] [address] [place] [address] Daquan Lisa PA-C Encounter for routine adult health examination without abnormal findings (Primary Dx); Type 2 diabetes mellitus without complication, without long-term current use of insulin ([facility]); Primary hypertension; Hyperlipidemia, unspecified hyperlipidemia type; Gastroesophageal reflux disease without esophagitis; Hyperuricemia; Hypercalcemia; RLS (restless legs syndrome); Seasonal allergic rhinitis, unspecified trigger; Impacted cerumen of right ear 10/26/2024 External Device Data [facility] ABSTRACTION Provider, Abstract 10/25/2024 External Device Data [facility] ABSTRACTION Provider, Abstract 09/29/2024 External Device Data [facility] ABSTRACTION Provider, Abstract 09/28/2024 External Device Data [facility] ABSTRACTION Provider, Abstract 09/27/2024 External Device Data [facility] ABSTRACTION Provider, Abstract 08/16/2024 External Device Data [facility] ABSTRACTION Provider, Abstract 08/16/2024 External Device Data [facility] ABSTRACTION Provider, Abstract 08/16/2024 External Device Data [facility] ABSTRACTION Provider, Abstract from Last 3 Months Family History Medical History Relation Name Comments No Known Problems Father No Known Problems Mother Relation Name Status Comments Father Mother Social History Tobacco Use Types Packs/Day Years Used Date Smoking Tobacco: Never Smokeless Tobacco: Never Tobacco Cessation:Counseling Given: Not Answered Alcohol Use Standard Drinks/Week Comments Not Currently 0 (1 standard drink = 0.6 oz pur e alcohol) Comments No Sex and Gender Information Value Date Recorded Sex Assigned at Not on file Legal Sex Female 2:52 PM CDT Gender Identity Not on file Sexual Orientation Not on file Last Filed Vital Signs Vital Sign Reading Time Taken Comments Blood Pressure 138/82 10/27/2024 11:55 AM CDT Pulse 69 10/27/2024 11:55 AM CDT Temperature 37.4 C (99.4 F) 10/27/2024 11:55 AM CDT Respiratory Rate - - Oxygen Saturation 97% 10/27/2024 11:55 AM CDT Inhaled Oxygen Concentration - - Weight 75.8 kg (167 lb) 10/27/2024 11:55 AM CDT Height 160 cm (5' 3) 10/27/2024 11:55 AM CDT Body Mass Index 29.58 10/27/2024 11:55 AM CDT Plan of Treatment Health Maintenance Due Date Last Done Comments DIABETES ANNUAL FOOT EXAM 1962 DIABETES ANNUAL RETINAL EXAM 1962 DIABETES HBA1C Q 6 MONTHS 1962 DIABETES MICROALBUMIN ANNUAL SCREEN 1962 LDL CHOLESTEROL ANNUAL 1962 DTAP/TDAP/TD VACCINES (1 - Tdap) 08/09/1963 PNEUMOCOCCAL VACCINE 50+ YEARS (1 of 2 - PCV) 08/08/18 64 ZOSTER VACCINE (1 of 2) 1994 OSTEOPOROSIS SCREENING 2009 RSV VACCINE (60+ or ) (1 - 1-dose 75+ series) 08/09/2019 INFLUENZA VACCINE (#1) 2024 Procedures Procedure Name Priority Date/Time Associated Diagnosis Comments MT REMOVAL IMPACTED CERUMEN INSTRUMENTATION UNILAT Routine 10/27/2024 1:00 PM CDT Impacted cerumen of right ear from Last 3 Months Results * MT REMOVAL IMPACTED CERUMEN INSTRUMENTATION UNILAT (10/27/2024 1:00 PM CDT) Narrative [facility] - 10/27/2024 1:00 PM CDT Daquan Lisa PA-C 10/27/2024 4:31 PM REMOVE IMPACTED EAR WAX Date/Time: 10/27/2024 1:00 PM Performed by: Daquan Lisa PA-C Authorized by: Daquan Lisa PA-C Indications: Impairs Visualization of EAC, TM, or middle ear and Obstructive, copius cerumen, unable to be removed using other methods Anesthesia: Local Anesthetic: none Location details: right ear Patient tolerance: patient tolerated the procedure well with no immediate complications Comments: Impaction was unable to be removed, pt will start OTC cerumenolytics Procedure type: Currette AND Irrigation Sedation: Patient sedated: no Difficulty of procedure: Difficult Daquan Lisa PA-C PROCEDURE/MINOR SURGI ANTON ORDERABLES Final Result [facility] CLIA# [id number] [address] [place] [address] from Last 3 Months Insurance MEDICARE PART A AND B [facility] SUPP
[2024-11-12 08:34] VITALS: BP 138/77; PULSE 76; RESP 16; TEMP 36.6; O2SAT 100
--- NOTE | 2024-11-12 08:36 | PC.NURSE ---
right ear irrigated with ear elephant and warm water, large wax piece came out of right ear
--- NOTE | 2024-11-12 08:36 | ED.GENADULT ---
HPI - General Adult General Chief complaint: Ear Stated complaint: water in right ear Time Seen by Provider: 11/12/24 08:33 History of Present Illness HPI narrative: Patient 79-year-old female who presents emergency department with chief complaint of right ear fullness. Patient states she feels as though she has wax in her ear reports he was seen by her primary care provider who tried to irrigate her ear out recommended that she use Debrox ear drops the patient states she still feels as though her ear is impacted Related Data Home Medications ?Medication ?Instructions ?Recorded ?Confirmed ?Last Taken ?Type metformin 500 mg tablet,extended 500 mg PO DAILY 12/22/23 09/08/24 01/18/24 History release 24 hr allopurinol 100 mg tablet 100 mg PO DAILY 12/24/23 01/19/24 01/18/24 History cyclobenzaprine 10 mg tablet 10 mg PO TID PRN Muscle Pain 12/24/23 01/19/24 Unknown History montelukast 10 mg tablet 10 mg PO HS 12/24/23 09/08/24 01/18/24 History omeprazole 20 mg capsule,delayed 20 mg PO DAILY 12/24/23 09/08/24 01/18/24 History release alendronate 70 mg tablet mg PO 09/08/24 Unknown History hydrochlorothiazide 12.5 mg tablet mg 09/08/24 Unknown History losartan 50 mg tablet mg 09/08/24 Unknown History Allergies Allergy/AdvReac Type Severity Reaction Status Date / Time prednisone AdvReac Intermediate increased Verified 11/12/24 08:18 heart rate codeine AdvReac Mild Vomiting Verified 11/12/24 08:18 Review of Systems Review of Systems: A 10 system review of systems was completed on the patient and is negative except for what is stated in the HPI. Nursing and ancillary documentation was reviewed. [facility] Past Medical History Medical History Strain of left calf muscle Endometriosis Anemia Renal disease Bronchitis Asthma Hyperlipidemia Hypertension Diabetes mellitus Surgical History Surgical History History of total hysterectomy with bilateral salpingo-oophorectomy (BSO) Family History Family History Mother Hypertension CHF (congestive heart failure) Father Patient's father is in good health Brain aneurysm Social History Social History Social History: Patient lives alone but is currently at [facility] for therapy. Smoking status: Never smoker Tobacco type: cigarettes Second hand tobacco smoke exposure: No Alcohol intake: never Substance use: never Substance use type: does not use Do You Feel Safe in your Home?: Yes Lack of Transportation: No Lack of Food: Never True Current Housing: I Have Housing Concerned About Future Housing: No Difficulty Paying Gas/Electric Bills: No Difficulty Paying for Meds: No Currently Unemployed: No Education: Bachelor's Degree Difficulty w/ Childcare or Family Care: No Living arrangements: alone Occupation/Education: occupation Additional occupation/education comments: works for the [employer] Gender identity (if verbalized by the patient): Female Sexual Orientation (if Verbalized by the Patient): Straight or Heterosexual Spiritual care concerns: No Agree to blood products: Yes Exam Narrative: GENERAL: Well-appearing, well-nourished, and in no acute distress. HEAD: Normocephalic, atraumatic. EYES: PERRLA and EOMI. ENT: Nares clear, no rhinorrhea or epistaxis. Mucous membranes moist. NECK: Supple. CHEST: Clear to auscultation. No respiratory distress. HEART: Regular rate and rhythm. No murmur heard. Normal peripheral pulses. ABDOMEN: Soft, nontender, nondistended, normal active bowel sounds. EXTREMITIES: Normal range of motion. No edema. SKIN: Warm, dry, no rash. NEURO: No focal deficits. Alert and oriented x3. PSYCH: Normal mood and affect. Course Vital Signs Vital signs: Vital Signs Temperature 36.6 C 11/12/24 08:34 Pulse Rate 76 11/12/24 08:34 Respiratory Rate 16 11/12/24 08:34 Blood Pressure 138/77 11/12/24 08:34 Pulse Oximetry 100 11/12/24 08:34 Oxygen Delivery Room Air 11/12/24 08:34 Temperature 36.6 C 11/12/24 08:34 Pulse Rate 76 11/12/24 08:34 Respiratory Rate 16 11/12/24 08:34 Blood Pressure 138/77 11/12/24 08:34 Pulse Oximetry 100 11/12/24 08:34 Oxygen Delivery Room Air 11/12/24 08:34 Medical Decision Making [facility] Narrative Medical decision making narrative: Differential diagnosis includes cerumen impaction, otitis media The right ear was irrigated by nursing staff and at the time of my personal exam the canal was clear with a large plug of wax in the irrigation basin Vital Signs Vital Signs: Vital Signs Temperature 36.6 C 11/12/24 08:34 Pulse Rate 76 11/12/24 08:34 Respiratory Rate 16 11/12/24 08:34 Blood Pressure 138/77 11/12/24 08:34 Pulse Oximetry 100 11/12/24 08:34 Oxygen Delivery Room Air 11/12/24 08:34 Temperature 36.6 C 11/12/24 08:34 Pulse Rate 76 11/12/24 08:34 Respiratory Rate 16 11/12/24 08:34 Blood Pressure 138/77 11/12/24 08:34 Pulse Oximetry 100 11/12/24 08:34 Oxygen Delivery Room Air 11/12/24 08:34 Discharge Plan Discharge Clinical Impression: Cerumen impaction Qualifiers: Laterality: right Qualified Code(s): H61.21 - Impacted cerumen, right ear Patient Disposition: Home Condition: Stable Instructions: Antibiotic Form, Ear Foreign Body (ED) Additional Instructions: Please follow-up with your primary care provider as needed Patient Language: Thai Prescriptions: No Action losartan 50 mg tablet alendronate 70 mg tablet PO hydrochlorothiazide 12.5 mg tablet albuterol sulfate 90 mcg/actuation HFA aerosol inhaler 2 puff INHALATION QID PRN (Reason: shortness of breath or wheezing) Qty: 8 0RF metformin 500 mg tablet extended release 24 hr 500 mg PO DAILY albuterol sulfate [Ventolin HFA] 90 mcg/actuation HFA aerosol inhaler 2 puff inhalation QID PRN (Reason: shortness of breath or wheezing) Qty: 8.5 0RF atorvastatin 40 mg tablet 40 mg PO HS Qty: 90 3RF ropinirole 1 mg tablet 1 mg PO QHS Qty: 90 3RF metoprolol tartrate 50 mg tablet 50 mg PO TID Qty: 90 0RF allopurinol 100 mg tablet 100 mg PO DAILY omeprazole 20 mg capsule,delayed release(DR/EC) 20 mg PO DAILY montelukast 10 mg tablet 10 mg PO HS cyclobenzaprine 10 mg Tablet 10 mg PO TID PRN (Reason: Muscle Pain) Follow-up/Referrals: PHYSICIAN,L[employer] INDUSTRIAL SUPERVISOR [Primary Care Provider] - Time of Disposition: 08:39
--- OUTSIDE RECORDS SUMMARY | 2024-11-12 08:43 | XMS_ITS ---
Author Name Auto Generated, Auto Generated Organization [facility] Address [address] [place] [address] Phone [phone] Care Team Providers Care Pricing/Signage Team Member Name Role Phone Lian Stewart Unavailable [place], Krystal Noe Unavailable [phone] Harshil Bowman Unavailable [phone] Functional Status No Results Mental Status No Results Allergies and Intolerances Name Onset Date Reaction Severity codeine (Allergy) ThuJan 02 15:27:00 EDT 2023 prednisone (Allergy) ThuJan 02 15:25:00 EDT Encounters Program Name Primary Diagnosis Admission Date/Time Dis charge Date/Time Documentation Spec Care Facility [facility] ThuJan [...] chest x-ray. ThuJan 05 09:00:00 EDT 2023 [facility] Jan 19 08:59:00 EDT 2023 [facility] 5 [...] Indication: hyperlipedemia ThuJan 02 16:30:00 EDT 2023 [facility] Jan 31 01:00:00 EDT 2023 metoprolol tartrate 50 mg tablet 1 TAB TABLET Oral 3 Times Daily Indication: a fib ThuJan 02 16:30:00 EDT 2023 [facility] 01:00:00 EDT 2023 rOPINIRole 1 mg tablet 1 TAB TABLET Oral 1 Time Daily Indication: rls ThuJan 02 16:30:00 EDT 2023 [facility] Jan 31 01:00:00 EDT 2023 FeroSuL 325 mg (65 mg iron) tablet 1 TAB TABLET Oral 1 Time Daily Indication: anemia ThuJan 02 16:30:00 EDT 2023Jan 03 16:33:00 EDT 2023 metFORMIN ER 500 mg tablet,extended release 24 hr 1 TAB TABLET, EXTENDED RELEASE 24 HR Oral 1 Time Daily Indication: dm ThuJan 02 16:30:00 EDT 2023 [facility] Jan 31 01:00:00 EDT 2023 cyclobenzaprine 10 mg tablet 1 TAB TABLET Oral PRN 3 Times Daily Indication: MUSCLE PAIN ThuJan 02 16:30:00 EDT 2023 [facility] Jan 31 01:00:00 EDT 2023 allopurinoL 100 mg tablet 100MG TABLET O ral 1 Time Daily Indication: gout ThuJan 02 16:30:00 EDT 2023 [facility] 01:00:00 EDT 2023 omeprazole 20 mg capsule,delayed release 1 CAP CAPSULE,DELAYED RELEASE (ENTERIC COATED) Oral 1 Time Daily Indication: gerd ThuJan 02 16:30:00 EDT 2023 [facility] Jan 31 01:00:00 EDT 2023 montelukast 10 mg tablet 1 TAB TABLET Or al Hour Of Sleep Indication: allergies ThuJan 02 16:30:00 EDT 2023 [facility] Jan 31 01:00:00 EDT 2023 Problems Active [...] 2023 * End Date: * Text: * halfway (current) use of oral hypoglycemic drugs* Code: [...] 2023 * End Date: * Text: * KWESISocial Alexandrea Rosas's wishes will be followed (Advanced Directive/Code Status).* Code: * Start Date: ThuJan 04 00:00:00 EDT 2023 * End Date: * Text: KWESISocial Alexandrea Rosas's wishes will be followed (Advanced Directive/Code Status). * KWESISocial Alexandrea Rosas will be involved in goal development to the best of his or her ability.* Code: * Start Date: ThuJan 04 00:00:00 EDT 2023 * End Date: * Text: KWESISocial Alexandrea Rosas will be involved in goal development to the best of his or her ability. * KWESISocial Alexandrea Rosas has family/friends who are supportive.* Code: * Start Date: ThuJan 04 00:00:00 EDT 2023 * End Date: * Text: KWESISocial Alexandrea Rosas has family/friends who are supportive. * KWESISocial Alexandrea Jeos mobility level is different than prior level due to current medicalcondition.* Code: * Start Date: ThuJan 04 00:00:00 EDT 2023 * End Date: * Text: KWESISocial Alexandrea Joes mobility level is different than prior level due to current medical condition. * KWESISocial Alexandrea Rosas will be involved in discharge planning.* Code: * Start Date: ThuJan 04 00:00:00 EDT 2023 * End Date: * Text: [facility]- Alison will be involved in discharge planning. Vital Signs Vital Sign Measurement Date Systolic Blood Pressure 147.00 mm[Hg] [facility] 23 10:09:28 EDT 2023 Diastolic Blood Pressure 79.00 mm[Hg] [facility] 23 10:09:28 EDT 2023 Heart Rate 76.00 /min [facility] 23 10:09 :28 EDT 2023 Body temperature 98.60 [degF] [facility] 23 10:0 9:28 EDT 2023 Respiratory rate 18.00 /min [facility] 23 10:0 9:28 EDT 2023 Systolic Blood Pressure 147.00 mm[Hg] [facility] Sep 23 09:41:03 EDT 2023 Diastolic Blood Pressure 79.00 mm[Hg] [facility] 23 09:41:03 EDT 2023 Systolic Blood Pressure 145.00 mm[Hg] [place] Sep 22 23:48:37 EDT 2023 Diastolic Blood Pressure 80.00 mm[Hg] [place] Sep 22 23:48:37 EDT 2023 Heart Rate 69.00 /min [place] Sep 22 23:48 :37 EDT 2023 Body temperature 98.60 [degF] [place] Sep 22 23:4 8:37 EDT 2023 Respiratory rate 20.00 /min [place] Sep 22 23:4 8:37 EDT 2023 Systolic Blood Pressure 145.00 mm[Hg] [place] Sep 22 22:12:28 EDT 2023 Diastolic Blood Pressure 80.00 mm[Hg] Sun Sep 22 22:12:28 EDT 2023 Systolic Blood [...] :37 EDT 2023 Body temperature 97.70 [degF] [facility] Sep 20 08:5 6:37 EDT 2023 Respiratory rate 18.00 /min Fri Sep 20 08:5 6:37 EDT 2023 Systolic Blood Pressure 149.00 mm[Hg] [facility] Sep 19 23:26:22 EDT 2023 Diastolic Blood Pressure 73.00 mm[Hg] [facility] Sep 19 23:26:22 EDT 2023 Heart Rate 72.00 /min [facility] Sep 19 23:26 :22 EDT 2023 Body temperature 98.50 [degF] [facility] Sep 19 23:2 6:22 EDT 2023 Respiratory rate 18.00 /min [facility] Sep 19 23:2 6:22 EDT 2023 Systolic Blood Pressure 155.00 mm[Hg] [facility] Sep 19 22:27:17 EDT 2023 Diastolic Blood Pressure 81.00 mm[Hg] [facility] Sep 19 22:27:17 EDT 2023 Body weight 150.20 [lb_av] [facility] Sep 19 17:43 :40 EDT 2023 Systolic Blood Pressure 151.00 mm[Hg] [facility] Sep 19 15:46:34 EDT 2023 Diastolic Blood Pressure 75.00 mm[Hg] [facility] Sep 19 15:46:34 EDT 2023 Systolic [...] 17:49:13 EDT 2023 Body weight 152.60 [lb_av] [facility] Sep 16 09:14 :06 EDT 2023 Systolic Blood Pressure 140.00 mm[Hg] Mon Sep 16 09:13:40 EDT 2023 Diastolic Blood Pressure 72.00 mm[Hg] [facility] Sep 16 09:13:40 EDT 2023 Systolic Blood Pressure 140.00 mm[Hg] [facility] Sep 16 09:13:40 EDT 2023 Diastolic Blood Pressure 72.00 mm[Hg] [facility] Sep 16 09:13:40 EDT 2023 Heart Rate 61.00 /min [facility] Sep 16 09:13 :40 EDT 2023 Body temperature 98.20 [degF] [facility] Sep 16 09:1 3:40 EDT 4 Respiratory rate 18.00 /min [facility] Sep 16 09:1 3:40 EDT 4 Systolic [...] EDT 2023 Systolic Blood Pressure 141.00 mm[Hg] [facility] Sep 12 14:25:50 EDT 2023 Diastolic Blood Pressure 77.00 mm[Hg] [facility] Sep 12 14:25:50 EDT 2023 Body weight 153.00 [lb_av] [facility] Sep 12 09:37 :15 EDT 2023 Systolic Blood Pressure 132.00 mm[Hg] [facility] Sep 12 09:18:20 EDT 2023 Diastolic Blood Pressure 72.00 mm[Hg] [facility] Sep 12 09:18:20 EDT 2023 Systolic Blood Pressure 132.00 mm[Hg] [facility] Sep 12 09:18:20 EDT 2023 Diastolic Blood Pressure 72.00 mm[Hg] [facility] Sep 12 09:18:20 EDT 2023 Heart Rate 73.00 /min [facility] Sep 12 09:18 :20 EDT 2023 Body temperature 98.20 [degF] [facility] Sep 12 09:1 8:20 EDT 2023 Respiratory rate 18.00 /min [facility] Sep 12 09:1 8:20 EDT 2023 Systolic Blood Pressure 130.00 mm[Hg] [facility] Sep 11 22:51:33 EDT 2023 Diastolic Blood Pressure 68.00 mm[Hg] [facility] Sep 11 22:51:33 EDT 2023 Systolic Blood Pressure 120.00 mm[Hg] [facility] Sep 11 19:54:45 EDT 2023 Diastolic Blood Pressure 66.00 mm[Hg] [facility] Sep 11 19:54:45 EDT 2023 Heart Rate 78.00 /min [facility] Sep 11 19:54 :45 EDT 2023 Body temperature 98.70 [degF] [facility] Sep 11 19:5 4:45 EDT 2023 Respiratory rate 18.00 /min [facility] Sep 11 19:5 4:45 EDT 2023 Systolic Blood Pressure 142.00 mm[Hg] [facility] Sep 11 18:36:00 EDT 2023 Diastolic Blood Pressure 51.00 mm[Hg] [facility] Sep 11 18:36:00 EDT 2023 Pulse Oximetry 92.00 % [facility] 11 18:36 :00 EDT 2023 Heart Rate 75.00 /min [facility] Sep 11 18:36 :00 EDT 2023 Body temperature 98.20 [degF] [facility] Sep 11 18:3 6:00 EDT 2023 Respiratory rate 18.00 /min [facility] Sep 11 18:3 6:00 EDT 2023 Body Height 63.00 [in_i] [facility] Sep 11 18:36 :00 EDT 2023 Systolic Blood Pressure 145.00 mm[Hg] [facility] Sep 09 23:47:07 EDT 2023 Diastolic Blood Pressure 73.00 mm[Hg] [facility] 23:47:07 EDT 2023 Heart Rate 68.00 /min [facility] 23:47 :07 EDT 2023 Body temperature 98.50 [degF] [facility] 09 23:4 7:07 EDT 2023 Respiratory rate 18.00 /min [facility] 23:4 7:07 EDT 2023 Systolic Blood Pressure 151.00 mm[Hg] [facility] Sep 09 14:37:27 EDT 2023 Diastolic Blood Pressure 79.00 mm[Hg] [facility] 09 14:37:27 EDT 2023 Systolic Blood Pressure 139.00 mm[Hg] [facility] 09 08:53:12 EDT 2023 Diastolic Blood Pressure 80.00 mm[Hg] [facility] 09 08:53:12 EDT 2023 Systolic Blood Pressure 139.00 mm[Hg] [facility] 09 08:53:12 EDT 2023 Diastolic Blood Pressure 80.00 mm[Hg] [facility] 09 08:53:12 EDT 2023 Heart Rate 72.00 /min [facility] 09 08:53 :12 EDT 2023 Body temperature 98.00 [degF] [facility] 09 08:5 3:12 EDT 2023 Respiratory rate 18.00 /min [facility] 09 08:5 3:12 EDT 2023 Systolic Blood Pressure 124.00 mm[Hg] [place] Sep 08 23:27:06 EDT 2023 Diastolic Blood Pressure 62.00 mm[Hg] [place] Sep 08 23:27:06 EDT 2023 Heart Rate [...] 22:30:20 EDT 2023 Body weight 155.40 [lb_av] [place] Sep 08 18:58 :12 EDT 2023 Systolic [...] 16:17:44 EDT 2023 Body weight 156.60 [lb_av] [facility] Sep 05 13:43 :53 EDT 2023 Systolic Blood Pressure 135.00 mm[Hg] [place] Sep 05 09:22:20 EDT 2023 Diastolic Blood Pressure 91.00 mm[Hg] [facility] Sep 05 09:22:20 EDT 2023 Systolic Blood Pressure 135.00 mm[Hg] [facility] Sep 05 09:22:20 EDT 2023 Diastolic Blood Pressure 91.00 mm[Hg] [facility] Sep 05 09:22:20 EDT 2023 Heart Rate 72.00 /min [facility] Sep 05 09:22 :20 EDT 2023 Body temperature 98.60 [degF] [facility] Sep 05 09:2 2:20 EDT 2023 Respiratory rate 18.00 /min [facility] Sep 05 09:2 2:20 EDT 2023 [...] EDT 2023 Systolic Blood Pressure 128.00 mm[Hg] [facility] Jan 08 22:57:43 EDT 2023 Diastolic Blood Pressure 69.00 mm[Hg] Sat Jan 08 22:57:43 EDT 2023 Heart Rate 70.00 /min [facility] Jan 08 22:57 :43 EDT 2023 Body temperature 98.20 [degF] [facility] Jan 08 22:5 7:43 EDT 2023 Respiratory rate 18.00 /min ThuJan 08 22:5 7:43 EDT 2023 Systolic Blood Pressure 128.00 mm[Hg] Sat Jan 08 22:20:58 EDT 2023 Diastolic Blood Pressure 69.00 mm[Hg] Sat Jan 08 22:20:58 EDT 2023 Systolic Blood Pressure 119.00 mm[Hg] [facility] Jan 08 14:57:00 EDT 2023 Diastolic Blood Pressure 69.00 mm[Hg] [facility] Jan 08 14:57:00 EDT 2023 Body weight 153.80 [lb_av] [facility] Jan 08 14:08 :25 EDT 2023 Systolic Blood Pressure 121.00 mm[Hg] [facility] Jan 08 10:20:33 EDT 2023 Diastolic Blood Pressure 65.00 mm[Hg] [facility] Jan 08 10:20:33 EDT 2023 Systolic Blood Pressure 121.00 mm[Hg] [facility] Jan 08 10:20:33 EDT 2023 Diastolic Blood Pressure 65.00 mm[Hg] [facility] Jan 08 10:20:33 EDT 2023 Heart Rate 94.00 /min [facility] Jan 08 10:20 :33 EDT 2023 Body temperature 98.00 [degF] [facility] Jan 08 10:2 0:33 EDT 2023 Respiratory rate 18.00 /min [facility] Jan 08 10:2 0:33 EDT 2023 Systolic Blood Pressure 134.00 mm[Hg] [facility] Jan 08 01:02:55 EDT 2023 Diastolic Blood Pressure 82.00 mm[Hg] [facility] Jan 08 01:02:55 EDT 2023 Heart Rate 74.00 /min [facility] Jan 08 01:02 :55 EDT 2023 Body temperature 98.50 [degF] [facility] Jan 08 01:0 2:55 EDT 2023 Respiratory rate 20.00 /min [facility] Jan 08 01:0 2:55 EDT 2023 [...] EDT 2023 Systolic Blood Pressure 142.00 mm[Hg] [place] Jan 02 23:58:26 EDT 2023 Diastolic Blood Pressure 81.00 mm[Hg] [place] Jan 02 23:58:26 EDT 2023 Systolic Blood Pressure 142.00 mm[Hg] [place] Jan 02 15:29:00 EDT 2023 Diastolic Blood Pressure 81.00 mm[Hg] [place] Jan 02 15:29:00 EDT 2023 Pulse Oximetry 98.00 % [place] Jan 02 15:29 :00 EDT 2023 Heart Rate 79.00 /min [place] Jan 02 15:29 :00 EDT 2023 Body weight 152.00 [lb_av] [place] Jan 02 15:29 :00 EDT 2023 Body temperature 98.30 [degF] [place] Jan 02 15:2 9:00 EDT 2023 Respiratory rate 20.00 /min [place] Jan 02 15:2 9:00 EDT 2023 Reason for Referral
--- OUTSIDE RECORDS SUMMARY | 2024-11-12 08:43 | XMS_ITS | Clinical Summary ---
Author Organization [employer] [address] Address [address] [place] [address] Care Team Providers Care Stage Set Designer Name Role Phone Unavailable Primary Care Provider [...] complication, without long-term current use of insulin ([facility]) Take 1 Tablet (500 mg) by mouth [...] Description 10/27/2024 1:00 PM CDT Office Visit [facility] Primary Care [facility] [address] [address] [place] [address] Daquan Lisa PA-C Encounter for routine adult health examination without abnormal findings (Primary Dx); Type 2 diabetes mellitus without complication, without long-term current use of insulin ([facility]); Primary hypertension; Hyperlipidemia, unspecified hyperlipidemia type; Gastroesophageal [...] Procedure Name Priority Date/Time Associated Diagnosis Comments [place] REMOVAL IMPACTED CERUMEN INSTRUMENTATION UNILAT Routine 10/27/2024 1:00 PM CDT Impacted cerumen of right ear from Last 3 Months Results * [place] REMOVAL IMPACTED CERUMEN INSTRUMENTATION UNILAT (10/27/2024 1:00 PM CDT) Narrative [facility] - 10/27/2024 1:00 PM CDT Daquan Lisa [...] PA-C PROCEDURE/MINOR SURGI ANTON ORDERABLES Final Result [facility] CLIA# [id number] [address] [place] [address] from Last 3 Months Insurance MEDICARE PART A AND B [facility] SUPP
--- OUTSIDE RECORDS SUMMARY | 2024-11-12 08:43 | XMS_ITS ---
Author Name Auto Generated, Auto Generated Organization [facility] ices Address [address] [place] [address] Phone [phone] Care Team Providers Care Sales Management Intern Name Role Phone Lian Stewart Unavailable [place], Krystal Noe Unavailable [phone] Harshil Bowman Unavailable [phone] Functional Status No Results Mental Status No Results Allergies and Intolerances Name Onset Date Reaction Severity codeine (Allergy) ThuJan 02 15:27:00 EDT 2023 prednisone (Allergy) ThuJan 02 15:25:00 EDT Encounters Program Name Primary Diagnosis Admission Date/Time Dis charge Date/Time [facility] Care Facility [facility] ThuJan 02 08:00:00 EDT [...] chest x-ray. ThuJan 05 09:00:00 EDT 2023 [facility] Jan 19 08:59:00 EDT 2023 [facility] [...] Indication: hyperlipedemia ThuJan 02 16:30:00 EDT 2023 [facility] Jan 31 01:00:00 EDT 2023 metoprolol tartrate 50 mg tablet 1 TAB TABLET Oral 3 Times Daily Indication: a fib ThuJan 02 16:30:00 EDT [address] [facility] 01:00:00 EDT 2023 rOPINIRole 1 mg tablet 1 TAB TABLET Oral 1 Time Daily Indication: rls ThuJan 02 16:30:00 EDT 2023 [facility] Jan 31 01:00:00 EDT 2023 FeroSuL 325 mg (65 mg iron) tablet 1 TAB TABLET Oral 1 Time Daily Indication: anemia ThuJan 02 16:30:00 EDT 2023Jan 03 16:33:00 EDT 2023 metFORMIN ER 500 mg tablet,extended release 24 hr 1 TAB TABLET, EXTENDED RELEASE 24 HR Oral 1 Time Daily Indication: dm ThuJan 02 16:30:00 EDT 2023 [facility] Jan 31 01:00:00 EDT 2023 cyclobenzaprine 10 mg tablet 1 TAB TABLET Oral PRN 3 Times Daily Indication: MUSCLE PAIN ThuJan 02 16:30:00 EDT 2023 [facility] Jan 31 01:00:00 EDT 2023 allopurinoL 100 mg tablet 100MG TABLET O ral 1 Time Daily Indication: gout ThuJan 02 16:30:00 EDT [address] [facility] 01:00:00 EDT 2023 omeprazole 20 mg capsule,delayed release 1 CAP CAPSULE,DELAYED RELEASE (ENTERIC COATED) Oral 1 Time Daily Indication: gerd ThuJan 02 16:30:00 EDT 2023 [facility] Jan 31 01:00:00 EDT 2023 montelukast 10 mg tablet 1 TAB TABLET Or al Hour Of Sleep Indication: allergies ThuJan 02 16:30:00 EDT 2023 [facility] Jan 31 01:00:00 EDT 2023 Problems [...] 2023 * End Date: * Text: * [facility] (current) use of oral hypoglycemic drugs* Code: [...] family/friends who are supportive. * KWESISocial Alexandrea Joes mobility level is different [...] Date Systolic Blood Pressure 147.00 mm[Hg] [facility] 23 10:09:28 EDT 2023 Diastolic Blood Pressure 79.00 mm[Hg] [facility] 23 10:09:28 EDT 2023 Heart Rate 76.00 /min [facility] 23 10:09 :28 EDT 2023 Body temperature 98.60 [degF] [facility] 23 10:0 9:28 EDT 2023 Respiratory rate 18.00 /min [facility] 23 10:0 9:28 EDT 2023 Systolic Blood Pressure 147.00 mm[Hg] [facility] Sep 23 09:41:03 EDT 2023 Diastolic Blood Pressure 79.00 mm[Hg] [facility] 23 09:41:03 EDT 2023 Systolic Blood Pressure 145.00 mm[Hg] [place] Sep 22 23:48:37 EDT 2023 Diastolic Blood Pressure 80.00 mm[Hg] [facility] Sep 22 23:48:37 EDT 2023 Heart Rate 69.00 /min [facility] Sep 22 23:48 :37 EDT 2023 Body temperature 98.60 [degF] [facility] Sep 22 23:4 8:37 EDT 2023 Respiratory rate 20.00 /min [facility] Sep 22 23:4 8:37 EDT 2023 Systolic [...] :37 EDT 2023 Body temperature 97.70 [degF] [facility] Sep 20 08:5 6:37 EDT 2023 [...] 17:49:13 EDT 2023 Body weight 152.60 [lb_av] [facility] Sep 16 09:14 :06 EDT 2023 Systolic Blood Pressure 140.00 mm[Hg] Mon Sep 16 09:13:40 EDT 2023 Diastolic Blood Pressure 72.00 mm[Hg] [facility] Sep 16 09:13:40 EDT 2023 Systolic Blood Pressure 140.00 mm[Hg] [facility] Sep 16 09:13:40 EDT 2023 Diastolic Blood Pressure 72.00 mm[Hg] [facility] Sep 16 09:13:40 EDT 2023 Heart Rate 61.00 /min [facility] Sep 16 09:13 :40 EDT 2023 Body temperature 98.20 [degF] [facility] Sep 16 09:1 3:40 EDT 4 Respiratory rate 18.00 /min [facility] Sep 16 09:1 3:40 EDT 4 [...] EDT 2023 Systolic Blood Pressure 130.00 mm[Hg] [facility] Sep 11 22:51:33 EDT 2023 Diastolic Blood Pressure 68.00 mm[Hg] [facility] Sep 11 22:51:33 EDT 2023 Systolic Blood Pressure 120.00 mm[Hg] [facility] Sep 11 19:54:45 EDT 2023 Diastolic Blood Pressure 66.00 mm[Hg] [facility] Sep 11 19:54:45 EDT 2023 Heart Rate 78.00 /min [facility] Sep 11 19:54 :45 EDT 2023 Body temperature 98.70 [degF] [facility] Sep 11 19:5 4:45 EDT 2023 Respiratory rate 18.00 /min [facility] Sep 11 19:5 4:45 EDT 2023 Systolic Blood Pressure 142.00 mm[Hg] [facility] Sep 11 18:36:00 EDT 2023 Diastolic Blood Pressure 51.00 mm[Hg] [facility] Sep 11 18:36:00 EDT 2023 Pulse Oximetry 92.00 % [facility] 11 18:36 :00 EDT 2023 Heart Rate 75.00 /min [facility] Sep 11 18:36 :00 EDT 2023 Body temperature 98.20 [degF] [facility] Sep 11 18:3 6:00 EDT 2023 Respiratory rate 18.00 /min [facility] Sep 11 18:3 6:00 EDT 2023 Body Height 63.00 [in_i] [facility] Sep 11 18:36 :00 EDT 2023 Systolic Blood Pressure 145.00 mm[Hg] [facility] Sep 09 23:47:07 EDT 2023 Diastolic Blood Pressure 73.00 mm[Hg] [facility] 23:47:07 EDT 2023 Heart Rate 68.00 /min [facility] 23:47 :07 EDT 2023 Body temperature 98.50 [degF] [facility] 09 23:4 7:07 EDT 2023 Respiratory rate 18.00 /min [facility] 23:4 7:07 EDT 2023 Systolic Blood Pressure 151.00 mm[Hg] [facility] Sep 09 14:37:27 EDT 2023 Diastolic Blood Pressure 79.00 mm[Hg] [facility] 09 14:37:27 EDT 2023 Systolic Blood Pressure 139.00 mm[Hg] [facility] 09 08:53:12 EDT 2023 Diastolic Blood Pressure 80.00 mm[Hg] [facility] 09 08:53:12 EDT 2023 Systolic Blood Pressure 139.00 mm[Hg] [facility] 09 08:53:12 EDT 2023 Diastolic Blood Pressure 80.00 mm[Hg] [facility] 09 08:53:12 EDT 2023 Heart Rate 72.00 /min [facility] 09 08:53 :12 EDT 2023 Body temperature 98.00 [degF] [facility] 09 08:5 3:12 EDT 2023 Respiratory rate 18.00 /min [facility] 09 08:5 3:12 EDT 2023 Systolic Blood Pressure 124.00 mm[Hg] [facility] Sep 08 23:27:06 EDT 2023 Diastolic Blood Pressure 62.00 mm[Hg] [facility] Sep 08 23:27:06 EDT 2023 Heart Rate [...] 22:30:20 EDT 2023 Body weight 155.40 [lb_av] [facility] Sep 08 18:58 :12 EDT 2023 Systolic [...] EDT 2023 Systolic Blood Pressure 128.00 mm[Hg] [facility] Jan 08 22:57:43 EDT 2023 Diastolic Blood Pressure 69.00 mm[Hg] Sat Jan 08 22:57:43 EDT 2023 Heart Rate 70.00 /min [facility] Jan 08 22:57 :43 EDT 2023 Body temperature 98.20 [degF] [facility] Jan 08 22:5 7:43 EDT 2023 Respiratory rate 18.00 /min ThuJan 08 22:5 7:43 EDT 2023 Systolic Blood Pressure 128.00 mm[Hg] Sat Jan 08 22:20:58 EDT 2023 Diastolic Blood Pressure 69.00 mm[Hg] Sat Jan 08 22:20:58 EDT 2023 Systolic Blood Pressure 119.00 mm[Hg] [facility] Jan 08 14:57:00 EDT 2023 Diastolic Blood Pressure 69.00 mm[Hg] [facility] Jan 08 14:57:00 EDT 2023 Body weight 153.80 [lb_av] [facility] Jan 08 14:08 :25 EDT 2023 Systolic Blood Pressure 121.00 mm[Hg] [facility] Jan 08 10:20:33 EDT 2023 Diastolic Blood Pressure 65.00 mm[Hg] [facility] Jan 08 10:20:33 EDT 2023 Systolic Blood Pressure 121.00 mm[Hg] [facility] Jan 08 10:20:33 EDT 2023 Diastolic Blood Pressure 65.00 mm[Hg] [facility] Jan 08 10:20:33 EDT 2023 Heart Rate 94.00 /min [facility] Jan 08 10:20 :33 EDT 2023 Body temperature 98.00 [degF] [facility] Jan 08 10:2 0:33 EDT 2023 Respiratory rate 18.00 /min [facility] Jan 08 10:2 0:33 EDT 2023 Systolic Blood Pressure 134.00 mm[Hg] [facility] Jan 08 01:02:55 EDT 2023 Diastolic Blood Pressure 82.00 mm[Hg] [facility] Jan 08 01:02:55 EDT 2023 Heart Rate 74.00 /min [facility] Jan 08 01:02 :55 EDT 2023 Body temperature 98.50 [degF] [facility] Jan 08 01:0 2:55 EDT 2023 Respiratory rate 20.00 /min [facility] Jan 08 01:0 2:55 EDT 2023 Systolic [...] EDT 2023 Systolic Blood Pressure 142.00 mm[Hg] [facility] Jan 02 23:58:26 EDT 2023 Diastolic Blood Pressure 81.00 mm[Hg] [facility] Jan 02 23:58:26 EDT 2023 Systolic Blood Pressure 142.00 mm[Hg] [facility] Jan 02 15:29:00 EDT 2023 Diastolic Blood Pressure 81.00 mm[Hg] [facility] Jan 02 15:29:00 EDT 2023 Pulse Oximetry 98.00 % [facility] Jan 02 15:29 :00 EDT 2023 Heart Rate 79.00 /min [facility] Jan 02 15:29 :00 EDT 2023 Body weight 152.00 [lb_av] [facility] Jan 02 15:29 :00 EDT 2023 Body temperature 98.30 [degF] [facility] Jan 02 15:2 9:00 EDT 2023 Respiratory rate 20.00 /min [facility] Jan 02 15:2 9:00 EDT 2023 Reason for Referral
[2024-11-12 08:59] VITALS: BP 132/74; PULSE 74; RESP 16; TEMP 36.6; O2SAT 100
== END 2024-11-12 09:00 | disposition home or self-care (01) ==
LOC: ANHED 08:41
PROVIDERS: Emergency Provider Emergency Medicine
DX: H61.21 Impacted cerumen, right ear (principal); I10 Essential (primary) hypertension; E11.9 Type 2 diabetes mellitus without complications; E78.5 Hyperlipidemia, unspecified; J45.909 Unspecified asthma, uncomplicated; N28.9 Disorder of kidney and ureter, unspecified; Z86.2 Personal history of diseases of the blood and blood-forming organs and certain disorders involving the immune mechanism; Z90.710 Acquired absence of both cervix and uterus; Z90.79 Acquired absence of other genital organ(s); Z90.722 Acquired absence of ovaries, bilateral; Z79.84 Long term (current) use of oral hypoglycemic drugs; Z79.899 Other long term (current) drug therapy
CPT/HCPCS: 69209; 99282

== ENCOUNTER 2024-12-10 09:06 | Emergency (ER) | payer MEDICARE, SELFPAY ==
[2024-12-10 09:14] VITALS: BP 136/74; PULSE 68; RESP 16; TEMP 37; O2SAT 98
--- NOTE | 2024-12-10 09:43 | ED.EXTPRO ---
HPI - Extremity Problem General Chief complaint: Extremity Problem,Nontraumatic Stated complaint: Toe Blister Time Seen by Provider: 12/10/24 09:30 Source: patient and RN notes reviewed Mode of arrival: ambulatory Limitations: no limitations History of Present Illness HPI Narrative: Patient presents today complaining of a blister to the left 2nd toe at the medial nail fold times 10 days. States she did have some redness down her toe but this has since resolved. No OTC treatment prior to arrival. Last year she had a trimalleolar fracture with repair and developed some blisters on her feet which ended up in infection, and she is quite worried. She called her library assistant office but they can get her in for over 2 weeks. History of gout, diabetes. Related Data Home Medications ?Medication ?Instructions ?Recorded ?Confirmed ?Last Taken ?Type metformin 500 mg tablet,extended 500 mg PO DAILY 12/22/23 09/08/24 01/18/24 History release 24 hr allopurinol 100 mg tablet 100 mg PO DAILY 12/24/23 01/19/24 01/18/24 History cyclobenzaprine 10 mg tablet 10 mg PO TID PRN Muscle Pain 12/24/23 01/19/24 Unknown History montelukast 10 mg tablet 10 mg PO HS 12/24/23 09/08/24 01/18/24 History omeprazole 20 mg capsule,delayed 20 mg PO DAILY 12/24/23 09/08/24 01/18/24 History release alendronate 70 mg tablet mg PO 09/08/24 Unknown History hydrochlorothiazide 12.5 mg tablet mg 09/08/24 Unknown History losartan 50 mg tablet mg 09/08/24 Unknown History Allergies Allergy/AdvReac Type Severity Reaction Status Date / Time prednisone AdvReac Intermediate increased Verified 11/12/24 08:18 heart rate codeine AdvReac Mild Vomiting Verified 11/12/24 08:18 PMFSH Past Medical History Medical History Strain of left calf muscle Endometriosis Anemia Renal disease Bronchitis Asthma Hyperlipidemia Hypertension Diabetes mellitus Surgical History Surgical History History of total hysterectomy with bilateral salpingo-oophorectomy (BSO) Family History Family History Mother Hypertension CHF (congestive heart failure) Father Patient's father is in good health Brain aneurysm Social History Social History Social History: Patient lives alone but is currently at [facility] for [facility]. Smoking status: Never smoker Tobacco type: cigarettes Second hand tobacco smoke exposure: No Alcohol intake: never Substance use: never Substance use type: does not use Do You Feel Safe in your Home?: Yes Lack of Transportation: No Lack of Food: Never True Current Housing: I Have Housing Concerned About Future Housing: No Difficulty Paying Gas/Electric Bills: No Difficulty Paying for Meds: No Currently Unemployed: No Education: Bachelor's Degree Difficulty w/ Childcare or Family Care: No Living arrangements: alone Occupation/Education: occupation Additional occupation/education comments: works for the [employer] Gender identity (if verbalized by the patient): Female Sexual Orientation (if Verbalized by the Patient): Straight or Heterosexual Spiritual care concerns: No Agree to blood products: Yes Comments At time of signature, I have reviewed and agree with nursing past medical, surgical, social and family history unless otherwise noted. Please see nursing chart for further information. There is no relevant family history pertinent to the presenting complaint Exam Narrative: GENERAL: Well-appearing, well-nourished, and in no acute distress. HEAD: Normocephalic, atraumatic. EYES: EOMI. No redness or drainage. Conjunctivae normal. ENT: Mucous membranes pink and moist. NECK: Normal AROM. CHEST: No respiratory distress. EXTREMITIES: Left foot: Medial nail fold of the left 2nd toe has an area of erythema and localized edema with tenderness. No fluctuance or blister noted. The toenail appears to be ingrown. No paronychia noted. Distal sensation intact. Capillary refill normal. Full range of motion of the toe. No drainage. SKIN: Warm, dry, no rash. Capillary refill normal. Normal skin turgor. NEURO: No focal deficits. Alert and oriented x3. Gait steady. PSYCH: Normal affect. No signs of depression or anxiety. Course Course Level of Care: Express Care Visit Vital Signs Vital signs: Vital Signs Temperature 98.6 F 12/10/24 09:14 Pulse Rate 68 12/10/24 09:14 Respiratory Rate 16 12/10/24 09:14 Blood Pressure 136/74 12/10/24 09:14 Pulse Oximetry 98 12/10/24 09:14 Temperature 98.6 F 12/10/24 09:14 Pulse Rate 68 12/10/24 09:14 Respiratory Rate 16 12/10/24 09:14 Blood Pressure 136/74 12/10/24 09:14 Pulse Oximetry 98 12/10/24 09:14 Reviewed MDM - Extremity (Nontraumatic) MDM Narrative Medical decision making narrative: 79-year-old female presents with complaints of a possible blister to the medial portion of her left 2nd toenail fold. Upon exam, there is redness and localized swelling with tenderness to this area with an ingrown toenail. No blister or paronychia noted. Patient will be started on some Keflex for infection with recommendations to follow-up with Podiatry and to soak the foot daily in some warm water to soften the skin and nail. Patient agrees with plan. Vital signs stable. Anticipatory guidance given. Differential Diagnosis Differential diagnosis: Likely cellulitis and other (Paronychia, abscess, ingrown toenail) Critical Care Time Critical Care Time Critical Care Time: No Discharge Plan Discharge Clinical Impression: Ingrowing toenail with infection Patient Disposition: Home Condition: Stable Instructions: Antibiotic Form, Ingrown Nail (ED) Additional Instructions: You have some redness and inflammation resulting from an ingrown toenail. Please take the Keflex as prescribed until gone. Soak your foot in warm water for 15-20 minutes daily to help soften up the skin and toenail. Follow-up with your library assistant as soon as possible for further evaluation and treatment. Your blood pressure was elevated above 120/80 today at Urgent Care. This puts you above the threshold for follow up. Please schedule a followup visit with your personal physician as soon as possible, for further evaluation and treatment. Even blood pressure exceeding 120/80 may indicate pre-hypertension. Patient Language: Welsh Prescriptions: New cephalexin 500 mg capsule 500 mg PO Q6H 7 Days Qty: 28 0RF No Action losartan 50 mg tablet alendronate 70 mg tablet PO hydrochlorothiazide 12.5 mg tablet albuterol sulfate 90 mcg/actuation HFA aerosol inhaler 2 puff INHALATION QID PRN (Reason: shortness of breath or wheezing) Qty: 8 0RF metformin 500 mg tablet extended release 24 hr 500 mg PO DAILY albuterol sulfate [Ventolin HFA] 90 mcg/actuation HFA aerosol inhaler 2 puff inhalation QID PRN (Reason: shortness of breath or wheezing) Qty: 8.5 0RF atorvastatin 40 mg tablet 40 mg PO HS Qty: 90 3RF ropinirole 1 mg tablet 1 mg PO QHS Qty: 90 3RF metoprolol tartrate 50 mg tablet 50 mg PO TID Qty: 90 0RF allopurinol 100 mg tablet 100 mg PO DAILY omeprazole 20 mg capsule,delayed release(DR/EC) 20 mg PO DAILY montelukast 10 mg tablet 10 mg PO HS cyclobenzaprine 10 mg Tablet 10 mg PO TID PRN (Reason: Muscle Pain) Follow-up/Referrals: PHYSICIAN,PASSPORT APPLICATION EXAMINER [Primary Care Provider] - Time of Disposition: 09:43
== END 2024-12-10 09:44 | disposition home or self-care (01) ==
PROVIDERS: Emergency Provider Nurse Practitioner
DX: L60.0 Ingrowing nail (principal); N80.9 Endometriosis, unspecified; I10 Essential (primary) hypertension; E11.9 Type 2 diabetes mellitus without complications; Z79.84 Long term (current) use of oral hypoglycemic drugs; E78.5 Hyperlipidemia, unspecified; J45.909 Unspecified asthma, uncomplicated; M10.9 Gout, unspecified; N28.9 Disorder of kidney and ureter, unspecified
CPT/HCPCS: 99213; G0463

== ENCOUNTER 2025-03-05 09:34 | Emergency (ER) | payer MEDICARE, SELFPAY ==
[2025-03-05 09:43] VITALS: BP 145/75; PULSE 66; RESP 16; TEMP 36.2; O2SAT 98
[2025-03-05 09:51] LABS: EDUAAPPEAR Clear; EDUABILI Negative (Negative); EDUABLOOD Negative (Negative); EDUACOLOR1 Yellow; EDUAGLUCOSE Negative (Negative); EDUAKETONE Negative (Negative); EDUALEUKO 1+ (Negative); EDUANITRATE Negative (Negative); EDUAPH 7.0; EDUAPROTEIN 1+ (Negative); EDUASPGRAVITY 1.020; EDUAUROBILI 1.0
--- NOTE | 2025-03-05 09:53 | ED.FEMALEGU ---
HPI - Female Genitourinary General Chief complaint: Urogenital-Female Stated complaint: Uti Symptoms Patient presents to the [facility] with complaints of urinary frequency and feeling of bladder pressure after emptying bladder that began over the last couple days. Denies any history of frequent or hard to treat urinary tract infections. Denies back pain, abdominal pain, blood in urine, fever, chills, body aches, or burning with urination. Related Data Home Medications ?Medication ?Instructions ?Recorded ?Confirmed ?Last Taken ?Type metformin 500 mg tablet,extended 500 mg PO DAILY 12/22/23 09/08/24 01/18/24 History release 24 hr allopurinol 100 mg tablet 100 mg PO DAILY 12/24/23 01/19/24 01/18/24 History cyclobenzaprine 10 mg tablet 10 mg PO TID PRN Muscle Pain 12/24/23 01/19/24 Unknown History montelukast 10 mg tablet 10 mg PO HS 12/24/23 09/08/24 01/18/24 History omeprazole 20 mg capsule,delayed 20 mg PO DAILY 12/24/23 09/08/24 01/18/24 History release alendronate 70 mg tablet mg PO 09/08/24 Unknown History hydrochlorothiazide 12.5 mg tablet mg 09/08/24 Unknown History losartan 50 mg tablet mg 09/08/24 Unknown History ropinirole 2 mg tablet mg 03/05/25 Unknown History Allergies Allergy/AdvReac Type Severity Reaction Status Date / Time prednisone AdvReac Intermediate increased Verified 03/05/25 09:41 heart rate codeine AdvReac Mild Vomiting Verified 03/05/25 09:41 Review of Systems Constitutional: Constitutional: Reports as per HPI, Denies chills and Denies fatigue Eyes: Eyes: Reports no additional eye complaints Cardiovascular: Cardiovascular: Reports no additional cardiovascular complaints Respiratory: Respiratory: Reports no additional respiratory complaints Gastrointestinal: Gastrointestinal: Reports as per HPI, Denies abdominal pain, Denies diarrhea, Denies nausea and Denies vomiting Genitourinary: Genitourinary: Reports as per HPI, Denies hematuria, Reports nocturia, Denies dysuria, Denies flank pain and Denies urinary incontinence Musculoskeletal: Musculoskeletal: Reports as per HPI and Denies back pain Integumentary/Breasts: Skin/Breast: Reports as per HPI and Denies rash Neurologic: Reports as per HPI and Denies weakness Psychiatric: Psychiatric: Reports no additional psychiatric complaints Endocrine: Endocrine: Reports no additional endocrine complaints Hematologic/Lymphatic: Hematologic/Lymphatic: Reports no additional hematologic/lymphatic complaints Allergic/Immunologic: Allergic/Immunologic: Reports no additional allergic/immunologic complaints [facility] Past Medical History Medical History Strain of left calf muscle Endometriosis Anemia Renal disease Bronchitis Asthma Hyperlipidemia Hypertension Diabetes mellitus Surgical History Surgical History History of total hysterectomy with bilateral salpingo-oophorectomy (BSO) Family History Family History Mother Hypertension CHF (congestive heart failure) Father Patient's father is in good health Brain aneurysm Social History Social History Social History: Patient lives alone but is currently at [facility] for therapy. 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 [employer] Gender identity (if verbalized by the patient): Female Sexual Orientation (if Verbalized by the Patient): Straight or Heterosexual Spiritual care concerns: No Agree to blood products: Yes Exam Const: General: healthy appearing and no acute distress Nutritional Appearance: well nourished Orientation/consciousness: patient oriented x3 Limitations: no limitations Resp: Effort & Inspection: normal respiratory effort Auscultation: clear to auscultation bilaterally Cardio: Rate: regular rate Rhythm: regular rhythm GI: Inspection: non-distended GI Palp: Yes Soft to palpation, No Tenderness to palpation present (GI), No Rigid due to palpation and No Rebound tenderness present Auscultation: normal bowel sounds : General: Yes bladder normal to palpation and Yes no CVA tenderness Back/Spine/Pelvis: Back: no CVA tenderness Skin: General skin exam: normal color Rashes: no rashes Wounds: no wounds Neuro: General: patient oriented x3 Speech: normal speech Gait exam (Neuro): Normal gait present Psych: Appearance: grossly normal Mental Status: mental status grossly normal Affect: normal affect Attitude: cooperative Course Course Level of Care: Express Care Visit Vital Signs Vital signs: Vital Signs Temperature 97.2 F L 03/05/25 09:43 Pulse Rate 66 03/05/25 09:43 Respiratory Rate 16 03/05/25 09:43 Blood Pressure 145/75 H 03/05/25 09:43 Pulse Oximetry 98 03/05/25 09:43 Temperature 97.2 F L 03/05/25 09:43 Pulse Rate 66 03/05/25 09:43 Respiratory Rate 16 03/05/25 09:43 Blood Pressure 145/75 H 03/05/25 09:43 Pulse Oximetry 98 03/05/25 09:43 MDM - Female Genitourinary MDM Narrative Medical decision making narrative: UA + for UTI. The patient was evaluated by myself in the express care. History is obtained from patient who is an independent historian and physical exam was performed. Available medical records were reviewed at this time. Exam findings show no acute concerns or changes; patient is non-toxic appearing and is in no distress. Patient is appropriate for outpatient treatment and follow-up. I have evaluated and discussed social determinants of health with the patient that could potentially impact subsequent diagnosis and treatment plans. Differential diagnosis and treatment plan were discussed with the patient. Patient agrees with discussion and after shared medical decision making agrees with plan of care. All questions were answered to the patient's satisfaction. Differential Diagnosis Differential diagnosis: Likely urinary tract infection, bacterial vaginosis, cervicitis, vaginitis and cystitis Medical Records Attestation: I reviewed the patient's medical records. Lab Data Attestation: I reviewed the patient's lab results. Labs: Lab Results 03/05/25 Range/Units 09:49 POC Urine Color Yellow POC Urine Clarity Clear POC Urine pH 7.0 POC Ur Specif [place] 1.020 POC Urine Protein 1+ (Negative) POC Ur Glucose (UA) Negative (Negative) POC Urine Ketones Negative (Negative) POC Urine Blood Negative (Negative) POC Urine Nitrite Negative (Negative) POC Urine Bilirubin Negative (Negative) POC Urine Urobilinogen 1.0 POC U Leukocyte Esteras 1+ (Negative) Discharge Plan Discharge Clinical Impression: Cystitis Patient Disposition: Home Condition: Stable Instructions: Antibiotic Form, Urinary Tract Infection in Women (ED) Additional Instructions: We will send a urine culture off to the lab; if the culture identifies an organism that the prescribed antibiotic will not treat, you will receive a phone call from an urgent care staff member and an appropriate antibiotic will be prescribed. -Your symptoms should begin to improve within a day of starting antibiotics. But you should finish all the antibiotic pills you get. Otherwise your infection might come back. -Also recommend: drink more fluid. It might help flush out germs, and it does no harm -Tylenol/ibuprofen as needed for pain -Follow-up with your primary care provider for urine recheck OR if your symptoms persist, change or worsen significantly before you can contact your personal physician then please, without delay, go to the emergency department for further evaluation. Patient Language: Sinhala Prescriptions: New nitrofurantoin monohyd/m-cryst [Macrobid] 100 mg capsule 100 mg PO Q12H 5 Days Qty: 10 0RF Rx Instructions: must administer with a meal/food No Action losartan 50 mg tablet alendronate 70 mg tablet PO hydrochlorothiazide 12.5 mg tablet ropinirole 2 mg tablet albuterol sulfate 90 mcg/actuation HFA aerosol inhaler 2 puff INHALATION QID PRN (Reason: shortness of breath or wheezing) Qty: 8 0RF metformin 500 mg tablet extended release 24 hr 500 mg PO DAILY albuterol sulfate [Ventolin HFA] 90 mcg/actuation HFA aerosol inhaler 2 puff inhalation QID PRN (Reason: shortness of breath or wheezing) Qty: 8.5 0RF atorvastatin 40 mg tablet 40 mg PO HS Qty: 90 3RF ropinirole 1 mg tablet 1 mg PO QHS Qty: 90 3RF metoprolol tartrate 50 mg tablet 50 mg PO TID Qty: 90 0RF allopurinol 100 mg tablet 100 mg PO DAILY omeprazole 20 mg capsule,delayed release(DR/EC) 20 mg PO DAILY montelukast 10 mg tablet 10 mg PO HS cyclobenzaprine 10 mg Tablet 10 mg PO TID PRN (Reason: Muscle Pain) Follow-up/Referrals: PHYSICIAN,MANAGER HE[facility]Y DUTY [Primary Care Provider, Internal Medicine] Time of Disposition: 09:58
== END 2025-03-05 09:59 | disposition home or self-care (01) ==
PROVIDERS: Emergency Provider Nurse Practitioner Family
DX: N30.90 Cystitis, unspecified without hematuria (principal); E11.9 Type 2 diabetes mellitus without complications; Z79.84 Long term (current) use of oral hypoglycemic drugs; I10 Essential (primary) hypertension; E78.5 Hyperlipidemia, unspecified; J45.909 Unspecified asthma, uncomplicated; N28.9 Disorder of kidney and ureter, unspecified; Z90.710 Acquired absence of both cervix and uterus
CPT/HCPCS: 81003; 87086; 87186; 99213; G0463

== ENCOUNTER 2025-03-29 08:45 | Emergency (ER) | payer MEDICARE, SELFPAY ==
[2025-03-29 08:56] VITALS: BP 125/68; PULSE 74; RESP 16; TEMP 36.8; O2SAT 99
[2025-03-29 09:04] LABS: EDUAAPPEAR Clear; EDUABILI Negative (Negative); EDUABLOOD Trace (Negative); EDUACOLOR1 Yellow; EDUAGLUCOSE Negative (Negative); EDUAKETONE Negative (Negative); EDUALEUKO 1+ (Negative); EDUANITRATE Negative (Negative); EDUAPH 6.5; EDUAPROTEIN Trace (Negative); EDUASPGRAVITY 1.005; EDUAUROBILI 1.0
--- NOTE | 2025-03-29 09:26 | ED.FEMALEGU ---
HPI - Female Genitourinary General Chief complaint: Urogenital-Female Stated complaint: COUGH/NASAL CONGESTION & L FOOT PAIN & UTI SYMPTOM Time Seen by Provider: 03/29/25 09:05 Source: patient and RN notes reviewed Mode of arrival: ambulatory Limitations: no limitations History of Present Illness HPI Narrative: 79-year-old female presents Express Care with multiple medical complaints patient reports having urinary frequency mild irritation intermittently over the last month. Also reports cough and congestion for 5 days reports left distal foot pain for 2 days. Patient has a history chronic foot fracture to her left foot with arthritis changes to her foot. Patient denies any falls or injuries to her foot. Patient primarily complaining of her urinary symptoms. Patient denies any fevers, abdominal pain, body aches, chills, nausea, vomiting, diarrhea, chest pain, difficulty breathing, any other upper respiratory symptoms, or any other symptom. Patient has been taking Tylenol and Motrin to help with her pain over foot with some relief. Related Data Home Medications ?Medication ?Instructions ?Recorded ?Confirmed ?Last Taken ?Type metformin 500 mg tablet,extended 500 mg PO DAILY 12/22/23 03/29/25 01/18/24 History release 24 hr allopurinol 100 mg tablet 100 mg PO DAILY 12/24/23 03/29/25 01/18/24 History cyclobenzaprine 10 mg tablet 10 mg PO TID PRN Muscle Pain 12/24/23 03/29/25 Unknown History montelukast 10 mg tablet 10 mg PO HS 12/24/23 03/29/25 01/18/24 History omeprazole 20 mg capsule,delayed 20 mg PO DAILY 12/24/23 03/29/25 01/18/24 History release alendronate 70 mg tablet mg PO 09/08/24 Unknown History hydrochlorothiazide 12.5 mg tablet mg 09/08/24 Unknown History losartan 50 mg tablet mg 09/08/24 Unknown History ropinirole 2 mg tablet mg 03/05/25 Unknown History Allergies Allergy/AdvReac Type Severity Reaction Status Date / Time prednisone AdvReac Intermediate increased Verified 03/29/25 15:04 heart rate codeine AdvReac Mild Vomiting Verified 03/29/25 15:04 Review of Systems Review of Systems: CONSTITUTIONAL: Denies fever, chills, body aches, or sweats. EYES: Denies visual changes, redness, or discharge. ENT: Denies rhinorrhea, sore throat, or otalgia. Positive for congestion. CARDIOVASCULAR: Denies chest pain, palpitations, or edema. RESPIRATORY: Denies wheezing or dyspnea. Positive for cough. GASTROINTESTINAL: Denies abdominal pain, nausea, vomiting, or diarrhea. GENITOURINARY: Positive for dysuria, increased frequency. Negative for hematuria. SKIN: Denies rash or itching. MUSCULOSKELETAL: Denies back pain, joint pain, or myalgia. Positive for foot pain. NEUROLOGIC: Denies headache, numbness, or weakness. PSYCHIATRIC: Denies anxiety or depression. All other systems reviewed are negative, except as documented in HPI. [facility] Past Medical History Medical History Strain of left calf muscle Endometriosis Anemia Renal disease Bronchitis Asthma Hyperlipidemia Hypertension Diabetes mellitus Surgical History Surgical History History of total hysterectomy with bilateral salpingo-oophorectomy (BSO) Family History Family History Mother Hypertension CHF (congestive heart failure) Father Patient's father is in good health Brain aneurysm Social History Social History Social History: Patient lives alone but is currently at [facility] for therapy. 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 There is no relevant family history pertinent to the patient complaint. Exam Narrative: GENERAL: This is a well-nourished, well-developed adult, in no apparent distress. They are non ill-appearing, nontoxic appearing. HEAD: normocephalic, atraumatic. EYES: Sclera clear/white. Vision is grossly intact. Conjunctiva normal. Extraocular movements intact. EARS: External ears normal, auditory canals clear and without drainage, TMs without erythema or perforation. Hearing grossly intact. NOSE: External nose normal with no obvious nasal discharge, nasal turbinates erythematous, no rhinorrhea. THROAT: Mucous membranes moist, posterior pharynx boggy without erythema no exudate. Uvula is midline. Postnasal drip present. NECK: Neck supple, non-tender without lymphadenopathy, masses or thyromegaly. CARDIOVASCULAR: Regular rate and rhythm without murmurs, gallops, or rubs. RESPIRATORY: Clear to auscultation. Breath sounds equal bilaterally. No wheezes, rales, or rhonchi. GASTROINTESTINAL: Abdomen soft, non-tender, nondistended. Bowel sounds are active. No hepato-splenomegaly, or palpable masses. No guarding or rigidity. SKIN: warm, Dry, intact with no suspicious lesions or rash, good texture and turgor. NEURO: awake, alert, and oriented to person, place and time. There were no obvious focal neurologic abnormalities. EXTREMITIES: Left foot: Tenderness to palpation to the plantar distal forefoot. No obvious deformity, bruising, redness, swelling, injury. Normal range of motion. Sensation intact. Neurovascular status intact. BACK: Nontender without deformity. No CVA tenderness. Course Course Emergency Course: Portions of this record may have been created with voice recognition software Level of Care: Express Care Visit Vital Signs Vital signs: Vital Signs Oxygen Delivery Room Air 03/29/25 08:51 Temperature 98.2 F 03/29/25 08:56 Pulse Rate 74 03/29/25 08:56 Respiratory Rate 16 03/29/25 08:56 Blood Pressure 125/68 03/29/25 08:56 Pulse Oximetry 99 03/29/25 08:56 Oxygen Delivery Room Air 03/29/25 08:51 MDM - Female Genitourinary MDM Narrative Medical decision making narrative: Urine dipstick shows leukocytes. Urine culture pending. Go ahead and treat with cefdinir. Patient's left foot is likely arthritis. Discussed Supportive care for foot pain, upper respiratory symptoms, urinary tract symptoms. Discussed physical exam findings. Advised supportive measures and signs/symptoms to go to the ER. Pt is appropriate for outpt treatment and f/u. Differential Diagnosis Differential diagnosis: Likely urinary tract infection, cystitis and other (Pyelonephritis, foot fracture, foot sprain, arthritis, respiratory infection, sinusitis, viral illness) Lab Data Attestation: I reviewed the patient's lab results. Labs: Lab Results 03/29/25 Range/Units 08:55 POC Urine Color Yellow POC Urine Clarity Clear POC Urine pH 6.5 POC Ur Specif [place] 1.005 POC Urine Protein Trace (Negative) POC Ur Glucose (UA) Negative (Negative) POC Urine Ketones Negative (Negative) POC Urine Blood Trace (Negative) POC Urine Nitrite Negative (Negative) POC Urine Bilirubin Negative (Negative) POC Urine Urobilinogen 1.0 POC U Leukocyte Esteras 1+ (Negative) Discharge Plan Discharge Clinical Impression: Urinary tract infection, Upper respiratory infection, Arthralgia of foot, left Patient Disposition: Home Condition: Stable Instructions: Antibiotic Form, Urinary Tract Infection in Women (ED), Osteoarthritis (ED), Upper Respiratory Infection (ED) Additional Instructions: Take the antibiotic as prescribed The urine will be sent of for a culture to identify what type of bacteria is causing your infection. If the culture shows that the antibiotic will not get rid of your infection, you will be notified and a new antibiotic will be called in for you. Increase water intake you will need to follow up with your PCP 3-5 days. Go to the ER for any worsening symptoms, chest pains, difficulty breathing, abdominal pain, fevers, nausea, vomiting, or any other concerns Patient Language: Frisian Prescriptions: New cefdinir 300 mg capsule 300 mg PO Q12H 5 Days Qty: 10 0RF No Action losartan 50 mg tablet alendronate 70 mg tablet PO hydrochlorothiazide 12.5 mg tablet ropinirole 2 mg tablet nitrofurantoin monohyd/m-cryst [Macrobid] 100 mg capsule 100 mg PO Q12H 5 Days Qty: 10 0RF Rx Instructions: must administer with a meal/food Paxlovid 300 mg (150 mg x 2)-100 mg tablets,dose pack See Rx Instructions .ROUTE .COMPLEX Qty: 30 0RF Rx Instructions: take TWO 150 mg tablets of nirmatrelvir with ONE 100 mg tablet of ritonavir twice daily for 5 days albuterol sulfate 90 mcg/actuation HFA aerosol inhaler 2 puff INHALATION QID PRN (Reason: shortness of breath or wheezing) Qty: 8 0RF metformin 500 mg tablet extended release 24 hr 500 mg PO DAILY albuterol sulfate [Ventolin HFA] 90 mcg/actuation HFA aerosol inhaler 2 puff inhalation QID PRN (Reason: shortness of breath or wheezing) Qty: 8.5 0RF atorvastatin 40 mg tablet 40 mg PO HS Qty: 90 3RF ropinirole 1 mg tablet 1 mg PO QHS Qty: 90 3RF metoprolol tartrate 50 mg tablet 50 mg PO TID Qty: 90 0RF allopurinol 100 mg tablet 100 mg PO DAILY omeprazole 20 mg capsule,delayed release(DR/EC) 20 mg PO DAILY montelukast 10 mg tablet 10 mg PO HS cyclobenzaprine 10 mg Tablet 10 mg PO TID PRN (Reason: Muscle Pain) Follow-up/Referrals: Maria L,Daquan [Other] Time of Disposition: 09:16
== END 2025-03-29 09:25 | disposition home or self-care (01) ==
DX: N39.0 Urinary tract infection, site not specified (principal); J06.9 Acute upper respiratory infection, unspecified; M79.672 Pain in left foot; I10 Essential (primary) hypertension; E11.9 Type 2 diabetes mellitus without complications; Z79.84 Long term (current) use of oral hypoglycemic drugs; E78.5 Hyperlipidemia, unspecified; J45.909 Unspecified asthma, uncomplicated; N80.9 Endometriosis, unspecified
CPT/HCPCS: 81003; 87086; 87186; 99213; G0463

== ENCOUNTER 2025-03-29 14:57 | Emergency (ER) | payer MEDICARE, SELFPAY ==
--- NOTE | 2025-03-29 15:05 | ED.URI ---
HPI - URI/Sore Throat General Chief Complaint: Upper Respiratory Infection Stated Complaint: URI SYMPTOMS Time Seen by Provider: 03/29/25 15:00 History of Present Illness HPI Narrative: Year old female Patient returns to the [facility] today requesting COVID test. Patient was here earlier today for her symptoms, urinary symptoms, and foot pain problems. Patient was sent home on antibiotics for urinary tract infection. Patient initially said she has had cough and congestion for 5 days at her previous visit, and has says that she has been having symptoms for 3 days. Patient denies any fevers, body aches, chills, nausea ,vomiting, diarrhea, chest pain, difficulty breathing, any other symptoms. Patient denies any exposure to COVID. Related Data Home Medications ?Medication ?Instructions ?Recorded ?Confirmed ?Last Taken ?Type metformin 500 mg tablet,extended 500 mg PO DAILY 12/22/23 03/29/25 01/18/24 History release 24 hr allopurinol 100 mg tablet 100 mg PO DAILY 12/24/23 03/29/25 01/18/24 History cyclobenzaprine 10 mg tablet 10 mg PO TID PRN Muscle Pain 12/24/23 03/29/25 Unknown History montelukast 10 mg tablet 10 mg PO HS 12/24/23 03/29/25 01/18/24 History omeprazole 20 mg capsule,delayed 20 mg PO DAILY 12/24/23 03/29/25 01/18/24 History release alendronate 70 mg tablet mg PO 09/08/24 Unknown History hydrochlorothiazide 12.5 mg tablet mg 09/08/24 Unknown History losartan 50 mg tablet mg 09/08/24 Unknown History ropinirole 2 mg tablet mg 03/05/25 Unknown History Allergies Allergy/AdvReac Type Severity Reaction Status Date / Time prednisone AdvReac Intermediate increased Verified 03/29/25 15:04 heart rate codeine AdvReac Mild Vomiting Verified 03/29/25 15:04 Review of Systems Review of Systems: CONSTITUTIONAL: Denies fever, chills, or sweats. EYES: Denies visual changes, redness, or discharge. ENT: Denies rhinorrhea, sore throat, or otalgia. Positive for Congestion. CARDIOVASCULAR: Denies chest pain, palpitations, or edema. RESPIRATORY: Positive for cough. Negative for wheezing or Dyspnea. GASTROINTESTINAL: Denies abdominal pain, nausea, vomiting, or diarrhea. GENITOURINARY: Denies dysuria or hematuria. SKIN: Denies rash or itching. MUSCULOSKELETAL: Denies back pain, joint pain, or myalgia. NEUROLOGIC: Denies headache, numbness, or weakness. PSYCHIATRIC: Denies anxiety or depression. All other systems reviewed are negative, except as documented in HPI. [facility] Past Medical History Medical History Strain of left calf muscle Endometriosis Anemia Renal disease Bronchitis Asthma Hyperlipidemia Hypertension Diabetes mellitus Surgical History Surgical History History of total hysterectomy with bilateral salpingo-oophorectomy (BSO) Family History Family History Mother Hypertension CHF (congestive heart failure) Father Patient's father is in good health Brain aneurysm Social History Social History Social History: Patient lives alone but is currently at [facility] for therapy. 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 They are non ill-appearing, nontoxic appearing. HEAD: normocephalic, atraumatic. EYES: Sclera clear/white. Vision is grossly intact. Conjunctiva normal. Extraocular movements intact. EARS: External ears normal, auditory canals clear and without drainage, TMs without erythema or perforation. Hearing grossly intact. NOSE: External nose normal with no obvious nasal discharge, nasal turbinates erythematous, no rhinorrhea. THROAT: Mucous membranes moist, posterior pharynx boggy without erythema no exudate. Uvula is midline. Postnasal drip present. NECK: Neck supple, non-tender without lymphadenopathy, masses or thyromegaly. CARDIOVASCULAR: Regular rate and rhythm without murmurs, gallops, or rubs. RESPIRATORY: Clear to auscultation. Breath sounds equal bilaterally. No wheezes, rales, or rhonchi. SKIN: warm, Dry, intact with no suspicious lesions or rash, good texture and turgor. NEURO: awake, alert, and oriented to person, place and time. There were no obvious focal neurologic abnormalities. BACK: Nontender without deformity. No CVA tenderness. Course Course Level of Care: Express Care Visit Vital Signs Vital signs: Vital Signs Temperature 97.8 F 03/29/25 15:07 Pulse Rate 80 03/29/25 15:07 Respiratory Rate 16 03/29/25 15:07 Blood Pressure 115/70 03/29/25 15:07 Pulse Oximetry 98 03/29/25 15:07 Temperature 97.8 F 03/29/25 15:07 Pulse Rate 80 03/29/25 15:07 Respiratory Rate 16 03/29/25 15:07 Blood Pressure 115/70 03/29/25 15:07 Pulse Oximetry 98 03/29/25 15:07 Oxygen Delivery Room Air 03/29/25 15:11 MDM - URI/Sore Throat MDM Narrative Medical decision making narrative: Rapid COVID is positive. Flu were negative. Patient currently on cefdinir for UTI. Given patient's age in history of diabetes will go ahead and treat her with Paxlovid. Advised patient is not taking atorvastatin while taking Paxlovid she may resume her atorvastatin when she completes her Paxlovid. Advised patient to may also discuss with her primary care doctor about this if she would like. Discussed supportive care. Discussed physical exam findings. Advised supportive measures and signs/symptoms to go to the ER. Pt is appropriate for outpt treatment and f/u. Differential Diagnosis Differential diagnosis: Likely upper respiratory infection, sinusitis, viral infection and pharyngitis Lab Data Attestation: I reviewed the patient's lab results. Labs: Lab Results 03/29/25 03/29/25 Range/Units 15:18 15:22 POC Influenza A Ag Negative Negative (Negative) POC Influenza B Ag Negative Negative (Negative) POC SARS CoV-2 Ag Positive Positive (Negative) Discharge Plan Discharge Clinical Impression: COVID Patient Disposition: Home Condition: Stable Instructions: COVID-19 (Coronavirus Disease 2019) (ED) Additional Instructions: You tested positive for COVID. Take Paxlovid as directed. You should avoid crowds until you are fever free for 24 hours without the use of fever reducing medications, or the symptoms are improved Rest. Drink plenty of fluids. Tylenol or Motrin as needed for pain or fevers. Follow instructions on the bottle. Recommend Flonase spray and Zyrtec (or Claritin/Janeth) for sinus pressure/congestion. Follow instructions on the bottle. over the counter Cough syrup may cause drowsiness; avoid driving or take it at night time. Stop taking atorvastatin until you have completed your course of Paxlovid then you may resume your atorvastatin. Follow up with your primary care provider 3-5 days. Go to the ER for worsening symptoms, difficulty breathing, chest pain, vomiting, uncontrolled fevers, unable to talk in full sentences, weakness, or any serious concerns Patient Language: Yi Prescriptions: New Paxlovid 300 mg (150 mg x 2)-100 mg tablets,dose pack See Rx Instructions .ROUTE .COMPLEX Qty: 30 0RF Rx Instructions: take TWO 150 mg tablets of nirmatrelvir with ONE 100 mg tablet of ritonavir twice daily for 5 days No Action cefdinir 300 mg capsule 300 mg PO Q12H 5 Days Qty: 10 0RF losartan 50 mg tablet alendronate 70 mg tablet PO hydrochlorothiazide 12.5 mg tablet ropinirole 2 mg tablet nitrofurantoin monohyd/m-cryst [Macrobid] 100 mg capsule 100 mg PO Q12H 5 Days Qty: 10 0RF Rx Instructions: must administer with a meal/food albuterol sulfate 90 mcg/actuation HFA aerosol inhaler 2 puff INHALATION QID PRN (Reason: shortness of breath or wheezing) Qty: 8 0RF metformin 500 mg tablet extended release 24 hr 500 mg PO DAILY albuterol sulfate [Ventolin HFA] 90 mcg/actuation HFA aerosol inhaler 2 puff inhalation QID PRN (Reason: shortness of breath or wheezing) Qty: 8.5 0RF atorvastatin 40 mg tablet 40 mg PO HS Qty: 90 3RF ropinirole 1 mg tablet 1 mg PO QHS Qty: 90 3RF metoprolol tartrate 50 mg tablet 50 mg PO TID Qty: 90 0RF allopurinol 100 mg tablet 100 mg PO DAILY omeprazole 20 mg capsule,delayed release(DR/EC) 20 mg PO DAILY montelukast 10 mg tablet 10 mg PO HS cyclobenzaprine 10 mg Tablet 10 mg PO TID PRN (Reason: Muscle Pain) Follow-up/Referrals: Maria L,Daquan [Other] Stand Alone Forms: Work/School Release IP Time of Disposition: 15:24
[2025-03-29 15:07] VITALS: BP 115/70; PULSE 80; RESP 16; TEMP 36.6; O2SAT 98
[2025-03-29 15:19] LABS: EDCOVIDSCREEN Positive (Negative)
[2025-03-29 15:20] LABS: EDINFLUASCREEN Negative (Negative); EDINFLUBSCREEN Negative (Negative)
[2025-03-29 15:24] LABS: EDCOVIDSCREEN Positive (Negative); EDINFLUASCREEN Negative (Negative); EDINFLUBSCREEN Negative (Negative)
== END 2025-03-29 15:34 | disposition home or self-care (01) ==
DX: N39.0 Urinary tract infection, site not specified (principal); J06.9 Acute upper respiratory infection, unspecified; M79.672 Pain in left foot; Z20.822 Contact with and (suspected) exposure to COVID-19; E11.9 Type 2 diabetes mellitus without complications; Z79.84 Long term (current) use of oral hypoglycemic drugs; I10 Essential (primary) hypertension; E78.5 Hyperlipidemia, unspecified; J45.909 Unspecified asthma, uncomplicated; N80.9 Endometriosis, unspecified
CPT/HCPCS: 81003; 87086; 87186; 87426; 87804; 99213; G0463

== ENCOUNTER 2025-04-02 09:51 | Emergency (ER) | payer MEDICARE, SELFPAY ==
--- NOTE | ~2025-04-02 | XR_ITS ---
Examination: XR foot LT min 3V Clinical History: left foot pain and swelling, no injury Comparison: CTA 03/10/2024 X-rays 12/2023 Technique: 4 views left foot Findings/impression: 1. No acute fracture identified but severe osteopenia limits evaluation. 2. 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 Reviewed, dictated and finalized at location R. AL SERVICE WAITER
[2025-04-02 10:01] VITALS: BP 128/86; PULSE 70; RESP 16; TEMP 36.9; O2SAT 100
--- NOTE | 2025-04-02 11:23 | ED.GENADULT ---
HPI - General Adult General Chief complaint: Extremity Problem,Nontraumatic Stated complaint: Foot Pain/Covid symtoms Time Seen by Provider: 04/02/25 11:12 Source: patient, RN notes reviewed and old records reviewed Mode of arrival: ambulatory Limitations: no limitations History of Present Illness HPI narrative: 79-year-old female patient with history of diabetes, hypertension, high cholesterol, gout, presents today complaining of left 2nd toe pain times 10 days without injury or trauma. Pain is absent at rest, but increases with weight-bearing. States she injured her foot 1 year ago fractures to her metatarsals and does have some swelling to the dorsum of her foot at baseline. Also states she was diagnosed 4 days ago here at [facility] with COVID and needs a work release to return. States her symptoms have improved a bit yesterday. Related Data Home Medications ?Medication ?Instructions ?Recorded ?Confirmed ?Last Taken ?Type metformin 500 mg tablet,extended 500 mg PO DAILY 12/22/23 04/02/25 01/18/24 History release 24 hr allopurinol 100 mg tablet 100 mg PO DAILY 12/24/23 04/02/25 01/18/24 History montelukast 10 mg tablet 10 mg PO HS 12/24/23 04/02/25 01/18/24 History omeprazole 20 mg capsule,delayed 20 mg PO DAILY 12/24/23 04/02/25 01/18/24 History release hydrochlorothiazide 12.5 mg tablet mg 09/08/24 Unknown History losartan 50 mg tablet mg 09/08/24 Unknown History ropinirole 2 mg tablet mg 03/05/25 Unknown History Allergies Allergy/AdvReac Type Severity Reaction Status Date / Time prednisone AdvReac Intermediate increased Verified 04/02/25 10:00 heart rate codeine AdvReac Mild Vomiting Verified 04/02/25 10:00 PMFSH Past Medical History Medical History Strain of left calf muscle Endometriosis Anemia Renal disease Bronchitis Asthma Hyperlipidemia Hypertension Diabetes mellitus Surgical History Surgical History History of total hysterectomy with bilateral salpingo-oophorectomy (BSO) Family History Family History Mother Hypertension CHF (congestive heart failure) Father Patient's father is in good health Brain aneurysm Social History Social History Social History: Patient lives alone but is currently at [facility] for therapy. Smoking status: Never smoker Tobacco type: cigarettes Second hand tobacco smoke exposure: No Alcohol intake: never Substance use: never Substance use type: does not use Do You Feel Safe in your Home?: Yes Lack of Transportation: No Lack of Food: Never True Current Housing: I Have Housing Concerned About Future Housing: No Difficulty Paying Gas/Electric Bills: No Difficulty Paying for Meds: No Currently Unemployed: No Education: Bachelor's Degree Difficulty w/ Childcare or Family Care: No Living arrangements: alone Occupation/Education: occupation Additional occupation/education comments: works for the [employer] Gender identity (if verbalized by the patient): Female Sexual Orientation (if Verbalized by the Patient): Straight or Heterosexual Spiritual care concerns: No Agree to blood products: Yes Comments At time of signature, I have reviewed and agree with nursing past medical, surgical, social and family history unless otherwise noted. Please see nursing chart for further information. There is no relevant family history pertinent to the presenting complaint Exam Narrative: GENERAL: Well-appearing, well-nourished, and in no acute distress. HEAD: Normocephalic, atraumatic. EYES: EOMI. No redness or drainage. Conjunctivae normal. ENT: Mucous membranes pink and moist. Nares clear. NECK: Normal AROM. CHEST: No respiratory distress. Clear to auscultation. HEART: Regular rate and rhythm. No murmur appreciated. Normal peripheral pulses. EXTREMITIES: Left foot: Mild tenderness to the plantar aspect of the left 2nd toe without edema, erythema, ecchymosis, or deformity noted. Patient has some mild swelling to the dorsum of her foot, which she states is baseline. No erythema to the foot. Distal sensation intact. Capillary refill normal. Pedal pulse normal. SKIN: Warm, dry, no rash. Capillary refill normal. Normal skin turgor. NEURO: No focal deficits. Alert and oriented x3. Gait steady. PSYCH: Normal affect. No signs of depression or anxiety. Course Course Level of Care: Express [facility] Visit Vital Signs Vital signs: Vital Signs Temperature 98.4 F 04/02/25 10:01 Pulse Rate 70 04/02/25 10:01 Respiratory Rate 16 04/02/25 10:01 Blood Pressure 128/86 04/02/25 10:01 Pulse Oximetry 100 04/02/25 10:01 Temperature 98.4 F 04/02/25 10:01 Pulse Rate 70 04/02/25 10:01 Respiratory Rate 16 04/02/25 10:01 Blood Pressure 128/86 04/02/25 10:01 Pulse Oximetry 100 04/02/25 10:01 Reviewed Medical Decision Making MDM Narrative Medical decision making narrative: 79-year-old female patient with history of diabetes, hypertension, high cholesterol, gout, presents today complaining of left 2nd toe pain times 10 days without injury or trauma. Pain is absent at rest, but increases with weight-bearing. States she injured her foot 1 year ago fractures to her metatarsals and does have some swelling to the dorsum of her foot at baseline. Also states she was diagnosed 4 days ago here at [facility] with COVID and needs a work release to return. States her symptoms have improved a bit yesterday. Upon exam, Mild tenderness to the plantar aspect of the left 2nd toe without edema, erythema, ecchymosis, or deformity noted. Patient has some mild swelling to the dorsum of her foot, which she states is baseline. No erythema to the foot. Distal sensation intact. Capillary refill normal. Pedal pulse normal. Foot x-ray negative for fracture. Toe pain etiology unclear, possibly osteoarthritis due to previous fractures of the foot. Patient is under the care of a ground helper [employer] which she sees frequently. Recommend follow-up. Patient agrees with plan. Will provide work note to return when she is feeling better from the COVID. Vital signs stable. Anticipatory guidance given. Differential Diagnosis Differential Diagnosis: Toe fracture, sprain, contusion, gout, osteoarthritis Vital Signs Vital Signs: Vital Signs Temperature 98.4 F 04/02/25 10:01 Pulse Rate 70 04/02/25 10:01 Respiratory Rate 16 04/02/25 10:01 Blood Pressure 128/86 04/02/25 10:01 Pulse Oximetry 100 04/02/25 10:01 Temperature 98.4 F 04/02/25 10:01 Pulse Rate 70 04/02/25 10:01 Respiratory Rate 16 04/02/25 10:01 Blood Pressure 128/86 04/02/25 10:01 Pulse Oximetry 100 04/02/25 10:01 Imaging Data Radiologist's impression: Findings/impression: 1. No acute fracture identified but severe osteopenia limits evaluation. 2. 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 Reviewed, dictated and finalized at location R. ENGINEER Critical Care Time Critical Care Time Critical Care Time: No Discharge Plan Discharge Clinical Impression: Arthralgia of toe of left foot, COVID-19 Patient Disposition: Home Condition: Stable Instructions: Arthralgia (ED) Additional Instructions: Your x-ray is negative for fracture. Please take some Tylenol for pain. Follow-up with your ground helper [employer] if pain persists. Continue your Paxlovid until gone. Patient Language: Romanian Prescriptions: No Action cefdinir 300 mg capsule 300 mg PO Q12H 5 Days Qty: 10 0RF losartan 50 mg tablet hydrochlorothiazide 12.5 mg tablet ropinirole 2 mg tablet Paxlovid 300 mg (150 mg x 2)-100 mg tablets,dose pack See Rx Instructions .ROUTE .COMPLEX Qty: 30 0RF Rx Instructions: take TWO 150 mg tablets of nirmatrelvir with ONE 100 mg tablet of ritonavir twice daily for 5 days albuterol sulfate 90 mcg/actuation HFA aerosol inhaler 2 puff INHALATION QID PRN (Reason: shortness of breath or wheezing) Qty: 8 0RF metformin 500 mg tablet extended release 24 hr 500 mg PO DAILY albuterol sulfate [Ventolin HFA] 90 mcg/actuation HFA aerosol inhaler 2 puff inhalation QID PRN (Reason: shortness of breath or wheezing) Qty: 8.5 0RF atorvastatin 40 mg tablet 40 mg PO HS Qty: 90 3RF metoprolol tartrate 50 mg tablet 50 mg PO TID Qty: 90 0RF allopurinol 100 mg tablet 100 mg PO DAILY omeprazole 20 mg capsule,delayed release(DR/EC) 20 mg PO DAILY montelukast 10 mg tablet 10 mg PO HS Follow-up/Referrals: PHYSICIAN,COLLAR FOLDER OPERATOR [Primary Care Provider, Internal Medicine] Stand Alone Forms: Work/School Release IP Time of Disposition: 11:37
== END 2025-04-02 11:40 | disposition home or self-care (01) ==
PROVIDERS: Emergency Provider Nurse Practitioner
DX: M25.572 Pain in left ankle and joints of left foot (principal); U07.1 COVID-19; I10 Essential (primary) hypertension; E11.9 Type 2 diabetes mellitus without complications; Z79.84 Long term (current) use of oral hypoglycemic drugs; E78.5 Hyperlipidemia, unspecified; N28.9 Disorder of kidney and ureter, unspecified; J45.909 Unspecified asthma, uncomplicated; N80.9 Endometriosis, unspecified
CPT/HCPCS: 73630; 99213; G0463